=== PATIENT | male | born 1950 | race African-American/Black ===

== ENCOUNTER → 2020-06-20 09:59 | Outpatient (BNVA) | payer MEDICARE, MEDICAID, SELFPAY | PROVIDERS: PCP Internal Medicine; Visit Provider Urology | DX: N40.1 Benign prostatic hyperplasia with lower urinary tract symptoms (principal); R33.8 Other retention of urine | CPT/HCPCS: 51798; 99213 ==

== ENCOUNTER 2020-12-05 10:07 | Outpatient (REF) | payer MEDICARE, MEDICAID, SELFPAY ==
[2020-12-05 13:45] LABS: Urine Cytology See Pathology rpt
== END 2020-12-05 10:08 | disposition home or self-care (01) ==
LOC: HO.LNP 10:07
PROVIDERS: PCP Internal Medicine; Visit Provider Urology
DX: N40.1 Benign prostatic hyperplasia with lower urinary tract symptoms (principal); R33.8 Other retention of urine; R31.0 Gross hematuria
CPT/HCPCS: 51798; 81002; 88112; 88305; 99212

== ENCOUNTER → 2021-01-16 08:49 | Outpatient (BNVA) | payer MEDICARE, MEDICAID, SELFPAY | PROVIDERS: PCP Internal Medicine; Visit Provider Urology | DX: R33.9 Retention of urine, unspecified (principal); Z79.899 Other long term (current) drug therapy | CPT/HCPCS: 52000; 81002; 99212 ==

== ENCOUNTER → 2021-07-25 11:30 | Outpatient (BNVA) | payer MEDICARE, MEDICAID, SELFPAY | PROVIDERS: PCP Internal Medicine; Visit Provider Urology | DX: N40.1 Benign prostatic hyperplasia with lower urinary tract symptoms (principal); R33.8 Other retention of urine; E08.40 Diabetes mellitus due to underlying condition with diabetic neuropathy, unspecified | CPT/HCPCS: 51798; 99212 ==

== ENCOUNTER → 2022-02-03 08:42 | Outpatient (BNVA) | payer MEDICARE, MEDICAID, SELFPAY | PROVIDERS: PCP Internal Medicine; Visit Provider Urology | DX: N39.0 Urinary tract infection, site not specified (principal); R33.9 Retention of urine, unspecified; E08.40 Diabetes mellitus due to underlying condition with diabetic neuropathy, unspecified | CPT/HCPCS: 99212 ==

== ENCOUNTER 2022-08-11 11:31 | Outpatient (REF) | payer MEDICARE, MEDICAID, SELFPAY | END 2022-08-11 11:32 | disposition home or self-care (01) | LOC: HO.LAB 11:31 | PROVIDERS: PCP Internal Medicine; Visit Provider Urology | DX: N39.0 Urinary tract infection, site not specified (principal); N40.1 Benign prostatic hyperplasia with lower urinary tract symptoms; R33.8 Other retention of urine; E08.40 Diabetes mellitus due to underlying condition with diabetic neuropathy, unspecified; Z79.899 Other long term (current) drug therapy | CPT/HCPCS: 51798; 87086; 99212 ==

== ENCOUNTER 2022-12-16 12:56 | Emergency (ER) | payer MEDICARE, MEDICAID, SELFPAY ==
--- NOTE | ~2022-12-16 | US_ITS ---
EXAMINATION: US VENOUS ULTRASOUND WITH DOPPLER LOWER EXTREMITY, RIGHT CLINICAL INFORMATION: Swelling and rash COMPARISON: None available. TECHNIQUE: Ultrasound of the deep veins is performed from the hip to the calf with compression sonography and color and pulse Doppler assessment. Spectral analysis with color-flow imaging is performed. FINDINGS: There is normal venous compression and respiratory variation and augmented flow. The visualized common femoral vein, superficial femoral vein, profunda femoral vein, popliteal vein, and the trifurcation region shows no evidence of deep venous thrombosis. There is no significant popliteal fossa cyst. US/US venous duplex LE RT IMPRESSION: No DVT demonstrated in the right lower extremity.
[2022-12-16 13:02] VITALS: BP 140/90; PULSE 74; O2SAT 99
[2022-12-16 13:05] VITALS: BP 138/67; PULSE 72; RESP 18; TEMP 36.8; O2SAT 98; BMI 26.6
--- NOTE | 2022-12-16 13:14 | PC.NURSE ---
pt ambulated from [facility] to exam room stretcher with assist x1, pt changed into hospital attire, dry, flaking skin noted with circumferential redness bilateral calfs as well as left arm.
[2022-12-16 13:17] VITALS: BP 138/67; PULSE 72; RESP 18; TEMP 36.8; O2SAT 97
[2022-12-16 13:55] LABS: MANUAL DIFF FLAG NO
[2022-12-16 13:58] LABS: Basophils Absolute Auto 0.1 X10*3/uL (0.0-0.2); Basophils Percent Auto 0.6 % (0-2); Eosinophils Percent Auto 12.2 % (0-4); Hematocrit 40.4 % (42.0-52.0); Hemoglobin 13.6 g/dl (14.0-18.0); Imm Gran Abs Auto 0.02 X10*3/uL (0.00-0.03); Imm Gran Pct Auto 0.3 % (0.0-0.4); Lymphocytes Absolute Auto 1.3 X10*3/uL (1.2-4.9); Lymphocytes Percent Auto 16.4 % (20-40); Mean Corpuscular HGB Conc 33.7 g/dl (31.0-36.0); Mean Corpuscular Hemoglobin 29.4 pg (27.0-33.0); Mean Corpuscular Volume 87.3 fL (80.0-98.0); Mean Platelet Volume 8.9 fL (9.4-12.4); Monocytes Percent Auto 12.4 % (2-11); Neutrophils Absolute Auto 4.5 x10*3/uL (2.0-8.3); Neutrophils Percent Auto 58.1 % (45-73); Platelet Count 226 X10*3/uL (160-400); Red Blood Count 4.63 X10*6/uL (4.60-5.80); Red Cell Distribution Width 13.1 % (11.0-16.0); White Blood Count 7.8 X10*3/uL (4.8-10.8)
[2022-12-16 14:10] LABS: Anion Gap 11 (12-20); Blood Urea Nitrogen 11 mg/dL (9-16); Calcium 8.9 mg/dL (8.4-10.2); Carbon Dioxide 28 mmol/L (22-29); Chloride 107 mmol/L (96-108); Creatinine Clr Calc Pharmacy 78.9; Estimated Glomerular Filt Rate > 60; Glucose Random 92 mg/dL (60-115); Potassium 3.8 mmol/L (3.3-5.1); Sodium 142 mmol/L (135-145)
--- NOTE | 2022-12-16 14:56 | PC.NURSE ---
US DONE AT BEDSIDE- PT AWAITING RESULTS- NO APPARENT DISTRESS NOTED
--- NOTE | 2022-12-16 15:26 | ED.GENADULT ---
HPI - General Adult General Chief complaint: General Medical Stated complaint: Rash on leg since 12/05 per EMS Time Seen by Provider: 12/16/22 12:59 Source: patient, EMS, RN notes reviewed and old records reviewed Mode of arrival: EMS History of Present Illness HPI narrative: 72-year-old male with a past medical history of diabetes, hepatitis-C, HTN, HLD, schizophrenia, speech disturbance, TIA, presenting to the ED from assisted complaining of rash to bilateral lower extremities and left arm x 1 week. Reportedly rash scabbing over, weeping, and painful. Patient reports area intermittently bleeding. Denies injury/trauma or fall. Denies new exposures, SOB Onset (ago): week(s) Related Data Home Medications Medication Instructions Recorded Confirmed amlodipine 10 mg tablet 10 mg PO DAILY 06/20/20 08/11/22 aspirin 81 mg chewable tablet 1 tab PO DAILY 06/20/20 08/11/22 cholecalciferol (vitamin D3) 25 25 mcg PO DAILY 06/20/20 08/11/22 mcg (1,000 unit) tablet flu vacc [id number] 6mos up(PF) 60 ml IM 06/20/20 08/11/22 mcg(15 mcgx4)/0.5 mL IM syringe fluphenazine HCl 5 mg tablet 15 mg PO Q OTHER DAY PRN 06/20/20 08/11/22 ipratropium 20 mcg-albuterol 100 inhalation 06/20/20 08/11/22 mcg/actuation mist for inhalation ivermectin 3 mg tablet 0 mg PO 06/20/20 08/11/22 lisinopril 40 mg tablet 40 mg PO DAILY 06/20/20 08/11/22 metformin 500 mg tablet 0 mg PO 06/20/20 08/11/22 simvastatin 40 mg tablet 40 mg PO BEDTIME 06/20/20 08/11/22 trazodone 50 mg tablet 0 mg PO 06/20/20 08/11/22 blood sugar diagnostic #10 ea 01/16/21 08/11/22 insulin aspart U-100 100 unit/mL unit subcut 01/16/21 08/11/22 (3 mL) subcutaneous pen insulin lispro 100 unit/mL unit subcut 01/16/21 08/11/22 subcutaneous pen lancets 28 gauge #100 ea 01/16/21 08/11/22 pen needle, diabetic 32 gauge x #50 ea 01/16/21 08/11/22 latanoprost 0.005 % eye drops 0 drp ophthalmic (eye) 07/25/21 08/11/22 brinzolamide 1 %-brimonidine 0.2 % 0 drp ophthalmic (eye) 02/03/22 08/11/22 eye drops,suspension (Simbrinza) Previous Rx's Medication Instructions Recorded finasteride 5 mg tablet 5 mg PO DAILY 90 days #90 tabs 07/25/21 terazosin 10 mg capsule 10 mg PO BEDTIME 90 days #90 caps 07/25/21 bethanechol chloride 50 mg tablet 50 mg PO BID 90 days #180 tabs 08/11/22 ciprofloxacin HCl 250 mg tablet 250 mg PO BID UTI 5 days #10 tabs 08/13/22 cetirizine 10 mg capsule (Zyrtec) 10 mg PO DAILY PRN allergy 12/16/22 symptoms #14 caps diphenhydramine HCl 25 mg capsule 25 mg PO TID PRN itching #14 caps 12/16/22 (Benadryl) doxycycline hyclate 100 mg tablet 100 mg PO BID 7 days #14 tabs 12/16/22 hydrocortisone 1 % topical 1 appl topical BID PRN rash #453.6 12/16/22 ointment (Anti-Itch grams (hydrocortisone)) Allergies Allergy/AdvReac Type Severity Reaction Status Date / Time No Known Allergies Allergy Verified 12/16/22 13:05 [No Known Allergies*] Review of Systems Review of Systems: Constitutional: No Fever, No Chills ENT/Mouth: No Ear Pain, No Nasal Congestion, No sore throat, No Rhinorrhea, No Swallowing Difficulty Cardiovascular: No Chest Pain, No SOB, +RLE edema Respiratory: No Cough, No Sputum, No Wheezing Gastrointestinal: No Nausea, No Vomiting, No Diarrhea, No Constipation, No Abdominal pain Genitourinary: No Dysuria, No Urinary Frequency, No Hematuria, No Flank Pain Musculoskeletal: No joint pain, No Myalgias, + Joint Swelling Skin: + Skin Lesions, No rash Neuro: No Weakness, No Numbness, No Paresthesias Yes all other systems are reviewed and are negative Constitutional: Constitutional: Reports as per [facility] Past Medical History Attestation statement: The following information was validated with the patient. Medical History BPH loc w urin obs/LUTS Diabetes mellitus, type II Enlarged prostate Hepatitis C HTN (hypertension) Hyperlipidemia Positive PPD Schizophrenia Speech disturbance Transient ischemic attack (TIA) Vitamin D deficiency Surgical History History of surgery on arm Family History Family History Father No problems noted. Mother No problems noted. Social History Social History Advance Directives: No Advance Directives Information Provided: Yes Physical Exam ED Vital Signs: Vital Signs - 24 hr 12/16/22 13:05 12/16/22 13:17 12/16/22 16:00 Temperature 98.3 F 98.3 F 97.8 F Pulse Rate 72 72 68 Respiratory Rate 18 18 14 Blood Pressure 138/67 138/67 114/61 Pulse Oximetry 98 97 99 Oxygen Delivery Method Room Air Room Air Room Air BMI result Body Mass Index 26.6 Const General: cooperative, healthy appearing and no acute distress Orientation/consciousness: patient oriented x3 Limitations: no limitations HENMT Head: Yes normal to inspection and Yes atraumatic Ears: hearing grossly normal bilaterally General nose exam: Normal external nose present Face and sinus: Yes normal facial exam Eyes General: appearance normal, both eyes and all related structures EOM: EOMs intact bilaterally Neck Neck: Yes normal visual inspection and Yes no meningeal signs Resp Effort & Inspection: normal respiratory effort and no respiratory distress Cardio Rate: regular rate Peripheral pulses: Peripheral pulses 2+ throughout GI Inspection: Yes normal to inspection Palpation (GI): Soft to palpation, nontender, no guarding and not rigid Skin Wounds: no wounds Neuro General: patient oriented x3, tone normal and no meningeal signs Gait exam (Neuro): Normal gait present Extrem Other: Please refer to images above. + RLE swelling with scaly/crusted over rash as depicted above with underlying erythema. Scant weeping. No active drainage. No fluctuance/induration. No mucous membrane or palm/sole involvement Course Course Course Narrative: -1536--no leukocytosis. Labs otherwise reassuring US venous duplex LE RT IMPRESSION: No DVT demonstrated in the right lower extremity. >> will discharge patient home with p.o. doxycycline, topical hydrocortisone and dermatology follow-up Results discussed with patient including worrisome signs and symptoms and strict return precautions, and when to return to the emergency department. They verbalized understanding and feel safe for discharge at this time. Medical Decision Making Medical Decision Making MDM Narrative: 72-year-old male with a past medical history of diabetes, hepatitis-C, HTN, HLD, schizophrenia, speech disturbance, TIA, presenting to the ED from assisted complaining of rash to bilateral lower extremities and left arm x 1 week. On exam vital signs stable, NAD, nontoxic appearing, physical exam as noted above. Please refer to images. Concern for lichen planus vs eczema/psoriasis, with underlying cellulitis vs venous stasis changes with overlying excoriations. Rule out DVT. Low suspicion for PE Plan: Labs, ultrasound, re-evaluate Please refer to course for remaining clinical decision making, interpretation of labs/imaging results, and discussions with consultants and/or family members. Differential Diagnosis Differential Diagnoses: The differential diagnosis associated with the presentation includes As above Admission/Observation Consideration of admission/observation: Escalation of care including admission/observation considered Lab Data [facility] Lab Attestation statement: I reviewed the patient's lab results. 12/16/22 13:51 12/16/22 13:51 Labs: Lab Results 12/16/22 12/16/22 Range/Units 13:51 13:51 WBC 7.8 (4.8-10.8) X10*3/uL RBC 4.63 (4.60-5.80) X10*6/uL Hgb 13.6 L (14.0-18.0) g/dl Hct 40.4 L (42.0-52.0) % MCV 87.3 (80.0-98.0) fL MCH 29.4 (27.0-33.0) pg MCHC 33.7 (31.0-36.0) g/dl RDW 13.1 (11.0-16.0) % Plt Count 226 (160-400) X10*3/uL MPV 8.9 L (9.4-12.4) fL Immature Gran % (Auto) 0.3 (0.0-0.4) % Neut % (Auto) 58.1 (45-73) % Lymph % (Auto) 16.4 L (20-40) % [place] % (Auto) 12.4 H (2-11) % Eos % (Auto) 12.2 H (0-4) % Baso % (Auto) 0.6 (0-2) % Lymph # (Auto) 1.3 (1.2-4.9) X10*3/uL [place] # (Auto) 1.0 (0.1-1.2) X10*3/uL Eos # (Auto) 1.0 H (0.0-0.4) X10*3/uL Baso # (Auto) 0.1 (0.0-0.2) X10*3/uL Abs Immat Gran (auto) 0.02 (0.00-0.03) X10*3/uL Absolute Neuts (auto) 4.5 (2.0-8.3) x10*3/uL Absolute Nucleated RBC 0.000 (0.0-0.012) X10*3/uL Nucleated RBC % (auto) 0.0 (0.0-0.2) /100WBC Sodium 142 (135-145) mmol/L Potassium 3.8 (3.3-5.1) mmol/L Chloride 107 (96-108) mmol/L Carbon Dioxide 28 (22-29) mmol/L Anion Gap 11 L (12-20) BUN 11 (9-16) mg/dL Creatinine 0.86 (0.5-1.4) mg/dL Estim Creat Clear Calc 78.9 Estimated GFR > 60 Random Glucose 92 (60-115) mg/dL Calcium 8.9 (8.4-10.2) mg/dL Radiology Impression Discussion of test interpretation with radiology: I have reviewed the radiologist's reading. External Record Review External record reviewed: Inpatient record, Office record, Outpatient record, Prior outpatient labs, Prior outpatient radiology, Primary care record and Outside ED record Discharge Plan Discharge Clinical Impression: Dermatitis, Venous stasis dermatitis, Cellulitis Patient Disposition: Home, Self-Care Instructions: Cellulitis (DC), Dermatitis (ED) Additional Instructions: Your blood work was reassuring. your ultrasound was negative for a blood clot Your leg looks infected, doxycycline is an antibiotic please take as prescribed Additionally apply topical hydrocortisone which is a steroid cream. Benadryl and Zyrtec will help with itching, Benadryl will make you drowsy, take at night. You need to follow-up with dermatology If symptoms persist or worsen, swelling increases/persist he developed pus drainage or fever return to the ED Prescriptions: New hydrocortisone [Anti-Itch (HC)] 1 % ointment 1 appl topical BID PRN (Reason: rash) Qty: 453.6 0RF diphenhydramine HCl [Benadryl] 25 mg capsule 25 mg PO TID PRN (Reason: itching) Qty: 14 0RF Zyrtec 10 mg capsule 10 mg PO DAILY PRN (Reason: allergy symptoms) Qty: 14 0RF doxycycline hyclate 100 mg tablet 100 mg PO BID 7 Days Qty: 14 0RF No Action ciprofloxacin HCl 250 mg tablet 250 mg PO BID 5 Days Qty: 10 0RF latanoprost 0.005 % drops 0 drp ophthalmic (eye) terazosin 10 mg capsule 10 mg PO BEDTIME 90 Days Qty: 90 1RF finasteride 5 mg tablet 5 mg PO DAILY 90 Days Qty: 90 1RF Combivent Respimat 20-100 mcg/actuation mist inhalation Fluarix Quad [id number] (PF) 60 mcg (15 mcg x 4)/0.5 mL syringe IM cholecalciferol (vitamin D3) 25 mcg (1,000 unit) tablet 25 mcg PO DAILY fluphenazine HCl 5 mg tablet 15 mg PO Q OTHER DAY PRN aspirin 81 mg tablet,chewable 1 tab PO DAILY amlodipine 10 mg tablet 10 mg PO DAILY simvastatin 40 mg tablet 40 mg PO BEDTIME metformin 500 mg tablet 0 mg PO lisinopril 40 mg tablet 40 mg PO DAILY trazodone 50 mg tablet 0 mg PO ivermectin 3 mg tablet 0 mg PO (DME) pen needle, diabetic 32 gauge x 5/32 needle See Rx Instructions subcut DAILY Qty: 50 Rx Instructions: As directed (DME) FreeStyle Lite Strips Strip See Rx Instructions Not Applicable TID Qty: 10 Rx Instructions: As directed insulin lispro 100 unit/mL insulin pen subcut (DME) lancets 28 gauge misc See Rx Instructions topical TID Qty: 100 Rx Instructions: As directed insulin aspart U-100 100 unit/mL (3 mL) insulin pen subcut Simbrinza 1-0.2 % drops,suspension 0 drp ophthalmic (eye) bethanechol chloride 50 mg tablet 50 mg PO BID 90 Days Qty: 180 1RF Referrals: [facility] [Outside] [facility] [Outside] [facility] [Outside] [facility] [Outside] Interventions: ED Discharge Assessment Last Done: 12/16/22 17:20 Discharge Date/Time: 12/16/22 17:21
[2022-12-16 16:00] VITALS: BP 114/61; PULSE 68; RESP 14; TEMP 36.6; O2SAT 99
--- NOTE | 2022-12-16 16:12 | PC.NURSE ---
CALLED [facility] SPOKE WITH NURSE MALDONADO, ADVISED PLAN IS FOR ANTIBIOTICS AND DERMATOLOGY CONSULT- ADVISED ED SEC PT WILL NEED TRANSPORT VIA CHAIR CAR/AMBULANCE
== END 2022-12-16 17:21 | disposition home or self-care (01) ==
PROVIDERS: Physician Assistant; Emergency Provider Emergency Medicine
DX: I87.2 Venous insufficiency (chronic) (peripheral) (principal); L03.115 Cellulitis of right lower limb; R21 Rash and other nonspecific skin eruption; E11.9 Type 2 diabetes mellitus without complications; I10 Essential (primary) hypertension; E78.5 Hyperlipidemia, unspecified; B19.20 Unspecified viral hepatitis C without hepatic coma; F20.9 Schizophrenia, unspecified
CPT/HCPCS: 36415; 80048; 85025; 93971; 99283; 99284

== ENCOUNTER → 2023-02-11 10:34 | Outpatient (BNVA) | payer MEDICARE, MEDICAID, SELFPAY | PROVIDERS: Visit Provider Urology | DX: N40.1 Benign prostatic hyperplasia with lower urinary tract symptoms (principal); R33.8 Other retention of urine; E08.40 Diabetes mellitus due to underlying condition with diabetic neuropathy, unspecified | CPT/HCPCS: 51798; 99212 ==

== ENCOUNTER 2023-09-28 09:57 | Outpatient (AMB) | payer MEDICARE, MEDICAID, SELFPAY ==
--- NOTE | 2023-09-28 10:18 | A.OFFVIS_ITS ---
Intake Intake Visit Reasons: 6m/PVR Intake Note: Patient presents today for a follow up: PVR Blood thinners: Aspirin Allergies to antibiotics: None PVR: 466 Director Of Strategic Initiatives Required: No Accompanied by: Employer Allergies No Known Allergies [No Known Allergies*] Allergy (Verified 02/11/23 10:47) HPI HPI Comments History of Present Illness Details Shine is a pleasant male. Lives in an assisted care facility. He is a patient of Dr Gibson. He is seen for the following urologic conditions - lower urinary tract symptoms - incomplete bladder emptying PVR 400cc Optimized on combination finasteride and terazosin 10 mg for his prostate Continue with bethanechol Recommend use of briefs if incontinent and timed voiding q.4 hr Refilled medication May benefit from InterStim for bladder performance Six-month follow-up PVR Lower urinary tract symptoms Urinary retention History of schizophrenia with long-term medications Cystoscopy with large bladder Has been on combination therapy with alpha-brandon and finasteride for number of years PVR runs high 250-300 range Hematuria Single episode 12/25 Cystoscopy normal PFSH Medical History Speech disturbance Positive PPD Hepatitis C Transient ischemic attack (TIA) BPH loc w urin obs/LUTS Vitamin D deficiency Schizophrenia Diabetes mellitus, type II Hyperlipidemia HTN (hypertension) Enlarged prostate Surgical History History of surgery on arm Family History Father No problems noted. Mother No problems noted. Review of Systems Const Denies chills and Denies fever(s) Card Reports no additional complaints and Denies syncope Resp Denies cough GI Denies abdominal pain and Denies heartburn Reports as per HPI and Denies change in libido Neuro Denies syncope Psych Denies change in libido Endo Denies change in libido Physical Exam Const General: cooperative, healthy appearing, comfortable and no acute distress Orientation/consciousness: patient oriented x3 HEENT Face and sinus: Yes normal facial exam Mouth: moist mucous membranes Neck Neck: Yes normal visual inspection, Yes full ROM and Yes trachea midline Chest Chest palpation & inspection: normal inspection of the chest Resp Effort & Inspection: normal respiratory effort, able to speak in complete sentences and no respiratory distress GI Inspection: Yes normal to inspection Back/Spine/Pelvis Cervical Spine: normal cervical lordosis Thoracic/Lumbar Spine: thoracic and lumbar spine normal to inspection Skin General skin exam: no rashes or lesions noted Neuro General: patient oriented x3, gait normal, tone normal and moves all extremities Extrem General: Yes normal to inspection and Yes capillary refill normal Office Procedures Post Void Residual Post Residual Void Post Void Residual (PVR): 466 [id number] Void Residual by ultrasound Assessment & Plan Assessment & Plan (1) Urinary retention due to benign prostatic hyperplasia: Code(s): N40.1 - Benign prostatic hyperplasia with lower urinary tract symptoms; R33.8 - Other retention of urine (2) Diabetic neuropathy associated with diabetes mellitus due to underlying condition: Code(s): E08.40 - Diabetes mellitus due to underlying condition with diabetic neuropathy, unspecified (3) BPH loc w urin obs/LUTS: Code(s): N40.1 - Benign prostatic hyperplasia with lower urinary tract symptoms Plan Continue medications Six-month follow-up Orders: Orders AMB Post Void Residual by ultrasound 09/28/23 R33.9 - Retention of urine, unspecified Medications: Refilled bethanechol chloride 50 mg PO BID 180 tabs 1RF 90 days R33.9 - Retention of urine, unspecified finasteride 5 mg PO DAILY 90 tabs 1RF 90 days R33.9 - Retention of urine, unsp ecified, N40.1 - Benign prostatic hyperplasia with lower urinary tract symptoms, N13.8 - Other obstructive and reflux uropathy terazosin 10 mg PO BEDTIME 90 caps 1RF 90 days R33.9 - Retention of urine, unspecified, N40.0 - Benign prostatic hyperplasia without lower urinary tract symptoms, N40.1 - Benign prostatic hyperplasia with lower urinary tract symptoms, N13.8 - Other obstructive and reflux uropathy Patient Instructions: Imaging studies, laboratory and physical exam results were discussed and reviewed in detail. No major barriers to patient understanding were identified. An opportunity to ask questions regarding the treatment plan was provided. All questions were answered. The patient expressed understanding and agreement with the above treatment plan. The patient is aware they should contact our office by phone for worsening of their current condition or the appearance of new urologic symptoms. Compliance is encouraged with any medications and followup testing that is ordered. It is a privilege to participate in the urologic care of your patient. If you have any questions or concerns regarding treatment for the above conditions, or other urologic issues, please do not hesitate to contact me. The office telephone contact is [phone]. This note is constructed using voice recognition software. While every effort has been made to ensure accuracy farm field manager errors may have been included. Yours sincerely, Dr Shad Delacruz MD, [facility] - Urology Providers of Expert, Compassionate Care for the Genitourinary System Coding Level of Care Code Est Pt Level 3 (37170) Diagnoses Urinary retention due to benign prostatic hyperplasia N40.1; R33.8 Diabetic neuropathy associated with diabetes mellitus due to underlying condition E08.40 BPH loc w urin obs/LUTS N40.1 CPT Codes Post Residual Void - PVR CPT Code: 97792-Aoru Void Residual by ultrasound ([id number])
== END 2023-09-28 10:54 | disposition home or self-care (01) ==
LOC: HO.HUSH 09:57
PROVIDERS: PCP Nurse Practitioner Adult Health; Visit Provider Urology
DX: N40.1 Benign prostatic hyperplasia with lower urinary tract symptoms (principal); R33.8 Other retention of urine; E08.40 Diabetes mellitus due to underlying condition with diabetic neuropathy, unspecified
CPT/HCPCS: 99213

== ENCOUNTER → 2023-09-28 09:57 | Outpatient (BNVA) | payer MEDICARE, MEDICAID, SELFPAY | PROVIDERS: PCP Nurse Practitioner Adult Health; Visit Provider Urology | DX: N40.1 Benign prostatic hyperplasia with lower urinary tract symptoms (principal); N13.8 Other obstructive and reflux uropathy; R33.8 Other retention of urine; E08.40 Diabetes mellitus due to underlying condition with diabetic neuropathy, unspecified | CPT/HCPCS: 51798; 99212 ==

== ENCOUNTER 2024-03-29 10:39 | Outpatient (AMB) | payer MEDICARE, MEDICAID, SELFPAY ==
--- NOTE | 2024-03-29 10:47 | A.OFFVIS_ITS ---
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 Lives in an assisted care facility. He is a patient of Dr Gibson. He is seen for the following urologic conditions - lower urinary tract symptoms - incomplete bladder emptying UA today positive for blood and leukocytes. Suggestive inflammation. Will send for cytology. PVR 0 cc, last PVR 400 cc Optimized on combination finasteride and terazosin 10 mg for his prostate Continue with bethanechol Recommend use of briefs if incontinent and timed voiding q.4 hr Refilled medication Continue 6 month review for PVR May benefit from InterStim for bladder performance - if high PVRs continue Lower urinary tract symptoms Urinary retention History of schizophrenia with long-term medications Cystoscopy with large bladder Has been on combination therapy with alpha-brandon and finasteride for number of years PVR runs high 250-300 range Hematuria Single episode 12/25 Cystoscopy normal PFSH Medical History Speech disturbance Positive PPD Hepatitis C Transient ischemic attack (TIA) BPH loc w urin obs/LUTS Vitamin D deficiency Schizophrenia Diabetes mellitus, type II Hyperlipidemia HTN (hypertension) Enlarged prostate Surgical History History of surgery on arm Family History Father No problems noted. Mother No problems noted. Review of Systems Const Denies chills and Denies fever(s) Card Reports no additional complaints and Denies syncope Resp Denies cough GI Denies abdominal pain and Denies heartburn Reports as per HPI and Denies change in libido Neuro Denies syncope Psych Denies change in libido Endo Denies change in libido Physical Exam Const General: cooperative, healthy appearing, comfortable and no acute distress Orientation/consciousness: patient oriented x3 HEENT Face and sinus: Yes normal facial exam Mouth: moist mucous membranes Neck Neck: Yes normal visual inspection, Yes full ROM and Yes trachea midline Chest Chest palpation & inspection: normal inspection of the chest Resp Effort & Inspection: normal respiratory effort, able to speak in complete sentences and no respiratory distress GI Inspection: Yes normal to inspection Back/Spine/Pelvis Cervical Spine: normal cervical lordosis Thoracic/Lumbar Spine: thoracic and lumbar spine normal to inspection Skin General skin exam: no rashes or lesions noted Neuro General: patient oriented x3, gait normal, tone normal and moves all extremities Extrem General: Yes normal to inspection and Yes capillary refill normal Results AMB Urinalysis, Automated UA Leukoctes 500 Flavio/uL Last Edit by LINDA Reyes on 03/29/24 11:01 UA Nitrite Negative Last Edit by LINDA Reyes on 03/29/24 11:01 UA Urobilinogen 0.2 mg/dL Last Edit by LINDA Reyes on 03/29/24 11:0 1 UA Protein 100 mg/dL Last Edit by LINDA Reyes on 03/29/24 11:01 UA pH 6.5 Last Edit by LINDA Reyes on 03/29/24 11:01 UA Blood 200 Vicente/uL Last Edit by LINDA Reyes on 03/29/24 11:01 UA Specific [place] 1.015 Last Edit by LINDA Reyes on 03/29/24 11: 01 UA Ketone Negative Last Edit by LINDA Reyes on 03/29/24 11:01 UA Bilirubin 0 mg/dL Last Edit by LINDA Reyes on 03/29/24 11:01 UA Glucose 0 mg/dL Last Edit by LINDA Reyes on 03/29/24 11:01 Results Reviewed Results Reviewed: Laboratory Last Values Urine pH (Auto) 6.5 03/29/24 11:00 Specific [place] (Auto) 1.015 03/29/24 11:00 Urine Protein (Auto) 100 mg/dL 03/29/24 11:00 Glucose (UA)(Auto) 0 mg/dL 03/29/24 11:00 Urine Ketones (Auto) Negative 03/29/24 11:00 Urine Blood (Auto) 200 Vicente/uL 03/29/24 11:00 Urine Nitrite (Auto) Negative 03/29/24 11:00 Urine Bilirubin (Auto) 0 mg/dL 03/29/24 11:00 Urine Urobilinogen (Auto) 0.2 mg/dL 03/29/24 11:00 Leukocyte Esterase (Auto) 500 Flavio/uL 03/29/24 11:00 Assessment & Plan Assessment & Plan (1) BPH loc w urin obs/LUTS: Code(s): N40.1 - Benign prostatic hyperplasia with lower urinary tract symptoms Category: Medical Plan Cytology Continue medications Orders: Orders PSA,Total (Free>4and<10) 03/17/24 N40.1 - Benign prostatic hyperplasia with lower urinary tract symptoms Urine Cytology Today N39.0 - Urinary tract infection, site not specified AMB Urinalysis Automated Today Z13.9 - Encounter for screening, unspecified Medications: Refilled finasteride 5 mg PO DAILY 90 days 90 tabs 1RF N13.8 - Other obstructive and reflux uropathy, N40.1 - Benign prostatic hyperplasia with lower urinary tract symptoms, R33.9 - Retention of urine, unspecified terazosin 10 mg PO BEDTIME 90 days 90 caps 1RF N13.8 - Other obstructive and reflux uropathy, N40.0 - Benign prostatic hyperplasia without lower urinary tract symptoms, N40.1 - Benign prostatic hyperplasia with lower urinary tract symptoms, R33.9 - Retention of urine, unspecified bethanechol chloride 50 mg PO BID 90 days 180 tabs 1RF R33.9 - Retention of urine, unspecified Patient Instructions: Imaging studies, laboratory and physical exam results were discussed and reviewed in detail. No major barriers to patient understanding were identified. An opportunity to ask questions regarding the treatment plan was provided. All questions were answered. The patient expressed understanding and agreement with the above treatment plan. The patient is aware they should contact our office by phone for worsening of their current condition or the appearance of new urologic symptoms. Compliance is encouraged with any medications and followup testing that is ordered. It is a privilege to participate in the urologic care of your patient. If you have any questions or concerns regarding treatment for the above conditions, or other urologic issues, please do not hesitate to contact me. The office telephone contact is [phone]. This note is constructed using voice recognition software. While every effort has been made to ensure accuracy graphic pre press trades worker errors may have been included. Yours sincerely, Dr Shad Delacruz MD, [facility] - Urology Providers of Expert, Compassionate Care for the Genitourinary System Coding Level of Care Code Est Pt Level 3 (91800) Diagnoses BPH loc w urin obs/LUTS N40.1
== END 2024-03-29 11:08 | disposition home or self-care (01) ==
LOC: HO.HUSH 10:39
PROVIDERS: PCP Nurse Practitioner Adult Health; Visit Provider Urology
DX: Z13.9 Encounter for screening, unspecified (principal); N40.1 Benign prostatic hyperplasia with lower urinary tract symptoms
CPT/HCPCS: 99213

== ENCOUNTER 2024-03-29 10:39 | Outpatient (REF) | payer MEDICARE, MEDICAID, SELFPAY ==
[2024-03-29 17:06] LABS: Urine Cytology See Pathology rpt
== END 2024-03-29 10:40 | disposition home or self-care (01) ==
LOC: HO.LNP 10:39
PROVIDERS: PCP Nurse Practitioner Adult Health; Visit Provider Urology
DX: N39.0 Urinary tract infection, site not specified (principal); N40.1 Benign prostatic hyperplasia with lower urinary tract symptoms
CPT/HCPCS: 81003; 88112; 99212

== ENCOUNTER 2024-11-23 10:17 | Outpatient (REF) | payer MEDICARE, MEDICAID, SELFPAY ==
--- NOTE | ~2024-11-23 | US_ITS ---
CLINICAL HISTORY: Urinary incontinences US Urinary Bladder Comparison: None Findings: There are urinary bladder diverticula and heterogeneous appearance of the bladder, possible nonspecific debris. Correlate for cystitis or hematuria. Prevoid volume: 320 mLPostvoid volume: 270 mL Ureteral jets are visualized bilaterally. IMPRESSION: Large postvoid residual This document has been electronically signed by: Blue Patrick MD on 11/24/2024 08:38:00
--- OUTSIDE RECORDS SUMMARY | 2024-11-23 11:40 | XMS_ITS | Clinical Summary ---
Author Organization [address] Address [address] [place] [phone] Phone Care Team Providers Care Showroom Sales Consultant Name Role Phone Ramone Gibson MD Primary Care Provider [phone] Allergies No known active allergies Medications amLODIPine (NORVASC) 10 mg tablet Take 1 tablet (10 mg total) by mouth 1 (one) time each day. Active aspirin 81 mg EC tablet Take 1 tablet (81 mg total) by mouth 1 (one) time each day. Active finasteride (PROSCAR) 5 mg tablet Take 1 tablet (5 mg total) by mouth 1 (one) time each day. Do not crush, chew, or split. Active ergocalciferol (VITAMIN D-2) 1,250 mcg (50,000 unit) capsule Take 1 capsule (50,000 Units total) by mouth every 30 (thirty) days. Active simvastatin (ZOCOR) 40 mg tablet Take 1 tablet (40 mg total) by mouth at bedtime. Active traZODone (DESYREL) 50 mg tablet Take 1 tablet (50 mg total) by mouth at bedtime. Active ipratropium-alb uteroL (COMBIVENT RESPIMAT) 20-100 mcg/actuation inhaler Inhale 1 puff by mouth 4 (four) times a day. Active latanoprost (XALATAN) 0.005 % ophthalmic solution 1 drop at bedtime. Active terazosin (HYTRIN) 10 mg capsule Take 1 capsule (10 mg total) by mouth at bedtime. Active metFORMIN (GLUCOPHAGE) 1,000 mg tablet Take 1 tablet (1,000 mg total) by mouth 2 (two) times a day with meals. Active SITagliptin phosphate (JANUVIA) 100 mg tablet Take 1 tablet (100 mg total) by mouth 1 (one) time each day. Active betamethasone, augmented, (DIPROLENE-AF) 0.05 % cream Apply topically 2 (two) times a day. Active Encounters Date Type Department Care Team Description 11/21/2024 Lab Requisition [facility] - Main Lab [address] [facility] [place] [id number] Ramone Gibson MD Chronic kidney disease, unspecified; Essential (primary) hypertension; Proteinuria, unspecified 11/09/2024 1:21 PM EST - 11/09/2024 11:59 PM EST Hospital Encounter [facility] CT Scan [address] [place] [phone] Encounter for screening for malignant neoplasm of respiratory organs; Nicotine dependence, cigarettes, uncomplicated Discharge Disposition: Home or Self Care 11/09/2024 10:30 AM EST Office Visit Lung Screening Program - [address] [phone] Nirali Timmons PA Encounter for screening for malignant neoplasm of lung in current smoker with 30 pack year history or greater (Primary Dx) 09/15/2024 Telephone Lung Screening Program - [address] [phone] Bee Tilley [place] Appointment from Last 3 Months Medical History Medical History Date Comments Essential hypertension Hypotension Chronic hepatitis C without hepatic coma (CMS/HC C) Type 2 diabetes mellitus with other circulatory complications (CMS/HCC) Schizophrenia, unspecified type (CMS/HCC) Late effects of cerebrovascular accident 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 Hyperlipidemia History of TIA (transient ischemic attack) Social History Tobacco Use Types Packs/Day Years Used Date Smoking Tobacco: Every Day Cigarettes 0.5 53.2 Started: 1971 Tobacco Cessation:Ready to Q uit: Not Asked; Counseling Given: Not Answered Alcohol Use Standard Drinks/Week Comments Not Currently 0 (1 standard drink = 0.6 oz pur e alcohol) Quit Sex and Gender Information Value Date Recorded Sex Assigned at Not on file Legal Sex Male 12:00 AM EST Gender Identity Not on file Sexual Orientation Not on file Obstetrics History Plan of Treatment Health Maintenance Due Date Last Done Comments Diabetes: Annual Foot Exam 1959 Diabetes: Annual Retina Eye Exam 1959 Zoster Vaccines (1 of 2) 1999 Hepatitis A Vaccines (3 of 3 - Hep A Twinrix risk 3-dose series) 08/06/2002 03/06/2002, 09/28/2001 Hepatitis B Vaccines (1 of 3 - Risk 3-dose series) 2009 Pneumococcal Vaccine: 50+ Years (2 of 2 - PPSV23) 10/23/2019 08/28/2019, 08/25/2008, 07/07/2008, Additional history exists DTaP,Tdap,and Td Vaccines (3 - Td or Tdap) 02/16/2021 02/16/2011, 01/03/1999 Abdominal Aortic Aneurysm (AAA) Screen 08/09/2022 Cholesterol Screening (Lipid Panel) 08/09/2022 Colorectal Cancer Screening: Colonoscopy 08/09/2022 Depression Screening 08/09/2022 Falls Risk Assessment 08/09/2022 Hepatitis C Screening 08/09/2022 Medicare Annual Wellness Visit 08/09/2022 Social Influencers of Health Screening 08/09/2022 RSV Immunization Patients 60+ Years Old (1 - 1-dose 75+ series) 2024 Diabetes: Blood Sugar Control Test (HGBA1C) 02/06/2025 08/08/2024 Diabetes: Annual Urine Albumin-Creatinine Ratio (uACR) 08/08/2025 08/08/2024 Lung Cancer Screening (Low Dose CT) 11/09/2025 11/09/2024 Diabetes: Annual GFR (Glomerular Filtration Rate) 11/21/2025 11/21/2024, 08/08/2024 Hypertension/CHF/CAD Annual BMP Blood Test 11/21/2025 11/21/2024, 08/08/2024 COVID-19 Vaccine Completed 06/14/2024, , 01/07/2022, Additional history exists Influenza Vaccine Completed 06/14/2024, , 06/06/2023, Additional history exists HIB Vaccines Aged Out No longer eligi ble based on patient's age to complete this topic HPV Vaccines Aged Out No longer eligi ble based on patient's age to complete this topic IPV Vaccines Aged Out No longer eligi ble based on patient's age to complete this topic MMR Vaccines Aged Out No longer eligi ble based on patient's age to complete this topic Meningococcal ACWY Vaccine Aged Out N o longer eligible based on patient's age to complete this topic Meningococcal B Vacine Aged Out No lo nger eligible based on patient's age to complete this topic RSV Immunization Patients Under 20 months Aged Out No longer eligible based on patient's age to complete this topic Varicella Vaccines Aged Out No longer eligible based on patient's age to complete this topic Procedures Procedure Name Priority Date/Time Associated Diagnosis Comments RENAL FUNCTION PANEL Routine 11/21/2024 7:57 AM EDT Chronic kidney disease, unspecified Essential (primary) hypertension Proteinuria, unspecified CT LUNG SCREENING Routine 11/09/2024 1:4 8 PM EST Encounter for screening for malignant neoplasm of respiratory organs Nicotine dependence, cigarettes, uncomplicated HEMOGLOBIN A1C Routine 08/08/2024 7:22 AM EST Vitamin D deficiency, unspecified Chronic kidney disease, unspecified Essential (primary) hypertension Type 2 diabetes mellitus without complications ([facility]/HCC) MICROALBUMIN CREATININE URINE RATIO Routine 08/08/2024 12:00 AM EST Other abnormal findings on microbiological examination of urine Chronic kidney disease, unspecified Essential (primary) hypertension from Last 3 Months or Most Recently Relevant to Health Maintenance Results * Renal function panel (11/21/2024 7:57 AM EDT) Sodium 138 133 - 145 mmol/L LAB CHEMISTRY METHOD 11/21/2024 12:19 PM EDT [facility] Potassium 4.6 3.5 - 5.5 mmol/L LAB CHEMISTRY METHOD 11/21/2024 12:19 PM T [facility] Chloride 105 96 - 110 mmol/L LAB CHEMISTRY METHOD 11/21/2024 12:19 PM [facility] CO2 30 21 - 32 mmol/L LAB [facility]STR[facility] Anion Gap 3 3 - 11 LAB CHEMISTRY METHOD 11/21/2024 12:19 PM [facility] Glucose 75 70 - 100 mg/dL LAB CHEMISTRY METHOD 11/21/2024 12:19 PM [facility] BUN 11 5 - 25 mg/dL LAB CHEMISTRY METHOD 11/21/2024 12:19 PM [facility] Creatinine 0.92 0.70 - 1.30 mg/dL LAB CHEMISTRY METHOD 11/21/2024 12:19 PM [facility] eGFR 87 >=60 mL/min/1. 73m2 LAB CHEMISTRY METHOD 11/21/2024 12:19 PM [facility] Comment:Calculation based on the??Chronic Kidney Disease Epidemiology Collaboration (CKD-EPI) equation refit??without adjustment for race. BUN/Creatinine Ratio 12.0 LAB CHEMISTRY METHOD 11/21/2024 12:19 PM [facility] Albumin 3.7 3.2 - 5.0 g/dL LAB CHEMISTRY METHOD 11/21/2024 12:19 PM [facility] Calcium 9.3 8.5 - 10.5 mg/dL LAB CHEMISTRY METHOD 11/21/2024 12:19 PM [facility] Phosphorus 3.7 2.5 - 4.5 mg/dL LAB CHEMISTRY METHOD 11/21/2024 12:19 PM [facility] Blood Venous blood specimen / Unknown Venipuncture / Unknown 11/21/2024 7:57 AM EDT 11/21/2024 11:04 AM EDT us Ramone Gibson MD LAB BLOOD ORDERABLES Final Result [facility] [address] [place] [address], * CT Lung Screening (11/09/2024 1:48 PM EST) Anatomical Region Laterality Modality Chest Computed Tomogra phy 11/13/2024 3:49 PM EDT Impressions 11/13/2024 3:52 PM EDT No suspicious pulmonary nodule. ASSESSMENT: LungRADS Category1: Negative - Continue annual screening with LDCT in 12 months Please see below for additional details of LungRADS Algorithm. Complete Lung RADS description including probabilities of malignancy and prevalence can be found at: http://www.acr.org/Quality-Safety/Resources/LungRADS LungRADS Version 1.0 Assessment Categories Release date: January 01, 2014 Category 0: Incomplete - Additional lung cancer screening CT images and/or comparison with prior CT is needed. - Prior chest CT(s) being located for comparison. - Part or all of the lungs cannot be evaluated. Category 1: Negative - Continue annual screening with LDCT in 12 months - No lung nodules - Nodule(s) with specific calcifications (complete, central, popcorn, concentric rings) and fat containing nodules Category 2: Benign Appearance/Behavior - Continue annual screening with LDCT in 12 months - Solid nodule < 6 mm or new solid nodule < 4 mm. - Part solid nodule(s) < 6 mm total diameter on baseline screening. - Ground glass nodule < 20 mm or ? 20 mm and unchanged or slowly growing. - Category 3 or 4 nodules unchanged for at least 3 months. Category 3: Probably Benign - 6 month LDCT - Solid nodule(s) ? 6 to < 8 mm at baseline OR new 4 mm to < 6 mm. - Part solid nodule(s) ? 6 mm total diameter with solid component < 6 mm OR new < 6 mm total diameter. - Ground glass nodule ? [address] or new. Category 4A: Suspicious - 3 month LDCT; PET/CT may be used when there is ? 8 mm solid component - Solid nodule(s) ? 8 to < 15 mm at baseline OR growing < 8 mm OR new 6 to < 8 mm. - Part solid nodule(s) ? 6 mm with solid component ? 6 mm to < 8 mm OR with a new or growing < 4 mm solid component. - Endobronchial nodule. Category 4B: Suspicious - Chest CT with or without contrast, PET/CT and/or tissue sampling depending on the probability of malignancy and comorbidities. PET/CT may be used when there is a ? 8 mm solid component. - Solid nodule(s) ? 15 mm OR new or growing and ? 8 mm - Part solid nodule(s) with a solid component ? 8 mm OR a new or growing ? 4 mm solid component Category 4X: Suspicious - Chest CT with or without contrast, PET/CT and/or tissue sampling depending on the probability of malignancy and comorbidities. PET/CT may be used when there is a ? 8 mm solid component. - Category 3 or 4 nodules with additional features or imaging findings that increases the suspicion of malignancy. Category S: Clinically Significant or Potentially Clinically Significant Findings (non lung cancer) Category C: Modifier for patients with a prior diagnosis of lung cancer who return to screening NOTES: 1) Negative screen: does not mean that an individual does not have lung cancer. 2) Size: nodules should be measured on lung windows and reported as the average diameter rounded to the nearest whole number; for round nodules only a single diameter measurement is necessary. 3) Size Thresholds: apply to nodules at first detection, and that grow and reach a higher size category. 4) Growth: an increase in size of > 1.5 mm. 5) Exam Category: each exam should be coded 0-4 based on the nodule(s). 6) Exam Modifiers: S and C modifiers may be added to the 0-4 category. 7) Lung Cancer Diagnosis: Once a patient is diagnosed with lung cancer, further management (including additional imaging such as PET/CT) may be performed for purposes of lung cancer staging; this is no longer screening. 8) Practice audit definitions: a negative screen is defined as categories 1 and 2; a positive screen is defined as categories 3 and 4. 10) Category 4X: nodules with additional imaging findings that increase the suspicion of lung cancer, such as spiculation, GGN that doubles in size in 1 year, enlarged lymph nodes etc. 11) Nodules with features of an intrapulmonary lymph node should be managed by mean diameter and the 0-4 numerical category classification. 12) Category 3 and 4A nodules that are unchanged on interval CT should be coded as category 2, and individuals returned to screening in 12 months. 13) LDCT = low dose chest CT. -------- FINAL REPORT -------- Dictated By: Kristopher Mcgowan Dictated Date: 11/13/2024 15:49 ET Assigned Physician: Kristopher Mcgowan Reviewed and Electronically Signed By: Kristopher Mcgowan Signed Date: 11/13/2024 15:52 ET Workstation ID: [id number] Transcribed By: Self Edit Transcribed Date: 11/13/2024 15:49 ET Narrative 11/13/2024 3:52 PM EDT History: ??74 year-old 35 pack-year current smoker, asymptomatic, for lung cancer screening. Comparison: Technique: Helical volumetric imaging of the thorax was performed, using low- dose technique, without IV contrast. DLP: 162 mGy/cm CT dose reduction technique utilized with one or more of the following: Automated exposure control and/or adjustment of the mA and/or kV according to patient size and/or use of iterative reconstruction technique. Findings: Lungs: No evidence of focal pulmonary airspace disease Pleura: There are no pleural effusions. ??No calcified or noncalcified pleural plaques. Heart/Aorta: Coronary artery calcifications. ??No pericardial effusion. Esophagus: The esophagus is not significantly thickened or dilated. ?? Lymph Nodes:There are no enlarged thoracic lymph nodes. ?? Upper Abdomen: This study was performed without contrast and with lower than standard dose. These factors reduce the sensitivity for detection of small lesions in the upper abdomen. No significant abnormality. Osseous Structures: No suspicious osseous abnormalities. ??Gynecomastia. Procedure Note Kristopher Mcgowan MD - 11/13/2024 History: 74 year-old 35 pack-year current smoker, asymptomatic, for lungcancer screening. Comparison: Technique: Helical volumetric imaging of the thorax was performed, usinglow-dose technique, without IV contrast. DLP: 162 mGy/cm CT dose reduction technique utilized with one or more of the following:Automated exposure control and/or adjustment of the mA and/or kV accordingto patient size and/or use of iterative reconstruction technique. Findings: Lungs: No evidence of focal pulmonary airspace disease Pleura: There are no pleural effusions. No calcified or noncalcifiedpleural plaques. Heart/Aorta: Coronary artery calcifications. No pericardial effusion. Esophagus: The esophagus is not significantly thickened or dilated. Lymph Nodes:There are no enlarged thoracic lymph nodes. Upper Abdomen: This study was performed without contrast and with lowerthan standard dose. These factors reduce the sensitivity for detection ofsmall lesions in the upper abdomen. No significant abnormality. Osseous Structures: No suspicious osseous abnormalities. Gynecomastia. IMPRESSION: No suspicious pulmonary nodule. ASSESSMENT: LungRADS Category1: Negative - Continue annual screening with LDCT in 12months Please see below for additional details of LungRADS Algorithm. CompleteLung RADS description including probabilities of malignancy and prevalencecan be found at: http://www.acr.org/Quality-Safety/Resources/LungRADS LungRADS Version 1.0 Assessment Categories Release date: January 01, 2014 Category 0: Incomplete - Additional lung cancer screening CT images and/orcomparison with prior CT is needed. - Prior chest CT(s) being located for comparison. - Part or all of the lungs cannot be evaluated. Category 1: Negative - Continue annual screening with LDCT in 12 months - No lung nodules - Nodule(s) with specific calcifications (complete, central, popcorn,concentric rings) and fat containing nodules Category 2: Benign Appearance/Behavior - Continue annual screening withLDCT in 12 months - Solid nodule < 6 mm or new solid nodule < 4 mm. - Part solid nodule(s) < 6 mm total diameter on baseline screening. - Ground glass nodule < 20 mm or ? 20 mm and unchanged or slowlygrowing. - Category 3 or 4 nodules unchanged for at least 3 months. Category 3: Probably Benign - 6 month LDCT - Solid nodule(s) ? 6 to < 8 mm at baseline OR new 4 mm to < 6 mm. - Part solid nodule(s) ? 6 mm total diameter with solid component < 6 mmOR new < 6 mm total diameter. - Ground glass nodule ? [address] or new. Category 4A: Suspicious - 3 month LDCT; PET/CT may be used when there is ?8 mm solid component - Solid nodule(s) ? 8 to < 15 mm at baseline OR growing < 8 mm OR new 6 to< 8 mm. - Part solid nodule(s) ? 6 mm with solid component ? 6 mm to < 8 mm ORwith a new or growing < 4 mm solid component. - Endobronchial nodule. Category 4B: Suspicious - Chest CT with or without contrast, PET/CT and/ortissue sampling depending on the probability of malignancy andcomorbidities. PET/CT may be used when there is a ? 8 mm solidcomponent. - Solid nodule(s) ? 15 mm OR new or growing and ? 8 mm - Part solid nodule(s) with a solid component ? 8 mm OR a new or growing ?4 mm solid component Category 4X: Suspicious - Chest CT with or without contrast, PET/CT and/ortissue sampling depending on the probability of malignancy andcomorbidities. PET/CT may be used when there is a ? 8 mm solidcomponent. - Category 3 or 4 nodules with additional features or imaging findingsthat increases the suspicion of malignancy. Category S: Clinically Significant or Potentially Clinically SignificantFindings (non lung cancer) Category C: Modifier for patients with a prior diagnosis of lung cancerwho return to screening NOTES: 1) Negative screen: does not mean that an individual does not have lungcancer. 2) Size: nodules should be measured on lung windows and reported as theaverage diameter rounded to the nearest whole number; for round nodulesonly a single diameter measurement is necessary. 3) Size Thresholds: apply to nodules at first detection, and that grow andreach a higher size category. 4) Growth: an increase in size of > 1.5 mm. 5) Exam Category: each exam should be coded 0-4 based on the nodule(s). 6) Exam Modifiers: S and C modifiers may be added to the 0-4 category. 7) Lung Cancer Diagnosis: Once a patient is diagnosed with lung cancer,further management (including additional imaging such as PET/CT) may beperformed for purposes of lung cancer staging; this is no longerscreening. 8) Practice audit definitions: a negative screen is defined as categories1 and 2; a positive screen is defined as categories 3 and 4. 10) Category 4X: nodules with additional imaging findings that increasethe suspicion of lung cancer, such as spiculation, GGN that doubles insize in 1 year, enlarged lymph nodes etc. 11) Nodules with features of an intrapulmonary lymph node should bemanaged by mean diameter and the 0-4 numerical category classification. 12) Category 3 and 4A nodules that are unchanged on interval CT should becoded as category 2, and individuals returned to screening in 12 months. 13) LDCT = low dose chest CT. -------- FINAL REPORT -------- Dictated By: Kristopher Mcgowan Dictated Date: 11/13/2024 15:49 ET Assigned Physician: Kristopher Mcgowan Reviewed and Electronically Signed By: Kristopher Mcgowan Signed Date: 11/13/2024 15:52 ET Workstation ID: [id number] Transcribed By: Self Edit Transcribed Date: 11/13/2024 15:49 ET us Catrachita Perry MD IMG CT PROCEDURES Final Result * Hemoglobin A1c (08/08/2024 7:22 AM EST) Hemoglobin A1C 5.4 <6.5 % LAB CHEMISTRY METHOD 08/08/2024 2:16 PM EST [facility] Mean Bld Glu Estim. 108 mg/dL LAB CHEMISTRY METHOD 08/08/2024 2:16 PM EST [facility] Blood Venous blood specimen / Unknown Venipuncture / Unknown 08/08/2024 7:22 AM EST 08/08/2024 11:53 AM EST us Ramone Gibson MD LAB BLOOD ORDERABLES Final Result [facility] [address] [place] [address], [place] [phone] * (ABNORMAL) Microalbumin creatinine urine ratio (08/08/2024 12:00 AM EST) Pathologist [facility] Creatinine, Urine 94.0 mg/dL LAB CHEMISTRY METHOD 08/08/2024 1:48 PM EST [facility] Microalb, Ur 324.0(H) 0.0 - 29.0 mg/L LAB CHEMISTRY METHOD 08/08/2024 1:48 PM EST [facility] Microalb/Crea t Ratio 345(H) <30 mg/g creat LAB CHEMISTRY METHOD 08/08/2024 1:48 PM EST [facility] Urine Urine specimen obtained by clean catch procedure / Unknown Non-blood Collection / Unknown 08/08/2024 08/08/2024 11:58 AM EST us Ramone Gibson MD LAB URINE ORDERABLES Final Result [facility] [address] [place] [address], from Last 3 Months or Most Recently Relevant to [place] [address] [place] [phone] MEDICAID - [place] MEDICARE Care Teams Showroom Sales Consultant Relationship Specialty Start Date End Date Ramone Gibson MD [address] [facility] [place], [place] PCP - General Internal Medicine 08/09/24
--- OUTSIDE RECORDS SUMMARY | 2024-11-23 11:40 | XMS_ITS | Encounter Summary ---
Author Organization [facility] Address [address] [place] [address] Care Team Providers Care Fur Examiner Name Role Phone Ramone Gibson MD Primary Care Provider [phone]- [phone] Encounter Details Date Type Department Care Team (Late st Contact Info) Description 08/07/2024 Lab Requisition [facility] - Main Lab [address] [facility] [place] [address] Raomne Gibson MD [address] [place] [id number] Vitamin D deficiency, unspecified; Chronic kidney disease, unspecified; Essential (primary) hypertension; Type 2 diabetes mellitus without complications (CMS/HCC) Social History Tobacco Use Types Packs/Day Years Used Date Smoking Tobacco: Never Assessed Sex and Gender Information Value Date Recorded Sex Assigned at Not on file Legal Sex Male 12:00 AM EST Gender Identity Not on file Sexual Orientation Not on file documented as of this encounter Plan of Treatment Not on file documented as of this encounter Procedures Procedure Name Priority Date/Time Associated Diagnosis Comments VITAMIN D 25 HYDROXY Routine 08/08/2024 7:22 AM EST Vitamin D deficiency, unspecified Chronic kidney disease, unspecified Essential (primary) hypertension Type 2 diabetes mellitus without complications (CMS/HCC) COMPLETE BLOOD COUNT Routine 08/08/2024 7:22 AM EST Vitamin D deficiency, unspecified Chronic kidney disease, unspecified Essential (primary) hypertension Type 2 diabetes mellitus without complications (CMS/HCC) PARATHYROID HORMONE INTACT Routine 08/08/2024 7:22 AM EST Vitamin D deficiency, unspecified Chronic kidney disease, unspecified Essential (primary) hypertension Type 2 diabetes mellitus without complications (CMS/HCC) HEMOGLOBIN A1C Routine 08/08/2024 7:22 AM EST Vitamin D deficiency, unspecified Chronic kidney disease, unspecified Essential (primary) hypertension Type 2 diabetes mellitus without complications (CMS/HCC) RENAL FUNCTION PANEL Routine 08/08/2024 7:22 AM EST Vitamin D deficiency, unspecified Chronic kidney disease, unspecified Essential (primary) hypertension Type 2 diabetes mellitus without complications (CMS/HCC) documented in this encounter Results * Vitamin D 25 hydroxy (08/08/2024 7:22 AM EST) Vit D, 25-Hydroxy 57.2 30.0 - 80.0 ng/mL LAB CHEMISTRY METHOD 08/08/2024 1:28 PM EST [facility] Blood Venous blood specimen / Unknown Venipuncture / Unknown 08/08/2024 7:22 AM EST 08/08/2024 11:53 AM EST Ramone Gibson MD LAB BLOOD ORDERABLES Final Result [facility] [address] [place] [address], * (ABNORMAL) Renal function panel (08/08/2024 7:22 AM EST) Sodium 140 133 - 145 mmol/L LAB CHEMISTRY METHOD 08/08/2024 1:18 PM EST [facility] Potassium 4.1 3.5 - 5.5 mmol/L LAB CHEMISTRY METHOD 08/08/2024 1:18 PM EST [facility] Chloride 105 96 - 110 mmol/L LAB CHEMISTRY METHOD 08/08/2024 1:18 PM EST [facility] CO2 28 21 - 32 mmol/L LAB CHEMISTRY METHOD 08/08/2024 1:18 PM [facility] Anion Gap 7 3 - 11 LAB CHEMISTRY METHOD 08/08/2024 1:18 PM [facility] Glucose 109(H) 70 - 100 mg/dL LAB CHEMISTRY METHOD 08/08/2024 1:18 PM [facility] BUN 14 5 - 25 mg/dL LAB CHEMISTRY METHOD 08/08/2024 1:18 PM [facility] Creatinine 1.03 0.70 - 1.30 mg/dL LAB CHEMISTRY METHOD 08/08/2024 1:18 PM [facility] eGFR 76 >=60 mL/min/1. 73m2 LAB CHEMISTRY METHOD 08/08/2024 1:18 PM [facility] Comment:Calculation based on the??Chronic Kidney Disease Epidemiology Collaboration (CKD-EPI) equation refit??without adjustment for race. BUN/Creatinine Ratio 13.6 LAB CHEMISTRY METHOD 08/08/2024 1:18 PM [facility] Albumin 3.6 3.2 - 5.0 g/dL LAB CHEMISTRY METHOD 08/08/2024 1:18 PM [facility] Calcium 9.5 8.5 - 10.5 mg/dL LAB CHEMISTRY METHOD 08/08/2024 1:18 PM [facility] Phosphorus 3.6 2.5 - 4.5 mg/dL LAB CHEMISTRY METHOD 08/08/2024 1:18 PM [facility] Blood Venous blood specimen / Unknown Venipuncture / Unknown 08/08/2024 7:22 AM EST 08/08/2024 11:53 AM EST Ramone Gibson MD LAB BLOOD ORDERABLES Final Result [facility] [address] [place] [address], * Parathyroid hormone intact (08/08/2024 7:22 AM EST) Pathologist [facility] PTH 50.7 18.5 - 88.0 pcg/mL LAB CHEMISTRY METHOD 08/08/2024 1:33 PM [facility] Blood Venous blood specimen / Unknown Venipuncture / Unknown 08/08/2024 7:22 AM EST 08/08/2024 11:53 AM EST Ramone Gibson MD LAB BLOOD ORDERABLES Final Result [facility] [address] [place] [address], * (ABNORMAL) Complete blood count (08/08/2024 7:22 AM EST) [facility] WBC 4.7(L) 4.8 - 10.8 K/mcL LAB HEMETOLOGY METHOD 08/08/2024 12:29 PM [facility] RBC 4.70 4.50 - 5.50 M/mcL LAB HEMETOLOGY METHOD 08/08/2024 12:29 PM [facility] Hemoglobin 13.9 13.5 - 17.5 g/dL LAB HEMETOLOGY METHOD 08/08/2024 12:29 PM [facility] Hematocrit 42.4 42.0 - 54.0 % LAB HEMETOLOGY METHOD 08/08/2024 12:29 PM [facility] MCV 91.0 79.0 - 98.0 FL LAB HEMETOLOGY METHOD 08/08/2024 12:29 PM [facility] MCH 29.8 27.0 - 32.0 pcg LAB HEMETOLOGY METHOD 08/08/2024 12:29 PM [facility] MCHC 32.8 32.0 - 37.0 g/dL LAB HEMETOLOGY METHOD 08/08/2024 12:29 PM [facility] RDW 13.2 11.0 - 15.0 % LAB HEMETOLOGY METHOD 08/08/2024 12:29 PM EST [facility] Platelets 205 130 - 400 K/mcL LAB HEMETOLOGY METHOD 08/08/2024 12:29 PM EST [facility] MPV 10.6 7.0 - 11.0 FL LAB HEMETOLOGY METHOD 08/08/2024 12:29 PM EST [facility] NRBC 0.0 <1.0 % LAB HEMETOLOGY METHOD 08/08/2024 12:29 PM EST [facility] NRBC Absolute 0.00 <0.10 K/mcL LAB HEMETOLOGY METHOD 08/08/2024 12:29 PM EST [facility] Blood Venous blood specimen / Unknown Venipuncture / Unknown 08/08/2024 7:22 AM EST 08/08/2024 11:53 AM EST us Ramone Gibson MD LAB BLOOD ORDERABLES Final Result [facility] [address] [place] [address], [place] [phone] * Hemoglobin A1c (08/08/2024 7:22 AM EST) Hemoglobin A1C 5.4 <6.5 % LAB CHEMISTRY METHOD 08/08/2024 2:16 PM EST [facility] Mean Bld Glu Estim. 108 mg/dL LAB CHEMISTRY METHOD 08/08/2024 2:16 PM EST [facility] Blood Venous blood specimen / Unknown Venipuncture / Unknown 08/08/2024 7:22 AM EST 08/08/2024 11:53 AM EST us Ramone Gibson MD LAB BLOOD ORDERABLES Final Result [facility] [address] [place] [address], [place] [phone] documented in this encounter Visit Diagnoses Diagnosis Vitamin D deficiency, unspecified Chronic kidney disease, unspecified Essential (primary) hypertension Unspecified essential hypertension Type 2 diabetes mellitus without complications documented in this encounter Care Teams Fur Examiner Relationship Specialty Start Date End Date Ramone Gibson MD [address] [facility] [place], [place] PCP - General Internal Medicine 08/09/24 documented as of this encounter
--- OUTSIDE RECORDS SUMMARY | 2024-11-23 11:40 | XMS_ITS | Encounter Summary ---
Author Organization [facility] Address [address] [place] [address] Care Team Providers Care Metal Trades Instructor Name Role Phone Ramone Gibson MD Primary Care Provider [phone]- [phone] Encounter Details Date Type Department Care Team (Late st Contact Info) Description 08/08/2024 Lab Requisition [facility] - Main Lab [address] [place] [address] Ramone Gibson MD [address] [place] [id number] Other abnormal findings on microbiological examination of urine; Chronic kidney disease, unspecified; Essential (primary) hypertension Social History Tobacco Use Types Packs/Day Years [...] Procedure Name Priority Date/Time Associated Diagnosis Comments MICROALBUMIN CREATININE URINE RATIO Routine 08/08/2024 12:00 AM EST Other abnormal findings on microbiological examination of urine Chronic kidney disease, unspecified Essential (primary) hypertension documented in this encounter Results * (ABNORMAL) Microalbumin creatinine urine ratio (08/08/2024 12:00 AM EST) Creatinine, Urine 94.0 mg/dL LAB CHEMISTRY METHOD 08/08/2024 1:48 PM EST [facility] Microalb, Ur 324.0(H) 0.0 - 29.0 mg/L LAB CHEMISTRY METHOD 08/08/2024 1:[address] [facility] Microalb/Crea t Ratio 345(H) <30 mg/g creat LAB CHEMISTRY METHOD 08/08/2024 1:[address] [facility] Urine Urine specimen obtained by clean catch procedure / Unknown Non-blood Collection / Unknown 08/08/2024 08/08/2024 11:58 AM EST us Ramone Gibson MD LAB URINE ORDERABLES Final Result [facility] [address] [place] [address], documented in this encounter Visit Diagnoses Diagnosis Other abnormal findings on microbiological examination of urine Chronic kidney disease, unspecified Essential (primary) hypertension Unspecified essential hypertension documented in this encounter Care Teams Metal Trades Instructor Relationship Specialty Start Date End Date Ramone Gibson MD [address] [place] [address] [facility] [place], [place] PCP - General Internal Medicine 08/09/24 documented as of this encounter
--- OUTSIDE RECORDS SUMMARY | 2024-11-23 11:40 | XMS_ITS | Clinical Summary ---
Author Organization [facility] Address [address] [address] Phone Care Team Providers Care Computer Trainer Name Role Phone Ramone Gibson Primary Care Provider [phone] Allergies No known active allergies Medications acetaminophen (TYLENOL) 325 MG tablet 650 mg 7 Active amLODIPine (NORVASC) 10 MG tablet Take 1 tablet by mouth 1 (one) time each day 3 Active aspirin (ST NICOLA) 81 MG EC tablet Take 1 tablet by mouth 1 (one) time each day 7 Active betamethasone dipropionate 0.05 % cream 4 Active Brinzolamide-Brim onidine 1-0.2 % suspension INSTILL 1 DROP INTO THE LEFT EYE TWICE DAILY 8 Active cholecalciferol (VITAMIN D-3) 1.25 MG (55351 UT) capsule 1,250 mcg 3 Active cloNIDine (CATAPRES) 0.1 MG tablet Take 1 tablet by mouth in the morning and 1 tablet in the evening. 3 Active fluPHENAZine (PROLIXIN) 5 MG tablet 4 Active ipratropium-albut harshil (COMBIVENT RESPIMAT) 20-100 MCG/ACT inhaler INHALE 1 PUFF BY MOUTH FOUR TIMES A DAY 9 Active latanoprost (XALATAN) 0.005 % ophthalmic solution 4 Active metFORMIN (GLUCOPHAGE) 1000 MG tablet Take 1 tablet by mouth in the morning and 1 tablet in the evening. 3 Active simvastatin (ZOCOR) 40 MG tablet 4 Active Januvia 100 MG tablet 4 Active terazosin (HYTRIN) 10 MG capsule Take 1 capsule by mouth at bed time 3 Active traZODone (DESYREL) 50 MG tablet 25 mg 8 Active lisinopril (PRINIVIL,ZESTRIL ) 30 MG tablet Take 30 mg by mouth 1 (one) time each day Active hydrocortisone 2.5 % ointment Apply topically 2 (two) times a day Active finasteride (PROSCAR) 5 MG tabletIndications :Benign Prostatic Hypertrophy Take 5 mg by mouth 1 (one) time each day Do not crush, chew, or split. Active Active Problems Problem Noted Date Diagnosed Date Chronic kidney disease, stage 2 (mild) 5 Essential (primary) hypertension 12/31/2023 Microalbuminuria 12/31/2023 Resolved Problems Problem Noted Date Diagnosed Date Resolved Date Abnormal involuntary movement 12/31/2023 12/31/2023 Chronic viral hepatitis C 12/31/2023 Background diabetic retinopathy 12/31/2023 12/31/2023 Chronic obstructive pulmonary disease 12/31/2023 12/31/2023 Cigarette smoker 12/31/2023 12/31/2023 Counseling 12/31/2023 12/31/2023 Dermatophytosis of nail 12/31/202312/06 Diabetes mellitus with other specified manifestations, type II or unspecified type, not stated as uncontrolled 12/31/2023 12/31/2023 Fracture of olecranon process of ulna, closed 12/31/19 24 12/31/2023 Overview (12/31/2023): Sep 20, 2008 Entered By: MARYJO RIBERA Comment: Left, remote Incoordination 12/31/2023 12/31/2023 Ingrowing nail 12/31/2023 12/31/2023 Nuclear senile cataract 12/31/202312/06 Oropharyngeal dysphagia 12/31/202312/06 Other and unspecified alcoho l dependence, episodic drinking behavior 12/31/2023 12/31/2023 Overview (12/31/2023): Aug 14, 2013 Entered By: NATALI BROWN Comment: denies alcohol@[email or web address] Other and unspecified hyperlipidemia 12/31/2023 12/31/2023 Other dyspnea and respiratory abnormality 12/31/2023 12/31/2023 Paranoid type schizophrenia, chronic state with acute exacerbation 12/31/2023 12/31/2023 Primary open-angle glaucoma of left eye, mild stage 12/31/2023 12/31/2023 Psychogenic factor 12/31/2023 Overview (12/31/2023): Sep 22, 2007 Entered By: ADRIAN MACDONALD Comment: patient had not been able to show up for fracture repair Tobacco user 12/31/2023 12/31/2023 Overview (12/31/2023): Aug 14, 2013 Entered By: NATALI BROWN Comment: @0.5 ppd Type 2 diabetes mellitus wit h diabetic peripheral angiopathy without gangrene 12/31/2023 0 12/31/2023 Type 2 diabetes mellitus without complication 12/31/1912/31/2023 Uncontrolled type 2 diabetes mellitus 12/31/2023 12/31/2023 Overview (06/06/2024): Replacing diagnoses that were inactivated after the 06/06/24 Regulatory Import Undifferentiated schizophrenia 12/31/2023 12/31/2023 Vitamin D deficiency 12/31/2023 024 Encounters Date Type Department Care Team Description 09/26/2024 10:15 AM EST Office Visit [facility] [address] [address] Shirley Yancey ARNP Chronic kidney disease, stage 2 (mild) (Primary Dx); Essential (primary) hypertension; Microalbuminuria from Last 3 Months Social History Tobacco Use Types Packs/Day Years Used Date Smoking Tobacco: Every Day Cigarettes Passive Smoke Exposure: Never Smokeless Tobacco: Never Tobacco Cessation:Ready to Q uit: Not Asked; Counseling Given: Not Answered Alcohol Use Standard Drinks/Week Comments Never 0 (1 standard drink = 0.6 oz pur e alcohol) Sex and Gender Information Value Date Recorded Sex Assigned at Not on file Legal Sex Male 2:11 PM EDT Gender Identity Not on file Sexual Orientation Not on file Last Filed Vital Signs Vital Sign Reading Time Taken Comments Blood Pressure 102/60 09/26/2024 10:24 AM EST Pulse 68 09/26/2024 10:24 AM EST Temperature - - Respiratory Rate - - Oxygen Saturation 98% 09/26/2024 10:24 AM EST Inhaled Oxygen Concentration - - Weight 75.3 kg (166 lb) 09/26/2024 10:24 AM EST Height - - Body Mass Index - - Plan of Treatment Upcoming Encounters Date Type Department Care Team (Late st Contact Info) Description 09/17/2025 1:45 PM EST Office Visit [facility] [address] [address] Dany Manning MD [address] [address] Health Maintenance Due Date Last Done Comments Colorectal Cancer Screening: Annual FOBT 1998 Colorectal Cancer Screening: Colonoscopy 1998 Colorectal Cancer Screening: Sigmoidoscopy 1998 Pneumococcal Vaccine: 65+ Years (2 of 2 - PPSV23 or PCV20) 10/23/2019 08/28/2019, 08/25/2008, 07/07/2008, Additional history exists Diabetes: Ophthalmology Exam 12/31/2023 Diabetes: Pedal Pulse Checked 12/31/2023 Diabetes: Sensory Foot Exam 12/31/2023 Diabetes: Visual Foot Exam 12/31/2023 Diabetes: Hemoglobin A1C 11/06/2024 08/08/2024 Influenza Vaccine Completed 05/07/2024, , 06/24/2022, Additional history exists Hepatitis B Vaccine Aged Out No longe r eligible based on patient's age to complete this topic Insurance [place] Care Teams Computer Trainer Relationship Specialty Start Date End Date Ramone Gibson [address] [place] [address] PCP - General Internal Medicine 12/27/23
--- OUTSIDE RECORDS SUMMARY | 2024-11-23 11:40 | XMS_ITS | Encounter Summary ---
Author Organization [facility] Address [address] [place] [address] Care Team Providers Care Maintenance Mechanic Technician Name Role Phone Ramone Gibson MD Primary Care Provider [phone]- [phone] Encounter Details Date Type Department Care Team (Late st Contact Info) Description 11/21/2024 Lab Requisition [facility] - Main Lab [address] [place] [address] Ramone Gibson MD [address] [place] [address] Chronic kidney disease, unspecified; Essential (primary) hypertension; Proteinuria, unspecified Social History Tobacco Use Types Packs/Day Years Used Date Smoking Tobacco: Every Day Cigarettes 0.5 53.2 Started: 1973 Alcohol Use Standard Drinks/Week Comments Not Currently [...] disease, unspecified Essential (primary) hypertension Proteinuria, unspecified documented in this encounter Results * Renal function panel (11/21/2024 7:57 AM EDT) Sodium 138 133 - 145 mmol/L LAB CHEMISTRY METHOD 11/21/2024 12:19 PM EDT [facility] Potassium 4.6 3.5 - 5.5 mmol/L LAB CHEMISTRY METHOD 11/21/2024 12:19 PM [facility] Chloride 105 96 - 110 mmol/L LAB CHEMISTRY METHOD 11/21/2024 12:19 PM [facility] CO2 30 21 - 32 mmol/L LAB CHEMISTRY METHOD 11/21/2024 12:19 PM [facility] Anion Gap 3 3 - 11 LAB CHEMISTRY METHOD 11/21/2024 12:19 PM [facility] Glucose 75 70 - 100 mg/dL LAB CHEMISTRY METHOD 11/21/2024 12:19 PM [facility] BUN 11 5 - 25 mg/dL LAB CHEMISTRY METHOD 11/21/2024 12:19 PM [facility] Creatinine 0.92 0.70 - 1.30 mg/dL LAB CHEMISTRY METHOD 11/21/2024 12:19 PM [facility] eGFR 87 >=60 mL/min/1. 73m2 LAB CHEMISTRY METHOD 11/21/2024 12:19 PM [facility] Comment:Calculation based on the??Chronic Kidney Disease Epidemiology Collaboration (CKD-EPI) equation refit??without adjustment for race. BUN/Creatinine Ratio 12.0 LAB CHEMISTRY METHOD 11/21/2024 12:19 PM [facility] Albumin 3.7 3.2 - 5.0 g/dL LAB CHEMISTRY METHOD 11/21/2024 12:19 PM [facility] Calcium 9.3 8.5 - 10.5 mg/dL LAB CHEMISTRY METHOD 11/21/2024 12:19 PM [facility] Phosphorus 3.7 2.5 - 4.5 mg/dL LAB CHEMISTRY METHOD 11/21/2024 12:19 PM [facility] Blood Venous blood specimen / Unknown Venipuncture / Unknown 11/21/2024 7:57 AM EDT 11/21/2024 11:04 AM EDT us Ramone Gibson MD LAB BLOOD ORDERABLES Final Result [facility] [address] [place] [address], documented in this encounter Visit Diagnoses Diagnosis Chronic kidney disease, unspecified Essential (primary) hypertension Unspecified essential hypertension Proteinuria, unspecified documented in this encounter Care Teams Maintenance Mechanic Technician Relationship Specialty Start Date End Date Ramone Gibson MD [address] [place] [address] [facility] [place], [place] PCP - General Internal Medicine 08/09/24 documented as of this encounter
--- OUTSIDE RECORDS SUMMARY | 2024-11-23 11:40 | XMS_ITS | Encounter Summary ---
Author Organization [facility] Address [address] [place] [address] Care Team Providers Care Gore Inserter Name Role Phone Ramone Gibson MD Primary Care Provider [phone]- [phone] Reason for Visit * Reason Comments lung screening * Consultation (Routine) - Closed Specialty Diagnoses / Procedures Referred By Contac t Referred To Contact Thoracic Surgery Diagnoses Encounter for screening for malignant neoplasm of respiratory organs Nicotine dependence, cigarettes, uncomplicated Procedures [place] COUNSELING TO DETERMINE LUNG SCREENING USING LOW DOSE CT SCAN Ramone Gibson MD [address] [place] [address] [facility] [place] [place] Phone: tel: fax: Lung Screening Program - [address] [address] Phone: tel: fax: Referral ID Status Reason Start Date Expiration Date Visits Re quested Visits Authorized [id number] Closed 09/15/2024 09/15/2025 1 1 Encounter Details Date Type Department Care Team (Late st Contact Info) Description 11/09/2024 10:30 AM EST Office Visit Lung Screening Program - [address] [id number] Nirali Timmons PA [address] [place] [address], [address] [address] Encounter for screening for malignant neoplasm of lung in current smoker with 30 pack year history or greater (Primary Dx) Social History Tobacco Use Types Packs/Day Years [...] on file documented as of this encounter Progress Notes * BLAIR Aguilar - 11/09/2024 10:30 AM EST Images from the original note were not included. Lung Cancer Screening Program Shared Decision Making Visit Patient name: Satnam Larose : 1950 Date of Visit: 11/09/2024 Care Team Referring Provider: Ramone Gibson MD PCP: Ramone Gibson MD History of Present Illness Mr. Larose is a 74 y.o. male who patient presents to the Lung Cancer Screening Program at [facility] for his Shared Decision Making visit. At time of this visit the patient denies any signs or symptoms concerning for active lung cancer including new or worsening cough, hemoptysis, significant chest pain, significant dyspnea, or unintentional weight loss. He denies any recent respiratory illnesses or hospitalizations for a respiratoryillness. He denies any CT scan of the chest in the past year. 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 No Known Allergies Current Outpatient Medications Medication Sig Dispense Refill amLODIPine (NORVASC) 10 mg tablet Take 1 tablet (10 mg total) by mouth 1 (one) time each day. aspirin 81 mg EC tablet Take 1 tablet (81 mg total) by mouth 1 (one) time each day. betamethasone, augmented, (DIPROLENE-AF) 0.05 % cream Apply topically 2 (two) times a day. ergocalciferol (VITAMIN D-2) 1,250 mcg (50,000 unit) capsule Take 1 capsule (50,000 Units total) [facility] every 30 (thirty) days. finasteride (PROSCAR) 5 mg tablet Take 1 tablet (5 mg total) by mouth 1 (one) time each day. Do notcrush, chew, or split. ipratropium-albuteroL (COMBIVENT RESPIMAT) 20-100 mcg/actuation inhaler Inhale 1 puff by mouth 4 (four) times a day. latanoprost (XALATAN) 0.005 % ophthalmic solution 1 drop at bedtime. metFORMIN (GLUCOPHAGE) 1,000 mg tablet Take 1 tablet (1,000 mg total) by mouth 2 (two) times a day with meals. simvastatin (ZOCOR) 40 mg tablet Take 1 tablet (40 mg total) by mouth at bedtime. SITagliptin phosphate (JANUVIA) 100 mg tablet Take 1 tablet (100 mg total) by mouth 1 (one) time each day. terazosin (HYTRIN) 10 mg capsule Take 1 capsule (10 mg total) by mouth at bedtime. traZODone (DESYREL) 50 mg tablet Take 1 tablet (50 mg total) by mouth at bedtime. No current facility-administered medications for this visit. Social History Tobacco Use Smoking status: Every Day Current packs/day: 0.50 Average packs/day: 0.5 packs/day for 53.2 years (26.6 ttl pk-yrs) Types: Cigarettes Start date: 1971 Substance Use Topics Alcohol use: Not Currently Comment: Quit Social History Social History Narrative Patient was in the [employer] for 3 years. Denies any exposures during that time. Family History Family history unknown: Yes Exposure History Patient denies any significant exposure history Physical Exam Physical Exam Constitutional: General: He is not in acute distress. Appearance: He is well-developed. He is not ill-appearing. HENT: Head: Normocephalic and atraumatic. Mouth/Throat: Mouth: Mucous membranes are moist. Pulmonary: Effort: Pulmonary effort is normal. No accessory muscle usage or respiratory distress. Assessment and Plan: Mr. Larose is a 74 y.o. male, current smoker, with a 26 pack-year total. The patient was determined to be eligible for LDCT scan given their age, tobacco history, and current asymptomatic state of health. All of the patient's questions were answered and understood at time of this visit. The patient wishes to proceed with Lung Cancer Screening at [facility]. The patient will be having their first LDCT today following this visit. Please be aware that primary care physicians are responsible for all incidental findings that may be found on screening LDCT scans. Patient Information / Education The benefits and risks of lung cancer screening were discussed with the patient including but not limited to oncology outcomes, false-positives/negatives, over- diagnosis, potential need for further testing and/or procedures, incidental findings, and radiation exposure. The patient was educated on the potential management decisions for suspicious findings potentially found on the screening LDCT scans. Any patient with a Lung- RADS score 4 will be reviewed by a multidisciplinary team at [facility] to form a plan of action in regards to the specific suspicious finding. If any further work-up is warranted for a suspicious lung nodule finding this will be followed up by the our program in conjunction with the Thoracic Surgery office at [facility]. The patient, referring physician, and primary care physician will be notified of the LDCT scan results and associated plan. Patient educated that their primary care physician will be responsible for all incidental findings found on screening LDCT scans. Patient educated on the importance of adherence to their personalized lung cancer-screening regimen. Smoking Cessation Smoking cessation resources were made available to patient during this visit. BLAIR Aguilar [facility] Lung Cancer Screening Program [address] [place] [address], [address] [place] [phone] documented in this encounter Plan of Treatment Not on file documented as of this encounter Visit Diagnoses Diagnosis Encounter for screening for malignant neoplasm of lung in current smoker with 30 pack year history or greater- Primary documented in this encounter Care Teams Gore Inserter Relationship Specialty Start Date End Date Ramone Gibson MD [address] [place] [address] [facility] [place] [place] PCP - General Internal Medicine 08/09/24 documented as of this encounter
--- OUTSIDE RECORDS SUMMARY | 2024-11-23 11:40 | XMS_ITS | Encounter Summary ---
Author Organization [facility] Address [address] [place] [address] Care Team Providers Care Railroad Watchman Name Role Phone Ramone Gibson MD Primary Care Provider [phone]- [phone] Encounter Details Date Type Department Care Team (Late st Contact Info) Description 08/08/2024 Lab Requisition [facility] - Main Lab [address] [facility] [place] [address] Social History Tobacco Use Types Packs/Day Years Used Date Smoking Tobacco: Never Assessed Sex and Gender Information Value Date Recorded Sex Assigned at Not on file Legal Sex Male 12:00 AM EST Gender Identity Not on file Sexual Orientation Not on file documented as of this encounter Plan of Treatment Not on file documented as of this encounter Visit Diagnoses Not on filedocumented in this encounter Care Teams Railroad Watchman Relationship Specialty Start Date End Date Ramone Gibson MD [address] [place] [address] [facility] [place], [place] PCP - General Internal Medicine 08/09/24 documented as of this encounter
--- OUTSIDE RECORDS SUMMARY | 2024-11-23 11:40 | XMS_ITS | Encounter Summary ---
Author Organization [facility] Address [address] [place] [address] Care Team Providers Care Strategic Consultant Name Role Phone Ramone Gibson MD Primary Care Provider [phone]- [phone] Reason for Referral * Imaging (Routine) - Closed Specialty Diagnoses / Procedures Referred By Melania ya Referred To Contact Radiology Diagnoses Encounter for screening for malignant neoplasm of respiratory organs Nicotine dependence, cigarettes, uncomplicated Procedures CT Lung Screening Catrachita Perry MD [address] [address] Phone: tel: fax: [address] [address] Phone: tel: Referral ID Status Reason Start Date Expiration Date Visits Re quested Visits Authorized [id number] Closed 09/15/2024 09/15/2025 1 1 Reason for Visit * Imaging (Routine) - Closed Specialty Diagnoses / Procedures Referred By Melania ya Referred To Contact Radiology Diagnoses Encounter for screening for malignant neoplasm of respiratory organs Nicotine dependence, cigarettes, uncomplicated Procedures CT Lung Screening Catrachita Perry MD [address] [address] Phone: tel: fax: [address] [address] Phone: tel: Referral ID Status Reason Start Date Expiration Date Visits Re quested Visits Authorized [id number] Closed 09/15/2024 09/15/2025 1 1 Encounter Details Date Type Department Care Team (Latest Contact Info) Description 11/09/2024 1:21 PM EST - 11/09/2024 11:59 PM EST Hospital Encounter [facility] CT Scan [address] [place] [address] Encounter for screening for malignant neoplasm of respiratory organs; Nicotine dependence, cigarettes, uncomplicated Discharge Disposition: Home or Self Care Social History Tobacco Use Types Packs/Day Years Used Date Smoking Tobacco: Every Day Cigarettes 0.5 53.2 Started: 1972 Alcohol Use Standard Drinks/Week Comments Not Currently 0 (1 standard drink = 0.6 oz pur e alcohol) Quit Sex and Gender Information Value Date Recorded Sex Assigned at Not on file Legal Sex Male 12:00 AM EST Gender Identity Not on file Sexual Orientation Not on file documented as of this encounter Medications at Time of Discharge amLODIPine (NORVASC) 10 mg tablet Take 1 [...] total) by mouth every 30 (thirty) days. finasteride (PROSCAR) 5 mg tablet Take 1 tablet (5 mg total) by mouth 1 (one) time each day. Do not crush, chew, or split. ipratropium-albu teroL (COMBIVENT RESPIMAT) 20-100 mcg/actuation inhaler Inhale 1 [...] (50 mg total) by mouth at bedtime. documented as of this encounter Discharge Disposition Disposition Code Departure Means Destination Home or Self Care documented in this encounter Plan of Treatment Not on file documented as of this encounter Procedures Procedure Name Priority Date/Time Associated Diagnosis Comments CT LUNG SCREENING Routine 11/09/2024 1:4 8 PM EST Encounter for screening for malignant neoplasm of respiratory organs Nicotine dependence, cigarettes, uncomplicated documented in this encounter Results * CT Lung Screening (11/09/2024 1:48 PM [...] Date: 11/13/2024 15:49 ET Assigned Physician: Kristopher Mcgwoan Reviewed and Electronically Signed By: Kristopher Mcgowan Signed Date: 11/13/2024 15:52 ET Workstation ID: [id number] Transcribed By: Self Edit Transcribed Date: 11/13/2024 [...] Signed Date: 11/13/2024 15:52 ET Workstation ID: [id number] Transcribed By: Self Edit Transcribed Date: 11/13/2024 15:49 ET us Catrachita Perry MD IMG CT PROCEDURES Final Result documented in this encounter Visit Diagnoses Diagnosis Encounter for screening for malignant neoplasm of respiratory organs Nicotine dependence, cigarettes, uncomplicated documented in this encounter Care Teams Strategic Consultant Relationship Specialty Start Date End Date Ramone Gibson MD [address] [facility] [place], [place] PCP - General Internal Medicine 08/09/24 documented as of this encounter
== END 2024-11-23 10:18 | disposition home or self-care (01) ==
LOC: HO.US 10:17
PROVIDERS: PCP Nurse Practitioner Adult Health; Visit Provider Internal Medicine
DX: R32 Unspecified urinary incontinence (principal); R33.9 Retention of urine, unspecified
CPT/HCPCS: 76857

== ENCOUNTER → 2024-11-23 10:50 | Outpatient (BNV) | payer MEDICARE, MEDICAID, SELFPAY | PROVIDERS: PCP Nurse Practitioner Adult Health; Visit Provider Specialist | DX: N39.498 Other specified urinary incontinence (principal) | CPT/HCPCS: 76857 ==

== ENCOUNTER 2024-12-19 08:50 | Outpatient (AMB) | payer MEDICARE, MEDICAID, SELFPAY ==
--- NOTE | 2024-12-19 08:52 | A.OFFVIS_ITS ---
Intake Visit Reasons: 6m/PVR/UA Intake Note: Patient presents today for follow up on: BPH Urology Medications: finasteride, terazosin, bethanechol Blood thinners: Aspirin Allergies to antibiotics: None PVR: 0ml's Veterans Service Officer Required: No Accompanied by: Unknown Allergies No Known Allergies [No Known Allergies*] Allergy (Verified 12/19/24 09:20) Medication List - Last Reconciled 12/19/24 by JENNY Barron acetaminophen 650 mg PO Q4H PRN amlodipine 10 mg PO DAILY aspirin 1 tab PO DAILY betamethasone dipropionate 0.05% 1 appl topical BID bethanechol chloride 50 mg PO BID 90 days blood sugar diagnostic As directed brinzolamide-brimonidine 1-0.2 % (Simbrinza) 0 drps ophthalmic (eye) dextrose 40% (Glutose-15) 15 grams PO Q15M PRN empagliflozin (Jardiance) 10 mg PO DAILY ergocalciferol (vitamin D2) (Vitamin D2) PO finasteride 5 mg PO DAILY 90 days fluphenazine HCl 15 mg PO Q OTHER DAY PRN hydrocortisone 1% (Anti-Itch (hydrocortisone)) 1 appl topical BID PRN hydrocortisone 2.5% topical ipratropium-albuterol 20-100 mcg/actuation inhalation lancets As directed latanoprost 0.005% 0 drps ophthalmic (eye) lisinopril 30 mg PO DAILY metformin 1,000 mg PO BID pen needle, diabetic As directed simvastatin 40 mg PO BEDTIME terazosin 10 mg PO BEDTIME 90 days trazodone 0 mg PO HPI Comments Details: Satnam is a pleasant 74-year-old male patient of Dr. Paulino who was accompanied by staff from [facility]. He has a past medical history of hep C, TIA, BPH, vitamin-D deficiency, schizophrenia, type 2 diabetes, hyperlipidemia, and hypertension. He presents to the office today for follow-up of his lower urinary tract symptoms and incomplete bladder emptying. In discussion with the patient's staff today they deny any bothersome urinary issues or concerns since his last office visit here. Patient reports compliance with finasteride, bethanechol, and terazosin as prescribed. He does report to be double voiding. In office urinalysis results were reviewed. PVR 0 mL which when compared to previous office visit is significantly improved. In review of patient's chart it appears urine cytology 12/25 and 03/29 Negative for high-grade urothelial carcinoma. He currently denies urinary urgency, urinary frequency, incontinence, nocturia, hematuria, dysuria, foul smelling urine, changes to urinary stream, flank pain, fever, and or chills. He is happy with hid current voiding parameters. Recent PSA results reviewed with the patient today 12/29 0.1. We discussed continuing with timed/scheduled voiding as well as double v oiding to assist with history of incomplete bladder emptying. Plan The patient is pleased with the current treatment plan and consents to continue it without modifications.: Patient was informed and verbally consented to the use of an ambient scribe for clinic note documentation during this visit. Discussion Notes Today, I confirmed that the patient's urinary symptoms are well-managed with his current medications, and double voiding aids in complete bladder emptying. I confirmed his PSA level remains low at 0.1, significantly reducing the risk of prostate-related complications at this time. We discussed that no further testing is necessary at this time, and we'll continue annual monitoring. We reviewed the benefits and efficacy of maintaining his current treatment regimen, to which the patient agreed. PREVIOUS OFFICE NOTE: Lower urinary tract symptoms Urinary retention History of schizophrenia with long-term medications Cystoscopy with large bladder Has been on combination therapy with alpha-brandon and finasteride for number of years PVR runs high 250-300 range Hematuria Single episode 12/25 Cystoscopy normal PFSH Medical History Speech disturbance Positive PPD Hepatitis C Transient ischemic attack (TIA) BPH loc w urin obs/LUTS Vitamin D deficiency Schizophrenia Diabetes mellitus, type II Hyperlipidemia HTN (hypertension) Enlarged prostate Surgical History History of surgery on arm Family History (Reviewed 01/23/24 @ 10:35 by KRISTINA Lazar Father No problems noted. Mother No problems noted. Review of Systems Const All systems reviewed & are unremarkable except as noted in HPI and below Physical Exam Const General: cooperative, comfortable, no acute distress, well developed, alert and awake Orientation/consciousness: oriented to person HEENT Head: Yes normal to inspection, Yes normocephalic and Yes atraumatic Ears: hearing grossly normal bilaterally Eyes General: appearance normal, both eyes and all related structures Neck Neck: Yes normal visual inspection and Yes trachea midline Chest Chest palpation & inspection: normal inspection of the chest Resp Effort & Inspection: normal respiratory effort and able to speak in complete se ntences Cardio Rate: regular rate GI Inspection: Yes normal to inspection General: Yes no CVA tenderness Back/Spine/Pelvis Back: no CVA tenderness Skin General skin exam: no rashes or lesions noted Neuro General: oriented to person Extrem General: Yes normal to inspection Psych Appearance: grossly normal and well kempt Speech and movement: Clear speech present and Pressured speech present Attitude: cooperative Thought content: Normal thought content present Insight: Fair insight present (Psych) Judgement: Fair judgement present (Psych) Office Procedures Post Void Residual Post Residual Void Post Void Residual (PVR): 0 [id number]-[id number] Void Residual by ultrasound Results AMB Urinalysis, Automated UA Leukoctes 125 Flavio/uL Last Edit by Anabelle Mccormick on 12/19/24 09:47 UA Nitrite Last Edit by Anabelle Mccormick on 12/19/24 09:47 UA Urobilinogen 0.2 mg/dL Last Edit by Anabelle Mccormick on 12/19/24 09:47 UA Protein 30 mg/dL Last Edit by Anabelle Mccormick on 12/19/24 09:47 UA pH 6.0 Last Edit by Anabelle Mccormick on 12/19/24 09:47 UA Blood 80 Vicente/uL Last Edit by Anabelle Mccormick on 12/19/24 09:47 UA Specific [place]han 1.015 Last Edit by Anabelle Mccormick on 12/19/24 09:47 UA Ketone Last Edit by Anabelle Mccormick on 12/19/24 09:47 UA Bilirubin 0 mg/dL Last Edit by Anabelle Mccormick on 12/19/24 09:47 UA Glucose 1000 mg/dL Last Edit by Anabelle Mccormick on 12/19/24 09:47 Results Reviewed Results Reviewed: Laboratory Last Values Urine pH (Auto) 6.0 12/19/24 09:46 Specific [place]han (Auto) 1.015 12/19/24 09:46 Urine Protein (Auto) 30 mg/dL 12/19/24 09:46 Glucose (UA)(Auto) 1000 mg/dL 12/19/24 09:46 Urine Blood (Auto) 80 Vicente/uL 12/19/24 09:46 Urine Bilirubin (Auto) 0 mg/dL 12/19/24 09:46 Urine Urobilinogen (Auto) 0.2 mg/dL 12/19/24 09:46 Leukocyte Esterase (Auto) 125 Flavio/uL 12/19/24 09:46 Assessment & Plan Assessment & Plan (1) Microscopic hematuria: Code(s): R31.29 - Other microscopic hematuria Category: Medical (2) Urinary retention due to benign prostatic hyperplasia: Code(s): N40.1 - Benign prostatic hyperplasia with lower urinary tract symptoms; R33.8 - Other retention of urine Category: Medical (3) Urinary retention with incomplete bladder emptying: Code(s): R33.9 - Retention of urine, unspecified Category: Medical (4) BPH loc w urin obs/LUTS: Code(s): N40.1 - Benign prostatic hyperplasia with lower urinary tract symptoms Category: Medical Plan In office urinalysis results reviewed with the patient today; as noted above; will send for urine cytology PVR 0 mL. Patient currently denies any bothersome urinary issues or concerns. He reports be happy with current voiding parameters. Will continue finasteride, terazosin, and bethanechol as prescribed. Continue with timed/scheduled voiding. Continue with double voiding. Recent PSA results reviewed with the patient today; as noted above. Follow-up in 6 months with PVR; or sooner with any issues, concerns, and or questions. Orders: Orders PSA,Total (Free>4and<10) 12/11/24 N40.1 - Benign prostatic hyperplasia with lower urinary tract symptoms AMB Urinalysis Automated Today Z13.9 - Encounter for screening, unspecified AMB Post Void Residual by ultrasound Today N40.1 - Benign prostatic hyperplasia with lower urinary tract symptoms, R33.8 - Other retention of urine Patient Instructions: The patient had an opportunity to ask questions regarding the treatment plan. All questions were answered. Physical exam, labs, and imaging were discussed and reviewed in detail. As well as risks, benefits, and discussion of treatment choices. No major barriers to understanding were identified. The patient express ed understanding and agreement with the above treatment plan. The patient was made aware they should contact our office by phone for worsening of their current condition, the appearance of new symptoms, or with any questions or concerns. Compliance is encouraged with any medications and follow up testing that is ordered. It is a privilege to be allowed the opportunity to participate in? your urological care.? Again, if you have any questions or concerns If you have any questions or concerns please do not hesitate to contact me. The office is [phone]. This note is constructed using voice recognition software. While every effort has been made to ensure accuracy cattyman errors may have been included. Yours sincerely, JENNY Barron Coding Level of Care Code Est Pt Level 3 (83282) Complex EM visit Add On G2211 Diagnoses Microscopic hematuria R31.29 Urinary retention due to benign prostatic hyperplasia N40.1; R33.8 Urinary retention with incomplete bladder emptying R33.9 BPH loc w urin obs/LUTS N40.1 CPT Codes Post Residual Void - PVR CPT Code: 52859-Ayqt Void Residual by ultrasound ([id number])
--- OUTSIDE RECORDS SUMMARY | 2024-12-19 09:15 | XMS_ITS | Encounter Summary ---
Author Name [facility] [facility] [place] Address [address] [place] [id number] Care Team Providers Care Bucket Turner Name Role Phone RACHELTAM ABRAHAMEMANUELRUIZ Primary Care Provider Unavail able Insurance Providers: All historical and current Section Date Range: From patient's date of to the date document was created. This section includes the names of all active insurance providers for the patient. Insurance Provider Type of Coverage Plan Name Start of Policy Coverage End of Policy Coverage Group Number Member ID Insurance Provider's Telephone Number Policy Aponte's Name Patient's Relationship to Policy Aponte MEDICAID MEDICAID DAYO ENCARNACIONCOLLIN TOURE Jan 04, 2016 MEDICAI D [id number] PENNY SAXENA PATIENT MEDICARE (WNR) MEDICARE (M) PART B Jun 06, 2018 PART B [id number] PENNY SAXENA PATIENT MEDICARE (WNR) MEDICARE (M) PART A Jun 06, 2018 PART A [id number] PENNY SAXENA PATIENT Selected Encounter This section includes the information on record at [place] for the Encounter. Date/Time Encounter Type Encounter Description Reason Provider Source January 10, 2024 10:30 AM OFFICE O/P EST MOD 30 MIN PODIATRY ICD-10-CM L60.0 Ingrowing nail TERESA CARDONA IH[place] Encounter Template Text not used by [facility] Assessments - Encounter Diagnoses This section includes the primary and secondary diagnoses documented for the Encounter. Date/Time Primary/Secondary Diagnosis Diagnosis Name Provider Source January 10, 2024 10:51 AM PRIMARY Ingrowing nail TERESA CARDONA [place] January 10, 2024 10:51 AM SECONDARY Pain in left toe(s) TERESA CARDONA [place] January 10, 2024 10:51 AM SECONDARY Pain in right toe(s) TERESA CARDONA KAYLEE January 10, 2024 10:51 AM SECONDARY Type 2 diabetes w diabetic peripheral angiopath w/o gangrene DULCETERESA KAYLEE Plan of Treatment: Future Appointments (+ 6 months) and Future Tests (+/- 45 days) The Plan of Treatment section includes future care activities for the patient from all [place] [facility]. This section includes future appointments and future orders which are active, pending or scheduled. Future Appointments This section includes appointments that were scheduled to occur 6 months from the date of the Encounter, up to a maximum of 20 appointments. The data comes from all [place] treatment facilities. Appointment Date/Time Appointment Type Appointme nt Facility Name Jun 05, 2024 09:30 AM AMBULATORY - MEDICINE [facility] Social History: Smoking Status (Most current) and Tobacco Use (All prior to encounter date) This section includes the most current, and the historical, smoking and tobacco- related health factors from the [place] facility where the Encounter took place. Current Smoking Status This section includes the most current smoking, or tobacco-related health factor, from the [place] facility where the Encounter took place. Date/Time Current Smoking Status Comment Etelvina crooks Sep 01, 2022 11:30 AM VA-TOBACCO USER EVERY DAY [place] Tobacco Use History This section includes a history of the smoking, or tobacco-related health factors, that were collected on or before the date of the Encounter. The data comes from the [place] facility where the Encounter took place. 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 [place] Aug 26, 2018 11:20 AM VA-TOBACCO USE MED NO [place] Aug 26, 2018 11:20 AM VA-TOBACCO USE WI 30 MIN OF WAKEUP [place] Aug 26, 2018 11:20 AM VA-TOBACCO USER EVERY DAY [place] Oct 26, 2017 11:14 AM CURRENT SMOKER 9 cigs a day [place] Oct 26, 2017 11:14 AM V1-PT NOT INTEREST ED IN QUIT TOBACCO USE [place] Oct 05, 2017 09:56 AM CURRENT SMOKER 9 cigarettes per day [place] January 27, 2017 12:09 PM CURRENT SMOKER 9 cigs a day [place] January 27, 2017 12:09 PM V1-PT DECLINES REF TO TOBACCO CESS [facility] January 27, 2017 12:09 PM V1-PT DECLINES TOB ACCO CESSATION [facility] January 27, 2017 12:09 PM V1-PT THINKING ABO UT QUIT TOBACCO USE [place] Dec 23, 2016 09:10 AM CURRENT SMOKER 1/2 pack daily [place] Jun 03, 2016 12:55 PM V1-PT NOT INTEREST ED IN QUIT TOBACCO USE [place] Nov 19, 2015 11:06 AM V1-PT NOT INTEREST ED IN QUIT TOBACCO USE [place] Nov 08, 2015 11:20 AM CURRENT SMOKER 1/2 pack per day [place] Oct 01, 2014 11:55 AM CURRENT SMOKER [facility] Aug 14, 2013 11:11 AM CURRENT SMOKER Pt, stated he smokes half a pack a day! [place] Aug 14, 2013 11:11 AM V1-PT NOT INTEREST ED IN QUIT TOBACCO USE [place] Dec 30, 2012 10:49 AM V1-PT DECLINES TOB ACCO CESSATION [facility] Dec 30, 2012 10:49 AM V1-PT NOT INTEREST ED IN QUIT TOBACCO USE [place] May 10, 2012 02:26 PM CURRENT SMOKER [facility] May 10, 2012 02:26 PM V1-PT DECLINES REF TO TOBACCO CESS [facility] May 10, 2012 02:26 PM V1-PT DECLINES TOB ACCO CESSATION [facility] May 10, 2012 02:26 PM V1-PT THINKING ABO UT QUIT TOBACCO USE [place] Aug 26, 2011 10:02 AM V1-PT DECLINES TOB ACCO CESSATION [facility] Aug 26, 2011 10:02 AM V1-PT NOT INTEREST ED IN QUIT TOBACCO USE [place] January 07, 2011 11:30 AM CURRENT SMOKER 1/2 ppd [place] January 07, 2011 11:30 AM V1-PT [facility] January 07, 2011 11:30 AM V1-PT NOT INTEREST ED IN QUIT TOBACCO USE [place] January 07, 2011 11:30 AM V1-TOBACCO CESS ME DS NOT PRESCRIBED pt does not want to quit smoking ans also refuses medication for this issue [place] Jun 04, 2010 10:06 AM V1-PT [facility]CLINES [facility] Jun 04, 2010 10:06 AM V1-PT DECLINES TOB ACCO CESSATION [facility] Jun 04, 2010 10:06 AM V1-PT NOT INTEREST ED IN QUIT TOBACCO USE [place] Nov 25, 2009 09:17 AM CURRENT SMOKER difficult to get answer as to how much [place] Aug 21, 2009 09:31 AM V1-PT DECLINES REF TO TOBACCO CESS [facility] Aug 21, 2009 09:31 AM V1-PT DECLINES TOB ACCO CESSATION [facility] Aug 21, 2009 09:31 AM V1-PT NOT INTEREST ED IN QUIT TOBACCO USE [place] Advance Directives: All historical and current Section Date Range: From patient's date of to the date document was created. This section includes ALL of a patient's completed or amended [place] Advance and Rescinded Directives. The entries below indicate that a directive exists for the patient, but an actual copy is not included with this document. The data comes from all [place] facilities. Date Advance Directives Provider Source Nov 20, 2008 CLINICAL WARNING JEREMIAH CASTILLO [facility] Oct 02, 2008 CLINICAL WARNING JEREMIAH CASTILLO [facility] Aug 29, 2008 CLINICAL WARNING ELMA ABAD [facility] Feb 28, 2007 ADVANCE DIRECTIVE DISCUSSION RADHA HILL Encounter Notes: All associated encounter notes This section contains the clinical notes associated to the Encounter. Date/Time Encounter Note(s) Provider Source January 10, 2024 08:24 AM PODIATRY NOTE: LOCAL TITLE: PODIATRY NOTE STANDARD TITLE: PODIATRY NOTE DATE OF NOTE: JANUARY 10, 2024@08:24 ENTRY DATE: JANUARY 10, 2024@08:24:54 AUTHOR: TERESA CARDONA EXP COSIGNER: URGENCY: STATUS: COMPLETED patient has received both doses of the vaccine at his facility LAST SEEN FOR TREATMENT: 08/11/2023 S: Pt. is a 73yo alert WDWN MALE who is seen for continued podiatric care of painful incurvated nails. There has been pain for several days which is intermittent with periods of exacerbation & remission, is of an aching throbbing nature and is exacerbated with shoes & increased activity. Pain level is 2-3 /10 for several days prior to treatment and 0/10 after. There is no history of trauma. There have been no recent changes in the patient's medical condition or medications. Pt. is at risk of injury with self-care due to the presence of TYPE II DM. *DENIES ANY RECENT CHANGES IN MEDS UPON QUESTIONING TODAY-SEE RECONCILIATION PERFORMED THIS DATE BELOW *TOBACCO=1/2 PACK PER DAY O: Exam reveals skin color to be WNL, temp, is diminished warm to cool proximal to distal, text has areas of dryness plantar aspect of feet and heels bilat. There is absence of hair noted. Nails are incurvated with rubor in the medial & lateral nail grooves and pain on palpation. Affected nails are as follows: 1-2- 3-4-5 LT & 2-3-4-5 RT -NO NAIL RT HALLUX PREVIOUS SURGERY. There are no hyperkeratosis or superficial lesions noted at this time. There are no other gross LE changes in status noted this date. PMH: Active problems - Computerized Problem List is the source for the following: *NOTE: REVIEWED ABOVE NOTING NO CHANGES SINCE PREVIOUS VISIT *PLEASE SEE PROBLEM LIST TEMPLATE FOR COMPLETE LIST NEEDED. *NOTE: A1c = 7.2 (LAST TAKEN: 01/2019) FBS=DNP AT FACILITY RISK=2 HEIGHT: 70 in [177.8 cm] (08/14/2013 11:09) WEIGHT: 166 lb [75.5 kg] (11/08/2015 11:17) VASCULAR: DP & PT pulses TO BE absent non-palpable bilateral other than DP LT is +1 LT. CFT >3 sec x 10. There is no edema and there are no varices noted. MUSCULOSKELETAL: Exam reveals muscle strength and tone to be equal & symmetrical bilaterally & WNL for an individual of this age and present physical-medical condition. There is pain free ROM at all joints distal to and including the ankle. NEUROLOGICAL: Exam reveals S/D, vibratory, light touch & proprioception sensations to be equal & symmetrical bilaterally & diminished for an individual of this age and present physical-medical status. Protective sensation utilizing a [place]-Willian lOg monofilament is 10/10 bilateral. Exams are reviewed and noted to be unchanged since previous visit & are determined to be non-contributory to the cc . *NOTE: DUE TO DISABILITY PATIENT IS UNABLE TO RENDER SELF-CARE DUE TO THE UNDERLYING MEDICAL CONDITIONS. A: Clinical Impression: Painful onychocryptic nails as noted above in the presence of PVD-DM. Class findings have been met in a high risk individual and the systemic condition has resulted in circulatory impairment & areas of desensitization. P: Treatment consists of trimming-reduction of all nails via manual and electric means with excision of offending nail borders. All care rendered without complications & pt. progressing well after podiatric care this date & will be scheduled for periodic care in an attempt to prevent future complications due to the underlying medical conditions. Tx. By a non- professional could be extremely hazardous to the patient's well-being due to the underlying medical condition. RTC 24 WEEKS( @ 10:30AM) *REVIEWED HOME FOOT CARE FEET ARE IN EXCELLENT CONDITION AND I PROVIDED HIM WITH WRITTEN RECOMMENDATIONS FOR FOOT CARE TO BE REVIEWED AT HOME (FOOT CARE TIPS). *DISCUSSED THE NEW PROTOCOLS FOR SCHEDULING & CALLED TODAY ADOLFO FOR NEXT VISIT I DISCUSSED THE FINDINGS & PLAN WITH PATIENT (UNCHANGED SINCE PREVIOUS VISIT) & PATIENT AGREES AND UNDERSTANDS PLAN-NOT IN NEED OF MIRROR NOTE: PATIENT DID NOT WISH ME TO TREAT THE RT HALLUX NAIL-HYPERKERATOSIS Medication Reconciliation: PERFORMED TODAY - SEE BELOW. Outpatient: Has the patient been taking medications as documented in the EMLR? YES: The patient has been taking medications as documented in the EMLR. Essential Medication List for Review used to complete this medication reconciliation. INCLUDED IN THIS LIST: Alphabetical list of active outpatient prescriptions dispensed from this [facility] (local) and dispensed from another [place] or [facility] facility (remote) as well as inpatient orders (local, pending and active), local clinic medications, locally documented non-VA medications, and local prescriptions that have or been discontinued in the past 90 days. - All changes in medications, including all non-VA/Herbal/OTC medications were entered into CPRS. - If there were any medications the patient should no longer take, they were discontinued. - The patient/caregiver was instructed to update this list, discard old lists, and take this list to the next appointment, whether with a VA or non-VA provider. JLV Link Data on this list may not be complete. Please check JLV. Allergies/ADRs (Tool #5) FACILITY ALLERGY/ADR -------- [facility] NO [place]NOWN ALLERGIES [place] [facility] No Known Allergies [facility] NO KNOWN ALLERGIES [facility] NO KNOWN ALLERGIES Med [facility] (Tool #1) INCLUDED IN THIS LIST: Alphabetical list of active outpatient prescriptions dispensed from this [place] (local) and dispensed from another [place] or [facility] facility (remote) as well as inpatient orders (local pending and active), local clinic medications, locally documented non-VA medications, and local prescriptions that have or been discontinued in the past 90 days. Non-VA Meds Last Documented On: May 07, 2023 NOTE The display of VA prescriptions dispensed from another [place] or [facility] facility (remote) is limited to active outpatient prescription entries matched to National Drug File at the originating site and may not include some items such as investigational drugs, compounds, etc. NOT INCLUDED IN THIS LIST: Medications self-entered by the patient into personal health records (i.e. Ident[employer]) are NOT included in this list. Non-VA medications documented outside this [place], remote inpatient orders (regardless of status) and remote clinic medications are NOT included in this list. The patient and provider must always discuss medications the patient is taking, regardless of where the medication was dispensed or obtained. Non-VA ACETAMINOPHEN 325MG TAB TAKE TWO TABLETS BY MOUTH EVERY FOUR HOURS H NEEDED Medication prescribed by Non-VA provider. Non-VA ALBUTEROL 100/IPRATRO 20MCG 120D PO INHL INHALE 1 PUFF BY MOUTH FOUR TIMES A DAY with a spacer Non-VA ALBUTEROL 100/IPRATRO 20MCG 120D PO INHL 120D BY MOUTH INHL INHALE 1 PUFF BY MOUTH FOUR TIMES A DAY Medication prescribed by Non-VA provider. prescriber- Dr. Lora Trevino Indication: FOR BRONCHOSPASM Non-VA ALOH/MGOH/SIMTH XTRA STRENGTH SUSP TAKE 2 TABLESPOONS BY MOUTH EVERY FOUR HOURS H NEEDED Medication prescribed by Non-VA provider. Non-VA AMLODIPINE BESYLATE 10MG TAB TAKE ONE TABLET BY MOUTH ONCE DAILY Medication prescribed by Non-VA provider. prescriber- Dr. Lora Trevino Indication: FOR HIGH BLOOD PRESSURE Non-VA ASPIRIN 81MG EC TAB TAKE ONE TABLET BY MOUTH DAILY Medication prescribed by Non-VA provider. Non-VA BRIMONIDINE 0.2%/BRINZOLAMID 1% OPH SUSP INSTILL 1 DROP INTO THE LEFT EYE TWICE DAILY Medication prescribed by Non-VA provider. Non-VA CHOLECALCIF 1,250MCG (D3-50,000UNIT) CAP TAKE 1 CAPSULE BY MOUTH EVERY FOUR WEEKS Medication prescribed by Non-VA provider. prescriber- Dr. Lora Trevino Indication: FOR VITAMIN D DEFICIENCY Non-VA CLONIDINE HCL 0.1MG TAB TAKE ONE TABLET BY MOUTH TWICE DAILY Medication prescribed by Non-VA provider. prescriber- Dr. Lora Trevino Indication: FOR HIGH BLOOD PRESSURE Non-VA FINASTERIDE 5MG TAB TAKE ONE TABLET BY MOUTH ONCE DAILY Non-VA FLUPHENAZINE HCL 2.5MG TAB TAKE ONE TABLET BY MOUTH ONCE DAILY Medication prescribed by Non-VA provider. Outside psychiatrist- prescriber- Dr. Lora Trevino- 1/2 TABLET IN AM AND 1 TABLET AT NIGHT Non-VA LISINOPRIL 40MG TAB TAKE ONE TABLET BY MOUTH ONCE DAILY Medication prescribed by Non-VA provider. Non-VA METFORMIN HCL 1000MG TAB TAKE ONE TABLET BY MOUTH TWICE DAILY Medication prescribed by Non-VA provider. prescriber- Dr. Lora Trevino Indication: FOR TYPE 2 DIABETES MELLITUS Non-VA METFORMIN HCL 500MG TAB TAKE ONE TABLET BY MOUTH ONCE DAILY Medication prescribed by Non-VA provider. Non-VA MILK OF MAGNESIA TAKE 30ML (2 TABLESPOONS) BY MOUTH ONCE DAILY NEEDED Medication prescribed by Non-VA provider. Non-VA SIMVASTATIN 80MG TAB TAKE ONE-HALF TABLET BY MOUTH AT BEDTIME Medication prescribed by Non-VA provider. Non-VA SITAGLIPTIN PHOSPHATE 100MG TAB TAKE ONE TABLET BY MOUTH ONCE DAILY Medication prescribed by Non-VA provider. prescriber- Dr. Lora Trevino Indication: FOR TYPE 2 DIABETES MELLITUS Non-VA TERAZOSIN HCL 10MG CAP TAKE 1 CAPSULE BY MOUTH AT BEDTIME Medication prescribed by Non-VA provider. DR JUÁREZ- UROLOGY Indication: FOR ENLARGED PROSTATE Non-VA TRAZODONE HCL 50MG TAB TAKE ONE-HALF TABLET BY MOUTH EVERY EVENING Medication prescribed by Non-VA provider. SUPPLIES PAVE Foot Check: A complete foot check was completed at this encounter. VISUAL INSPECTION: Includes inspection for skin breaks, deformity, erythema, trauma, pallor on elevation, dependent rubor, nail deformities, extensive callus and pitting edema. Visual exam results: Abnormal Observations: Thickened toenails PEDAL PULSES: Includes palpation of dorsalis and posterior tibial pulses and signs/symptoms of vascular compromise like pain, pallor, parasthesia or paralysis. Absent: Comment: DP & PT PULSES ARE ABSENT NON-PALPABLE BILAT SENSORY CHECK: Includes 10 gram Monofilament ([place]-Willian) test of sensation. Intact (Greater than or equal to 80% of sites checked) Abnormal (Less than 80% of sites checked): Abnormal (decreased or absent sensation to monofilament): Comment: VIBRATORY & MONOFILAMENT ARE DIMINISHED BILAT HIGH-RISK: HIGH RISK INFORMATION PROVIDED: 1. Advised patient that extra depth footwear with soft molded inserts and braces may be required. 2. Advised patient not to walk barefoot. 3. Explained the importance of daily foot checks. 4. Stressed the importance of daily foot hygiene, including bathing, complete drying and thorough inspection for changes. The patient verbalized understanding and was offered a detailed handout on diabetic foot care. Patient is established patient of Podiatry and/or Vascular: Last scheduled appointment: AUG 16, 2023@08:00 CWM/SO/PODIATRY SHOE FITTING Comment: 08/11/2023 /mojgan/ TERESA CARDONA DPM PROCESS SUPERVISOR Signed: 01/10/2024 10:52 TERESA CARDONA
--- OUTSIDE RECORDS SUMMARY | 2024-12-19 09:15 | XMS_ITS | Encounter Summary ---
Author Name [facility] [place] [facility] [place] Address [address] [place] [id number] Care Team Providers Care Director Of Market Analysis Name Role Phone RACHELTAM ABRAHAMEMANUELRUIZ Primary Care [...] ENCARNACIONCOLLIN TOURE Jan 04, 2016 MEDICAI D [id number] PENNY SAXENA PATIENT MEDICARE (WNR) MEDICARE (M) PART A Jun 06, 2018 PART A [id number] PENNY SAXENA PATIENT MEDICARE (WNR) MEDICARE (M) PART B Jun 06, 2018 PART B [id number] PENNY SAXENA PATIENT Selected Encounter This section includes the information on record at CT for the Encounter. Date/Time Encounter Type Encounter Description Reason Provider Source Oct 30, 2024 09:30 AM OFFICE O/P EST MOD 30 MIN PODIATRY ICD-10-CM L60.0 Ingrowing nail TERESA CARDONA IHWilliam Encounter Template Text not used by VA Assessments - Encounter Diagnoses This section includes the primary and secondary diagnoses documented for the Encounter. Date/Time Primary/Secondary Diagnosis Diagnosis Name Provider Source Oct 30, 2024 09:54 AM PRIMARY Ingrowing nail TERESA CARDONA Oct 30, 2024 09:54 AM SECONDARY Type 2 diabetes w diabetic peripheral angiopath w/o gangrene TERESA CARDONA Plan of Treatment: Future Appointments (+ 6 months) and Future Tests (+/- 45 days) The Plan of Treatment section includes future care activities for the patient from all CT treatmentfacilities. This section includes future appointments and future orders which are active, pending or scheduled. Future Appointments This section includes appointments that were scheduled to occur 6 months from the date of the Encounter, up to a maximum of 20 appointments. The data comes from all CT treatment facilities. Appointment Date/Time Appointment Type Appointme nt Facility Name Nov 10, 2024 10:00 AM AMBULATORY - MEDICINE CT [facility] Mar 05, 2025 09:30 AM AMBUL[facility] - [facility]ICINE [facility] Social History: Smoking Status (Most current) and Tobacco Use (All prior to encounter date) This section includes the most current, and the historical, smoking and tobacco- related health factors from the CT facility where the Encounter took place. Current Smoking Status This section includes the most current smoking, or tobacco-related health factor, from the CT facility where the Encounter took place. Date/Time Current Smoking Status Comment Facil ig[facility] Aug 23, 2024 11:30 AM VA-TOBACCO USE EVERY DAY CIGARET KATYA [facility] Tobacco Use History This section includes a history of the smoking, or tobacco-related health factors, that were collected on or before the date of the Encounter. The data comes from the CT facility where the Encounter took place. Date/Time Smoking Status/Tobacco Use Comment F acility Aug 23, 2024 11:30 AM VA-TOBACCO SCREEN FOLLOW-UP [facility] Aug 23, 2024 11:30 AM VA-TOBACCO USE ADVICE [facility] Aug 23, 2024 11:30 AM VA-TOBACCO USE SLEEPING ROOM CLEANER NO [facility] Aug 23, 2024 11:30 AM VA-TOBACCO USE JAMMIE RY DAY CIGARETTES [facility] Aug 23, 2024 11:30 AM VA-TOBACCO USE MED NO [facility] Sep 01, 2022 11:30 AM VA-TOBACCO USE 5 TO 15 YEARS [facility] Sep 01, 2022 11:30 AM VA-TOBACCO USE ADVICE [facility] Sep 01, 2022 11:30 AM VA-TOBACCO USE SLEEPING ROOM CLEANER NO [facility] 27, 2022 11:30 AM VA-TOBACCO USE MED [facility] Sep 01, 2022 11:30 AM VA-TOBACCO USE WI 30 MIN OF WAKEUP [facility] Sep 01, 2022 11:30 AM VA-TOBACCO USER EVERY DAY [facility] Aug 26, 2018 11:20 AM VA-TOBACCO USE 30 YEARS OR MORE [facility] Aug 26, 2018 11:20 AM VA-TOBACCO USE ADVICE [facility] Aug 26, 2018 11:20 AM VA-TOBACCO USE SLEEPING ROOM CLEANER NO [facility] Aug 26, 2018 11:20 AM VA-TOBACCO USE MED NO [facility] Aug 26, 2018 11:20 AM VA-TOBACCO USE WI 30 MIN OF [place] [facility] Aug 26, 2018 11:20 AM VA-TOBACCO USER EVERY DAY [facility] Oct 26, 2017 11:14 AM CURRENT SMOKER 9 cigs a day [facility] Oct 26, 2017 11:14 AM V1-PT NOT INTEREST ED IN QUIT TOBACCO USE [facility] Oct 05, 2017 09:56 AM CURRENT SMOKER 9 cigarettes per day [facility] January 27, 2017 12:09 PM CURRENT SMOKER 9 cigs a day [facility] January 27, 2017 12:09 PM V1-PT DECLINES REF TO TOBACCO CESS [facility] January 27, 2017 12:09 PM V1-PT DECLINES TOB ACCO CESSATION [facility] January 27, 2017 12:09 PM V1-PT THINKING ABO UT QUIT TOBACCO USE [facility] Dec 23, 2016 09:10 AM CURRENT SMOKER 1/2 pack daily [facility] Jun 03, 2016 12:55 PM V1-PT NOT INTEREST ED IN QUIT TOBACCO USE [facility] Nov 19, 2015 11:06 AM V1-PT NOT INTEREST ED IN QUIT TOBACCO USE [facility] Nov 08, 2015 11:20 AM CURRENT SMOKER 1/2 pack per day [facility] Oct 01, 2014 11:55 AM CURRENT SMOKER [facility] Aug 14, 2013 11:11 AM CURRENT SMOKER Pt, stated he smokes half a pack a day! [facility] Aug 14, 2013 11:11 AM V1-PT NOT INTEREST ED IN QUIT TOBACCO USE [facility] Dec 30, 2012 10:49 AM V1-PT DECLINES TOB ACCO CESSATION [facility] Dec 30, 2012 10:49 AM V1-PT NOT INTEREST ED IN QUIT TOBACCO USE [facility] May 10, 2012 02:26 PM CURRENT SMOKER SPRI [facility] May 10, 2012 02:26 PM V1-PT DECLINES REF TO TOBACCO CESS [facility] May 10, 2012 02:26 PM V1-PT DECLINES TOB ACCO CESSATION [facility] May 10, 2012 02:26 PM V1-PT THINKING ABO UT QUIT TOBACCO USE [facility] Aug 26, 2011 10:02 AM V1-PT DECLINES TOB ACCO CESSATION [facility] Aug 26, 2011 10:02 AM V1-PT NOT INTEREST ED IN QUIT TOBACCO USE [facility] January 07, 2011 11:30 AM CURRENT SMOKER 1/2 ppd [facility] January 07, 2011 11:30 AM V1-PT DECLINES REF TO TOBACCO CESS [facility] January 07, 2011 11:30 AM V1-PT NOT INTEREST ED IN QUIT TOBACCO USE [facility] January 07, 2011 11:30 AM V1-TOBACCO CESS ME DS NOT PRESCRIBED pt does not want to quit smoking ans also refuses medication for this issue [facility] Jun 04, 2010 10:06 AM V1-PT DECLINES REF TO TOBACCO CESS [facility] Jun 04, 2010 10:06 AM V1-PT DECLINES TOB ACCO CESSATION [facility] Jun 04, 2010 10:06 AM V1-PT NOT INTEREST ED IN QUIT TOBACCO USE [facility] Nov 25, 2009 09:17 AM CURRENT SMOKER difficult to get answer as to how much [facility] Aug 21, 2009 09:31 AM V1-PT DECLINES REF TO TOBACCO CESS [facility] Aug 21, 2009 09:31 AM V1-PT DECLINES TOB ACCO CESSATION [facility] Aug 21, 2009 09:31 AM V1-PT NOT INTEREST ED IN QUIT TOBACCO USE [facility] Advance Directives: All historical and current Section Date Range: From patient's date of to the date document was created. This section includes ALL of a patient's completed or amended CT Advance and Rescinded Directives. The entries below indicate that a directive exists for the patient, but an actual copy is not included with this document. The data comes from all CT facilities. Date Advance Directives Provider Source Nov 20, 2008 CLINICAL WARNING JEREMIAH CASTILLO [facility] Oct 02, 2008 CLINICAL WARNING JEREMIAH CASTILLO [facility] Aug 29, 2008 CLINICAL WARNING ELMA ABAD [facility] Feb 28, 2007 ADVANCE DIRECTIVE DISCUSSION RADHA HILL Encounter Notes: All associated encounter notes This section contains the clinical notes associated to the Encounter. Date/Time Encounter Note(s) Provider Source Oct 30, 2024 07:47 AM PODIATRY NOTE: LOCAL TITLE: PODIATRY NOTE STANDARD TITLE: PODIATRY NOTE DATE OF NOTE: OCT 30, 2024@07:47 ENTRY DATE: OCT 30, 2024@07:47:33 AUTHOR: TERESA CARDONA COSIGNER: URGENCY: STATUS: COMPLETED patient has received both doses of the vaccine at his facility LAST SEEN FOR TREATMENT: 06/05/2024 S: Pt. is a 74yo alert WDWN MALE who is seen for [...] diminished warm to cool proximal to distal, he has areas of dryness plantar aspect of feet and heels bilat. There is absence of hair noted. Nails are incurvated with rubor in the medial & lateral nail grooves and pain on palpation. Affected nails are as follows: 1-2-3-4-5 LT & 2-3-4-5 RT -NO NAIL RT [...] present physical-medical status. Protective sensation utilizing a [place]-Willian lOg monofilament is 10/10 bilateral. Exams are reviewed and noted to be unchanged since previous visit & are determined to be non-contributory to the cc . *NOTE: DUE TO DISABILITY PATIENT IS UNABLE TO RENDER SELF-CARE DUE TO THE UNDERLYING MEDICAL CONDITIONS. *note: *YEARLY COMPLETE PAVE EXAM PERFORMED TODAY - SEE BELOW. A: Clinical Impression: Painful onychocryptic nails as [...] due to the underlying medical condition. RTC 16 WEEKS( 03/05/2025@ 9:30AM) *REVIEWED HOME FOOT CARE FEET ARE IN EXCELLENT CONDITION AND I PROVIDED HIM WITH WRITTEN RECOMMENDATIONS FOR FOOT CARE TO BE REVIEWED AT HOME (FOOT CARE TIPS). *DISCUSSED THE NEW PROTOCOLS FOR SCHEDULING & CALLED TODAY ADOLFO FOR NEXT VISIT I DISCUSSED THE FINDINGS & PLAN WITH PATIENT (UNCHANGED SINCE PREVIOUS VISIT) & PATIENT AGREES AND UNDERSTANDS PLAN-NOT IN NEED OF MIRROR Medication Reconciliation: PERFORMED TODAY - SEE BELOW. Medication Reconciliation: PERFORMED TODAY - SEE BELOW. Outpatient: Has the patient been taking medications as documented in the EMLR? YES: The patient has been taking medications as documented in the EMLR. Essential Medication List for Review used to complete this medication reconciliation. INCLUDED IN THIS LIST: Alphabetical list of active outpatient prescriptions dispensed from this VA (local) and dispensed from another VA or DoD facility (remote) as well as [...] JLV. Allergies/ADRs (Tool #5) FACILITY ALLERGY/ADR -------- [facility] NO KNOWN ALLERGIES CT [facility] [place] [facility] No Known Allergies [facility] NO KNOWN ALLERGIES [facility] NO KNOWN ALLERGIES Med Recon NoGloary (Tool #1) INCLUDED IN THIS LIST: Alphabetical list of active outpatient prescriptions dispensed from this VA (local) and dispensed from another VA or DoD facility (remote) as well as inpatient orders (local pending and active), local clinic medications, locally documented non-VA medications, and local prescriptions that have or been discontinued in the past 90 days. Non-VA Meds Last Documented On: May 07, 2023 NOTE The display of VA prescriptions dispensed from another VA or DoD facility (remote) is limited to active outpatient prescription entries matched to National Drug File at the originating site and may not include some items such as investigational drugs, compounds, etc. NOT INCLUDED IN THIS LIST: Medications self-entered by the patient into personal health records (i.e. [employer]) are NOT included in this list. Non-VA medications documented outside this VA, remote inpatient orders (regardless of status) and [...] Indication: FOR TYPE 2 DIABETES MELLITUS Non-VA MILK OF MAGNESIA TAKE 30ML (2 TABLESPOONS) BY MOUTH ONCE DAILY NEEDED Medication prescribed by Non-VA provider. Non-VA SIMVASTATIN 80MG TAB TAKE ONE-HALF TABLET BY MOUTH AT BEDTIME Medication prescribed by Non-VA provider. Non-VA SITAGLIPTIN (EQV-JANUVIA) 100MG TAB TAKE ONE TABLET BY MOUTH [...] BILAT SENSORY CHECK: Includes 10 gram Monofilament ([place]-Willian) test of sensation. Intact (Greater than or equal to 80% of sites checked) Abnormal (Less than 80% of sites checked): Intact Comment: VIBRATORY & MONOFILAMNET ARE WNL BILAT HIGH-RISK: HIGH RISK INFORMATION PROVIDED: 1. [...] and/or Vascular: Last scheduled appointment: AUG 16, 2024@09:00 [facility] [place] 2[place] [facility]AT[facility] Comment: 06/05/2024 /mojgan/ TERESA CARDONA DPM RN TEAM LEADER Signed: 10/30/2024 09:55 TERESA CARDONA
--- OUTSIDE RECORDS SUMMARY | 2024-12-19 09:15 | XMS_ITS | Clinical Summary ---
Author Organization [facility] Address [address] [phone] Phone Care Team Providers Care System Sales Consultant Name Role Phone Ramone Gibson Primary Care Provider [phone] Allergies No known active allergies Medications acetaminophen [...] 8 Active cholecalciferol (VITAMIN D-3) 1.25 MG (68513 UT) capsule 1,250 mcg 3 Active cloNIDine [...] Office Visit [facility] [address] [address] Shirley Yancey ARNP Chronic kidney [...] Office Visit [facility]. [address] [phone] Dany Manning MD [address] [address] Health Maintenance Due Date Last Done Comments Colorectal Cancer Screening: Annual FOBT 1998 Colorectal Cancer Screening: Colonoscopy 1998 Colorectal Cancer Screening: Sigmoidoscopy 1998 Pneumococcal Vaccine: 50+ Years (2 of 2 [...] patient's age to complete this topic Insurance Medicare Medicaid [place] Medicaid [place] Care Teams System Sales Consultant Relationship Specialty Start Date End Date Ramone Gibson [address] [place] [address] PCP - General Internal Medicine 12/27/23
--- OUTSIDE RECORDS SUMMARY | 2024-12-19 09:15 | XMS_ITS | Encounter Summary ---
Author Name [facility] [facility] [place] [facility] [place] Address [address] [place] [address] Care Team Providers Care Mailing Section Clerk Name Role Phone RACHELTAM ABRAHAMEMANUELRUIZ Primary Care [...] Relationship to Policy [place] MEDICAID MEDICAID DAYO ENCARNACIONTwila LUCIANO TOURE Jan 04, 2016 MEDICAI D [id number] PENNY SAXENA PATIENT MEDICARE (WNR) MEDICARE (M) PART B Jun 06, 2018 PART B [id number] PENNY SAXENA PATIENT MEDICARE (WNR) MEDICARE (M) PART A Jun 06, 2018 PART A [id number] PENNY SAXENA PATIENT Selected Encounter This section includes the information on record at [place] for the Encounter. Date/Time Encounter Type Encounter Description Reason Provider Source Jun 05, 2024 09:30 AM OFFICE O/P EST LOW 20 MIN PODIATRY ICD-10-CM L60.0 Ingrowing nail TERESA CARDONA IHWilliam Encounter Template Text not used by VA Assessments - Encounter Diagnoses This section includes the primary and secondary diagnoses documented for the Encounter. 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 This section includes future appointments and future orders which are active, pending or scheduled. Future Appointments This section includes appointments that were scheduled to occur 6 months from the date of the Encounter, up to a maximum of 20 appointments. The data comes from all [facility]. Appointment Date/Time Appointment Type Appointme nt Facility Name Aug 16, 2024 09:00 AM AMBULATORY - MEDICINE [facility] Aug 23, 2024 11:30 AM AMBULATORY - MEDICINE [facility] Oct 18, 2024 11:00 AM AMBULATORY - [facility] Oct 30, 2024 09:30 AM AMBULATORY - MEDICINE [facility] Nov 10, 2024 10:00 AM AMBULATORY MEDICINE [facility] Active, Pending, and Scheduled Orders This section includes a listing of several types of active, pending, and scheduled orders, including clinic medications orders, diagnostic test orders, procedure orders and consult orders; where the start date of the order is 45 days before the date of the Encounter or 45 days after the date of theEncounter. The data comes from all [facility]. Test Date/Time Test Type Test Details Facility Name Jun 27, 2024 12:00 AM Laboratory - Chemi stry Order OCCULT BLOOD FIT X1 SCREEN (MFP ONLY) STOOL FECES [facility] Social History: Smoking Status (Most current) and Tobacco Use (All prior to encounter date) This section includes the most current, and the historical, smoking and tobacco- related health factors from the [place] facility where the Encounter took place. Current Smoking Status This section includes the most current smoking, or tobacco-related health factor, from the [place] facility where the Encounter took place. Date/Time Current Smoking Status Comment Facil [facility] Sep 01, 2022 11:30 AM VA-TOBACCO USER EVERY DAY [facility] Tobacco Use History This section includes a history of the smoking, or tobacco-related health factors, that were collected on or before the date of the Encounter. The data comes from the [place] facility where the Encounter took place. Date/Time Smoking Status/Tobacco Use Comment F acility Sep 01, 2022 11:30 AM VA-TOBACCO USE ADVICE [facility] Sep 01, 2022 11:30 AM VA-TOBACCO USE NUTRITION ASSOCIATE NO [facility] Sep 01, 2022 11:30 AM VA-TOBACCO USE MED NO [facility] Sep 01, 2022 11:30 AM VA-TOBACCO USE WI 30 MIN OF WAKEUP [facility] Sep 01, 2022 11:30 AM VA-TOBACCO USER EVERY DAY [facility] Aug 26, 2018 11:20 AM VA-TOBACCO USE 30 YEARS OR MORE [facility] Aug 26, 2018 11:20 AM VA-TOBACCO USE ADVICE [facility] Aug 26, 2018 11:20 AM VA-TOBACCO USE NUTRITION ASSOCIATE [facility] Aug 26, 2018 11:20 AM VA-TOBACCO USE MED [facility] Aug 26, 2018 11:20 AM VA-TOBACCO USE WI 30 MIN OF WAKEUP [facility] Aug 26, 2018 11:20 AM VA-TOBACCO USER EVERY DAY [facility] Oct 26, 2017 11:14 AM CURRENT SMOKER 9 cigs a day [facility] Oct 26, 2017 11:14 AM V1-PT NOT INTEREST ED IN QUIT TOBACCO USE [facility] Oct 05, 2017 09:56 AM CURRENT SMOKER 9 cigarettes per day [facility] January 27, 2017 12:09 PM CURRENT SMOKER 9 cigs a day [facility] January 27, 2017 12:09 PM V1-PT DECLINES REF TO TOBACCO CESS [facility] January 27, 2017 12:09 PM V1-PT DECLINES TOB ACCO CESSATION [facility] January 27, 2017 12:09 PM V1-PT THINKING ABO UT QUIT TOBACCO USE [facility] Dec 23, 2016 09:10 AM CURRENT SMOKER 1/2 pack daily [facility] Jun 03, 2016 12:55 PM V1-PT NOT INTEREST ED IN QUIT TOBACCO USE [facility] Nov 19, 2015 11:06 AM V1-PT NOT INTEREST ED IN QUIT TOBACCO USE [facility] Nov 08, 2015 11:20 AM CURRENT SMOKER 1/2 pack per day [facility] Oct 01, 2014 11:55 AM CURRENT SMOKER [facility] Aug 14, 2013 11:11 AM CURRENT SMOKER Pt, stated he smokes half a pack a day! [facility] Aug 14, 2013 11:11 AM V1-PT NOT INTEREST ED IN QUIT TOBACCO USE [facility] Dec 30, 2012 10:49 AM V1-PT DECLINES TOB ACCO CESSATION [facility] Dec 30, 2012 10:49 AM V1-PT NOT INTEREST ED IN QUIT TOBACCO USE [facility] May 10, 2012 02:26 PM CURRENT SMOKER [facility] May 10, 2012 02:26 PM V1-PT DECLINES REF TO TOBACCO CESS [facility] May 10, 2012 02:26 PM V1-PT DECLINES TOB ACCO CESSATION [facility] May 10, 2012 02:26 PM V1-PT THINKING ABO UT QUIT TOBACCO USE [facility] Aug 26, 2011 10:02 AM V1-PT DECLINES TOB ACCO CESSATION [facility] Aug 26, 2011 10:02 AM V1-PT NOT INTEREST ED IN QUIT TOBACCO USE [facility] January 07, 2011 11:30 AM CURRENT SMOKER 1/2 ppd [facility] January 07, 2011 11:30 AM V1-PT DECLINES REF TO TOBACCO CESS [facility] January 07, 2011 11:30 AM V1-PT NOT INTEREST ED IN QUIT TOBACCO USE [facility] January 07, 2011 11:30 AM V1-TOBACCO CESS ME DS NOT PRESCRIBED pt does not want to quit smoking ans also refuses medication for this issue [facility] Jun 04, 2010 10:06 AM V1-PT DECLINES REF TO TOBACCO CESS [facility] Jun 04, 2010 10:06 AM V1-PT DECLINES TOB ACCO CESSATION [facility] Jun 04, 2010 10:06 AM V1-PT NOT INTEREST ED IN QUIT TOBACCO USE [facility] Nov 25, 2009 09:17 AM CURRENT SMOKER difficult to get answer as to how much [facility] Aug 21, 2009 09:31 AM V1-PT DECLINES REF TO TOBACCO CESS [facility] Aug 21, 2009 09:31 AM V1-PT DECLINES TOB ACCO CESSATION [facility] Aug 21, 2009 09:31 AM V1-PT NOT INTEREST ED IN QUIT TOBACCO USE [facility] Advance Directives: All historical and current Section Date Range: From patient's date of to the date document was created. This section includes ALL of a patient's completed or amended VA Advance and Rescinded Directives. The entries below indicate that a directive exists for the patient, but an actual copy is not included with this document. The data comes from all [place] facilities. Date Advance Directives Provider Source Nov 20, 2008 CLINICAL WARNING JEREMIAH CASTILLO [place] [facility] Oct 02, 2008 CLINICAL WARNING EJREMIAH CASTILLO [place] [facility] Aug 29, 2008 CLINICAL WARNING ELMA ABAD [facility] Feb 28, 2007 ADVANCE DIRECTIVE DISCUSSION RADHA HILL JONES MILLIGAN Encounter Notes: All associated encounter notes This section contains the clinical notes associated to the Encounter. Date/Time Encounter Note(s) Provider Source Jun 23, 2024 08:12 AM LETTERS: LOCAL TITLE: PATIENT LETTER (B) STANDARD TITLE: LETTERS DATE OF NOTE: JUN 23, 2024@08:12 ENTRY DATE: JUN 23, 2024@08:12:51 AUTHOR: CHIKIS CHAVEZ COSIGNER: URGENCY: STATUS: COMPLETED [facility] [address] [place] [address] [phone] * [place] [address] Date: JUN 23, 2024 Dear : This is a reminder letter that your SHOES are ready for pick at [facility] [place] [facility] located at [address] [place] [address]. You may fern picker your shoes and or orthotics at your convenience any day, Wednesday through Wednesday between 8:30am and 3:30pm. You do not need an appointment. BUT WE DO REQUEST THAT YOU CALL BEFORE ARRIVING TO MAKE SURE THE PODIATRY HEALTH PERSONNEL OFFICER IS AVAILABLE ON THAT DAY. Call [phone] for Chikis if you have any questions. We hope to see you soon, Sincerely, Office Staff for:SHANTE CASTAÑEDA [facility] Provider Upcoming Appointments: 08/02/2024 11:00 CWM/SO/PACT EIGHT 10/30/2024 09:30 CWM/SO/PODIATRY/CHIKIS CHATMAN KAYLEE Jun 05, 2024 08:24 AM PODIATRY NOTE: LOCAL TITLE: PODIATRY NOTE STANDARD TITLE: PODIATRY NOTE DATE OF NOTE: JUN 05, 2024@08:24 ENTRY DATE: JUN 05, 2024@08:24:19 AUTHOR: TERESA CARDONA EXP COSIGNER: URGENCY: STATUS: COMPLETED patient has received both doses of the vaccine at his facility LAST SEEN FOR TREATMENT: 01/10/2024 S: Pt. is a 74yo alert WDWN [...] present physical-medical status. Protective sensation utilizing a [place]-Willian lOg monofilament is 10/10 bilateral. Exams are [...] the underlying medical condition. RTC 24 WEEKS( 10/30/2024@ 9:30AM) *REVIEWED HOME FOOT CARE FEET ARE [...] JLV. Allergies/ADRs (Tool #5) FACILITY ALLERGY/ADR -------- [facility] NO KNOWN ALLERGIES [facility] [place] [facility] No Known [facility]ergies [facility] NO KNOWN ALLERGIES [facility] NO KNOWN ALLERGIES [facility] [place] (Tool #1) INCLUDED IN THIS LIST: Alphabetical [...] the patient into personal health records (i.e. [employer]) are NOT included in this list. Non-VA [...] EVENING Medication prescribed by Non-VA provider. SUPPLIES /mojgan/ TERESA CARDONA DPM DOOR CLAMPER Signed: 06/05/2024 09:46 TERESA CARDONA
--- OUTSIDE RECORDS SUMMARY | 2024-12-19 09:15 | XMS_ITS | Encounter Summary ---
Author Name [facility] [place] [facility] [place] Address [address] [place] [address] Care Team Providers Care Highway Painter Helper Name Role Phone EBER YASMANY Primary Care Provider Unavail able Insurance Providers: [...] Relationship to Policy [place] MEDICAID MEDICAID DAYO REGINA TOURE Jan 04, 2016 MEDICAI D [id number] PENNY SAXENA PATIENT MEDICARE (WNR) MEDICARE (M) PART A Jun 06, 2018 PART A [id number] PENNY SAXENA PATIENT MEDICARE (WNR) MEDICARE (M) PART B Jun 06, 2018 PART B [id number] PENNY SAXENA PATIENT Selected Encounter This section includes the information on record at [place] for the Encounter. Date/Time Encounter Type Encounter Description Reason Provider Source Nov 10, 2024 10:00 AM FIT SPECTACLES MONOFOCAL OPTOMETRY ICD-10-CM H40.1121 Primary open-angle glaucoma, left eye, mild stage ALFA IVAN E Encounter Template Text not used by VA Assessments - Encounter Diagnoses This section includes the primary and secondary diagnoses documented for the Encounter. Date/Time Primary/Secondary Diagnosis Diagnosis Name Provider Source Nov 10, 2024 11:16 AM PRIMARY Primary open-angle glaucoma, left eye, mild stage OSCASEY WOLFE Yoni [facility] Nov 10, 2024 11:16 AM SECONDARY Age-related nuclear cataract, bilateral OSHINSKICASEY Thomas [facility] Nov 10, 2024 11:16 AM SECONDARY Presbyopia CASEY IVAN [facility] Nov 10, 2024 11:16 AM SECONDARY Type 2 diabetes mellitus without complications CASEY IVAN Yoni [facility] Plan of Treatment: Future Appointments (+ 6 months) and Future Tests (+/- 45 days) The Plan of Treatment section includes future care activities for the patient from all [place] [facility]. This section includes future appointments and future orders which are active, pending or scheduled. Future Appointments This section includes appointments that were scheduled to occur 6 months from the date of the Encounter, up to a maximum of 20 appointments. The data comes from all [place] treatment facilities. Appointment Date/Time Appointment Type Appointme nt Facility Name Mar 05, 2025 09:30 AM AMBULATORY - MEDICINE [facility] Social History: Smoking Status (Most current) and Tobacco Use (All prior to encounter date) This section includes the most current, and the historical, smoking and tobacco- related health factors from the VA facility where the Encounter took place. Current Smoking Status This section includes the most current smoking, or tobacco-related health factor, from the VA facility where the Encounter took place. Date/Time Current Smoking Status Comment Facil ity Sep 20, 2008 10:20 AM CURRENT SMOKER [facility] Advance Directives: All historical and current Section Date Range: From patient's date of to the date document was created. This section includes ALL of a patient's completed or amended VA Advance and Rescinded Directives. The entries below indicate that a directive exists for the patient, but an actual copy is not included with this document. The data comes from all [place] facilities. Date Advance Directives Provider Source Nov 20, 2008 CLINICAL WARNING ANNA,JEREMIAH M [facility] Oct 02, 2008 CLINICAL WARNING ALBINA CASTILLOHLEEN Richy [facility] Aug 29, 2008 CLINICAL WARNING [facility] Feb 28, 2007 ADVANCE DIRECTIVE DISCUSSION [place]RADHA Encounter Notes: All associated encounter notes This section contains the clinical notes associated to the Encounter. Date/Time Encounter Note(s) Provider Source Nov 10, 2024 11:19 AM ADDENDUM: LOCAL TITLE: Addendum STANDARD TITLE: ADDENDUM DATE OF NOTE: NOV 10, 2024@11:19:46 ENTRY DATE: NOV 10, 2024@11:19:47 AUTHOR: AVI IVAN EXP COSIGNER: URGENCY: STATUS: COMPLETED please order NVOs as follows: OD +2.50 -1.00 X100 Add:0.00 Pzm:0.00 Dir: Prz2:0.00 Dir2: OS +3.75 -1.00 X95 Add:0.00 Pzm:0.00 Dir: Prz2:0.00 Dir2: FITTING INFORMATION NVO FPD: NPD:57 [place]:R: L: SEG HT:R: L: Tint:None Shade:None VA Billable Items FRAME: JOSE RMo ROSE [id number] Right Lens: POLY SINGLE VISION 1.586 POLY Left Lens: POLY SINGLE VISION 1.586 POLY /mojgan/ Avi Ivan OD Fee [employer]asis [employer] Signed: 11/10/2024 11:20 Receipt Acknowledged By: 11/10/2024 15:01 /avtar [facility]ON OPTOMETRY TECH --- Original Document --- 11/10/24 OPTOMETRY NOTE: Active problems - Computerized Problem List is the source for the followin. Living in residential institution 2. Insomnia 3. HTN - Hypertension ([facility] [id number]) 4. Hyperlipidemia ([facility] [id number]) 5. Diabetes Mellitus Type 2 ([facility] [id number]) 6. Benign Prostatic Hypertrophy with Outflow Obstruction ([facility] [id number]) 7. Nicotine dependence 8. Vitamin D Deficiency ([facility] [id number]) 9. COPD - Chronic Obstructive Pulmonary Disease ([facility] [id number]) 10. History of hepatitis C 11. Essential tremor (SNOMED CT 494758021) 12. Undifferentiated schizophrenia (SNOMED CT 765838953) 13. Diabetic retinopathy associated with type 2 diabetes mellitus 14. Oropharyngeal dysphagia 15. 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 Outpatient Medications (including Supplies): Active Non-VA Medications Status 1) Non-VA ACETAMINOPHEN 325MG TAB 650MG BY MOUTH EVERY FOUR ACTIVE HOURS H NEEDED 2) Non-VA ALBUTEROL 100/IPRATRO 20MCG 120D PO INHL 1 PUFF BY ACTIVE MOUTH FOUR TIMES A DAY 3) Non-VA ALBUTEROL 100/IPRATRO 20MCG 120D PO INHL 1 PUFF BY ACTIVE MOUTH FOUR TIMES A DAY Indication: FOR BRONCHOSPASM 4) Non-VA ALOH/MGOH/SIMTH XTRA STRENGTH SUSP 2 TABLESPOONS BY ACTIVE MOUTH EVERY FOUR HOURS H NEEDED 5) Non-VA AMLODIPINE BESYLATE 10MG TAB 10MG BY MOUTH ONCE DAILY ACTIVE Indication: FOR HIGH BLOOD PRESSURE 6) Non-VA ASPIRIN 81MG EC TAB 81MG BY MOUTH DAILY ACTIVE 7) Non-VA BRIMONIDINE 0.2%/BRINZOLAMID 1% OPH SUSP 1 DROP INTO ACTIVE THE LEFT EYE TWICE DAILY 8) Non-VA CHOLECALCIF 1,250MCG (D3-50,000UNIT) CAP 1250MCG BY ACTIVE MOUTH EVERY FOUR WEEKS Indication: FOR VITAMIN D DEFICIENCY 9) Non-VA CLONIDINE HCL 0.1MG TAB 0.1MG BY MOUTH TWICE DAILY ACTIVE Indication: FOR HIGH BLOOD PRESSURE 10) Non-VA FINASTERIDE 5MG TAB 5MG BY MOUTH ONCE DAILY ACTIVE 11) Non-VA FLUPHENAZINE HCL 2.5MG TAB 2.5MG BY MOUTH ONCE DAILY ACTIVE 12) Non-VA LISINOPRIL 40MG TAB 40MG BY MOUTH ONCE DAILY ACTIVE 13) Non-VA METFORMIN HCL 1000MG TAB 1000MG BY MOUTH TWICE DAILY ACTIVE Indication: FOR TYPE 2 DIABETES MELLITUS 14) Non-VA MILK OF MAGNESIA 30ML (2 TABLESPOONS) BY MOUTH ONCE ACTIVE DAILY NEEDED 15) Non-VA SIMVASTATIN 80MG TAB 40MG BY MOUTH AT BEDTIME ACTIVE 16) Non-VA SITAGLIPTIN (EQV-JANUVIA) 100MG TAB 100MG BY MOUTH ACTIVE ONCE DAILY Indication: FOR TYPE 2 DIABETES MELLITUS 17) Non-VA TERAZOSIN HCL 10MG CAP 10MG BY MOUTH AT BEDTIME ACTIVE Indication: FOR ENLARGED PROSTATE 18) Non-VA TRAZODONE HCL 50MG TAB 25MG BY MOUTH EVERY EVENING ACTIVE Allergies: Patient has answered NKA All medications including those prescribed by outside VA's, community providers, and all OTC meds were reviewed and reconciled with patient to the best of their abilities. This 74 year old MALE is seen today for annual CEE COLT: 07/21/22 Chief Complaint: Pt is lost in follow-up care for mild stage POAG. He is still currently on Latanoprost QHS OS and Simbrinza BID OS. He does not see any other document preparer microfilming outside the VA. He wants to have duplication of his previous glasses. He is a long term pt here with an attendant. Diabetic X ~20 years Last A1C: 7.2 Glaucoma Glaucoma medication: Latanoprost QHS OS and Simbrinza BID OS Glaucoma surgery: None FHx of glaucoma: None OHx: 1. Mild POAG OS 2. TYpe 2 DM without complications OU 3. NSC OU 4. RE and presbyopia OU Ocular Medications: (-) Pain: (-) MEDLEY: (-) Diplopia: (-) Flashes: (-) Floaters: (-) Amaurosis Fugax/Tia's: (-) Eye Injury: (-) Eye Surgery: (-) TBI FOHx: (-) Glaucoma/ARMD/Blindness VITALS (most recent, as listed in the electronic record): B/P: 145/83 (08/23/2024 11:29) Pulse: 77 (08/23/2024 11:29) Temperature: 98.2 F [36.8 C] (09/13/2023 09:01) Weight: 169 lb [76.66 kg] (08/23/2024 11:29) Height: 65 in [165.1 cm] (08/28/2019 10:05) BMI: BMI: 28.2 PERTINENT LABS: HEMOGLOBIN A1C TREND Collection DT Spec HGBA1c 01/24/2019 11:02 BLOOD 7.2 H 08/23/2018 10:35 BLOOD 6.6 H 08/14/2013 12:45 BLOOD 6.3 H 12/30/2012 11:15 BLOOD 6.3 H 05/27/2012 07:59 BLOOD 6.8 H (-) Smoker/Length of Time/PPD: Current Rx with last BCVA: OD: +0.25-1.00 x100 20/25 OS: +1.50-1.00 x095 20/20 Add:+2.25 DVA ( )sc ( x )cc - phoropter OD: 20/20- OS: 20/20-2 Pupils: PERRL (-)APD EOMs: SAFE OU, (-)Pain/Diplopia CVF (facial, peripheral): FTFC OU Subjective Refraction: No change OD: +0.25-1.00 x100 20/25 OS: +1.50-1.00 x095 20/20 Add:+2.25 20/25 not improved with higher ADD All the above performed by student, reviewed by attending Anterior segment: Performed by student, repeated by attending Lids: clear OU Conj: white and quiet OU Cornea: clear (-)k spindle OU AC: Shallow OU Angles: 1x1 OU Iris: flat and clear (-)NVI/TID OU Lens: 2 + NSC OU, 1-2+ ACC OU (-)PXF OU Tonometry: Performed by student, reviewed by attending [ ] GAT [ x] iCare OD 16 mmHg OS 12 mmHg Time: 10:20am Tmax: OD: 21 OS: 21 Last IOP OD: 17 OS: 15 Pachymetry: OD: 625 OS: 625 Post-Dilation IOP OD: 14 OS: 10 Time: 10:45am Gonioscopy: pt squeezing but could get the following views: OD: SS inferiorly OS: SS inferiorly Previous gonioscopy 3.09.26 OD: SS I,S; TM temporally and SS nasal OS: SS 360. lightly pigmented TM 1+ Fundus exam: Dilated:xxx Non dilated: Dilating Drops: 1GTT 1 % Tropicamide OU (Pt. ed. on side effects, dilation warning given and verbal consent obtained) Patient advised not to drive if they feel they have any symptoms which could affect their ability to drive safely. Patient advised not to engage in any activities which could put themselves or others at risk if they feel they have any symptoms which could affect their ability to perform those activities safely. Performed by student, repeated by attending Vit: syneresis OU C/D: 0.40 OD and 0.50 OS pink & healthy rim tissue,(-)Drance heme (-)NVD OU Macula: flat and clear (-)CSME OU PPole: clear (-)NVE (-)dot/blot hemorrhage (-)exudates Fleeting view OS A/V: 2/3 Vessels: normal caliber (-)VB OU Periph: flat and intact (-)NVE, holes, tears, detachments 360 OU Poor dilation and fleeting view OS Assessment/Plan: 1. Type II Diabetes without evidence of retinopathy or macular edema OU. Last A1c 7.2 - Pt ed on today's findings and the possible ocular health and visual complications associated with diabetes as well as importance of attending follow up appts - Encouraged pt to monitor blood sugar and continue taking medications as prescribed by their PCP - Pt ed to call immediately if experiencing any sudden changes in vision - Monitor annually 2. Mild primary open-angle glaucoma suspect OS. Moderate cupping with thinner than average CCT. No evidence of pigment dispersion or pseudoexfoliation OU. No known family history of glaucoma. No change in ONH appearance. Longstanding stability. - IOP today: 16/12mmHg - Pachymetry: 625/625 =- Continue Latanoprost QHS OS and Simbrinza BID OS - Imaging taken today: - Pt ed re today's findings - Pt ed re glaucoma as well as the natural history of this diagnosis including prognosis. - Stress importance of continued follow-up appointments - RTC 6mo with IOP check and RNFL OCT pt not capable of performing VF and OCT today not available. 3. Combined Form Cataracts OU - Pt. ed. on findings - cataracts are not visually significant and that surgery is not necessary at this time - Ed. on importance of UV protection and on symptoms of glare - Continue to monitor 5. Myopia, Hyperopia, Regular astigmatism and presbyopia OU - Pt. ed. on todays findings - Ordering duplication for NVO - Monitor Return to Clinic 6mo or earlier PRN Patient Education: Diabetes: Patient was educated regarding diabetes and related ocular complications including retinopathy and cataract formation as well as other related systemic complications. The importance of good blood sugar control, blood sugar testing as recommended by their PCP and the importance of timely follow up were all emphasized. Glaucoma: Patient was educated regarding glaucoma/glaucoma suspect as well as the natural history of this diagnosis including prognosis. Stress importance of compliance and persistency with glaucoma medication when prescribed, timely follow up as well as the role of ancillary testing. Exclusion criteria for ancillary testing include significantly reduced acuity, mental status changes affecting the patient's ability to attend to the test or other physical limitations that would prohibit the patient's ability to participate in testing. /mojgan/ Avi Ivan OD [employer] Signed: 11/10/2024 11:18 for ELENA HANSEN OPTOMETRY STUDENT /avtar Ivan OD [employer]ee [employer] Cosigned: 11/10/2024 11:18 11/10/2024 ADDENDUM STATUS: COMPLETED I reviewed all findings with the meterman. I performed the slit lamp exam and dilated fundus exam. Progress note reviewed and edited as needed. I established the plan of care and educated the patient about his conditions. His ocular conditions are all stable compared to 2021 exam. He gets his glaucoma meds through his long term. /mojgan/ Avi Ivan OD [employer] Signed: 11/10/2024 11:19 AVI IVAN [facility] Nov 10, 2024 10:15 AM OPTOMETRY NOTE: LOCAL TITLE: OPTOMETRY NOTE STANDARD TITLE: OPTOMETRY NOTE DATE OF NOTE: NOV 10, 2024@10:15 ENTRY DATE: NOV 10, 2024@10:15:33 AUTHOR: ELENA HANSEN EXP COSIGNER: AVI IVAN URGENCY: STATUS: COMPLETED OPTOMETRY NOTE Has ADDENDA Active problems - Computerized Problem List is the source for the followin. Living in residential institution 2. Insomnia 3. HTN - Hypertension ([facility] [id number]) 4. Hyperlipidemia ([facility] [id number]) 5. Diabetes Mellitus Type 2 ([facility] [id number]) 6. Benign Prostatic Hypertrophy with Outflow Obstruction ([facility] [id number]) 7. Nicotine dependence 8. Vitamin D Deficiency ([facility] [id number]) 9. COPD - Chronic Obstructive Pulmonary Disease ([facility] [id number]) 10. History of hepatitis C 11. Essential tremor (SNOMED CT 119700939) 12. Undifferentiated schizophrenia (SNOMED CT 978492793) 13. Diabetic retinopathy associated with type 2 diabetes mellitus 14. Oropharyngeal dysphagia 15. 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 Outpatient Medications (including Supplies): Active Non-VA Medications Status 1) Non-VA ACETAMINOPHEN 325MG TAB 650MG BY MOUTH EVERY FOUR ACTIVE HOURS H NEEDED 2) Non-VA ALBUTEROL 100/IPRATRO 20MCG 120D PO INHL 1 PUFF BY ACTIVE MOUTH FOUR TIMES A DAY 3) Non-VA ALBUTEROL 100/IPRATRO 20MCG 120D PO INHL 1 PUFF BY ACTIVE MOUTH FOUR TIMES A DAY Indication: FOR BRONCHOSPASM 4) Non-VA ALOH/MGOH/SIMTH XTRA STRENGTH SUSP 2 TABLESPOONS BY ACTIVE MOUTH EVERY FOUR HOURS H NEEDED 5) Non-VA AMLODIPINE BESYLATE 10MG TAB 10MG BY MOUTH ONCE DAILY ACTIVE Indication: FOR HIGH BLOOD PRESSURE 6) Non-VA ASPIRIN 81MG EC TAB 81MG BY MOUTH DAILY ACTIVE 7) Non-VA BRIMONIDINE 0.2%/BRINZOLAMID 1% OPH SUSP 1 DROP INTO ACTIVE THE LEFT EYE TWICE DAILY 8) Non-VA CHOLECALCIF 1,250MCG (D3-50,000UNIT) CAP 1250MCG BY ACTIVE MOUTH EVERY FOUR WEEKS Indication: FOR VITAMIN D DEFICIENCY 9) Non-VA CLONIDINE HCL 0.1MG TAB 0.1MG BY MOUTH TWICE DAILY ACTIVE Indication: FOR HIGH BLOOD PRESSURE 10) Non-VA FINASTERIDE 5MG TAB 5MG BY MOUTH ONCE DAILY ACTIVE 11) Non-VA FLUPHENAZINE HCL 2.5MG TAB 2.5MG BY MOUTH ONCE DAILY ACTIVE 12) Non-VA LISINOPRIL 40MG TAB 40MG BY MOUTH ONCE DAILY ACTIVE 13) Non-VA METFORMIN HCL 1000MG TAB 1000MG BY MOUTH TWICE DAILY ACTIVE Indication: FOR TYPE 2 DIABETES MELLITUS 14) Non-VA MILK OF MAGNESIA 30ML (2 TABLESPOONS) BY MOUTH ONCE ACTIVE DAILY NEEDED 15) Non-VA SIMVASTATIN 80MG TAB 40MG BY MOUTH AT BEDTIME ACTIVE 16) Non-VA SITAGLIPTIN (EQV-JANUVIA) 100MG TAB 100MG BY MOUTH ACTIVE ONCE DAILY Indication: FOR TYPE 2 DIABETES MELLITUS 17) Non-VA TERAZOSIN HCL 10MG CAP 10MG BY MOUTH AT BEDTIME ACTIVE Indication: FOR ENLARGED PROSTATE 18) Non-VA TRAZODONE HCL 50MG TAB 25MG BY MOUTH EVERY EVENING ACTIVE Allergies: Patient has answered NKA All medications including those prescribed by outside VA's, community providers, and all OTC meds were reviewed and reconciled with patient to the best of their abilities. This 74 year old MALE is seen today for annual CEE COLT: 07/21/22 Chief Complaint: Pt is lost in follow-up care for mild stage POAG. He is still currently on Latanoprost QHS OS and Simbrinza BID OS. He does not see any other document preparer microfilming outside the [facility]. He wants to have duplication of his previous glasses. He is a long term pt here with an attendant. Diabetic X ~20 years Last A1C: 7.2 Glaucoma Glaucoma medication: Latanoprost QHS OS and Simbrinza BID OS Glaucoma surgery: None FHx of glaucoma: None OHx: 1. Mild POAG OS 2. TYpe 2 DM without complications OU 3. NSC OU 4. RE and presbyopia OU Ocular Medications: (-) Pain: (-) MEDLEY: (-) Diplopia: (-) Flashes: (-) Floaters: (-) Amaurosis Fugax/Tia's: (-) Eye Injury: (-) Eye Surgery: (-) TBI FOHx: (-) Glaucoma/ARMD/Blindness VITALS (most recent, as listed in the electronic record): B/P: 145/83 (08/23/2024 11:29) Pulse: 77 (08/23/2024 11:29) Temperature: 98.2 F [36.8 C] (09/13/2023 09:01) Weight: 169 lb [76.66 kg] (08/23/2024 11:29) Height: 65 in [165.1 cm] (08/28/2019 10:05) BMI: BMI: 28.2 PERTINENT LABS: HEMOGLOBIN A1C TREND Collection DT Spec HGBA1c 01/24/2019 11:02 BLOOD 7.2 H 08/23/2018 10:35 BLOOD 6.6 H 08/14/2013 12:45 BLOOD 6.3 H 12/30/2012 11:15 BLOOD 6.3 H 05/27/2012 07:59 BLOOD 6.8 H (-) Smoker/Length of Time/PPD: Current Rx with last BCVA: OD: +0.25-1.00 x100 20/25 OS: +1.50-1.00 x095 20/20 Add:+2.25 DVA ( )sc ( x )cc - phoropter OD: 20/20- OS: 20/20-2 Pupils: PERRL (-)APD EOMs: SAFE OU, (-)Pain/Diplopia CVF (facial, peripheral): FTFC OU Subjective Refraction: No change OD: +0.25-1.00 x100 20/ OS: +1.50-1.00 x095 Add:+2.25 20 not improved with higher ADD All the above performed by student, reviewed by attending Anterior segment: Performed by student, repeated by attending Lids: clear OU Conj: white and quiet OU Cornea: clear (-)k spindle OU AC: Shallow OU Angles: 1x1 OU Iris: flat and clear (-)NVI/TID OU Lens: 2 + NSC OU, 1-2+ ACC OU (-)PXF OU Tonometry: Performed by student, reviewed by attending [ ] GAT [ x] iCare OD 16 mmHg OS 12 mmHg Time: 10:20am Tmax: OD: 21 OS: 21 Last IOP OD: 17 OS: 15 Pachymetry: OD: 625 OS: 625 Post-Dilation IOP OD: 14 OS: 10 Time: 10:45am Gonioscopy: pt squeezing but could get the following views: OD: SS inferiorly OS: SS inferiorly Previous gonioscopy 3.09.26 OD: SS I,S; TM temporally and SS nasal OS: SS 360. lightly pigmented TM 1+ Fundus exam: Dilated:xxx Non dilated: Dilating Drops: 1GTT 1 % Tropicamide OU (Pt. ed. on side effects, dilation warning given and verbal consent obtained) Patient advised not to drive if they feel they have any symptoms which could affect their ability to drive safely. Patient advised not to engage in any activities which could put themselves or others at risk if they feel they have any symptoms which could affect their ability to perform those activities safely. Performed by student, repeated by attending Vit: syneresis OU C/D: 0.40 OD and 0.50 OS pink & healthy rim tissue,(-)Drance heme (-)NVD OU Macula: flat and clear (-)CSME OU PPole: clear (-)NVE (-)dot/blot hemorrhage (-)exudates Fleeting view OS A/V: 2/3 Vessels: normal caliber (-)VB OU Periph: flat and intact (-)NVE, holes, tears, detachments 360 OU Poor dilation and fleeting view OS Assessment/Plan: 1. Type II Diabetes without evidence of retinopathy or macular edema OU. Last A1c 7.2 - Pt ed on today's findings and the possible ocular health and visual complications associated with diabetes as well as importance of attending follow up appts - Encouraged pt to monitor blood sugar and continue taking medications as prescribed by their PCP - Pt ed to call immediately if experiencing any sudden changes in vision - Monitor annually 2. Mild primary open-angle glaucoma suspect OS. Moderate cupping with thinner than average CCT. No evidence of pigment dispersion or pseudoexfoliation OU. No known family history of glaucoma. No change in ONH appearance. Longstanding stability. - IOP today: 16/12mmHg - Pachymetry: 625/625 =- Continue Latanoprost QHS OS and Simbrinza BID OS - Imaging taken today: - Pt ed re today's findings - Pt ed re glaucoma as well as the natural history of this diagnosis including prognosis. - Stress importance of continued follow-up appointments - RTC 6mo with IOP check and RNFL OCT pt not capable of performing VF and OCT today not available. 3. Combined Form Cataracts OU - Pt. ed. on findings - cataracts are not visually significant and that surgery is not necessary at this time - Ed. on importance of UV protection and on symptoms of glare - Continue to monitor 5. Myopia, Hyperopia, Regular astigmatism and presbyopia OU - Pt. ed. on todays findings - Ordering duplication for NVO - Monitor Return to Clinic 6mo or earlier PRN Patient Education: Diabetes: Patient was educated regarding diabetes and related ocular complications including retinopathy and cataract formation as well as other related systemic complications. The importance of good blood sugar control, blood sugar testing as recommended by their PCP and the importance of timely follow up were all emphasized. Glaucoma: Patient was educated regarding glaucoma/glaucoma suspect as well as the natural history of this diagnosis including prognosis. Stress importance of compliance and persistency with glaucoma medication when prescribed, timely follow up as well as the role of ancillary testing. Exclusion criteria for ancillary testing include significantly reduced acuity, mental status changes affecting the patient's ability to attend to the test or other physical limitations that would prohibit the patient's ability to participate in testing. /mojgan/ Avi Ivan OD [employer]ee [employer] Signed: 11/10/2024 11:18 for ELENA HANSEN OPTOMETRY STUDENT /mojgan/ Avi Ivan OD Fee [employer]asis [employer] Cosigned: 11/10/2024 11:18 11/10/2024 ADDENDUM STATUS: COMPLETED I reviewed all findings with the meterman. I performed the slit lamp exam and dilated fundus exam. Progress note reviewed and edited as needed. I established the plan of care and educated the patient about his conditions. His ocular conditions are all stable compared to 2021 exam. He gets his glaucoma meds through his long term. /mojgan/ Avi vIan OD Fee Basis [employer] Signed: 11/10/2024 11:19 11/10/2024 ADDENDUM STATUS: COMPLETED please order NVOs as follows: OD +2.50 -1.00 X100 Add:0.00 Pzm:0.00 Dir: Prz2:0.00 Dir2: OS +3.75 -1.00 X95 Add:0.00 Pzm:0.00 Dir: Prz2:0.00 Dir2: FITTING INFORMATION NVO FPD: NPD:57 [place]:R: L: SEG HT:R: L: Tint:None Shade:None VA Billable Items FRAME: JOSE R ROSE 54-20-140 Right Lens: POLY SINGLE VISION 1.586 POLY Left Lens: POLY SINGLE VISION 1.586 POLY /mojgan/ Avi Ivan OD Fee [employer]asis [employer] Signed: 11/10/2024 11:20 Receipt Acknowledged By: 11/10/2024 15:01 /avtar CARLSON OPTOMETRY TECH 11/10/2024 ADDENDUM STATUS: COMPLETED Optometry Health General Maintenance Mechanic ordered patient 1 pair(s) of SV eyeglasses on 11/10/2024 as directed by provider. OPT HT entered consult(s) for order on behalf of provider. /avtar CARLSON OPTOMETRY TECH Signed: 11/10/2024 15:03 AVI IVAN MT [facility]
--- OUTSIDE RECORDS SUMMARY | 2024-12-19 09:16 | XMS_ITS | Clinical Summary ---
Author Organization [address] Address [address] [place] [phone] Phone Care Team Providers Care Contract Accountant Name Role Phone Ramone Gibson MD Primary Care Provider +1- [phone] Allergies No known active allergies Medications amLODIPine [...] Encounters Date Type Department Care Team Description 12/12/2024 Lab Requisition [facility] Lab [address] [place] [phone] Ramone Gibson MD Benign prostatic hyperplasia with lower urinary tract symptoms 11/21/2024 Lab Requisition [facility] Lab [address] [place] [phone] Ramone Gibson MD Chronic kidney disease, unspecified; Essential (primary) hypertension; Proteinuria, unspecified 11/09/2024 1:21 PM EST - 11/09/2024 11:59 PM EST Hospital Encounter [facility] CT Scan [address] [place] [phone] Encounter for screening for malignant neoplasm of respiratory organs; Nicotine dependence, cigarettes, uncomplicated Discharge Disposition: Home or Self Care 11/09/2024 10:30 AM EST Office Visit Lung Screening Program - [address] [place] [phone] Nirali Timmons PA Encounter for screening for malignant neoplasm of lung in current smoker with 30 pack year history or greater (Primary Dx) from Last 3 Months Medical History Medical History Date Comments Essential hypertension Hypotension Chronic hepatitis C without hepatic coma (CMS/HC C V24, CMS/HCC V28) Type 2 diabetes mellitus wit h other circulatory complications (CMS/HCC V24, CMS/HCC V28) Schizophrenia, unspecified type (CMS/HCC V24, CM S/HCC V28) Late effects of cerebrovascular accident Psoriasis FCI (current) use of oral hypoglycemic alethea gs Hyperlipidemia History of TIA (transient ischemic attack) Social History Tobacco Use Types Packs/Day Years Used Date Smoking Tobacco: Every Day Cigarettes 0.5 53.3 Started: 1972 Tobacco Cessation:Ready to Q uit: [...] Influencers of Health Screening 08/09/2022 RSV Immunization Adult Patients (1 - 1-dose 75+ series) 2024 COVID-19 Vaccine ( season) 2024 06/14/2024, 07/05/2023, 01/07/2022, Additional history exists Diabetes: Blood Sugar Control Test (HGBA1C) 02/06/2025 08/08/2024 Diabetes: Annual Urine Albumin-Creatinine Ratio (uACR) 08/08/2025 08/08/2024 Lung Cancer Screening (Low Dose CT) 11/09/2025 11/09/2024 Diabetes: Annual GFR (Glomerular Filtration Rate) 11/21/2025 11/21/2024, 08/08/2024 Hypertension/CHF/CAD Annual BMP Blood Test 11/21/2025 11/21/2024, 08/08/2024 Influenza Vaccine Completed 06/14/2024, , 06/06/2023, Additional [...] age to complete this topic Meningococcal B Vaccine Aged Out No l onger eligible based on patient's age to complete this topic RSV Immunization Patients Under 20 months Aged Out No longer eligible based on patient's age to complete this topic Varicella Vaccines Aged Out No longer eligible based on patient's age to complete this topic Procedures Procedure Name Priority Date/Time Associated Diagnosis Comments RED - PLAIN Routine 12/12/2024 7:05 AM EDT Benign prostatic hyperplasia with lower urinary tract symptoms PSA TOTAL, FREE AND COMPLEXED, DIAGNOSTIC Routine 12/12/2024 7:05 AM EDT Benign prostatic hyperplasia with lower urinary tract symptoms RENAL FUNCTION PANEL Routine 11/21/2024 7:57 AM [...] Type 2 diabetes mellitus without complications (CMS/HCC) MICROALBUMIN CREATININE URINE RATIO Routine 08/08/2024 12:00 AM EST Other abnormal findings on microbiological examination of urine Chronic kidney disease, unspecified Essential (primary) hypertension from Last 3 Months or Most Recently Relevant to Health Maintenance Results * (ABNORMAL) PSA total, free and complexed (12/12/2024 7:05 AM EDT) PSA 0.14 0.00 - 4.00 ng/mL LAB CHEMISTRY METHOD 12/12/2024 9:27 AM EDT [facility] PSA, Complexed 0.10 0.00 - 3.00 ng/mL LAB CHEMISTRY METHOD 12/12/2024 9:27 AM EDT [facility] PSA, Free 0.0 ng/mL LAB CHEMISTRY METHOD 12/12/2024 9:27 AM EDT [facility] PSA, Free Pct 0.0(L) >25.0 % LAB CHEMISTRY METHOD 12/12/2024 9:27 AM EDT [facility] Blood Venous blood specimen / Unknown Venipuncture / Unknown 12/12/2024 7:05 AM EDT 12/12/2024 8:34 AM EDT Narrative [facility] - 12/12/2024 9:27 AM EDT Free PSA is a calculated value. ??The diagnostic usefulness of % free PSA has not been established in patients with Total PSA below 2.6 or above 10 ng/mL. ?? This test was performed using the Centaur Chemiluminescent method. ??PSA values obtained with other methods cannot be used interchangeably. us Ramone Gibson MD LAB BLOOD ORDERABLES Final Result Performing Organization Address [facility]/ZIP Co de Phone Number [facility] [address] [place] [address], * Red tube (12/12/2024 7:05 AM EDT) Extra Tube Hold for add-ons. 12/12/2024 10:01 AM EDT [facility] Comment:Auto resulted. Blood Venous blood specimen / Unknown Venipuncture / Unknown 12/12/2024 7:05 AM EDT 12/12/2024 8:35 AM EDT us Ramone Gibson MD LAB BLOOD ORDERABLES Final Result [facility] [address] [place] [address], [place] [phone] * Renal function panel (11/21/2024 7:57 AM EDT) Sodium 138 133 - 145 mmol/L LAB CHEMISTRY METHOD 11/21/2024 12:19 PM EDT [facility] Potassium 4.6 3.5 - 5.5 mmol/L LAB CHEMISTRY METHOD 11/21/2024 12:19 PM [facility] Chloride 105 96 - 110 mmol/L LAB CHEMISTRY METHOD 11/21/2024 12:19 PM [facility] CO2 30 21 - 32 mmol/L LAB CHEMISTRY METHOD 11/21/2024 12:19 PM [facility] Anion Gap 3 3 - 11 LAB CHEMISTRY METHOD 11/21/2024 12:19 PM [facility] Glucose 75 70 - 100 mg/dL LAB CHEMISTRY METHOD 11/21/2024 12:19 PM [facility] BUN 11 5 - 25 mg/dL LAB CHEMISTRY METHOD 11/21/2024 12:19 PM [facility] Creatinine 0.92 0.70 - 1.30 mg/dL LAB CHEMISTRY METHOD 11/21/2024 12:19 PM [facility] eGFR 87 >=60 mL/min/1. 73m2 LAB CHEMISTRY METHOD 11/21/2024 12:19 PM [facility] Comment:Calculation based on the??Chronic Kidney Disease Epidemiology Collaboration (CKD-EPI) equation refit??without adjustment for race. BUN/Creatinine Ratio 12.0 LAB CHEMISTRY METHOD 11/21/2024 12:19 PM [facility] Albumin 3.7 3.2 - 5.0 g/dL LAB CHEMISTRY METHOD 11/21/2024 12:19 PM [facility] Calcium 9.3 8.5 - 10.5 mg/dL LAB CHEMISTRY METHOD 11/21/2024 12:19 PM EDT [facility] Phosphorus 3.7 2.5 - 4.5 mg/dL LAB CHEMISTRY METHOD 11/21/2024 12:19 PM EDT [facility] Blood Venous blood specimen / Unknown Venipuncture / Unknown 11/21/2024 7:57 AM EDT 11/21/2024 11:04 AM EDT us Ramone Gibson MD LAB BLOOD ORDERABLES Final Result [facility] [address] [place] [address], * CT Lung Screening (11/09/2024 1:48 PM [...] Signed Date: 11/13/2024 15:52 ET Workstation ID: [id number] Transcribed By: Self Edit Transcribed Date: 11/13/2024 [...] Signed Date: 11/13/2024 15:52 ET Workstation ID: [id number] Transcribed By: Self Edit Transcribed Date: 11/13/2024 15:49 ET Catrachita Perry MD IMG CT PROCEDURES Final Result * Hemoglobin A1c (08/08/2024 7:22 AM EST) [facility] Hemoglobin A1C 5.4 <6.5 % LAB CHEMISTRY METHOD 08/08/2024 2:16 PM EST [facility] Mean Bld Glu Estim. 108 mg/dL LAB CHEMISTRY METHOD 08/08/2024 2:16 PM EST [facility] Blood Venous blood specimen / Unknown Venipuncture / Unknown 08/08/2024 7:22 AM EST 08/08/2024 11:53 AM EST Ramone Gibson MD LAB BLOOD ORDERABLES Final Result [facility] [address] [place] [address], [place] [phone] * (ABNORMAL) Microalbumin creatinine urine ratio (08/08/2024 12:00 AM EST) Creatinine, Urine 94.0 mg/dL LAB CHEMISTRY METHOD 08/08/2024 1:48 PM EST [facility] Microalb, Ur 324.0(H) 0.0 - 29.0 mg/L LAB CHEMISTRY METHOD 08/08/2024 1:48 PM EST [facility] Microalb/Crea t Ratio 345(H) <30 mg/g creat LAB CHEMISTRY METHOD 08/08/2024 1:48 PM EST [facility] Urine Urine specimen obtained by clean catch procedure / Unknown Non-blood Collection / Unknown 08/08/2024 08/08/2024 11:58 AM EST Ramone Gibson MD LAB URINE ORDERABLES Final Result [facility] [address] [place] [address], from Last 3 Months or Most Recently Relevant to [place] [id number] MEDICA[place] - [place] MEDICARE Care Teams Contract Accountant Relationship Specialty Start Date End Date Ramone Gibson MD [address] [facility] [place], [place] PCP - General Internal Medicine 08/09/24
--- OUTSIDE RECORDS SUMMARY | 2024-12-19 09:16 | XMS_ITS | Encounter Summary ---
Author Organization [facility] Address [address] [place] [address] Care Team Providers Care Python Developer Name Role Phone Ramone Gibson MD Primary Care Provider +1- [phone] Encounter Details Date Type Department Care Team (Late st Contact Info) Description 08/07/2024 Lab Requisition [facility] Lab [address] [facility] [place] [phone] Ramone Gibson MD [address] [place] [id number] Vitamin D deficiency, unspecified; Chronic kidney disease, unspecified; Essential (primary) hypertension; Type 2 diabetes mellitus without complications (CMS/HCC V24, CMS/HCC V28) Social History Tobacco Use Types Packs/Day Years [...] LAB CHEMISTRY METHOD 08/08/2024 1:[address] [facility] Blood Venous blood specimen / Unknown Venipuncture / Unknown 08/08/2024 7:22 AM EST 08/08/2024 11:53 AM EST Ramone Gibson MD LAB BLOOD ORDERABLES Final Result [facility] [address] [place] [address], * (ABNORMAL) Renal function panel (08/08/2024 7:22 AM EST) Sodium 140 133 - 145 mmol/L LAB CHEMISTRY METHOD 08/08/2024 1:[address] [facility] Potassium 4.1 3.5 - 5.5 mmol/L LAB CHEMISTRY METHOD 08/08/2024 1:[address] [facility] Chloride 105 96 - 110 mmol/L LAB CHEMISTRY METHOD 08/08/2024 1:[address] [facility] CO2 28 21 - 32 mmol/L LAB CHEMISTRY METHOD 08/08/2024 1:18 PM [facility] Anion Gap 7 3 - 11 LAB CHEMISTRY METHOD 08/08/2024 1:18 PM [facility] Glucose 109(H) 70 - 100 mg/dL LAB CHEMISTRY METHOD 08/08/2024 1:18 PM [facility] BUN 14 5 - 25 mg/dL LAB CHEMISTRY METHOD 08/08/2024 1:18 PM [facility] Creatinine 1.03 0.70 - 1.30 mg/dL LAB CHEMISTRY METHOD 08/08/2024 1:18 PM [facility] eGFR 76 >=60 mL/min/1. 73m2 LAB CHEMISTRY METHOD 08/08/2024 1:18 PM [facility] Comment:Calculation based on the??Chronic Kidney Disease Epidemiology Collaboration (CKD-EPI) equation refit??without adjustment for race. BUN/Creatinine Ratio 13.6 LAB CHEMISTRY METHOD 08/08/2024 1:18 PM [facility] Albumin 3.6 3.2 - 5.0 g/dL LAB CHEMISTRY METHOD 08/08/2024 1:18 PM [facility] Calcium 9.5 8.5 - 10.5 mg/dL LAB CHEMISTRY METHOD 08/08/2024 1:18 PM [facility] Phosphorus 3.6 2.5 - 4.5 mg/dL LAB CHEMISTRY METHOD 08/08/2024 1:18 PM [facility] Blood Venous blood specimen / Unknown Venipuncture / Unknown 08/08/2024 7:22 AM EST 08/08/2024 11:53 AM EST us Ramone Gibson MD LAB BLOOD ORDERABLES Final Result [facility] [address] [place] [address], * Parathyroid hormone intact (08/08/2024 7:22 AM EST) PTH 50.7 18.5 - 88.0 pcg/mL LAB CHEMISTRY METHOD 08/08/2024 1:33 PM [facility] Blood Venous blood specimen / Unknown Venipuncture / Unknown 08/08/2024 7:22 AM EST 08/08/2024 11:53 AM EST Ramone Gibson MD LAB BLOOD ORDERABLES Final Result [facility] [address] [place] [address], * (ABNORMAL) Complete blood count (08/08/2024 7:22 AM EST) [facility] [address] WBC 4.7(L) 4.8 - 10.8 K/mcL LAB HEMETOLOGY METHOD 08/08/2024 12:29 PM [facility] RBC 4.70 4.50 - 5.50 M/mcL LAB HEMETOLOGY METHOD 08/08/2024 12:29 PM [facility] Hemoglobin 13.9 13.5 - 17.5 g/dL LAB HEMETOLOGY METHOD 08/08/2024 12:29 PM [facility] Hematocrit 42.4 42.0 - 54.0 % LAB HEMETOLOGY METHOD 08/08/2024 12:29 PM [facility] MCV 91.0 79.0 - 98.0 FL LAB HEMETOLOGY METHOD 08/08/2024 12:29 PM [facility] MCH 29.8 27.0 - 32.0 pcg LAB HEMETOLOGY METHOD 08/08/2024 12:29 PM [facility] MCHC 32.8 32.0 - 37.0 g/dL LAB HEMETOLOGY METHOD 08/08/2024 12:29 PM [facility] RDW 13.2 11.0 - 15.0 % LAB HEMETOLOGY METHOD 08/08/2024 12:[address] [facility] Platelets 205 130 - 400 K/mcL LAB HEMETOLOGY METHOD 08/08/2024 12:29 PM [facility] MPV 10.6 7.0 - 11.0 FL LAB HEMETOLOGY METHOD 08/08/2024 12:[address] [facility] NRBC 0.0 <1.0 % LAB HEMETOLOGY METHOD 08/08/2024 12:29 PM [facility] NRBC Absolute 0.00 <0.10 K/mcL LAB HEMETOLOGY METHOD 08/08/2024 12:29 PM [facility] Blood Venous blood specimen / Unknown Venipuncture / Unknown 08/08/2024 7:22 AM EST 08/08/2024 11:53 AM EST us Ramone Gibson MD LAB BLOOD ORDERABLES Final Result [facility] [address] [place] [address], [place] [phone] * Hemoglobin A1c (08/08/2024 7:22 AM EST) Hemoglobin A1C 5.4 <6.5 % LAB CHEMISTRY METHOD 08/08/2024 2:[address] [facility] Mean Bld Glu Estim. 108 mg/dL LAB CHEMISTRY METHOD 08/08/2024 2:[address] [facility] Blood Venous blood specimen / Unknown Venipuncture / Unknown 08/08/2024 7:22 AM EST 08/08/2024 11:53 AM EST us Ramone Gibson MD LAB BLOOD ORDERABLES Final Result [facility] [address] [place] [address], [place] [phone] documented in this encounter Visit Diagnoses Diagnosis Vitamin D deficiency, unspecified Chronic kidney disease, unspecified Essential (primary) hypertension Unspecified essential hypertension Type 2 diabetes mellitus without complications (CMS/[facility] V24, CMS/[facility] V28) documented in this encounter Care Teams Python Developer Relationship Specialty Start Date End Date Ramone Gibson MD [address] [facility] [place], [place] PCP - General Internal Medicine 08/09/24 documented as of this encounter
--- OUTSIDE RECORDS SUMMARY | 2024-12-19 09:16 | XMS_ITS | Encounter Summary ---
Author Name [facility] (MD) Organization [facility] (MD) Address [address] [place] [id number] Care Team Providers Care Dual Hose Cementer Name Role Phone YASMANY VELÁZQUEZ Primary Care Provider Unavail able Insurance Providers: [...] Relationship to Policy [place] MEDICAID MEDICAID DAYO WOLF MESFIN Jan 04, 2016 MEDICAI D [id number] PENNY SAXENA PATIENT MEDICARE (WNR) MEDICARE (M) PART A Jun 06, 2018 PART A [id number] PENNY SAXENA PATIENT MEDICARE (WNR) MEDICARE (M) PART B Jun 06, 2018 PART B [id number] PENNY SAXENA PATIENT Selected Encounter This section includes the information on record at MD for the Encounter. 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 Date/Time Primary/Secondary Diagnosis Diagnosis Name Provider Source Jan 04, 2024 10:03 AM PRIMARY Undifferentiated schizophrenia DREW WILKERSON MD [facility] Plan of Treatment: Future Appointments (+ 6 months) and Future Tests (+/- 45 days) The Plan of Treatment section includes future care activities for the patient from [facility] This section includes future appointments and future orders which are active, pending or scheduled. Future Appointments This section includes appointments that were scheduled to occur 6 months from the date of the Encounter, up to a maximum of 20 appointments. The data comes from all MD treatment facilities. Appointment Date/Time Appointment Type Appointme nt Facility Name January 10, 2024 10:30 AM AMBULATORY - MEDICINE [facility] Jun 05, 2024 09:30 AM AMBULATORY - MEDICINE [facility] Social History: Smoking Status (Most current) and Tobacco Use (All prior to encounter date) This section includes the most current, and the historical, smoking and tobacco- related health factors from the MD facility where the Encounter took place. Current Smoking Status This section includes the most current smoking, or tobacco-related health factor, from the MD facility where the Encounter took place. Date/Time Current Smoking Status Comment Facil ity Sep 20, 2008 10:20 AM CURRENT SMOKER MD C [facility] Advance Directives: All historical and current Section Date Range: From patient's date of to the date document was created. This section includes ALL of a patient's completed or amended MD Advance and Rescinded Directives. The entries below indicate that a directive exists for the patient, but an actual copy is not included with this document. The data comes from all MD facilities. Date Advance Directives Provider Source Nov 20, 2008 CLINICAL WARN[facility] Oct 02, 2008 CLINICAL WARNING [facility]H [facility]O [facility] Aug 29, 2008 CLINICAL WARNING ELMA ABAD [facility] Feb 28, 2007 ADVANCE DIRECTIVE DISCUSSION RADHA HILL Encounter Notes: All associated encounter notes This section contains the clinical notes associated to the Encounter. Date/Time Encounter Note(s) Provider Source Jan 04, 2024 09:56 AM COMMUNITY RESIDENT IAL CARE NOTE: LOCAL TITLE: COMMUNITY RESIDENTIAL CARE PROGRESS NOTE STANDARD TITLE: COMMUNITY RESIDENTIAL CARE NOTE DATE OF NOTE: JAN 04, 2024@09:56 ENTRY DATE: JAN 04, 2024@09:57:05 AUTHOR: DREW WILKERSON COSIGNER: URGENCY: STATUS: COMPLETED [place]'s Name: PENNY SAXENA : Apr SSN: [id number] Disability: SERVICE CONNECTED % - NONE FOUND Residential Address and Point of Contact: [facility], [address] [place] [address] Leonard Foreman [place]; POC Katanthony Tamayo Active Problems and Diagnoses: Code Description B18.2 Hepatitis C ([facility] [id number]) 366.16 Cataract, Nuclear Sclerosis (ICD-9-CM 366.16) 781.0 Tremor (ICD-9-CM 781.0) 268.9 Vitamin D Deficiency (ICD-9-CM 268.9) 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 CVA (ICD-9-CM 436.) 250.00 Diabetes Mellitus Type II or unspecified (ICD-9-CM 250.00) 799.9 FLEXOR TENDON (ICD-9-CM 799.9) 784.5 Dysarthria (ICD-9-CM 784.5) 795.5 Mantoux: positive (ICD-9-CM 795.5) 813.01 Fracture of olecranon process of ulna, closed (ICD-9-CM 813.01) 070.51 Hepatitis C (ICD-9-CM 070.51) 272.4 Dyslipidemia (ICD-9-CM 272.4) 303.92 Other and unspecified alcohol dependence, episodic drinking behavior (ICD-9-CM 303.92) 305.1 Nicotine Dependence (ICD-9-CM 305.1) 277.7 Dysmetabolic Syndrome X (ICD-9-CM 277.7) Transportation: Staff (None [facility] Paid) Medication: Compliant Cognitive Status: Alert, Oriented to person, place, and time Mood: Stable Insight/Judgement Intact: Yes Speech: Soft - slurred at baseline Socialization: Good ADL's: Independent Grooming: Dressed Appropriately Substance Abuse: No Any acute medical conditions in the last 60 days: No Any acute changes in psychiatric conditions or acute behavioral changes in the last 60 days: No Suicidal/Homicidal Ideation: No CRC visit: 12/15/23 The was in his room when I met with him. He did not have the activity schedule in his room and forgot about the monthly CRC meeting. The [place] presented at his typical baseline level of functioning - safe/stable. His room was neat and clean. He was very easy to engage in conversation. The facility has lots of construction going on. He reports his activity and schedule within the home has not changed. He is up and out of bed daily. The likes to read and likes to walk to the store. He reports ongoing chronic skin issues with his legs - unclear exactly what this is but I know he has been seen and treated. He reports its not worse. The is up and out of bed daily - active with the things he enjoys. Continues to smoke. He remains appropriate for this level of care. Next visit 01/12/24 PLAN: Continue in Residential Care. /mojgan/ BRODY Deleon CRC Coordinator Signed: 01/04/2024 10:04 DREW WILKERSON [facility]
--- OUTSIDE RECORDS SUMMARY | 2024-12-19 09:16 | XMS_ITS | Encounter Summary ---
Author Name [facility] [place] [facility] [place] [facility] [place] Address [address] [place] [id number] Care Team Providers [employer] Counselor Name Role Phone EBERTAMCARMEN Primary Care Provider Unavail able Insurance Providers: [...] ENCARNACIONCOLLIN TOURE Jan 04, 2016 MEDICAI D [id number] PENNY SAXENA PATIENT MEDICARE (WNR) MEDICARE (M) PART A Jun 06, 2018 PART A [id number] PENNY SAXENA PATIENT MEDICARE (WNR) MEDICARE (M) PART B Jun 06, 2018 PART B [id number] PENNY SAXENA PATIENT Selected Encounter This section includes the information on record at [place] for the Encounter. Date/Time Encounter Type Encounter Description Reason Provider Source Aug 23, 2024 11:30 AM OFFICE O/P EST HI 40 MIN PRIMARY CARE/MEDICINE ICD-10-CM Z59.3 Problems related to living in residential institution RUTH RAYMUNDO Encounter Template Text not used by [facility] Assessments - Encounter Diagnoses This section includes the primary and secondary diagnoses documented for the Encounter. Date/Time Primary/Secondary Diagnosis Diagnosis Name Provider Source Sep 09, 2024 07:43 PM PRIMARY Problems related to living in residential institution BREANNECATHI Luu [facility] Sep 09, 2024 07:43 PM SECONDARY Benign prostatic hyperplasia with lower urinary tract symp BREANNECATHI Luu [place] Sep 09, 2024 07:43 PM SECONDARY Chronic obstructive pulmonary disease, unspecified CATHI RAYMUNDO [facility] Sep 09, 2024 07:43 PM SECONDARY Dysphagia, oropharyngeal phase CATHI RAYMUNDO [facility] Sep 09, 2024 07:43 PM SECONDARY Essential (primary) hypertension CATHI RAYMUNDO [facility] Sep 09, 2024 07:43 PM SECONDARY Essential tremor CATHI RAYMUNDO [facility] Sep 09, 2024 07:43 PM SECONDARY Hyperlipidemia, unspecified CATHI RAYMUNDO [facility] Sep 09, 2024 07:43 PM SECONDARY Nicotine dependence, unspecified, uncomplicated CATHI RAYMUNDO [facility] Sep 09, 2024 07:43 PM SECONDARY Other obstructive and reflux uropathy CATHI RAYMUNDO [facility] Sep 09, 2024 07:43 PM SECONDARY Prsnl hx of TIA (TIA), and cereb infrc w/o resid deficits CATHI RAYMUNDO [facility] Sep 09, 2024 07:43 PM SECONDARY Type 2 diabetes mellitus without complications CATHI RAYMUNDO [facility] Sep 09, 2024 07:43 PM SECONDARY Undifferentiated schizophrenia CATHI RAYMUNDO [facility] Plan of Treatment: Future Appointments (+ 6 months) and Future Tests (+/- 45 days) The Plan of Treatment section includes future care activities for the patient from all [place] treatmentfacilities. This section includes future appointments and future orders which are active, pending or scheduled. Future Appointments This section includes appointments that were scheduled to occur 6 months from the date of the Encounter, up to a maximum of 20 appointments. The data comes from all [place] treatment facilities. Appointment Date/Time Appointment Type Appointme nt Facility Name Oct 18, 2024 11:00 AM AMBULATORY - NONE [facility] Oct 30, 2024 09:30 AM [facility] Nov 10, 2024 10:00 AM AMBULATORY - MEDICINE [facility] Active, Pending, and Scheduled Orders This section includes a listing of several types of active, pending, and scheduled orders, including clinic medications orders, diagnostic test orders, procedure orders and consult orders; where the start date of the order is 45 days before the date of the Encounter or 45 days after the date of theEncounter. The data comes from all [place] treatment facilities. Test Date/Time Test Type Test Details Facility Name Aug 19, 2024 12:00 AM Laboratory - Chemi stry Order HEMOGLOBIN A1C PANEL BLOOD (LAV-BLOOD) [facility] 14, 2024 12:00 AM Laboratory - Chemi stry Order MICROALBUMIN CREATININE RATIO PANEL URINE (RANDOM) [facility] 14, 2024 12:00 AM Laboratory - Chemi stry Order CBC BLOOD (LAV-BLOOD) [facility] 14, 2024 12:00 AM Laboratory - Chemi stry Order URINALYSIS URINE [facility] 14, 2024 12:00 AM Laboratory - Chemi stry Order TSH BLOOD (SST-SERUM) [facility] 14, 2024 12:00 AM Laboratory - Chemi stry Order BASIC METABOLIC PANEL (fasting) BLOOD (SST-SERUM) [facility] 14, 2024 12:00 AM Laboratory - Chemi stry Order LIVER FUNCTION BLOOD (SST-SERUM) [facility] 14, 2024 12:00 AM Laboratory - Chemi stry Order LIPID PANEL FASTING BLOOD (SST-SERUM) [facility] 14, 2024 12:00 AM Laboratory - Chemi stry Order VITAMIN D (25-OH) BLOOD (SST-SERUM) [facility] Vital Signs: All taken on the encounter date This section contains inpatient and outpatient Vital Signs collected on the date of the Encounter. Date/Time Temperature Pulse Blood Pressure Respiratory Rate SP02 Pain Height Weight Body Mass Index Source Aug 23, 2024 11:29 AM 77 145/83 97 169 28 [facility] IELD Social History: Smoking Status (Most current) and Tobacco Use (All prior to encounter date) This section includes the most current, and the historical, smoking and tobacco- related health factors from the [place] facility where the Encounter took place. Current Smoking Status This section includes the most current smoking, or tobacco-related health factor, from the [place] facility where the Encounter took place. Date/Time Current Smoking Status Comment Facil ity Aug 23, 2024 11:30 AM [place]-TO[place]ACCO NEVER USED OTHER TYPE [facility] Tobacco Use History This section includes a history of the smoking, or tobacco-related health factors, that were collected on or before the date of the Encounter. The data comes from the [place] facility where the Encounter took place. Date/Time Smoking Status/Tobacco Use Comment F acility Aug 23, 2024 11:30 AM VA-TOBACCO SCREEN FOLLOW-UP [facility] Aug 23, 2024 11:30 AM VA-TOBACCO USE ADVICE [facility] Aug 23, 2024 11:30 AM VA-TOBACCO USE WINDOWS SYSTEM ADMIN NO [facility] Aug 23, 2024 11:30 AM VA-TOBACCO USE JAMMIE RY DAY CIGARETTES [facility] Aug 23, 2024 11:30 AM VA-TOBACCO USE MED NO [facility] Sep 01, 2022 11:30 AM VA-TOBACCO USE 5 TO 15 YEARS [facility] Sep 01, 2022 11:30 AM VA-TOBACCO USE ADVICE [facility] Sep 01, 2022 11:30 AM VA-TOBACCO USE WINDOWS SYSTEM ADMIN NO [facility] Sep 01, 2022 11:30 AM VA-TOBACCO USE MED NO [facility] Sep 01, 2022 11:30 AM VA-TOBACCO USE WI 30 MIN OF WAKEUP [facility] Sep 01, 2022 11:30 AM VA-TOBACCO USER EVERY DAY [facility] Aug 26, 2018 11:20 AM VA-TOBACCO USE 30 YEARS OR MORE [facility] Aug 26, 2018 11:20 AM VA-TOBACCO USE ADVICE [facility] Aug 26, 2018 11:20 AM VA-TOBACCO USE WINDOWS SYSTEM ADMIN NO [facility] Aug 26, 2018 11:20 AM VA-TOBACCO USE MED NO [facility] Aug 26, 2018 11:20 AM VA-TOBACCO USE WI 30 MIN OF WAKEUP [facility] Aug 26, 2018 11:20 AM VA-TOBACCO USER EVERY DAY [facility] Oct 26, 2017 11:14 AM CURRENT SMOKER 9 cigs a day [facility] Oct 26, 2017 11:14 AM V1-PT NOT INTEREST ED IN QUIT TOBACCO USE [facility] Oct 05, 2017 09:56 AM CURRENT SMOKER 9 cigarettes per day [facility] January 27, 2017 12:09 PM CURRENT SMOKER 9 cigs a day [facility] January 27, 2017 12:09 PM V1-PT DECLINES REF TO TOBACCO CESS PRGM [facility] January 27, 2017 12:09 PM V1-PT DECLINES TOB ACCO CESSATION MEDS [facility] January 27, 2017 12:09 PM V1-PT THINKING ABO UT QUIT TOBACCO USE [facility] Dec 23, 2016 09:10 AM CURRENT SMOKER 1/2 pack daily [facility] Jun 03, 2016 12:55 PM V1-PT NOT INTEREST ED IN QUIT TOBACCO USE [facility] Nov 19, 2015 11:06 AM V1-PT NOT INTEREST ED IN QUIT TOBACCO USE [facility] Nov 08, 2015 11:20 AM CURRENT SMOKER 1/2 pack per day [facility] Oct 01, 2014 11:55 AM CURRENT SMOKER [facility] Aug 14, 2013 11:11 AM CURRENT SMOKER Pt, stated he smokes half a pack a day! [facility] Aug 14, 2013 11:11 AM V1-PT NOT INTEREST ED IN QUIT TOBACCO USE [facility] Dec 30, 2012 10:49 AM V1-PT DECLINES TOB ACCO CESSATION [facility] Dec 30, 2012 10:49 AM V1-PT NOT INTEREST ED IN QUIT TOBACCO USE [facility] May 10, 2012 02:26 PM CURRENT SMOKER [facility] May 10, 2012 02:26 PM V1-PT DECLINES REF TO TOBACCO CESS [facility] May 10, 2012 02:26 PM V1-PT DECLINES TOB ACCO CESSATION [facility] May 10, 2012 02:26 PM V1-PT THINKING ABO UT QUIT TOBACCO USE [facility] Aug 26, 2011 10:02 AM V1-PT DECLINES TOB ACCO CESSATION [facility] Aug 26, 2011 10:02 AM V1-PT NOT INTEREST ED IN QUIT TOBACCO USE [facility] January 07, 2011 11:30 AM CURRENT SMOKER 1/2 ppd [facility] January 07, 2011 11:30 AM V1-PT DECLINES REF TO TOBACCO CESS [facility] January 07, 2011 11:30 AM V1-PT NOT INTEREST ED IN QUIT TOBACCO USE [facility] January 07, 2011 11:30 AM V1-TOBACCO CESS ME DS NOT PRESCRIBED pt does not want to quit smoking ans also refuses medication for this issue [facility] Jun 04, 2010 10:06 AM V1-PT DECLINES REF TO TOBACCO CESS [facility] Jun 04, 2010 10:06 AM V1-PT DECLINES TOB ACCO CESSATION [facility] Jun 04, 2010 10:06 AM V1-PT NOT INTEREST ED IN QUIT TOBACCO USE [facility] Nov 25, 2009 09:17 AM CURRENT SMOKER difficult to get answer as to how much [facility] Aug 21, 2009 09:31 AM V1-PT DECLINES REF TO TOBACCO CESS [facility] Aug 21, 2009 09:31 AM V1-PT DECLINES TOB ACCO CESSATION [facility] Aug 21, 2009 09:31 AM V1-PT NOT INTEREST ED IN QUIT TOBACCO USE [facility] Advance Directives: All historical and current Section Date Range: From patient's date of to the date document was created. This section includes ALL of a patient's completed or amended [facility] Advance and Rescinded Directives. The entries below indicate that a directive exists for the patient, but an actual copy is not included with this document. The data comes from all [place] facilities. Date Advance Directives Provider Source Nov 20, 2008 CLINICAL WARNING JEREMIAH CASTILLO [facility] Oct 02, 2008 CLINICAL WARNING JEREMIAH CASTILLO [facility] Aug 29, 2008 CLINICAL WARNING ELMA ABAD [facility] Feb 28, 2007 ADVANCE DIRECTIVE DISCUSSION RADHA HILLESPERANZA JIMENEZ Encounter Notes: All associated encounter notes This section contains the clinical notes associated to the Encounter. Date/Time Encounter Note(s) Provider Source Aug 23, 2024 11:29 AM PREVENTIVE MEDICIN E NURSING NOTE: LOCAL TITLE: CLINICAL REMINDERS/NURSING STANDARD TITLE: PREVENTIVE MEDICINE NURSING NOTE DATE OF NOTE: AUG 23, 2024@11:29 ENTRY DATE: AUG 23, 2024@11:29:34 AUTHOR: BENJIE MOLINAIGNER: URGENCY: STATUS: COMPLETED CLINICAL REMINDERS/NURSING Has ADDENDA Advance Directive Screen MH AD: Patient does not have a completed advance directive on file at any facility, [place] or outside. S/he is not interested in completing one at this time. The patient received education about Advance Directives and written notification of his/her rights. Suicide Screen: C-SSRS Screening [place] Suicide Severity Rating Scale (C-SSRS) screener 1. Over the past month, have you wished you were or wished you could go to sleep and not wake up? No 2. Over the past month, have you had any actual thoughts of killing yourself? No 3. Over the past month, have you been thinking about how you might do this? Response not required due to responses to other questions. 4. Over the past month, have you had these thoughts and had some intention of acting on them? Response not required due to responses to other questions. 5. Over the past month, have you started to work out or worked out the details of how to kill yourself? Response not required due to responses to other questions. 6. If yes, at any time in the past month did you intend to carry out this plan? Response not required due to responses to other questions. 7. In your lifetime, have you ever done anything, started to do anything, or prepared to do anything to end your life (for example, collected pills, obtained a gun, gave away valuables, went to the roof but didn't jump)? No 8. If YES, was this within the past 3 months? Response not required due to responses to other questions. Toxic Exposure Screening: The /caregiver was asked if they believe the [place] experienced any toxic exposure(s), such as Airborne Hazards and Open Burn [place], [place] related exposures, Agent [place], Radiation, contaminated water at [place] or other such exposures, while serving in the [employer]. [place] has no concerns about toxic exposure(s) while serving in the [employer]. The /caregiver was informed that we will continue to ask this screening question every 5 years. They can contact their provider/healthcare team if they have concerns about exposures and would like to be screened sooner. Printed information was offered and provided if desired. Homelessness/Food Insecurity Screen: In the past 2 months, have you been living in stable housing that you own, rent, or stay in as part of a household? Yes - Living in stable housing. Are you worried or concerned that in the next 2 months you may NOT have stable housing that you own, rent, or stay in as part of a household? No - Not worried about housing near future The [place] reports the following: Within the past 12 months, you worried whether your food would run out before you got money to buy more. Never true Within the past 12 months, the food you bought just didn't last and you didn't have money to get more. Never true Depression Screening: Perform PHQ-2 A PHQ-2 screen was performed. The score was 0 which is a negative screen for depression. Over the past two weeks, how often have you been bothered by the following problems? 1. Little interest or pleasure in doing things Not at all 2. Feeling down, depressed, or hopeless Not at all Falls & Incontinence Screen: Falls Screen: During the past 12 months, did the patient report any falls? 4. No falls within the past year. Incontinence Screen: During the past 12 months, has the patient has any characteristics of incontinence (ability, voiding, leakage, etc.)? No incontinence. Pneumococcal PPSV23 (Pneumovax): The patient declines to receive the recommended dose of PPSV23 vaccine. Immunization: PNEUMOCOCCAL POLYSACCHARIDE PPV23 Refusal Reason: PATIENT DECISION Patient refuses all immunization(s) in the PneumoPPV group Date Documented: 08/23/24 11:30 PTSD Screening: PC-PTSD-5 A PTSD screening test (PC-PTSD-5) was negative (score=0). IN THE PAST MONTH, have you ever had any experience that was so frightening, horrible or traumatic. For example: A serious accident or fire a physical or sexual assault or abuse An earthquake or flood A war Seeing someone be killed or seriously injured Having a loved one through homicide or suicide 1. Have you ever experienced this kind of event? NO 2. Had nightmares about the event(s) or thought about the event(s) when you did not want to? Response not required due to responses to other questions. 3. Tried hard not to think about the event(s) or went out of your way to avoid situations that reminded you of the event(s)? Response not required due to responses to other questions. 4. Been constantly on guard, watchful, or easily startled? Response not required due to responses to other questions. 5. [place] numb or detached from people, activities, or your surroundings? Response not required due to responses to other questions. 6. [place] guilty or unable to stop blaming yourself or others for the event(s) or any problems the event(s) may have caused? Response not required due to responses to other questions. Tobacco Use Screening: The patient smokes cigarettes every day. The patient has never used other types of tobacco. Influenza Immunization: The patient has received the seasonal influenza vaccine for the current season at another location. Documented: INFLUENZA, UNSPECIFIED FORMULATION Historical Date Administered: May 2024 Exact date unknown Outside Location: Outside Healthcare Provider Information Source: SOURCE UNSPECIFIED Td / Tdap Immunization: The patient declines to receive the recommended dose of Td/Tdap vaccine. Immunization: TD(ADULT) UNSPECIFIED FORMULATION Refusal Reason: PATIENT DECISION Patient refuses all immunization(s) in the Td group Date Documented: 08/23/24 11:31 Alcohol Use Screen (AUDIT-C): Alcohol Screen: SCREEN FOR ALCOHOL (AUDIT-C) An alcohol screening test (AUDIT-C) was negative (score=0). 1. How often did you have a drink containing alcohol in the past year? Consider a drink to be a 12 ounce can or bottle of regular beer, 8 ounces of malt liquor, a 5 ounce glass of table wine, or a 1.5 ounce shot of liquor (like scotch, gin, or vodka). Never 2. How many drinks containing alcohol did you have on a typical day when you were drinking in the past year? Response not required due to responses to other questions. 3. How often did you have six or more drinks on one occasion in the past year? Response not required due to responses to other questions. COVID-19 Immunization: Refused Moderna Monovalent COVID-19 vaccine Immunization: COVID-19 (MODERNA), MRNA, LNP-S, PF, 50 MCG/0.5 ML (AGES 12+ YEARS) Refusal Reason: PATIENT DECISION Patient refuses all immunization(s) in the COVID-19 group Date Documented: 08/23/24 11:31 Herpes Zoster (Shingles) Vaccine: The patient declines to receive the recommended dose of zoster (shingles) vaccine. Immunization: ZOSTER RECOMBINANT Refusal Reason: PATIENT DECISION Patient refuses all immunization(s) in the ZOSTER group Date Documented: 08/23/24 11:31 Sexual Orientation: The patient thinks of their sexual orientation as: Straight or Heterosexual RHS Screen: RHS Screen Environmental Check Upon inquiry, the individual reports that the environment is safe to proceed. Informed Consent to Screen and Document The individual consents to proceed with screening. The individual consents to documentation of responses. PRIMARY SCREEN: In the past 12 months, how often did a current or former intimate partner (e.g., boyfriend, girlfriend, , , sexual partner): 1. Scream or curse at you Never 2. Insult or talk down to you Never 3. Threaten you with harm Never 4. Physically hurt you Never 5. Force or pressure you to have sexual contact against your will, or when you were unable to say no Never ?? The HITS tool (items 1-4 above) is [place] copyright protected by Wayne Booker MD, and the user has full rights to use it throughout the [facility] system. PRIMARY SCREEN RESULT: The Primary Screen is NEGATIVE. The individual answered never to all forms of IPV above (i.e., answered never to all 5 items) The individual accepts education and/or resources: No EDUCATION: The individual indicated readiness to learn. Education offered during this session as noted above. The individual indicated understanding by asking relevant questions and making appropriate comments. No barriers to learning were observed or identified. Eye Care At-Risk Screen : Patient identified to be at risk for the following eye condition(s): DIABETIC RETINOPATHY: Diabetes Diagnosis Information: Problem Diagnosis: 08/19/2024 E11.319 (ICD-10-CM) Type 2 Diabetes Mellitus with unspecified Diabetic Retinopathy without Macular Edema Date Entered: 08/12/2009; Date Last Modified: 08/19/2024 Status: ACTIVE; Priority: UNDEFINED Prov. Narr. - Diabetic retinopathy associated with type 2 diabetes mellitus MACULAR DEGENERATION: Macular Degeneration Risk Factors Information: Reminder Term: VA-AMD RISK FACTORS Problem Diagnosis: 08/19/2024 F17.200 (ICD-10-CM) Nicotine Dependence, unspecified, Uncomplicated Date Entered: 05/07/2023; Date Last Modified: 08/19/2024 Status: ACTIVE; Priority: UNDEFINED Prov. Narr. - Nicotine dependence GLAUCOMA: Glaucoma Risk Factors Information: Encounter Diagnosis: 07/21/2022@09:30 H40.1121 (ICD-10-CM) Primary open-angle glaucoma, left eye, mild stage rank: PRIMARY Prov. Narr. - Primary open-angle glaucoma, left eye, mild stage Action: Referral Ordered: Tele-Eye Screening /avtar MOLINA LPN Licensed Practical Nurse Signed: 08/23/2024 11:33 08/23/2024 ADDENDUM STATUS: COMPLETED ==COLONOSCOPY SCHEDULED 08/11/19 cancelled and DECLINED did not reschedule.=== /mojgan/ BENJIE MOLINA LPN Licensed Practical Nurse Signed: 08/23/2024 11:39 BENJIE MOLINA [facility] Aug 23, 2024 11:17 AM PRIMARY CARE NURSE PRACTITIONER OUTPATIENT NOTE: LOCAL TITLE: NURSE PRACTITIONER OUTPATIENT NOTE STANDARD TITLE: PRIMARY CARE NURSE PRACTITIONER OUTPATIENT NOTE DATE OF NOTE: AUG 23, 2024@11:17 ENTRY DATE: AUG 23, 2024@11:17:50 AUTHOR: RUTH RAYMUNDO EXP COSIGNER: URGENCY: STATUS: COMPLETED PRIMARY CARE VISIT PENNY SAXENA, is a 74 y/o BLACK [place] MALE who [facility] [place] [facility]. TYPE OF VISIT: Face to face New to this provider Lives in residential home HPI: hx CVA - latent effects include dysphagia, dysarthria, mild RUE devi. On ASA. Denies requiring modified diet. HTN - BP slightly elevated in clinic. Reports his BP at the rest home is good. States he is taking his medications. HLD - states he is taking his medications. No labs available for review. Denies chest pain, palpitations, peripheral edema. DM2 - no labs available for review. Unsure what his BS are. Denies peripheral neuropathy, polyuria, polydipsia. BPH - states he is on medications for this. States he use to have difficulty urinating but denies sx now. No urinary incontinence. COPD, + smoker - not interested in cessation. Denies SOB, [place], chronic cough. States he uses an inhaler every day. States he is independent with ADLs, only requires assist with his medications. Denies falls. Has lived in residential home x 12 years d/t schizophrenia. States he gets medication for this, sees psychiatry. States mood is stable, denies hallucinations. HEALTHCARE PROVIDERS: NonVA PCP - no records available for review. HISTORY: PERIOD OF SERVICE - [employer] FROM Nov TO May COMBAT SERVICE INDICATED: No VITAL SIGNS: Blood Pressure: 145/83 (08/23/2024 11:29) Pain: 0 (08/28/2019 10:05) Patient Height: 65 in [165.1 cm] (08/28/2019 10:05) Patient Weight: 169 lb [76.66 kg] (08/23/2024 11:29) Pulse: 77 (08/23/2024 11:29) Respiration: 16 (08/28/2019 10:05) Temperature: 98.2 F [36.8 C] (09/13/2023 09:01) ASSISTIVE DEVICES: none REVIEW OF SYSTEMS: see HPI PHYSICAL EXAMINATION: General: Chronically ill-appearing [place] in no obvious distress. Mental Status: Alert and oriented x3. Neck: Supple. No JVD. No lymphadenopathy. No bruit. Thyroid unremarkable. Lungs: CTAB, diminished in bases. Normal chest excursion. Eupneic respirations. CV: Heart tones S1, S2. RRR. No M/G/R. No peripheral edema. GI: Abdomen is soft and nontender. No palpable mass or organomegaly. : No CVA tenderness. Digital prostate exam deferred. Ext: No cyanosis or clubbing. No gross deformities. MS: Full ROM all joints Neuro: CN II through XII grossly intact. + dysarthria, understandable. Mild devi right hand, mild tremor RUE. Normal gait. Integument: Skin warm and dry. No rashes or lesions on visible areas. Psych: Flat affect. Cooperative with exam, follows commands. ALLERGIES: Patient has answered [facility] - see end of note PREVENTIVE MEDICINE GOALS MH AIMS Testing Apr 05 Advance Directive Screen MH AD Sep 01 Suicide Screen Aug 11 Toxic Exposure Screening Sep 01 Assess Statin Use - Lipids (CVD/DM) DUE NOW Homelessness/Food Insecurity Screen Sep 01 Avg Risk Colorectal Cancer Screen Dec 12 Depression Screening Sep 13 Falls & Incontinence Screen DUE NOW Hemoglobin A1C DUE NOW Pneumococcal PPSV23 (Pneumovax) Jul 07 PTSD Screening Aug 28 Tobacco Use Screening Sep 01 Influenza Immunization DUE NOW Medication Reconciliation DUE NOW Td / Tdap Immunization Feb 16 Alcohol Use Screen (AUDIT-C) Sep 13 COVID-19 Immunization DUE NOW Herpes Zoster (Shingles) Vaccine DUE NOW Sexual Orientation Sep 13 RHS Screen DUE NOW Eye Care At-Risk Screen May 13 (Optional) Whole Health Documentation DUE NOW ASSESSMENT/PLAN: Active problems - Computerized Problem List is the source for the followin. HTN - Hypertension ([facility] [id number]). Patient states BP is usually wnl. States he remains on medication for this. 2. Hyperlipidemia ([facility] [id number]). States he remains on medication for this. 3. Diabetes Mellitus Type 2 ([facility] [id number]) - will request records, it is unknown how well controlled this is. 4. Benign Prostatic Hypertrophy with Outflow Obstruction ([facility] [id number]). Denies sx. States he takes medication for this. 5. Nicotine dependence - is not interested in cessation. Declines LDCT, AAA screening. 6. COPD - Chronic Obstructive Pulmonary Disease ([facility] [id number]) - denies sx. States he uses daily inhaler. 7. H/O: CVA. Latent effects mild right devi, tremor, dysarthria, dysphagia. States he does not require modified diet. Resides in residential home, denies he needs physical assistance. Continue ASA. 8. Oropharyngeal dysphagia - see above. If still an active condition, at risk for aspiration. 9. lives in residential institution - 10. schizophrenia - mood stable. Followed by psychiatry. Note, no records were available today to review to reconcile medications, no labs. FOLLOW UP: Return to clinic as noted below and/or sooner PRN UPCOMING APPOINTMENTS: 08/23/2024 11:30 CWM/SO/PACT 7 10/30/2024 09:30 CWM/SO/PODIATRY/ROSS No barriers noted; patient understands and agrees to current treatment plan. If patient has any questions, concerns or changes in current health status he[facility]she will call [facility] A total of 45 minutes were spent F2F with the patient during this encounter and over half that time was spent on counseling and coordination of care. We discussed in depth all current health conditions and management of these conditions. HM: Assess Statin Use - Lipids (CVD/DM): The patient is still taking the NON-[facility] statin medication as documented. Medication Reconciliation: Outpatient: Medication Reconciliation was attempted at this encounter, but unable to complete: Unable to complete medication reconciliation - not all medication sources were available (Remote Data/VISTA Web down, etc.) Problem: patient lives in snf, non [facility] not available Tobacco Use Follow-Up: Patient was advised to stop smoking and/or using other tobacco products. Advised patient that a combination of behavioral counseling and FDA-approved cessation medications is the most effective way to ensure their success in stopping to smoke and/or using other tobacco products. The patient was not interested in additional information about behavioral counseling and other support strategies discussed. Informed patient that medications can help with cravings and withdrawal symptoms, and they greatly increase the chances of successfully stopping your tobacco use. The patient was not interested in a prescription for tobacco cessation medications. /mojgan/ JESSICA MILLER CERTIFIED NURSE PRACTITIONER Signed: 09/09/2024 19:44 RUTH RAYMUNDOFIELD
--- OUTSIDE RECORDS SUMMARY | 2024-12-19 09:16 | XMS_ITS | Encounter Summary ---
Author Organization [facility] Address [address] [place] [address] Care Team Providers Care Transit Coach Operator Name Role Phone Ramone Gibson MD Primary Care Provider [phone]- [phone] Encounter Details Date Type Department Care Team (Late st Contact Info) Description 08/08/2024 Lab Requisition [facility] - Main Lab [address] [facility] [place] [address] Social History Tobacco Use Types [...] on filedocumented in this encounter Care Teams Transit Coach Operator Relationship Specialty Start Date End Date Ramone Gibson MD [address] [place] [address] [facility] [place], [place] PCP - General Internal Medicine 08/09/24 documented as of this encounter
--- OUTSIDE RECORDS SUMMARY | 2024-12-19 09:16 | XMS_ITS | Encounter Summary ---
Author Organization [facility] Address [address] [place] [address] Care Team Providers Care Cnc Router Operator Name Role Phone Ramone Gibson MD Primary Care Provider [phone]- [phone] Encounter Details Date Type Department Care Team (Late st Contact Info) Description 12/12/2024 Lab Requisition [facility] - Main Lab [address] [facility] [place] [address] Ramone Gibson MD [address] [place] [address] Benign prostatic hyperplasia with lower urinary tract symptoms Social History Tobacco Use Types Packs/Day Years Used Date Smoking Tobacco: Every Day Cigarettes 0.5 53.3 Started: 1972 Alcohol Use Standard Drinks/Week Comments [...] Procedure Name Priority Date/Time Associated Diagnosis Comments PSA TOTAL, FREE AND COMPLEXED, DIAGNOSTIC Routine 12/12/2024 7:05 AM EDT Benign prostatic hyperplasia with lower urinary tract symptoms RED - PLAIN Routine 12/12/2024 7:05 AM EDT Benign prostatic hyperplasia with lower urinary tract symptoms documented in this encounter Results * Red tube (12/12/2024 7:05 AM EDT) Extra Tube Hold for add-ons. 12/12/2024 10:01 AM EDT [facility] Comment:Auto resulted. Blood Venous blood specimen / Unknown Venipuncture / Unknown 12/12/2024 7:05 AM EDT 12/12/2024 8:35 AM EDT us Ramone Gibson MD LAB BLOOD ORDERABLES Final Result Performing Organization Address [facility]/ZIP Co de Phone Number [facility] [address] [place] [address], [place] [phone] * (ABNORMAL) PSA total, free and complexed (12/12/2024 7:05 AM EDT) PSA 0.14 0.00 - 4.00 ng/mL LAB CHEMISTRY METHOD 12/12/2024 9:27 AM EDT [facility] PSA, Complexed 0.10 0.00 - 3.00 ng/mL LAB CHEMISTRY METHOD 12/12/2024 9:27 AM EDT [facility] PSA, Free 0.0 ng/mL LAB CHEMISTRY METHOD 12/12/2024 9:27 AM EDT [facility] PSA, Free Pct 0.0(L) >25.0 % LAB CHEMISTRY METHOD 12/12/2024 9:27 AM T [facility] Blood Venous blood specimen / Unknown Venipuncture / Unknown 12/12/2024 7:05 AM EDT 12/12/2024 8:34 AM EDT Narrative [facility] - 12/12/2024 9:27 AM EDT [...] MD LAB BLOOD ORDERABLES Final Result [facility] [address] [place] [address], documented in this encounter Visit Diagnoses Diagnosis Benign prostatic hyperplasia with lower urinary tract symptoms documented in this encounter Care Teams Cnc Router Operator Relationship Specialty Start Date End Date Ramone Gibson MD [address] [facility] [place], [place] PCP - General Internal Medicine 08/09/24 documented as of this encounter
--- OUTSIDE RECORDS SUMMARY | 2024-12-19 09:16 | XMS_ITS | Continuity of Care Document ---
Author Name [facility] Organization [facility] Care Team Providers Care Belt Lacer Name Role Phone [facility] Unavailable Unavailable Problems Combined list of problems from Department of Defense and Veterans Affairs facilities. It does not include entries that were removed or entered in error. Problem Status Onset Date Problem Type Date of Resolution Comments Source Benign Prostatic Hypertrophy with Outflow Obstruction ([facility] [id number]) Active Condition [facility] COPD - Chronic Obstructive Pulmonary Disease ([facility] [id number]) Active Condition [facility] D DERMATOPHYTOSIS OF NAIL Active Condition [facility] DIAB CANDI W/O COMP, TYPE II Active Condition [facility] Diabetes Mellitus Type 2 ([facility] [id number]) Active Condition [facility] Diabetic Active Condition [facility] Diabetic retinopathy associated with type 2 diabetes mellitus Active Condition [facility] Essential tremor (SNOMED CT 582759687) Active Condition [facility] H/O: CVA Active Condition Aug 19 Entered By: RUTH RAYMUNDO Comment: 2006, right occipitalDec 2023 Entered By: RUTH RAYMUNDO Comment: latent effects: dysathria, oropharyngeal dysphagia, ataxic gaitDec 2023 Entered By: RUTH RAYMUNDO Comment: on ASA [facility] HEPATITIS C, CHRONIC Active Condition [facility] History of hepatitis C Active Condition Aug 31, 2017 Entered By: FREDA CAPELLAN Comment: reported history of hepatitis C [facility] Homeless Person Active Condition [facility] HTN - Hypertension ([facility] [id number]) Active Condition [facility] Hyperlipidemia Active Condition [facility] Hyperlipidemia ([facility] [id number]) Active Condition [place] [facility] Insomnia Active Condition [facility] Lack of Housing (ICD-9-CM V60.0) Active Condition [facility] Living in residential institution Active Condition Sep 09, 2024 Entered By: RUTH RAYMUNDO [facility] Entered By: RUTH RAYMUNDO Comment: Non [facility] PCP is Dr. Ramone Gibson [facility] [place]: positive Active Condition [facility] Nicotine dependence Active Condition Sep 09, 2024 Entered By: RUTH RAYMUNDO Comment: 1/2 ppd since his mid 20s [facility] Obesity in Diabetes Active Condition [facility] Oropharyngeal dysphagia Active Condition Aug 19, 2024 Entered By: RUTH RAYMUNDO Comment: secondary to CVA [facility] OTH [facility] Paranoid type schizophrenia, chronic state with acute exacerbation Active Condition 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 Oct 09, 2010 Entered By: DANELLE OTERO Comment: schizophrenia [facility] Vitamin D Deficiency (SCT 68022081) Active Condition [facility] Cataract, Nuclear Sclerosis Inactive Condition 08/19/2024 [facility] FLEXOR TENDON Inactive Condition 08/19/2024 Sep 062008 Entered By: MARYJO RIBERA Comment: s/p injury L hand 4th digit [facility] Fracture of olecranon process of ulna, closed Inactive Condition 08/19/2024 Sep 20, 2008 Entered By: MARYJO RIBERA Comment: Left, remote [facility] Hypoglycemia * (ICD-9-CM 251.2) Inactive Condition 08/14/2013 [facility] Other and unspecified alcohol dependence, episodic drinking behavior Inactive Condition 08/19/2024 Aug 14, 2013 Entered By: BONNY BROWN Comment: denies alcohol@12.09.1 3 [facility] Proteinuria Inactive Condition 08/19/2024 [facility] ROUTINE MEDICAL EXAM Inactive Condition 07/26/2007 [facility] Diagnosis: ICD-10-CM F20.3 Undifferentiated schizophrenia Active Diagnosis [facility] Diagnosis: ICD-10-CM H40.1121 Primary open-angle glaucoma, left eye, mild stage Active Diagnosis [facility] Diagnosis: ICD-10-CM L60.0 Ingrowing nail Active Diagnosis [place] [facility] Diagnosis: ICD-10-CM Z13.5 Encounter for screening for eye and ear disorders Active Diagnosis [facility] Diagnosis: ICD-10-CM Z59.3 Problems related to living in residential institution Active Diagnosis [facility] Diagnosis: ICD-10-CM E11.51 Type 2 diabetes w diabetic peripheral angiopath w/o gangrene Active Diagnosis [facility] Medications Combined list of outpatient medications from Department of Defense and Veterans Affairs facilities.Medications provided include 1) outpatient medications from the last 15 months, and 2) patient-reported medications. Medication Details Route Status Patient Instructions Prescription Expires Prescription Number Last Dispense Date Ordering Provider Order Date Order Qty Source ACETAMINOPH EN 325MG TAB TAKE TWO TABLETS BY MOUTH Q4 H PRN ORAL ACTIVE Yoni CAPELLAN 2016 [facility] [place] 400MG/MG [place] 400MG/SIMET HICONE 40MG/5ML LIQUID(360M L) TAKE 2 TABLESPO ONS BY MOUTH Q4 H PRN ORAL ACTIVE Yoni CAPELLAN 2016 [facility] I[place] ALBUTEROL 100MCG/IPRA TROPIUM BR 20MCG/SPRAY INHALER,ORA L,4GM INHALE 1 PUFF BY MOUTH FOUR TIMES A DAY RESPIR ATORY (INHAL ATION) ACTIVE RAFA ALY EN A 2018 IELD ALBUTEROL 100MCG/IPRA TROPIUM BR 20MCG/SPRAY INHALER,ORA L,4GM INHALE 1 PUFF BY MOUTH FOUR TIMES A DAY RESPIR ATORY (INHAL ATION) ACTIVE ELISE CASTAÑEDA 2022 [facility] IEBRENDA AMLODIPINE BESYLATE 10MG TAB TAKE ONE TABLET BY MOUTH ONCE DAILY ORAL ACTIVE ELISE CASTAÑEDA 2022 [facility] [place] ASPIRIN 81MG TAB,EC TAKE ONE TABLET BY MOUTH DAILY ORAL ACTIVE Yoni CAPELLAN 2016 [facility] [place] BRIMONIDINE 0.2%/BRINZO LAMIDE 1% SUSP,OPH INSTILL 1 DROP INTO THE LEFT EYE TWICE DAILY OPHTHA LMIC ACTIVE Yoni CAPELLAN 2017 [facility] CHOLECALCIF VIVIENNE 1,250MCG (50,000UNIT ) CAP,ORAL TAKE 1 CAPSULE BY MOUTH EVERY FOUR WEEKS ORAL ACTIVE ELISE CASTAÑEDA [facility] 2022 [facility] [place] CLONIDINE HCL 0.1MG TAB TAKE ONE TABLET BY MOUTH TWICE DAILY ORAL ACTIVE ELISE CASTAÑEDA [facility] 2022 [facility] [place] FINASTERIDE 5MG TAB TAKE ONE TABLET BY MOUTH ONCE DAILY ORAL ACTIVE RAFA ALY 2018 [facility] [place] FISH OIL 1000MG CAP,ORAL TAKE 1 CAPSULE BY MOUTH ONCE DAILY ORAL(C AP/TAB /LIQ) ACTIVE JASSI RAYMUNDO 2005 [facility] FLUPHENAZIN E HCL 2.5MG TAB TAKE ONE TABLET BY MOUTH ONCE DAILY ORAL ACTIVE ELISE CASTAÑEDA [facility] [address] [facility] [place] LISINOPRIL 40MG TAB TAKE ONE TABLET BY MOUTH ONCE DAILY ORAL ACTIVE Yoni CAPELLAN 2017 [facility] I[place] METFORMIN HCL 1000MG TAB TAKE ONE TABLET BY MOUTH TWICE DAILY ORAL ACTIVE ELISE CASTAÑEDA [facility] 2022 [facility] [place] MILK OF MAGNESIA TAKE 30ML (2 TABLESPO ONS) BY MOUTH ONCE DAILY NEEDED ORAL ACTIVE Yoni CAPELLAN 2016 [facility] [place] SIMVASTATIN 80MG TAB TAKE ONE-HALF TABLET BY MOUTH AT BEDTIME ORAL ACTIVE RA DAISY BROWN 2018 [facility] SITAGLIPTIN PHOSPHATE 100MG TAB TAKE ONE TABLET BY MOUTH ONCE DAILY ORAL ACTIVE ELISE CASTAÑEDA [facility] 2022 [facility] TERAZOSIN HCL 10MG CAP TAKE 1 CAPSULE BY MOUTH AT BEDTIME ORAL ACTIVE ELISE CASTAÑEDA [facility] 2022 [facility] TRAZODONE HCL 50MG TAB TAKE ONE-HALF TABLET BY MOUTH EVERY EVENING ORAL ACTIVE Yoni CAPELLAN 2017 [facility] [place] Immunizations Combined list of available immunizations from the Department of Defense and Veterans Affairs facilities. Immunization Series Date Given Administered By Site Reaction Lot Number CVX Code Drug Electrogalvanizing Machine Operator Status Comments Source INFLUENZA, UNSPECIFIED FORMULATION 2023 88 complet ed HISTORICA L INFORMATI ON - SOURCE UNSPECIFI ED, [facility] INFLUENZA, UNSPECIFIED FORMULATION 2022 88 complet ed HISTORICA L INFORMATI ON - FROM PATIENT'S RECALL, [facility] INFLUENZA, UNSPECIFIED FORMULATION 2021 88 complet ed HISTORICA L INFORMATI ON - FROM PARENT'S RECALL, [facility] PNEUMOCOCCAL CONJUGATE PCV 13 2018 133 complet ed [place] INFLUENZA, INJECTABLE, QUADRIVALENT, PRESERVATIVE FREE 2018 150 complet ed Site: Right Deltoid [place] INFLUENZA, SEASONAL, INJECTABLE 2017 141 complet ed [facility] INFLUENZA, SEASONAL, INJECTABLE 2016 141 complet ed [facility] FLU,3 YRS (HISTORICAL) 2015 88 complet ed [place] FLU,3 YRS (HISTORICAL) 2014 88 complet ed [place] FLU,3 YRS (HISTORICAL) 2012 88 complet ed Site: Right Deltoid [place] FLU,3 YRS (HISTORICAL) 2011 88 complet ed Site: Left Deltoid [place] FLU,3 YRS (HISTORICAL) 2010 88 complet ed Site: Left Deltoid [place] DTAP, UNSPECIFIED FORMULATION 2010 107 complet ed Site: Right Deltoid [place] FLU,3 YRS (HISTORICAL) 2009 88 complet ed [facility] NOVEL INFLUENZA-H1N 1-09, ALL FORMULATIONS 2009 128 complet ed [facility] FLU,3 YRS (HISTORICAL) 2008 88 complet ed Site: Right Deltoid [place] FLU,3 YRS (HISTORICAL) 2007 88 complet ed Site: Left Deltoid [facility] PNEUMOCOCCAL, UNSPECIFIED FORMULATION 2007 109 complet ed [facility] FLU,3 YRS (HISTORICAL) 2007 88 complet ed [place] PNEUMOCOCCAL, UNSPECIFIED FORMULATION 2007 109 complet ed [place] FLU,3 YRS (HISTORICAL) 2006 88 complet ed Site: Right Deltoid [facility] FLU,3 YRS (HISTORICAL) 2005 88 complet ed Site: Left Deltoid [facility] FLU,3 YRS (HISTORICAL) 2004 88 complet ed Site: Right Deltoid [facility] FLU,3 YRS (HISTORICAL) 2003 88 complet ed Site: Left Deltoid [facility] FLU,3 YRS (HISTORICAL) 2002 88 complet ed Site: Left Deltoid [facility] FLU,3 YRS (HISTORICAL) 2001 88 complet ed [facility] HEP A, UNSPECIFIED FORMULATION 1 2001 NONE 85 complet ed [facility] FLU,3 YRS (HISTORICAL) 2001 88 complet ed Site: Left Deltoid [facility] HEP A, UNSPECIFIED FORMULATION 1 2001 NONE 85 complet ed [facility] FLU,3 YRS (HISTORICAL) 1999 AVERY ALY 88 complet ed [facility] PNEUMOCOCCAL, UNSPECIFIED FORMULATION 1999 JILL CARRASCO NONE 109 complet ed L deltoid per Shyam PINTO lot# [id number], exp date 03/06 [facility] FLU,3 YRS (HISTORICAL) 1998 JILL CARRASCO NONE 88 complet ed Lot# [id number] [facility] TD(ADULT) UNSPECIFIED FORMULATION 1998 JILL CARRASCO NONE 139 complet ed R deltoid per Shyam PINTO. Lot# [id number], exp date [facility] INFLUENZA, UNSPECIFIED FORMULATION 1995 ERNA TALAMANTES 88 complet ed [facility] Vital Signs Combined list of inpatient and outpatient Vital Signs from Department of Defense and Veterans Affairs, ranging from 12 months to all on record, depending upon the facility. Vital Sign Value Date Comments Source SYSTOLIC BLOOD PRESSURE 145 08/23/2024 11:29:07 [facility] DIASTOLIC BLOOD PRESSURE 83 08/23/2024 11:29:07 [facility] PULSE OXIMETRY 97 08/23/2024 11:29:07 [place] WEIGHT 169 08/23/2024 11:29:07 REJ[facility] JON[facility] BMI 28 kg/m2 08/23/2024 11:29:07 REJ[facility] JON[facility] PULSE 77 08/23/2024 11:29:07 REJI JONES Encounters Combined list of: 1) Encounters from Department of Veterans Affairs facilities going backup to the last 18 months, not all VA inpatient encounters are included; 2) Encounters from the Department of Defense facilities going backup to 280 months. Location Location Details Encounter Type Encounter Number Reason For Visit Attending Provider ADM Date DC Date Status Disposition Source [facility] OFFICE O/P EST LOW 20-29 MIN [id number] Diagnos is: ICD-10- CM L60.0 ONUR Ramirez ES F 08/11 [facility] Out[facility] Encounter [id number] 08/11 [facility] [place] DIABETIC CUSTOM MOLDED SHOE [id number] Diagnos is: ICD-10- CM E11.51 Type 2 diabete s w diabeti c periphe ral angiopa th w/o BETH Tamayo 08/16 [facility] [facility] Out[facility] Encounter [id number] 08/20 [facility] Encounter [id number] 09/03 [facility] Out[facility] Encounter [id number] 09/13 [facility] [place] Outpatient Encounter [id number] MADDY,CAR MEN F 09/13 [facility] [facility] Outpatient Encounter [id number] 09/13 [facility] CASE MANAGEMENT [id number] Diagnos is: ICD-10- CM F20.3 Undiffe rentiat ed merrittop ALLY Winn N 09/15 [facility] CASE MANAGEMENT [id number] Diagnos is: ICD-10- CM F20.3 Undiffe rentiat ed merrittop ALLY Winn N [facility] CASE MANAGEMENT [id number] Diagnos is: ICD-10- CM F20.3 Undiffe rentiat ed ALLY Montes N 11/16 [facility] Outpatient Encounter [id number] 11/29 [facility] CASE MANAGEMENT [id number] Diagnos is: ICD-10- CM F20.3 Undiffe rentiat ed ALLY Montes N 01/03 [facility] OFFICE O/P EST MOD 30 MIN [id number] Diagnos is: ICD-10- CM L60.0 Ingrowi ng ONUR Kumar ES F 01/09 [place] [facility] CASE MANAGEMENT [id number] Diagnos is: ICD-10- CM F20.3 Undiffe rentiat ed ALLY Montes N 01/11 [facility] Outpatient Encounter [id number] 05/07 [facility] CASE MANAGEMENT [id number] 1. Diagnos is: ICD-10- CM F20.3 Undiffe rentiat ed schizop ALLY Winn N 05/17 [facility] [place] OFFICE O/P EST LOW 20 MIN [id number] Diagnos is: ICD-10- CM L60.0 Ingrowi ng nail ROSS,CHARL ES F 06/05 [place] [facility] Outpatient Encounter [id number] 1.07/25 [facility] [place] DIABETIC CUSTOM MOLDED SHOE [id number] Diagnos is: ICD-10- CM E11.51 Type 2 diabete s w diabeti c periphe ral angiopa th w/o gangren e PALIZETHK,BETH E L 08/16 [place] OFFICE O/P EST HI 40 MIN [id number] Diagnos is: ICD-10- CM Z59.3 Problem s related to living in [facility] mely RAYMUNDO, SARA C 08/23 [place] [facility] CASE MANAGEMENT [id number] 1. Diagnos is: ICD-10- CM F20.3 Undiffe rentiat ed schizop ALLY Winn N 10/18 [facility] Outpatient Encounter [id number] 10/18 [facility] [place] IMG RTA DETCJ/MNTR DS STAFF [id number] Diagnos is: ICD-10- CM Z13.5 Encount er for screeni ng for eye and ear disorde rs JASSI ZAVALA NARESH 10/18 [facility] [facility] Outpatient Encounter [id number] Diagnos is: ICD-10- CM Z13.5 Encount er for screeni ng for eye and ear disorde rs BELKIS NAIR ODETTE EDWARD 10/19 [facility] Outpatient Encounter [id number] 10/25 [facility] OFFICE O/P EST MOD 30 MIN [id number] Diagnos is: ICD-10- CM L60.0 Ingrowi ng ton ONUR CARDONA F 10/30 [facility] [place] [facility] Outpatient Encounter [id number] 11/02 [facility] FIT SPECTACLES MONOFOCAL [id number] Diagnos is: ICD-10- CM H40.112 1 Primary open-an gle glaucom a, left eye, mild stage AVI LANDAVERDE J 11/10 [facility] HLTH BHV ASSMT/REAS SESSMENT [id number] Diagnos is: ICD-10- CM F20.3 Undiffe rentiat ed schizop hrenia ALLY WILKERSON N 11/15 [facility] Social History Combined list of available smoking, tobacco, and other social history from Department of Defense and Veterans Affairs facilities. Social History Type Response Date Comment Source Tobacco smoking status [facility] VA-TOBACCO USE EVERY DAY CIGARETTES 08/23/2024 [facility] History of tobacco use DC-TOBACCO NEVER USED OTHER TYPE 08/23/2024 [facility] History of tobacco use VA-TOBACCO USER EVERY DAY 09/01/2022 [facility] History of tobacco use VA-TOBACCO USER EVERY DAY 08/26/2018 [facility] History of tobacco use CURRENT SMOKER 10/26/2017 9 cigs a day [facility] History of tobacco use CURRENT SMOKER 10/05/2017 9 cigarettes per day [facility] History of tobacco use CURRENT SMOKER 01/27/2017 9 cigs a day [facility] History of tobacco use CURRENT SMOKER 12/23/2016 1/2 pack daily [facility] History of tobacco use V1-PT NOT INTERESTED IN QUIT TOBACCO USE 06/03/2016 [facility] History of tobacco use V1-PT NOT INTERESTED IN QUIT TOBACCO USE 11/19/2015 [facility] History of tobacco use CURRENT SMOKER 11/08/2015 1/2 pack per day [facility] History of tobacco use CURRENT SMOKER 10/01/2014 [facility] History of tobacco use CURRENT SMOKER 08/14/2013 Pt, stated he smokes half a pack a day! [facility] History of tobacco use V1-PT DECLINES TOBACCO CESSATION MEDS 12/30/2012 [facility] History of tobacco use CURRENT SMOKER 05/10/2012 [facility] History of tobacco use V1-PT DECLINES TOBACCO CESSATION MEDS 08/26/2011 [facility] History of tobacco use CURRENT SMOKER 01/07/2011 1/2 ppd [facility] History of tobacco use V1-PT DECLINES TOBACCO CESSATION MEDS 06/04/2010 [facility] History of tobacco use CURRENT SMOKER 11/25/2009 difficult to get answer as to how much [facility] History of tobacco use V1-PT DECLINES TOBACCO CESSATION MEDS 08/21/2009 [facility] History of tobacco use CURRENT SMOKER 09/20/2008 [facility] History of tobacco use CURRENT SMOKER 12/06/2007 [facility] History of tobacco use CURRENT SMOKER 11/21/2007 [facility] History of tobacco use CURRENT SMOKER 10/28/2007 [facility] History of tobacco use TOBACCO CURRENT USER 02/27/2007 smokes daily [facility] History of tobacco use TOBACCO CURRENT USER 02/26/2007 1/2 ppd [facility] History of tobacco use CURRENT SMOKER 10/05/2005 [facility] History of tobacco use CURRENT SMOKER 07/15/2004 He was given a smoking pamphlet [facility] History of tobacco use INTERESTED IN QUITING TOBACCO 10/04/2003 My fuel bill will force me to stop [facility] History of tobacco use CURRENT SMOKER 07/19/2003 [facility] History of tobacco use INTERESTED IN QUITING TOBACCO 12/28/2002 I'm trying to cut down on my own [facility] History of tobacco use CURRENT SMOKER 06/15/2002 [facility] History of tobacco use CURRENT SMOKER 01/06/2001 smokes 1/2 ppd [facility] History of tobacco use CURRENT SMOKER 09/16/2000 [facility] History of tobacco use CURRENT SMOKER 04/15/2000 1 ppd [facility] History of tobacco use CURRENT SMOKER 12/11/1999 [facility] Plan of Care List of future care activities from [facility] facilities. Additional future care activities may be listed in the Assessment and Plan section. Date/Time Care Activity Care Activity Detail Facili ty 03/05/2025 AMBULATORY - MEDICINE [facility] Advance Directives List of completed, amended, or rescinded Advance Directives on record at [facility] facilities. An actual copy of the Directive is not included. Date Advance Directive Provider Source 11/20/2008 CLINICAL WARNING JEREMIAH CASTILLO [facility] 10/02/2008 CLINICAL WARNING JEREMIAH CASTILLO [facility] 08/29/2008 CLINICAL WARNING ELMA ABAD [facility] 02/28/2007 ADVANCE DIRECTIVE DISCUSSION RADHA HILL
--- OUTSIDE RECORDS SUMMARY | 2024-12-19 09:16 | XMS_ITS | Encounter Summary ---
Author Organization [facility] Address [address] [place] [address] Care Team Providers Care Zoo Caretaker Name Role Phone Ramone Gibson MD Primary Care Provider +1- [phone] Encounter Details Date Type Department Care Team (Late st Contact Info) Description 11/21/2024 Lab Requisition [facility] - Main Lab [address] [place] [address] Ramone Gibson MD [address] [place] [address] Chronic kidney disease, unspecified; Essential (primary) hypertension; Proteinuria, unspecified Social History Tobacco Use Types Packs/Day Years Used Date Smoking Tobacco: Every Day Cigarettes 0.5 53.3 Started: 1972 Alcohol Use Standard Drinks/Week Comments [...] CHEMISTRY METHOD 11/21/2024 12:[address] [facility] Potassium 4.6 3.5 - 5.5 mmol/L LAB CHEMISTRY METHOD 11/21/2024 12:19 PM [facility] Chloride 105 96 - 110 mmol/L LAB CHEMISTRY METHOD 11/21/2024 12:19 PM [facility] CO2 30 21 - 32 mmol/L LAB CHEMISTRY METHOD 11/21/2024 12:19 PM [facility] Anion Gap 3 3 - 11 LAB CHEMISTRY METHOD 11/21/2024 12:19 PM [facility] Glucose 75 70 - 100 mg/dL LAB CHEMISTRY METHOD 11/21/2024 12:19 PM [facility] BUN 11 5 - 25 mg/dL LAB CHEMISTRY METHOD 11/21/2024 12:19 PM [facility] Creatinine 0.92 0.70 - 1.30 mg/dL LAB CHEMISTRY METHOD 11/21/2024 12:19 PM [facility] eGFR 87 >=60 mL/min/1. 73m2 LAB CHEMISTRY METHOD 11/21/2024 12:19 PM [facility] Comment:Calculation based on the??Chronic Kidney Disease Epidemiology Collaboration (CKD-EPI) equation refit??without adjustment for race. BUN/Creatinine Ratio 12.0 LAB CHEMISTRY METHOD 11/21/2024 12:19 PM [facility] Albumin 3.7 3.2 - 5.0 g/dL LAB CHEMISTRY METHOD 11/21/2024 12:19 PM [facility] Calcium 9.3 8.5 - 10.5 mg/dL LAB CHEMISTRY METHOD 11/21/2024 12:19 PM [facility] Phosphorus 3.7 2.5 - 4.5 mg/dL LAB CHEMISTRY METHOD 11/21/2024 12:19 PM [facility] Blood Venous blood specimen / Unknown Venipuncture / Unknown 11/21/2024 7:57 AM EDT 11/21/2024 11:04 AM EDT us Ramone Gibson MD LAB BLOOD ORDERABLES Final Result [facility] ([facility] [address] [place] [address], documented in this encounter Visit Diagnoses Diagnosis Chronic kidney disease, unspecified Essential (primary) hypertension Unspecified essential hypertension Proteinuria, unspecified documented in this encounter Care Teams Zoo Caretaker Relationship Specialty Start Date End Date Ramone Gibson MD [address] [place] [address] [facility] [place], [place] PCP - General Internal Medicine 08/09/24 documented as of this encounter
--- OUTSIDE RECORDS SUMMARY | 2024-12-19 09:17 | XMS_ITS ---
Author Name [facility] [place] [facility] [place] Address [address] [place] [address] Care Team Providers Care Assurance Associate Name Role Phone YASMANY VELÁZQUEZ Primary Care [...] WOLF MESFIN Jan 04, 2016 MEDICAI D [id number] PENNY SAXENA PATIENT MEDICARE (WNR) MEDICARE (M) PART B Jun 06, 2018 PART B [id number] PENNY SAXENA PATIENT MEDICARE (WNR) MEDICARE (M) PART A Jun 06, 2018 PART A [id number] PENNY SAXENA PATIENT Selected Encounter This section includes the information on record at [place] for the Encounter. 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 Date/Time Primary/Secondary Diagnosis Diagnosis Name Provider Source Nov 15, 2024 01:51 PM PRIMARY Undifferentiated schizophrenia [facility] Plan of Treatment: Future Appointments (+ 6 months) and Future Tests (+/- 45 days) The Plan of Treatment section includes future care activities for the patient from all [place] [facility]. This section includes future appointments and future orders which are active, pending or scheduled. Future Appointments This section includes appointments that were scheduled to occur 6 months from the date of the Encounter, up to a maximum of 20 appointments. The data comes from all [place] treatment facilities. Appointment Date/Time Appointment Type Appointme nt Facility Name Mar 05, 2025 09:30 AM AMBULATORY - MEDICINE [facility] Social History: Smoking Status (Most current) and Tobacco Use (All prior to encounter date) This section includes the most current, and the historical, smoking and tobacco- related health factors from the [place] facility where the Encounter took place. Current Smoking Status This section includes the most current smoking, or tobacco-related health factor, from the [place] facility where the Encounter took place. Date/Time Current Smoking Status Comment Etelvina ity Sep 20, 2008 10:20 AM CURRENT [facility] Advance Directives: All historical and current Section Date Range: From patient's date of to the date document was created. This section includes ALL of a patient's completed or amended [place] Advance and Rescinded Directives. The entries below indicate that a directive exists for the patient, but an actual copy is not included with this document. The data comes from all [place] facilities. Date Advance Directives Provider Source Nov 20, 2008 CLINICAL WARNING [facility] Oct 02, 2008 CLINICAL WARNING [facility] Aug 29, 2008 CLINICAL WARNING ELMA ABAD [facility] Feb 28, 2007 ADVANCE DIRECTIVE DISCUSSION RADHA HILL Encounter Notes: All associated encounter notes This section contains the clinical notes associated to the Encounter. Date/Time Encounter Note(s) Provider Source Nov 15, 2024 01:41 PM COMMUNITY RESIDENT IAL CARE NOTE: LOCAL TITLE: COMMUNITY RESIDENTIAL CARE PROGRESS NOTE STANDARD TITLE: COMMUNITY RESIDENTIAL CARE NOTE DATE OF NOTE: NOV 15, 2024@13:41 ENTRY DATE: NOV 15, 2024@13:41:27 AUTHOR: DREW WILKERSON COSIGNER: URGENCY: STATUS: COMPLETED 's Name: PENNY SAXENA : Apr SSN: [id number] Disability: SERVICE CONNECTED % - NONE FOUND Residential Address and Point of Contact: [facility], [address] [place] [address] Leonard Foreman [place]; POC Katanthony Tamayo Active Problems and Diagnoses: Code Description B18.2 Hepatitis C ([facility] [id number]) 366.16 Cataract, Nuclear Sclerosis (ICD-9-CM 366.16) 781.0 Tremor (ICD-9-CM 781.0) 268.9 Vitamin D Deficiency (ICD-9-CM 268.9) 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 The [place] was outside smoking a cigarette. He was his typical pleasant self. Big smile upon greeting. He remains at his baseline level of functioning - stable. He reported no changes. Eating and sleeping well. No issues with pain. He is up and out of bed daily and has a schedule/routine at the home. Mood/affect - appropriate-stable. He does participate in some of the facility activities. Discussed the construction and renovations that continue at the home. His sister from [place] recently sent him a care package. He also has a sister (older) that lives in [place]. The continues to do very well at this level of care. We discussed getting back to also meeting in a group format with the other [facility] veterans at the home. The [place] was supportive of this effort, it has been difficult with all the renovations at the home. I will reach out to the clinical education coordinator (Cleo) and discuss appropriate space for the group. Next visit 12/06/24 10:30am PLAN: Continue in Residential Care. /mojgan/ BRODY Deleon [facility] Coordinator Signed: 11/15/2024 13:58 DREW WILKERSON [place] [facility]
--- OUTSIDE RECORDS SUMMARY | 2024-12-19 09:17 | XMS_ITS | Encounter Summary ---
Author Organization [facility] Address [address] [place] [address] Care Team Providers Care Onsite Case Manager Name Role Phone Ramone Gibson MD Primary Care Provider +1- [phone] Encounter Details Date Type Department Care Team (Late st Contact Info) Description 08/08/2024 Lab Requisition [facility] - Main Lab [address] [place] [address] Ramone Gibson MD [address] [place] [address] Other abnormal findings on microbiological examination of [...] LAB CHEMISTRY METHOD 08/08/2024 1:48 PM EST [facility] Microalb, Ur 324.0(H) 0.0 - 29.0 [...] Gibson MD LAB URINE ORDERABLES Final Result [facility] [address] [place] [address], documented in this encounter Visit Diagnoses Diagnosis Other abnormal findings on microbiological examination of urine Chronic kidney disease, unspecified Essential (primary) hypertension Unspecified essential hypertension documented in this encounter Care Teams Onsite Case Manager Relationship Specialty Start Date End Date Ramone Gibson MD [address] [place] [address] [facility] [place], [place] PCP - General Internal Medicine 08/09/24 documented as of this encounter
== END 2024-12-19 09:24 | disposition home or self-care (01) ==
LOC: HO.HUSH 08:51
PROVIDERS: PCP Nurse Practitioner Adult Health; Visit Provider Nurse Practitioner Family
DX: R31.29 Other microscopic hematuria (principal); N40.1 Benign prostatic hyperplasia with lower urinary tract symptoms; R33.8 Other retention of urine; R33.9 Retention of urine, unspecified; Z13.9 Encounter for screening, unspecified
CPT/HCPCS: 99213; G2211

== ENCOUNTER 2024-12-19 08:50 | Outpatient (REF) | payer MEDICARE, MEDICAID, SELFPAY ==
--- OUTSIDE RECORDS SUMMARY | 2024-12-19 10:37 | XMS_ITS | Encounter Summary ---
Author Organization [facility] Address [address] [place] [address] Care Team Providers Care Sales And Service Technician Name Role Phone Ramone Gibson MD Primary Care Provider +1- [phone] Encounter Details Date Type Department Care Team (Late st Contact Info) Description 08/07/2024 Lab Requisition [facility] - Main Lab [address] [facility] [place] [address] Ramone Gibson MD [address] [place] [address] Vitamin D deficiency, unspecified; Chronic kidney disease, [...] LAB CHEMISTRY METHOD 08/08/2024 1:28 PM EST [facility] Blood Venous blood specimen / Unknown Venipuncture / Unknown 08/08/2024 7:22 AM EST 08/08/2024 11:53 AM EST Ramone Gibson MD LAB BLOOD ORDERABLES Final Result [facility] [address] [place] [address], * (ABNORMAL) Renal function panel (08/08/2024 7:22 AM EST) Sodium 140 133 - 145 mmol/L LAB CHEMISTRY METHOD 08/08/2024 1:18 PM EST [facility] Potassium 4.1 3.5 - 5.5 mmol/L LAB CHEMISTRY METHOD 08/08/2024 1:18 PM EST [facility] Chloride 105 96 - 110 mmol/L LAB CHEMISTRY METHOD 08/08/2024 1:18 PM EST [facility] CO2 28 21 - 32 mmol/L LAB CHEMISTRY METHOD 08/08/2024 1:18 PM [facility] Anion Gap 7 3 - 11 LAB CHEMISTRY METHOD 08/08/2024 1:18 PM [facility] Glucose 109(H) 70 - 100 mg/dL LAB CHEMISTRY METHOD 08/08/2024 1:18 PM [facility] BUN 14 5 - 25 mg/dL LAB CHEMISTRY METHOD 08/08/2024 1:18 PM [facility] Creatinine 1.03 0.70 - 1.30 mg/dL LAB CHEMISTRY METHOD 08/08/2024 1:18 PM [facility] eGFR 76 >=60 mL/min/1. 73m2 LAB CHEMISTRY METHOD 08/08/2024 1:18 PM [facility] Comment:Calculation based on the??Chronic Kidney Disease Epidemiology Collaboration (CKD-EPI) equation refit??without adjustment for race. BUN/Creatinine Ratio 13.6 LAB CHEMISTRY METHOD 08/08/2024 1:18 PM [facility] Albumin 3.6 3.2 - 5.0 g/dL LAB CHEMISTRY METHOD 08/08/2024 1:18 PM [facility] Calcium 9.5 8.5 - 10.5 mg/dL LAB CHEMISTRY METHOD 08/08/2024 1:18 PM [facility] Phosphorus 3.6 2.5 - 4.5 mg/dL LAB CHEMISTRY METHOD 08/08/2024 1:18 PM [facility] Blood Venous blood specimen / Unknown Venipuncture / Unknown 08/08/2024 7:22 AM EST 08/08/2024 11:53 AM EST us Ramone Gibson MD LAB BLOOD ORDERABLES Final Result [facility] [address] [place] [address], * Parathyroid hormone intact (08/08/2024 7:22 AM EST) PTH 50.7 18.5 - 88.0 pcg/mL LAB CHEMISTRY METHOD 08/08/2024 1:33 PM [facility] Blood Venous blood specimen / Unknown Venipuncture / Unknown 08/08/2024 7:22 AM EST 08/08/2024 11:53 AM EST Ramone Gibson MD LAB BLOOD ORDERABLES Final Result [facility] [address] [place] [address], * (ABNORMAL) Complete blood count (08/08/2024 7:22 AM EST) [facility] WBC 4.7(L) 4.8 - 10.8 K/mcL LAB HEMETOLOGY METHOD 08/08/2024 12:29 PM [facility] RBC 4.70 4.50 - 5.50 M/mcL LAB HEMETOLOGY METHOD 08/08/2024 12:29 PM [facility] Hemoglobin 13.9 13.5 - 17.5 g/dL LAB HEMETOLOGY METHOD 08/08/2024 12:29 PM [facility] Hematocrit 42.4 42.0 - 54.0 % LAB HEMETOLOGY METHOD 08/08/2024 12:29 PM [facility] MCV 91.0 79.0 - 98.0 FL LAB HEMETOLOGY METHOD 08/08/2024 12:29 PM [facility] MCH 29.8 27.0 - 32.0 pcg LAB HEMETOLOGY METHOD 08/08/2024 12:29 PM [facility] MCHC 32.8 32.0 - 37.0 g/dL LAB HEMETOLOGY METHOD 08/08/2024 12:29 PM [facility] RDW 13.2 11.0 - 15.0 % LAB HEMETOLOGY METHOD 08/08/2024 12:29 PM EST [facility] Platelets 205 130 - 400 K/mcL LAB HEMETOLOGY METHOD 08/08/2024 12:29 PM [facility] MPV 10.6 7.0 - 11.0 FL LAB HEMETOLOGY METHOD 08/08/2024 12:29 PM EST [facility] NRBC 0.0 <1.0 % LAB HEMETOLOGY METHOD 08/08/2024 12:29 PM [facility] NRBC Absolute 0.00 <0.10 K/mcL LAB HEMETOLOGY METHOD 08/08/2024 12:29 PM [facility] Blood Venous blood specimen / Unknown Venipuncture / Unknown 08/08/2024 7:22 AM EST 08/08/2024 11:53 AM EST us Ramone Gibson MD LAB BLOOD ORDERABLES Final Result [facility] [address] [place] [address], [place] [phone] * Hemoglobin A1c (08/08/2024 7:22 AM EST) [...] Final Result [facility] [address] [place] [address], [place] [phone] documented in this encounter Visit Diagnoses Diagnosis Vitamin D deficiency, unspecified Chronic kidney disease, unspecified Essential (primary) hypertension Unspecified essential hypertension Type 2 diabetes mellitus without complications (CMS/[facility] V24, CMS/[facility] V28) documented in this encounter Care Teams Sales And Service Technician Relationship Specialty Start Date End Date Ramone Gibson MD [address] [facility] [place], [place] PCP - General Internal Medicine 08/09/24 documented as of this encounter
--- OUTSIDE RECORDS SUMMARY | 2024-12-19 10:37 | XMS_ITS | Clinical Summary ---
Author Organization [address] Address [address] [place] [phone] Phone Care Team Providers Care Pharmaceutical Service Representative Name Role Phone Ramone Gibson MD Primary Care Provider +1- [phone] Allergies No known active allergies Medications amLODIPine [...] Department Care Team Description 12/12/2024 Lab Requisition [facility] [address] [place] [phone] Ramone Gibson MD Benign prostatic hyperplasia with lower urinary tract symptoms 11/21/2024 Lab Requisition [facility] [address] [place] [phone] Ramone Gibson MD Chronic kidney disease, unspecified; Essential (primary) hypertension; Proteinuria, unspecified 11/09/2024 1:21 PM EST - 11/09/2024 11:59 PM EST Hospital Encounter [facility] CT Scan [address] [place] [phone] Encounter for screening for malignant neoplasm of respiratory organs; Nicotine dependence, cigarettes, uncomplicated Discharge Disposition: Home or Self Care 11/09/2024 10:30 AM EST Office Visit Lung Screening Program - [address] [place] [phone] Nirali Timmons PA Encounter for screening for [...] V28) Late effects of cerebrovascular accident Psoriasis longterm (current) use of oral hypoglycemic alethea gs [...] LAB CHEMISTRY METHOD 12/12/2024 9:27 AM EDT [facility] PSA, Complexed 0.10 0.00 - 3.00 ng/mL LAB CHEMISTRY METHOD 12/12/2024 9:27 AM EDT [facility] PSA, Free 0.0 ng/mL LAB CHEMISTRY METHOD 12/12/2024 9:27 AM EDT [facility] PSA, Free Pct 0.0(L) >25.0 % LAB CHEMISTRY METHOD 12/12/2024 9:27 AM EDT [facility] Blood Venous blood specimen / Unknown Venipuncture / Unknown 12/12/2024 7:05 AM EDT 12/12/2024 8:34 AM EDT Narrative [facility] - 12/12/2024 9:27 AM EDT [...] BLOOD ORDERABLES Final Result Performing Organization Address [facility]/ZIP Co de Phone Number [facility] [address] [place] [address], * Red tube (12/12/2024 7:05 AM EDT) Extra Tube Hold for add-ons. 12/12/2024 10:01 AM EDT [facility] Comment:Auto resulted. Blood Venous blood specimen / Unknown Venipuncture / Unknown 12/12/2024 7:05 AM EDT 12/12/2024 8:35 AM EDT us Ramone Gibson MD LAB BLOOD ORDERABLES Final Result [facility] [address] [place] [address], [place] [phone] * Renal function panel (11/21/2024 7:57 AM EDT) Sodium 138 133 - 145 mmol/L LAB CHEMISTRY METHOD 11/21/2024 12:19 PM EDT [facility] Potassium 4.6 3.5 - 5.5 mmol/L LAB CHEMISTRY METHOD 11/21/2024 12:19 PM [facility] Chloride 105 96 - 110 mmol/L LAB CHEMISTRY METHOD 11/21/2024 12:19 PM [facility] CO2 30 21 - 32 mmol/L LAB CHEMISTRY METHOD 11/21/2024 12:19 PM [facility] Anion Gap 3 3 - 11 LAB CHEMISTRY METHOD 11/21/2024 12:19 PM [facility] Glucose 75 70 - 100 mg/dL LAB CHEMISTRY METHOD 11/21/2024 12:19 PM [facility] BUN 11 5 - 25 mg/dL LAB CHEMISTRY METHOD 11/21/2024 12:19 PM [facility] Creatinine 0.92 0.70 - 1.30 mg/dL LAB CHEMISTRY METHOD 11/21/2024 12:19 PM [facility] eGFR 87 >=60 mL/min/1. 73m2 LAB CHEMISTRY METHOD 11/21/2024 12:19 PM [facility] Comment:Calculation based on the??Chronic Kidney Disease Epidemiology Collaboration (CKD-EPI) equation refit??without adjustment for race. BUN/Creatinine Ratio 12.0 LAB CHEMISTRY METHOD 11/21/2024 12:19 PM [facility] Albumin 3.7 3.2 - 5.0 g/dL LAB CHEMISTRY METHOD 11/21/2024 12:19 PM [facility] Calcium 9.3 8.5 - 10.5 mg/dL LAB CHEMISTRY METHOD 11/21/2024 12:19 PM EDT [facility] Phosphorus 3.7 2.5 - 4.5 mg/dL LAB CHEMISTRY METHOD 11/21/2024 12:19 PM EDT [facility] Blood Venous blood specimen / Unknown Venipuncture / Unknown 11/21/2024 7:57 AM EDT 11/21/2024 11:04 AM EDT us Ramone Gibson MD LAB BLOOD ORDERABLES Final Result [facility] [address] [place] [address], * CT Lung Screening (11/09/2024 1:48 PM [...] Signed Date: 11/13/2024 15:52 ET Workstation ID: [id number] Transcribed By: Self Edit Transcribed Date: 11/13/2024 [...] Signed Date: 11/13/2024 15:52 ET Workstation ID: [id number] Transcribed By: Self Edit Transcribed Date: 11/13/2024 15:49 ET Catrachita Perry MD IMG CT PROCEDURES Final Result * Hemoglobin A1c (08/08/2024 7:22 AM EST) [facility] Hemoglobin A1C 5.4 <6.5 % LAB [...] Final Result [facility] [address] [place] [address], [place] [phone] * (ABNORMAL) Microalbumin creatinine urine ratio (08/08/2024 [...] Final Result [facility] [address] [place] [address], from Last 3 Months or Most Recently Relevant to [place] [address] MEDICA[place] MEDICARE Care Teams Pharmaceutical Service Representative Relationship Specialty Start Date End Date Ramone Gibson MD [address] [facility] [place], [place] PCP - General Internal Medicine 08/09/24
--- OUTSIDE RECORDS SUMMARY | 2024-12-19 10:37 | XMS_ITS | Encounter Summary ---
Author Organization [facility] Address [address] [place] [address] Care Team Providers Care Dog Boarder Name Role Phone Ramone Gibson MD Primary Care Provider +1- [phone] Encounter Details Date Type Department Care Team (Late st Contact Info) Description 08/08/2024 Lab Requisition [facility] - Main Lab [address] [place] [address] Ramone Gibson MD [address] [place] [address] Other abnormal findings on microbiological examination of [...] LAB CHEMISTRY METHOD 08/08/2024 1:48 PM EST [facility] Microalb, Ur 324.0(H) 0.0 - 29.0 mg/L LAB CHEMISTRY METHOD 08/08/2024 1:48 PM EST [facility] Microalb/Crea t Ratio 345(H) <30 mg/g creat LAB CHEMISTRY METHOD 08/08/2024 1:48 PM EST [facility] Urine Urine specimen obtained by clean catch procedure / Unknown Non-blood Collection / Unknown 08/08/2024 08/08/2024 11:58 AM EST us Ramone Gibson MD LAB URINE ORDERABLES Final Result [facility] [address] [place] [address], documented in this encounter Visit Diagnoses Diagnosis Other abnormal findings on microbiological examination of urine Chronic kidney disease, unspecified Essential (primary) hypertension Unspecified essential hypertension documented in this encounter Care Teams Dog Boarder Relationship Specialty Start Date End Date Ramone Gibson MD [address] [place] [address] [facility] [place], [place] PCP - General Internal Medicine 08/09/24 documented as of this encounter
--- OUTSIDE RECORDS SUMMARY | 2024-12-19 10:37 | XMS_ITS | Continuity of Care Document ---
Author Name [facility] Organization [facility] Care Team Providers Care Development Executive Name Role Phone [facility] Unavailable Unavailable Problems Combined list of problems from Department of Defense and Veterans Affairs facilities. It does not include entries that were removed or entered in error. Problem Status Onset Date Problem Type Date of Resolution Comments Source Benign Prostatic Hypertrophy with Outflow Obstruction ([facility] [id number]) Active Condition [place] COPD - Chronic Obstructive Pulmonary Disease ([facility] [id number]) Active Condition [facility] D DERMATOPHYTOSIS OF NAIL Active Condition [facility] DIAB CANDI W/O COMP, TYPE II Active Condition [facility] Diabetes Mellitus Type 2 ([facility] [id number]) Active Condition [place] Diabetic Active Condition [facility] Diabetic retinopathy associated with type 2 diabetes mellitus Active Condition [facility] Essential tremor (SNOMED CT 082729443) Active Condition [place] H/O: CVA Active Condition Aug 19 Entered By: RUTH RAYMUNDO Comment: 2006, right occipitalDec 2023 Entered By: RUTH RAYMUNDO Comment: latent effects: dysathria, oropharyngeal dysphagia, ataxic gaitDec 2023 Entered By: RUTH RAYMUNDO Comment: on ASA [facility] HEPATITIS C, CHRONIC Active Condition [facility] History of hepatitis C Active Condition Aug 31, 2017 Entered By: FREDA CAPELLAN Comment: reported history of hepatitis C [facility] Homeless Person Active Condition [facility] HTN - Hypertension ([facility] [id number]) Active Condition [place] Hyperlipidemia Active Condition [facility] Hyperlipidemia ([facility] [id number]) Active Condition [place] Insomnia Active Condition [...] Comment: 1/2 ppd since his mid 20s [place] Obesity in Diabetes Active Condition [facility] Oropharyngeal dysphagia Active Condition Aug 19, 2024 Entered By: RUTH RAYMUNDO Comment: secondary to CVA [facility] 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 [facility] Paranoid type schizophrenia, chronic state with acute exacerbation Active Condition [facility] Psychological factors affecting endocrine condition Active Condition [facility] Psychological factors affecting musculoskeletal condition Active Condition Sep 22, 2007 Entered By: ADRIAN MACDONALD Comment: patient had not been able to show up for fracture repair [facility] 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 Oct 09, 2010 Entered By: DANELLE OTERO Comment: schizophrenia [facility] Vitamin D Deficiency (SCT 79447460) Active Condition [place] Cataract, Nuclear Sclerosis Inactive Condition 08/19/2024 [facility] FLEXOR TENDON Inactive Condition 08/19/2024 Sep 062008 Entered By: MARYJO RIBERA Comment: s/p injury L hand 4th digit [facility] Fracture of olecranon process of ulna, closed Inactive Condition 08/19/2024 Sep 20, 2008 Entered By: MARYJO RIBERA Comment: Left, remote [facility] Hypoglycemia * (ICD-9-CM 251.2) Inactive Condition 08/14/2013 [facility] Other and unspecified alcohol dependence, episodic drinking behavior Inactive Condition 08/19/2024 Aug 14, 2013 Entered By: BONNY BROWN Comment: denies alcohol@12.09.1 3 [facility] Proteinuria Inactive Condition 08/19/2024 [facility] ROUTINE MEDICAL EXAM Inactive Condition 07/26/2007 [facility] Diagnosis: ICD-10-CM F20.3 Undifferentiated schizophrenia Active Diagnosis [facility] Diagnosis: ICD-10-CM H40.1121 Primary open-angle glaucoma, left eye, mild stage Active Diagnosis [facility] Diagnosis: ICD-10-CM L60.0 Ingrowing nail Active Diagnosis [place] Diagnosis: ICD-10-CM Z13.5 Encounter for screening for eye and ear disorders Active Diagnosis [facility] Diagnosis: ICD-10-CM Z59.3 Problems related to living in residential institution Active Diagnosis [place] Diagnosis: ICD-10-CM E11.51 Type 2 diabetes w diabetic peripheral angiopath w/o gangrene Active Diagnosis [place] Medications Combined list of outpatient medications from [...] H PRN ORAL ACTIVE Yoni CAPELLAN 2016 [facility] IELD AL OH 400MG/MG OH 400MG/SIMET HICONE 40MG/5ML LIQUID(360M L) TAKE 2 TABLESPO ONS BY MOUTH Q4 H PRN ORAL ACTIVE Yoni CAPELLAN 2016 [facility] IELD ALBUTEROL 100MCG/IPRA TROPIUM BR 20MCG/SPRAY INHALER,ORA L,4GM INHALE 1 PUFF BY MOUTH FOUR TIMES A DAY RESPIR ATORY (INHAL ATION) ACTIVE RAFA ALY EN A 2018 IELD ALBUTEROL 100MCG/IPRA TROPIUM BR 20MCG/SPRAY INHALER,ORA L,4GM INHALE 1 PUFF BY MOUTH FOUR TIMES A DAY RESPIR ATORY (INHAL ATION) ACTIVE ELISE CASTAÑEDA 2022 [facility] IEBRENDA AMLODIPINE BESYLATE 10MG TAB TAKE ONE TABLET BY MOUTH ONCE DAILY ORAL ACTIVE ELISE CASTAÑEDA 2022 [facility] IELD ASPIRIN 81MG TAB,EC TAKE ONE TABLET BY MOUTH DAILY ORAL ACTIVE Yoni CAPELLAN 2016 [facility] IELD BRIMONIDINE 0.2%/BRINZO LAMIDE 1% SUSP,OPH INSTILL 1 DROP INTO THE LEFT EYE TWICE DAILY OPHTHA LMIC ACTIVE Yoni CAPELLAN 2017 [facility] IELD CHOLECALCIF VIVIENNE 1,250MCG (50,000UNIT ) CAP,ORAL TAKE 1 CAPSULE BY MOUTH EVERY FOUR WEEKS ORAL ACTIVE ELISE CASTAÑEDA [facility] 2022 [facility] IELD CLONIDINE HCL 0.1MG TAB TAKE ONE TABLET BY MOUTH TWICE DAILY ORAL ACTIVE ELISE CASTAÑEDA [facility] 2022 [facility] IELD FINASTERIDE 5MG TAB TAKE ONE TABLET BY MOUTH ONCE DAILY ORAL ACTIVE RAFA ALY 2018 [facility] IELD FISH OIL 1000MG CAP,ORAL TAKE 1 CAPSULE BY MOUTH ONCE DAILY ORAL(C AP/TAB /LIQ) ACTIVE JASSI RAYMUNDO 2005 [facility] FLUPHENAZIN E HCL 2.5MG TAB TAKE ONE TABLET BY MOUTH ONCE DAILY ORAL ACTIVE ELISE CASTAÑEDA [facility] 2022 [facility] IELD LISINOPRIL 40MG TAB TAKE ONE TABLET BY MOUTH ONCE DAILY ORAL ACTIVE Yoni CAPELLAN 2017 [facility] IELD METFORMIN HCL 1000MG TAB TAKE ONE TABLET BY MOUTH TWICE DAILY ORAL ACTIVE ELISE CASTAÑEDA [facility] 2022 [facility] IELD MILK OF MAGNESIA TAKE 30ML (2 TABLESPO ONS) BY MOUTH ONCE DAILY NEEDED ORAL ACTIVE Yoni CAPELLAN 2016 [facility] IELD SIMVASTATIN 80MG TAB TAKE ONE-HALF TABLET BY MOUTH AT BEDTIME ORAL ACTIVE RA DAISY BROWN 2018 [facility] SITAGLIPTIN PHOSPHATE 100MG TAB TAKE ONE TABLET BY MOUTH ONCE DAILY ORAL ACTIVE ELISE CASTAÑEDA [facility] 2022 [facility] IELD TERAZOSIN HCL 10MG CAP TAKE 1 CAPSULE BY MOUTH AT BEDTIME ORAL ACTIVE ELISE CASTAÑEDA [facility] 2022 [facility] IELD TRAZODONE HCL 50MG TAB TAKE ONE-HALF TABLET BY MOUTH EVERY EVENING ORAL ACTIVE Yoni CAPELLAN 2017 [facility] IELD Immunizations Combined list of available immunizations from the Department of Defense and Veterans Affairs facilities. Immunization Series Date Given Administered By Site Reaction Lot Number CVX Code Drug Review Specialist Status Comments Source INFLUENZA, UNSPECIFIED FORMULATION 2023 [...] JILL CARRASCO NONE 88 complet ed Lot# [id number] [facility] TD(ADULT) UNSPECIFIED FORMULATION 1998 [...] Source SYSTOLIC BLOOD PRESSURE 145 08/23/2024 11:29:07 [place] DIASTOLIC BLOOD PRESSURE 83 08/23/2024 11:29:07 [place] PULSE OXIMETRY 97 08/23/2024 11:29:07 [place] [...] CENTER OFFICE O/P EST LOW 20-29 MIN [id number] Diagnos is: ICD-10- CM L60.0 ONUR Ramirez ES F 08/11 [facility] IELD [facility] Out[facility] Encounter [id number] 08/11 [facility] [place] DIABETIC CUSTOM MOLDED SHOE [id number] Diagnos is: ICD-10- CM E11.51 Type 2 diabete s w diabeti c periphe ral angiopa th w/o BETH Tamayo 08/16 [facility] IELD [facility] Out[facility] Encounter [id number] 08/20 [facility] Encounter [id number] 09/03 [facility] Out[facility] Encounter [id number] 09/13 [facility] [place] Outpatient Encounter [id number] MADDY,CAR MEN F 09/13 [facility] IELD [facility] Outpatient Encounter [id number] 09/13 [facility] CASE MANAGEMENT [id number] Diagnos is: ICD-10- CM F20.3 Undiffe rentiat ed merrittop ALLY Winn N 09/15 [facility] CASE MANAGEMENT [id number] Diagnos is: ICD-10- CM F20.3 Undiffe rentiat ed merrittop ALLY Winn N [facility] CASE MANAGEMENT [id number] Diagnos is: ICD-10- CM F20.3 Undiffe rentiat ed ALLY Montes N 11/16 [facility] Outpatient Encounter [id number] 11/29 [facility] CASE MANAGEMENT [id number] Diagnos is: ICD-10- CM F20.3 Undiffe rentiat ed ALLY Montes N 01/03 [facility] OFFICE O/P EST MOD 30 MIN [id number] Diagnos is: ICD-10- CM L60.0 Ingrowi ng ONUR Kumar ES F 01/09 [place] [facility] CASE MANAGEMENT [id number] Diagnos is: ICD-10- CM F20.3 Undiffe rentiat ed ALLY Montes N 01/11 [facility] Outpatient Encounter [id number] 05/07 [facility] CASE MANAGEMENT [id number] 1. Diagnos is: ICD-10- CM F20.3 Undiffe rentiat ed schizop ALLY Winn N 05/17 [facility] [place] OFFICE O/P EST LOW 20 MIN [id number] Diagnos is: ICD-10- CM L60.0 Ingrowi ng nail ROSS,CHARL ES F 06/05 [place] [facility] Outpatient Encounter [id number] 1.07/25 [facility] [place] DIABETIC CUSTOM MOLDED SHOE [id number] Diagnos is: ICD-10- CM E11.51 Type 2 diabete s w diabeti c periphe ral angiopa th w/o gangren e PALIZETHK,BETH E L 08/16 [place] OFFICE O/P EST HI 40 MIN [id number] Diagnos is: ICD-10- CM Z59.3 Problem s related to living in [facility] mely RAYMUNDO, SARA C 08/23 [place] [facility] CASE MANAGEMENT [id number] 1. Diagnos is: ICD-10- CM F20.3 Undiffe rentiat ed schizop ALLY Winn N 10/18 [facility] Outpatient Encounter [id number] 10/18 [facility] [place] IMG RTA DETCJ/MNTR DS STAFF [id number] Diagnos is: ICD-10- CM Z13.5 Encount er for screeni ng for eye and ear disorde rs JASSI ZAVALA NARESH 10/18 [facility] IELD [facility] Outpatient Encounter [id number] Diagnos is: ICD-10- CM Z13.5 Encount er for screeni ng for eye and ear disorde rs BELKIS NAIR ODETTE EDWARD 10/19 [facility] Outpatient Encounter [id number] 10/25 [facility] OFFICE O/P EST MOD 30 MIN [id number] Diagnos is: ICD-10- CM L60.0 Ingrowi ng ton ONUR CARDONA F 10/30 [facility] [place]ELD [facility] Outpatient Encounter [id number] 11/02 [facility] [employer] [id number] Diagnos is: ICD-10- CM H40.112 1 Primary open-an gle glaucom a, left eye, mild stage AVI LANDAVERDE J 11/10 [facility] BHV ASSMT/REAS SESSMENT [id number] Diagnos is: ICD-10- CM F20.3 Undiffe rentiat ed schizop hrenia ALLY WILKERSON N 11/15 [facility] Social History Combined list of available smoking, tobacco, and other social history from Department of Defense and Veterans Affairs facilities. Social History Type Response Date Comment Source Tobacco smoking status [facility] VA-TOBACCO USE EVERY DAY CIGARETTES 08/23/2024 [place] History of tobacco use [place]-TOBACCO NEVER USED OTHER TYPE 08/23/2024 [place] History of tobacco use VA-TOBACCO USER EVERY DAY 09/01/2022 [place] History of tobacco use VA-TOBACCO USER EVERY DAY 08/26/2018 [place] History of tobacco use CURRENT SMOKER 10/26/2017 9 cigs a day [place] History of tobacco use CURRENT SMOKER 10/05/2017 9 cigarettes per day [place] History of tobacco use CURRENT SMOKER 01/27/2017 9 cigs a day [place] History of tobacco use CURRENT SMOKER 12/23/2016 1/2 pack daily [place] History of tobacco use V1-PT NOT INTERESTED IN QUIT TOBACCO USE 06/03/2016 [place] History of tobacco use V1-PT NOT INTERESTED IN QUIT TOBACCO USE 11/19/2015 [place] History of tobacco use CURRENT SMOKER 11/08/2015 1/2 pack per day [place] History of tobacco use CURRENT SMOKER 10/01/2014 [place] History of tobacco use CURRENT SMOKER 08/14/2013 Pt, stated he smokes half a pack a day! [place] History of tobacco use V1-PT DECLINES TOBACCO CESSATION MEDS 12/30/2012 [place] History of tobacco use CURRENT SMOKER 05/10/2012 [place] History of tobacco use V1-PT DECLINES TOBACCO CESSATION MEDS 08/26/2011 [place] History of tobacco use CURRENT SMOKER 01/07/2011 1/2 ppd [place] History of tobacco use V1-PT DECLINES TOBACCO CESSATION MEDS 06/04/2010 [place] History of tobacco use CURRENT SMOKER 11/25/2009 difficult to get answer as to how much [place] History of tobacco use V1-PT DECLINES TOBACCO CESSATION MEDS 08/21/2009 [place] History of tobacco use CURRENT SMOKER 09/20/2008 [facility] History of tobacco use CURRENT SMOKER 12/06/2007 [facility] History of tobacco use CURRENT SMOKER 11/21/2007 [facility] History of tobacco use CURRENT SMOKER 10/28/2007 [facility] History of tobacco use TOBACCO CURRENT USER 02/27/2007 smokes daily [facility] History of tobacco use TOBACCO CURRENT USER 02/26/2007 1/2 ppd [facility] History of tobacco use CURRENT SMOKER 10/05/2005 [facility] History of tobacco use CURRENT SMOKER 07/15/2004 He was given a smoking pamphlet [facility] History of tobacco use INTERESTED IN QUITING TOBACCO 10/04/2003 My fuel bill will force me to stop [facility] History of tobacco use CURRENT SMOKER 07/19/2003 [facility] History of tobacco use INTERESTED IN QUITING TOBACCO 12/28/2002 I'm trying to cut down on my own [facility] History of tobacco use CURRENT SMOKER 06/15/2002 [facility] History of tobacco use CURRENT SMOKER 01/06/2001 smokes 1/2 ppd [facility] History of tobacco use CURRENT SMOKER 09/16/2000 [facility] History of tobacco use CURRENT SMOKER 04/15/2000 1 ppd [facility] History of tobacco use CURRENT SMOKER 12/11/1999 [facility] Plan of Care List of future care activities from [facility] facilities. Additional future care activities may be listed in the Assessment and Plan section. Date/Time Care Activity Care Activity Detail Facili ty 03/05/2025 AMBULATORY - [facility]IC[facility] Advance Directives List of completed, amended, or rescinded Advance Directives on record at [facility] facilities. An actual copy of the Directive is not included. Date Advance Directive Provider Source 11/20/2008 CLINICAL WARNING JEREMIAH CASTILLO [facility] 10/02/2008 CLINICAL WARNING JEREMIAH CASTILLO [facility] 08/29/2008 CLINICAL WARNING ELMA ABAD [facility] 02/28/2007 ADVANCE DIRECTIVE DISCUSSION RADHA HILL
--- OUTSIDE RECORDS SUMMARY | 2024-12-19 10:37 | XMS_ITS | Clinical Summary ---
Author Organization [facility] Address [address] [address] Phone Care Team Providers Care Electronic Security Specialist Name Role Phone Ramone Gibson Primary Care Provider [phone] Allergies No known active allergies Medications acetaminophen [...] 8 Active cholecalciferol (VITAMIN D-3) 1.25 MG (95320 UT) capsule 1,250 mcg 3 Active cloNIDine [...] Office Visit [facility] [address] [address] Shirley Yancey ARNP Chronic kidney [...] Office Visit [facility] [employer] [facility] [address] [address] Dany Manning MD [address] [address] Health Maintenance Due Date Last [...] Medicaid [place] Care Teams Electronic Security Specialist Relationship Specialty Start Date End Date Ramone Gibson [address] [place] [address] PCP - General Internal Medicine 12/27/23
--- OUTSIDE RECORDS SUMMARY | 2024-12-19 10:37 | XMS_ITS | Encounter Summary ---
Author Organization [facility] Address [address] [place] [address] Care Team Providers Care Financial Analyst Name Role Phone Ramone Gibson MD Primary Care Provider [phone] Encounter Details Date Type Department Care Team (Late st Contact Info) Description 12/12/2024 Lab Requisition [facility] - Main Lab [address] [facility] [place] [address] Ramone Gibson MD [address] [place] [address] Benign prostatic hyperplasia with lower urinary tract [...] Hold for add-ons. 12/12/2024 10:01 AM EDT [facility] Comment:Auto resulted. Blood Venous blood specimen / Unknown Venipuncture / Unknown 12/12/2024 7:05 AM EDT 12/12/2024 8:35 AM EDT us Ramone Gibson MD LAB BLOOD ORDERABLES Final Result Performing Organization Address [facility]/ZIP Co de Phone Number [facility] [address] [place] [address], [place] [phone] * (ABNORMAL) PSA total, free and complexed (12/12/2024 7:05 AM EDT) PSA 0.14 0.00 - 4.00 ng/mL LAB CHEMISTRY METHOD 12/12/2024 9:27 AM EDT [facility] PSA, Complexed 0.10 0.00 - 3.00 ng/mL LAB CHEMISTRY METHOD 12/12/2024 9:27 AM EDT [facility] PSA, Free 0.0 ng/mL LAB CHEMISTRY METHOD 12/12/2024 9:27 AM EDT [facility] PSA, Free Pct 0.0(L) >25.0 % LAB CHEMISTRY METHOD 12/12/2024 9:27 AM T [facility] Blood Venous blood specimen / Unknown Venipuncture / Unknown 12/12/2024 7:05 AM EDT 12/12/2024 8:34 AM EDT Narrative [facility] - 12/12/2024 9:27 AM EDT Free [...] MD LAB BLOOD ORDERABLES Final Result [facility] [address] [place] [address], documented in this encounter Visit Diagnoses Diagnosis Benign prostatic hyperplasia with lower urinary tract symptoms documented in this encounter Care Teams Financial Analyst Relationship Specialty Start Date End Date Ramone Gibson MD [address] [facility] [place], [place] PCP - General Internal Medicine 08/09/24 documented as of this encounter
--- OUTSIDE RECORDS SUMMARY | 2024-12-19 10:37 | XMS_ITS | Encounter Summary ---
Author Organization [facility] Address [address] [place] [address] Care Team Providers Care Materials Director Name Role Phone Ramone Gibson MD Primary Care Provider [phone] Encounter Details Date Type Department Care Team (Late st Contact Info) Description 11/21/2024 Lab Requisition [facility] - Main Lab [address] [place] [address] Ramone Gibson MD [address] [place] [id number] Chronic kidney disease, unspecified; Essential (primary) hypertension; [...] CHEMISTRY METHOD 11/21/2024 12:19 PM EDT [facility] Potassium 4.6 3.5 - 5.5 mmol/L LAB CHEMISTRY METHOD 11/21/2024 12:19 PM [facility] Chloride 105 96 - 110 mmol/L LAB CHEMISTRY METHOD 11/21/2024 12:19 PM [facility] CO2 30 21 - 32 mmol/L LAB CHEMISTRY METHOD 11/21/2024 12:19 PM [facility] Anion Gap 3 3 - 11 LAB CHEMISTRY METHOD 11/21/2024 12:19 PM [facility] Glucose 75 70 - 100 mg/dL LAB CHEMISTRY METHOD 11/21/2024 12:19 PM [facility] BUN 11 5 - 25 mg/dL LAB CHEMISTRY METHOD 11/21/2024 12:19 PM [facility] Creatinine 0.92 0.70 - 1.30 mg/dL LAB CHEMISTRY METHOD 11/21/2024 12:19 PM [facility] eGFR 87 >=60 mL/min/1. 73m2 LAB CHEMISTRY METHOD 11/21/2024 12:19 PM [facility] Comment:Calculation based on the??Chronic Kidney Disease Epidemiology Collaboration (CKD-EPI) equation refit??without adjustment for race. BUN/Creatinine Ratio 12.0 LAB CHEMISTRY METHOD 11/21/2024 12:19 PM [facility] Albumin 3.7 3.2 - 5.0 g/dL LAB CHEMISTRY METHOD 11/21/2024 12:19 PM [facility] Calcium 9.3 8.5 - 10.5 mg/dL LAB CHEMISTRY METHOD 11/21/2024 12:19 PM [facility] Phosphorus 3.7 2.5 - 4.5 mg/dL LAB CHEMISTRY METHOD 11/21/2024 12:19 PM [facility] Blood Venous blood specimen / Unknown Venipuncture / Unknown 11/21/2024 7:57 AM EDT 11/21/2024 11:04 AM EDT us Ramone Gibson MD LAB BLOOD ORDERABLES Final Result [facility] ([facility]) [facility] [address] [place] [address], documented in this encounter Visit Diagnoses Diagnosis Chronic kidney disease, unspecified Essential (primary) hypertension Unspecified essential hypertension Proteinuria, unspecified documented in this encounter Care Teams Materials Director Relationship Specialty Start Date End Date Ramone Gibson MD [address] [place] [address] [facility] [place] PCP - General Internal Medicine 08/09/24 documented as of this encounter
--- OUTSIDE RECORDS SUMMARY | 2024-12-19 10:37 | XMS_ITS | Encounter Summary ---
Author Organization [facility] Address [address] [place] [address] Care Team Providers Care Twenty One Dealer Name Role Phone Ramone Gibson MD Primary Care Provider +1- [phone] Encounter Details Date Type Department Care Team (Late st Contact Info) Description 08/08/2024 Lab Requisition [facility] - Main Lab 299 [facility] [address] [place] [address] Social History Tobacco Use Types [...] on filedocumented in this encounter Care Teams Twenty One Dealer Relationship Specialty Start Date End Date Ramone Gibson MD [address] [place] [address] [facility] [place], [place] PCP - General Internal Medicine 08/09/24 documented as of this encounter
== END 2024-12-19 08:51 | disposition home or self-care (01) ==
LOC: HO.LAB 08:50
PROVIDERS: PCP Nurse Practitioner Adult Health; Visit Provider Nurse Practitioner Family
DX: N40.1 Benign prostatic hyperplasia with lower urinary tract symptoms (principal); R39.9 Unspecified symptoms and signs involving the genitourinary system; R31.29 Other microscopic hematuria; Z13.9 Encounter for screening, unspecified
CPT/HCPCS: 51798; 81003; 99212

== ENCOUNTER 2025-06-21 08:34 | Outpatient (REF) | payer MEDICARE, MEDICAID, SELFPAY | END 2025-06-21 08:35 | disposition home or self-care (01) | LOC: HO.LAB 08:34 | PROVIDERS: PCP Nurse Practitioner Adult Health; Visit Provider Nurse Practitioner Family | DX: N40.1 Benign prostatic hyperplasia with lower urinary tract symptoms (principal); R33.9 Retention of urine, unspecified; R31.0 Gross hematuria; R31.29 Other microscopic hematuria | CPT/HCPCS: 51798; 81003; 87086; 88112; 99212 ==

== ENCOUNTER 2025-06-21 08:34 | Outpatient (AMB) | payer MEDICARE, MEDICAID, SELFPAY ==
--- NOTE | 2025-06-21 08:40 | A.OFFVIS_ITS ---
Intake Visit Reasons: 6m/PSA/PVR Intake Note: Patient is present for 6M/PSA/PVR Urology Medication:ESTRADIOL,METHNAMINE HIPPURATE Antibiotic Allergy:NONE Blood Thinner:NONE Todays PVR:381ML[employer] Required: No Allergies No Known Allergies (No Known Allergies*) Allergy (Verified 06/21/25 09:16) Medication List - Last Reconciled 06/21/25 by ACE Barron-MARIYA acetaminophen 650 mg PO Q4H PRN amlodipine 10 mg PO DAILY aspirin 1 tab PO DAILY betamethasone dipropionate 0.05% 1 appl topical BID bethanechol chloride 50 mg PO BID 90 days blood sugar diagnostic As directed brinzolamide-brimonidine 1-0.2 % (Simbrinza) 0 drps ophthalmic (eye) dextrose 40% (Glutose-15) 15 grams PO Q15M PRN empagliflozin (Jardiance) 10 mg PO DAILY ergocalciferol (vitamin D2) (Vitamin D2) PO finasteride 5 mg PO DAILY 90 days fluphenazine HCl 15 mg PO Q OTHER DAY PRN hydrocortisone 1% (Anti-Itch (hydrocortisone)) 1 appl topical BID PRN hydrocortisone 2.5% topical ipratropium-albuterol 20-100 mcg/actuation inhalation lancets As directed latanoprost 0.005% 0 drps ophthalmic (eye) lisinopril 30 mg PO DAILY metformin 1,000 mg PO BID pen needle, diabetic As directed simvastatin 40 mg PO BEDTIME terazosin 10 mg PO BEDTIME 90 days trazodone 0 mg PO HPI Comments Details: Satnam is a pleasant 75-year-old male patient of Dr. Paulino who was accompanied by staff from [facility]. He has a past medical history of hep C, TIA, BPH, vitamin-D deficiency, schizophrenia, type 2 diabetes, hyperlipidemia, and hypertension. He presents to the office today for follow-up of his lower urinary tract symptoms and incomplete bladder emptying. In discussion with the patient's staff today they deny any bothersome urinary issues or concerns since his last office visit here. Patient reports compliance with finasteride, bethanechol, and terazosin as prescribed. He does report to be double voiding. In office urinalysis results were reviewed. Initial PVR 536 mL PVR was noted to be 381 mL. In office urinalysis results reviewed with the patient today 2+ leukocytes trace microscopic hematuria. Previous urine cytologies are as follows: Urine Cytology: 12/25 & 03/29 Negative for high-grade urothelial carcinoma. He currently denies urinary urgency, urinary frequency, incontinence, nocturia, hematuria, dysuria, foul smelling urine, changes to urinary stream, flank pain, fever, and or chills. He is happy with hid current voiding parameters. PSA: 12/29 0.1. We discussed continuing with timed/scheduled voiding as well as double voiding to assist with history of incomplete bladder emptying. Patient with a history of PVRs running high between 250-300 range. We did discuss causes of incomplete bladder emptying as well as further treatment options to include CIC verses indwelling Owens catheter versus suprapubic tube versus surveillance monitoring. Risks and benefits of these interventions were discussed. Will obtain retroperitoneal ultrasound and PSA for further assessment evaluation. ANA offered however deferred. All questions were answered. He otherwise offers no other issues or concerns at this time. PREVIOUS OFFICE NOTE: Lower urinary tract symptoms Urinary retention History of schizophrenia with long-term medications Cystoscopy with large bladder Has been on combination therapy with alpha-brandon and finasteride for number of years PVR runs high 250-300 range Hematuria Single episode 12/25 Cystoscopy normal PFS Medical History Speech disturbance Positive PPD Hepatitis C Transient ischemic attack (TIA) BPH loc w urin obs/LUTS Vitamin D deficiency Schizophrenia Diabetes mellitus, type II Hyperlipidemia HTN (hypertension) Enlarged prostate Surgical History History of surgery on arm Family History Father No problems noted. Mother No problems noted. Review of Systems Const All systems reviewed & are unremarkable except as noted in HPI and below Physical Exam Const General: cooperative, comfortable, no acute distress, well developed, alert and awake Orientation/consciousness: oriented to person HEENT Head: Yes normal to inspection, Yes normocephalic and Yes atraumatic Ears: hearing grossly normal bilaterally Eyes General: appearance normal, both eyes and all related structures Neck Neck: Yes normal visual inspection and Yes trachea midline Chest Chest palpation & inspection: normal inspection of the chest Resp Effort & Inspection: normal respiratory effort and able to speak in complete sentences Cardio Rate: regular rate GI Inspection: Yes normal to inspection General: Yes no CVA tenderness Back/Spine/Pelvis Back: no CVA tenderness Skin General skin exam: no rashes or lesions noted Neuro General: oriented to person Extrem General: Yes normal to inspection Psych Appearance: grossly normal and well kempt Speech and movement: Clear speech present and Pressured speech present Attitude: cooperative Thought content: Normal thought content present Insight: Fair insight present (Psych) Judgement: Fair judgement present (Psych) Office Procedures Post Void Residual Post Residual Void Post Void Residual (PVR): [id number] Void Residual by ultrasound Assessment & Plan Assessment & Plan (1) BPH loc w urin obs/LUTS: Code(s): N40.1 - Benign prostatic hyperplasia with lower urinary tract symptoms Category: Medical (2) Urinary retention with incomplete bladder emptying: Code(s): R33.9 - Retention of urine, unspecified Category: Medical (3) Microscopic hematuria: Code(s): R31.29 - Other microscopic hematuria Category: Medical Plan In office urinalysis results reviewed with the patient today; as noted above; will send for urine cytology as well as urine culture for further assessment evaluation. Will obtain retroperitoneal ultrasound for further assessment evaluation. Will obtain PSA for further assessment evaluation. ANA was offered however deferred. We did discusses importance of double voiding to assist with bladder emptying. Continue bethanechol, finasteride, and terazosin as discussed and prescribed. We discussed potential causes of incomplete bladder emptying as well as further treatment options and risks and benefits of these treatment options. All questions were answered. Follow-up in 1-3 months with imaging, labs, and PVR; or sooner with any issues, concerns, and or questions. Orders: Orders US retroperitoneal comp Today N40.1 - Benign prostatic hyperplasia with lower urinary tract symptoms, R33.9 - Retention of urine, unspecified Urine Cytology Today R31.0 - Gross hematuria Prostate Specific Antigen Today R33.9 - Retention of urine, unspecified Patient Instructions: The patient had an opportunity to ask questions regarding the treatment plan. All questions were answered. Physical exam, labs, and imaging were discussed and reviewed in detail. As well as risks, benefits, and discussion of treatment choices. No major barriers to understanding were identified. The patient expressed understanding and agreement with the above treatment plan. The patient was made aware they should contact our office by phone for worsening of their current condition, the appearance of new symptoms, or with any questions or concerns. Compliance is encouraged with any medications and follow up testing that is ordered. It is a privilege to be allowed the opportunity to participate in? your urological care.? Again, if you have any questions or concerns If you have any questions or concerns please do not hesitate to contact me. The office is [phone]. This note is constructed using voice recognition software. While every effort hurtado s been made to ensure accuracy professor of spanish errors may have been included. Yours sincerely, JENNY Barron Coding Level of Care Code Est Pt Level 3 (30349) Complex EM visit Add On G2211 Diagnoses BPH loc w urin obs/LUTS N40.1 Urinary retention with incomplete bladder emptying R33.9 Microscopic hematuria R31.29 CPT Codes Post Residual Void - PVR CPT Code: 47275-Shpd Void Residual by ultrasound ([id number])
--- OUTSIDE RECORDS SUMMARY | 2025-06-21 09:02 | XMS_ITS | Encounter Summary ---
Author Organization [facility] [address] Address [address] [place] [address] Care Team Providers Care Display Manager Name Role Phone Ramone Gibson MD Primary Care Provider +1- [phone] Encounter Details Date Type Department Care Team (Late st Contact Info) Description 11/21/2024 Lab Requisition [facility] - Main Lab [address] [place] [address] Ramone Gibson MD [address] [place] [address] Chronic kidney disease, unspecified; Essential (primary) hypertension; Proteinuria, unspecified Social History Tobacco Use Types Packs/Day Years Used Date Smoking Tobacco: Every Day Cigarettes 0.5 53.8 Started: 1972 Alcohol Use Standard Drinks/Week Comments [...] CHEMISTRY METHOD 11/21/2024 12:19 PM EDT [facility] Potassium 4.6 3.5 - 5.5 mmol/L LAB CHEMISTRY METHOD 11/21/2024 12:19 PM [facility] Chloride 105 96 - 110 mmol/L LAB CHEMISTRY METHOD 11/21/2024 12:19 PM [facility] CO2 30 21 - 32 mmol/L LAB CHEMISTRY METHOD 11/21/2024 12:19 PM [facility] Anion Gap 3 3 - 11 LAB CHEMISTRY METHOD 11/21/2024 12:19 PM [facility] Glucose 75 70 - 100 mg/dL LAB CHEMISTRY METHOD 11/21/2024 12:19 PM [facility] BUN 11 5 - 25 mg/dL LAB CHEMISTRY METHOD 11/21/2024 12:19 PM [facility] Creatinine 0.92 0.70 - 1.30 mg/dL LAB CHEMISTRY METHOD 11/21/2024 12:19 PM [facility] eGFR 87 >=60 mL/min/1. 73m2 LAB CHEMISTRY METHOD 11/21/2024 12:19 PM [facility] Comment:Calculation based on the Chronic Kidney Disease Epidemiology Collaboration (CKD-EPI) equation refit without adjustment for race. BUN/Creatinine Ratio 12.0 LAB CHEMISTRY METHOD 11/21/2024 12:19 PM [facility] Albumin 3.7 3.2 - 5.0 g/dL LAB CHEMISTRY METHOD 11/21/2024 12:19 PM [facility] Calcium 9.3 8.5 - 10.5 mg/dL LAB CHEMISTRY METHOD 11/21/2024 12:19 PM [facility] Phosphorus 3.7 2.5 - 4.5 mg/dL LAB CHEMISTRY METHOD 11/21/2024 12:19 PM [facility] Blood Venous blood specimen / Unknown Venipuncture / Unknown 11/21/2024 7:57 AM EDT 11/21/2024 11:04 AM EDT us Ramone Gibson MD LAB BLOOD ORDERABLES Final Result [facility] [address] [place] [address], documented in this encounter Visit Diagnoses Diagnosis Chronic kidney disease, unspecified Essential (primary) hypertension Unspecified essential hypertension Proteinuria, unspecified documented in this encounter Care Teams Display Manager Relationship Specialty Start Date End Date Ramone Gibson MD [address] [place] [address] [facility] [place], [place] PCP - General Internal Medicine 08/09/24 documented as of this encounter
--- OUTSIDE RECORDS SUMMARY | 2025-06-21 09:02 | XMS_ITS | Encounter Summary ---
Author Organization [facility] Address [address] [place] [address] Care Team Providers Care Residential Treatment Specialist Name Role Phone Ramone Gibson MD Primary Care Provider +1- [phone] Encounter Details Date Type Department Care Team (Late st Contact Info) Description 02/27/2025 Lab Requisition [facility] - Main Lab 299 [facility] [place] [address] Luna Pardo MD [address] [place] [address] Calculus of gallbladder with acute cholecystitis with obstruction; Mixed hyperlipidemia; Other specified diabetes mellitus with diabetic polyneuropathy (CMS/HCC V24, CMS/[facility] V28) Social History Tobacco Use Types Packs/Day [...] Procedure Name Priority Date/Time Associated Diagnosis Comments COMPLETE BLOOD COUNT Routine 02/27/2025 5:44 AM EDT Calculus of gallbladder with acute cholecystitis with obstruction Mixed hyperlipidemia Other specified diabetes mellitus with diabetic polyneuropathy (CMS/HCC V24, CMS/[facility] V28) HEMOGLOBIN A1C Routine 02/27/2025 5:44 AM EDT Calculus of gallbladder with acute cholecystitis with obstruction Mixed hyperlipidemia Other specified diabetes mellitus with diabetic polyneuropathy ([facility] V24, [facility] V28) COMPREHENSIVE METABOLIC PANEL Routine 02/27/2025 5:44 AM EDT Calculus of gallbladder with acute cholecystitis with obstruction Mixed hyperlipidemia Other specified diabetes mellitus with diabetic polyneuropathy ([facility] V24, [facility] V28) documented in this encounter Results * Hemoglobin A1c (02/27/2025 5:44 AM EDT) Pathologist [facility] Hemoglobin A1C 6.0 <6.5 % LAB CHEMISTRY METHOD 02/27/2025 1:28 PM EDT [facility] Mean Bld Glu Estim. 126 mg/dL LAB CHEMISTRY METHOD 02/27/2025 1:28 PM EDT [facility] Blood Venous blood specimen / Unknown Venipuncture / Unknown 02/27/2025 5:44 AM EDT 02/27/2025 9:24 AM EDT Luna Pardo MD LAB BLOOD ORDERABLES Final Resul t [facility] [address] [place] [address], * Comprehensive metabolic panel (02/27/2025 5:44 AM EDT) [facility] Sodium 141 133 - 145 mmol/L LAB CHEMISTRY METHOD 02/27/2025 12:18 PM EDT [facility] Potassium 4.4 3.5 - 5.5 mmol/L LAB CHEMISTRY METHOD 02/27/2025 12:18 PM EDT [facility] Chloride 107 96 - 110 mmol/L LAB CHEMISTRY METHOD 02/27/2025 12:18 PM EDT [facility] CO2 27 21 - 32 mmol/L LAB CHEMISTRY METHOD 02/27/2025 12:18 PM EDT [facility] Anion Gap 7 3 - 11 LAB CHEMISTRY METHOD 02/27/2025 12:18 PM [facility] Glucose 73 70 - 100 mg/dL LAB CHEMISTRY METHOD 02/27/2025 12:18 PM [facility] BUN 19 5 - 25 mg/dL LAB CHEMISTRY METHOD 02/27/2025 12:18 PM [facility] Creatinine 1.14 0.70 - 1.30 mg/dL LAB CHEMISTRY METHOD 02/27/2025 12:18 PM [facility] eGFR 67 >=60 mL/min/1. 73m2 LAB CHEMISTRY METHOD 02/27/2025 12:18 PM [facility] Comment:Calculation based on the Chronic Kidney Disease Epidemiology Collaboration (CKD-EPI) equation refit without adjustment for race. BUN/Creatinine Ratio 16.7 LAB CHEMISTRY METHOD 02/27/2025 12:18 PM [facility] Calcium 9.6 8.5 - 10.5 mg/dL LAB CHEMISTRY METHOD 02/27/2025 12:18 PM [facility] AST (SGOT) 13 10 - 42 unit/L LAB CHEMISTRY METHOD 02/27/2025 12:18 PM [facility] ALT (SGPT) 19 10 - 60 unit/L LAB CHEMISTRY METHOD 02/27/2025 12:18 PM [facility] Alkaline Phosphatase 93 42 - 121 unit/L LAB CHEMISTRY METHOD 02/27/2025 12:18 PM [facility] Total Protein 7.1 6.0 - 8.0 g/dL LAB CHEMISTRY METHOD 02/27/2025 12:18 PM [facility] Albumin 3.9 3.2 - 5.0 g/dL LAB CHEMISTRY METHOD 02/27/2025 12:18 PM [facility] Total Bilirubin 0.4 0.0 - 1.4 mg/dL LAB CHEMISTRY METHOD 02/27/2025 12:18 PM [facility] Blood Venous blood specimen / Unknown Venipuncture / Unknown 02/27/2025 5:44 AM EDT 02/27/2025 9:24 AM EDT Luna Pardo MD LAB BLOOD ORDERABLES Final Resul t [facility] [address] [place] [address], * Complete blood count (02/27/2025 5:44 AM EDT) WBC 5.2 4.8 - 10.8 K/mcL LAB HEMETOLOGY METHOD 02/27/2025 10:25 AM EDT [facility] RBC 5.20 4.50 - 5.50 M/mcL LAB HEMETOLOGY METHOD 02/27/2025 10:25 AM EDT [facility] Hemoglobin 15.2 13.5 - 17.5 g/dL LAB HEMETOLOGY METHOD 02/27/2025 10:25 AM EDT [facility] Hematocrit 47.1 42.0 - 54.0 % LAB HEMETOLOGY METHOD 02/27/2025 10:25 AM EDT [facility] MCV 90.1 79.0 - 98.0 FL LAB HEMETOLOGY METHOD 02/27/2025 10:25 AM EDT [facility] MCH 29.1 27.0 - 32.0 pcg LAB HEMETOLOGY METHOD 02/27/2025 10:25 AM T [facility] MCHC 32.3 32.0 - 37.0 g/dL LAB HEMETOLOGY METHOD 02/27/2025 10:25 AM T [facility] RDW 13.4 11.0 - 15.0 % LAB HEMETOLOGY METHOD 02/27/2025 10:25 AM EDT [facility] Platelets 192 130 - 400 K/mcL LAB HEMETOLOGY METHOD 02/27/2025 10:25 AM EDT [facility] MPV 10.7 7.0 - 11.0 FL LAB HEMETOLOGY METHOD 02/27/2025 10:25 AM EDT [facility] NRBC 0.0 <1.0 % LAB HEMETOLOGY METHOD 02/27/2025 10:25 AM EDT [facility] NRBC Absolute 0.00 <0.10 K/mcL LAB HEMETOLOGY METHOD 02/27/2025 10:25 AM EDT [facility] Blood Venous blood specimen / Unknown Venipuncture / Unknown 02/27/2025 5:44 AM EDT 02/27/2025 9:24 AM EDT us Luna Pardo MD LAB BLOOD ORDERABLES Final Resul t [facility] [address] [place] [address], [place] [phone] documented in this encounter Visit Diagnoses Diagnosis Calculus of gallbladder with acute cholecystitis with obstruction Mixed hyperlipidemia Other specified diabetes mellitus with diabetic polyneuropathy (CMS/HCC V24, CMS/HCC V28) documented in this encounter Care Teams Residential Treatment Specialist Relationship Specialty Start Date End Date Ramone Gibson MD [address] [place], [place] [address] [place], [place] PCP - General Internal Medicine 08/09/24 documented as of this encounter
--- OUTSIDE RECORDS SUMMARY | 2025-06-21 09:02 | XMS_ITS | Encounter Summary ---
Author Organization [facility] Address [address] [place] [address] Care Team Providers Care Service Department Manager Name Role Phone Ramone Gibson MD Primary Care Provider +1- [phone] Encounter Details Date Type Department Care Team (Late st Contact Info) Description 08/07/2024 Lab Requisition [facility] - Main Lab 299 [facility] [place] [address] Ramone Gibson MD [address] [place] [address] Vitamin D deficiency, unspecified; Chronic kidney disease, [...] LAB CHEMISTRY METHOD 08/08/2024 1:28 PM EST [facility] Blood Venous blood specimen / Unknown Venipuncture / Unknown 08/08/2024 7:22 AM EST 08/08/2024 11:53 AM EST Ramone Gibson MD LAB BLOOD ORDERABLES Final Result [facility] [address] [place] [address], * (ABNORMAL) Renal function panel (08/08/2024 7:22 AM EST) Sodium 140 133 - 145 mmol/L LAB CHEMISTRY METHOD 08/08/2024 1:18 PM EST [facility] Potassium 4.1 3.5 - 5.5 mmol/L LAB CHEMISTRY METHOD 08/08/2024 1:18 PM EST [facility] Chloride 105 96 - 110 mmol/L LAB CHEMISTRY METHOD 08/08/2024 1:18 PM EST [facility] CO2 28 21 - 32 mmol/L LAB CHEMISTRY METHOD 08/08/2024 1:18 PM [facility] Anion Gap 7 3 - 11 LAB CHEMISTRY METHOD 08/08/2024 1:18 PM [facility] Glucose 109(H) 70 - 100 mg/dL LAB CHEMISTRY METHOD 08/08/2024 1:18 PM [facility] BUN 14 5 - 25 mg/dL LAB CHEMISTRY METHOD 08/08/2024 1:18 PM [facility] Creatinine 1.03 0.70 - 1.30 mg/dL LAB CHEMISTRY METHOD 08/08/2024 1:18 PM [facility] eGFR 76 >=60 mL/min/1. 73m2 LAB CHEMISTRY METHOD 08/08/2024 1:18 PM [facility] Comment:Calculation based on the Chronic Kidney Disease Epidemiology Collaboration (CKD-EPI) equation refit without adjustment for race. BUN/Creatinine Ratio 13.6 LAB CHEMISTRY METHOD 08/08/2024 1:18 PM [facility] Albumin 3.6 3.2 - 5.0 g/dL LAB CHEMISTRY METHOD 08/08/2024 1:18 PM [facility] Calcium 9.5 8.5 - 10.5 mg/dL LAB CHEMISTRY METHOD 08/08/2024 1:18 PM [facility] Phosphorus 3.6 2.5 - 4.5 mg/dL LAB CHEMISTRY METHOD 08/08/2024 1:18 PM [facility] Blood Venous blood specimen / Unknown Venipuncture / Unknown 08/08/2024 7:22 AM EST 08/08/2024 11:53 AM EST us Ramone Gibson MD LAB BLOOD ORDERABLES Final Result [facility] [address] [place] [address], * Parathyroid hormone intact (08/08/2024 7:22 AM EST) Pathologist [facility] PTH 50.7 18.5 - 88.0 pcg/mL LAB CHEMISTRY METHOD 08/08/2024 1:33 PM [facility] Blood Venous blood specimen / Unknown Venipuncture / Unknown 08/08/2024 7:22 AM EST 08/08/2024 11:53 AM EST Ramone Gibson MD LAB BLOOD ORDERABLES Final Result [facility] [address] [place] [address], * (ABNORMAL) Complete blood count (08/08/2024 7:22 AM EST) [facility] WBC 4.7(L) 4.8 - 10.8 K/mcL LAB HEMETOLOGY METHOD 08/08/2024 12:29 PM [facility] RBC 4.70 4.50 - 5.50 M/mcL LAB HEMETOLOGY METHOD 08/08/2024 12:29 PM [facility] Hemoglobin 13.9 13.5 - 17.5 g/dL LAB HEMETOLOGY METHOD 08/08/2024 12:29 PM [facility] Hematocrit 42.4 42.0 - 54.0 % LAB HEMETOLOGY METHOD 08/08/2024 12:29 PM [facility] MCV 91.0 79.0 - 98.0 FL LAB HEMETOLOGY METHOD 08/08/2024 12:29 PM [facility] MCH 29.8 27.0 - 32.0 pcg LAB HEMETOLOGY METHOD 08/08/2024 12:29 PM [facility] MCHC 32.8 32.0 - 37.0 g/dL LAB HEMETOLOGY METHOD 08/08/2024 12:29 PM [facility] RDW 13.2 11.0 - 15.0 % LAB HEMETOLOGY METHOD 08/08/2024 12:29 PM EST [facility] Platelets 205 130 - 400 K/mcL LAB HEMETOLOGY METHOD 08/08/2024 12:29 PM EST [facility] MPV 10.6 7.0 - 11.0 FL LAB HEMETOLOGY METHOD 08/08/2024 12:29 PM EST [facility] NRBC 0.0 <1.0 % LAB HEMETOLOGY METHOD 08/08/2024 12:29 PM EST [facility] NRBC Absolute 0.00 <0.10 K/mcL LAB HEMETOLOGY METHOD 08/08/2024 12:29 PM [facility] Blood Venous blood specimen / Unknown Venipuncture / Unknown 08/08/2024 7:22 AM EST 08/08/2024 11:53 AM EST us Ramone Gibson MD LAB BLOOD ORDERABLES Final Result [facility] [address] [place] [address], [place] [phone] * Hemoglobin A1c (08/08/2024 7:22 AM EST) Hemoglobin A1C 5.4 <6.5 % LAB CHEMISTRY METHOD 08/08/2024 2:16 PM EST [facility] Mean Bld Glu Estim. 108 mg/dL LAB CHEMISTRY METHOD 08/08/2024 2:16 PM EST [facility] Blood Venous blood specimen / Unknown Venipuncture / Unknown 08/08/2024 7:22 AM EST 08/08/2024 11:53 AM EST us Ramone Gibson MD LAB BLOOD ORDERABLES Final Result [facility] [address] [place] [address], [place] [phone] documented in this encounter Visit Diagnoses Diagnosis Vitamin D deficiency, unspecified Chronic kidney disease, unspecified Essential (primary) hypertension Unspecified essential hypertension Type 2 diabetes mellitus without complications (CMS/[facility] V24, CMS/[facility] V28) documented in this encounter Care Teams Service Department Manager Relationship Specialty Start Date End Date Ramone Gibson MD [address] [facility] [place], [place] PCP - General Internal Medicine 08/09/24 documented as of this encounter
--- OUTSIDE RECORDS SUMMARY | 2025-06-21 09:02 | XMS_ITS | Encounter Summary ---
Author Organization [facility] Address [address] [place] [address] Care Team Providers Care Hotel Manager Name Role Phone Ramone Gibson MD Primary Care Provider +1- [phone] Encounter Details Date Type Department Care Team (Late st Contact Info) Description 12/12/2024 Lab Requisition [facility] - Main Lab [address] [facility] [place] [address] Ramone Gibson MD [address] [place] [address] Benign prostatic hyperplasia with lower urinary tract [...] BLOOD ORDERABLES Final Result Performing Organization Address City/[facility]/ZIP Co de Phone Number [facility] [address] [place] [address], [place] [phone] * (ABNORMAL) PSA total, free and complexed (12/12/2024 7:05 AM EDT) PSA 0.14 0.00 - 4.00 ng/mL LAB CHE[facility]STR[facility] PSA, Complexed 0.10 0.00 - 3.00 ng/mL LAB CHEMISTRY METHOD 12/12/2024 9:27 AM EDT [facility] PSA, Free 0.0 ng/mL LAB CHEMISTRY METHOD 12/12/2024 9:27 AM T [facility] PSA, Free Pct 0.0(L) >25.0 % LAB CHEMISTRY METHOD 12/12/2024 9:27 AM [facility] Blood Venous blood specimen / Unknown Venipuncture / Unknown 12/12/2024 7:05 AM EDT 12/12/2024 8:34 AM EDT Narrative [facility] - 12/12/2024 9:27 AM EDT Free PSA is a calculated value. The diagnostic usefulness of % free PSA has not been established in patients with Total PSA below 2.6 or above 10 ng/mL. This test was performed using the Centaur Chemiluminescent method. PSA values obtained with other methods cannot be used interchangeably. us Ramone Gibson MD LAB BLOOD ORDERABLES Final Result [facility] [address] [place] [address], documented in this encounter Visit Diagnoses Diagnosis Benign prostatic hyperplasia with lower urinary tract symptoms documented in this encounter Care Teams Hotel Manager Relationship Specialty Start Date End Date Ramone Gibson MD [address] [facility] [place], [place] PCP - General Internal Medicine 08/09/24 documented as of this encounter
--- OUTSIDE RECORDS SUMMARY | 2025-06-21 09:02 | XMS_ITS | Encounter Summary ---
Author Organization [facility] Address [address] [place] [address] Care Team Providers Care Enforcement Safety Officer Name Role Phone Ramone Gibson MD Primary Care Provider +1- [phone] Encounter Details Date Type Department Care Team (Late st Contact Info) Description 08/08/2024 Lab Requisition [facility] - Main Lab [address] [facility] [place] [address] Social History Tobacco Use Types [...] on filedocumented in this encounter Care Teams Enforcement Safety Officer Relationship Specialty Start Date End Date Ramone Gibson MD [address] [place] [address] [facility] [place], [place] PCP - General Internal Medicine 08/09/24 documented as of this encounter
--- OUTSIDE RECORDS SUMMARY | 2025-06-21 09:02 | XMS_ITS | Encounter Summary ---
Author Organization [facility] Address [address] [place] [address] Care Team Providers Care Senior Java Programmer Name Role Phone Ramone Gibson MD Primary Care Provider +1- [phone] Encounter Details Date Type Department Care Team (Late st Contact Info) Description 08/08/2024 Lab Requisition [facility] - Main Lab [address] [place] [address] Ramone Gibson MD [address] [place] [address] Other abnormal findings on microbiological examination of [...] LAB CHEMISTRY METHOD 08/08/2024 1:48 PM EST [facility] Microalb, Ur 324.0(H) 0.0 - 29.0 mg/L LAB CHEMISTRY METHOD 08/08/2024 1:48 PM EST [facility] Microalb/Crea t Ratio 345(H) <30 mg/g creat LAB CHEMISTRY METHOD 08/08/2024 1:48 PM EST [facility] Urine Urine specimen obtained by clean catch procedure / Unknown Non-blood Collection / Unknown 08/08/2024 08/08/2024 11:58 AM EST us Ramone Gibson MD LAB URINE ORDERABLES Final Result [facility] [address] [place] [address], documented in this encounter Visit Diagnoses Diagnosis Other abnormal findings on microbiological examination of urine Chronic kidney disease, unspecified Essential (primary) hypertension Unspecified essential hypertension documented in this encounter Care Teams Senior Java Programmer Relationship Specialty Start Date End Date Ramone Gibson MD [address] [place] [address] [facility] [place], [place] PCP - General Internal Medicine 08/09/24 documented as of this encounter
--- OUTSIDE RECORDS SUMMARY | 2025-06-21 09:02 | XMS_ITS | Clinical Summary ---
Author Organization [address] Address [address] [place] [address] Phone Care Team Providers Care Sanitizer Name Role Phone Ramone Gibson MD Primary Care Provider +1- [phone] Allergies No known active allergies Medications amLODIPine [...] topically 2 (two) times a day. Active Medical History Medical History Date Comments Essential hypertension Hypotension Chronic hepatitis C without hepatic coma ([facility]/HC C V24, [facility] V28) Type 2 diabetes mellitus wit h other circulatory complications ([facility] V24, [facility] V28) Schizophrenia, unspecified type ([facility] V24, S/[facility] V28) Late effects of cerebrovascular accident Psoriasis [facility] (current) use of oral hypoglycemic alethea gs Hyperlipidemia History of TIA (transient ischemic attack) Social History Tobacco Use Types Packs/Day Years Used Date Smoking Tobacco: Every Day Cigarettes 0.5 53.8 Started: 1972 Tobacco Cessation:Ready to Q uit: [...] (1 of 2) 1999 Hepatitis A Vaccines (2 of 2 - Risk 2-dose series) 09/06/2002 03/06/2002, 09/28/2001 Hepatitis B Vaccines (1 of 3 - Risk 3-dose series) 2009 Pneumococcal Vaccine: 50+ Years (2 of 2 - PPSV23, PCV20, or PCV21) 10/23/2019 08/28/2019, 08/25/2008, 07/07/2008, Additional history exists DTaP,Tdap,and Td Vaccines (3 - Td or Tdap) 02/16/2021 02/16/2011, 01/03/1999 Cholesterol Screening (Lipid Panel) 08/09/2022 Falls Risk Assessment 08/09/2022 Hepatitis C Screening 08/09/2022 Medicare Annual Wellness Visit 08/09/2022 Social Influencers of Health Screening 08/09/2022 RSV Immunization Adult Patients (1 - 1-dose 75+ series) 2024 Depression Screening 09/06/2024 COVID-19 Vaccine ( season) 2025 06/14/2024, 07/05/2023, 01/07/2022, Additional history exists Influenza Vaccine (#1) 2025 , 05/07/2024, 06/06/2023, Additional history exists Diabetes: Annual Urine Albumin-Creatinine Ratio (uACR) 08/08/2025 08/08/2024 Diabetes: Blood Sugar Control Test (HGBA1C) 08/29/2025 02/27/2025, 08/08/2024 Lung Cancer Screening (Low Dose CT) 11/09/2025 11/09/2024 Diabetes: Annual GFR (Glomerular Filtration Rate) 02/27/2026 02/27/2025, 11/21/2024, 08/08/2024 Hypertension/CHF/CAD Annual BMP Blood Test 02/27/2026 02/27/2025, 11/21/2024, 08/08/2024 HIB Vaccines Aged Out No longer eligi [...] Procedure Name Priority Date/Time Associated Diagnosis Comments COMPREHENSIVE METABOLIC PANEL Routine 02/27/2025 5:44 AM EDT Calculus of gallbladder with acute cholecystitis with obstruction Mixed hyperlipidemia Other specified diabetes mellitus with diabetic polyneuropathy ([facility] V24, [facility] V28) HEMOGLOBIN A1C Routine 02/27/2025 5:44 AM EDT Calculus of gallbladder with acute cholecystitis with obstruction Mixed hyperlipidemia Other specified diabetes mellitus with diabetic polyneuropathy ([facility] V24, [facility] V28) CT LUNG SCREENING Routine 11/09/2024 1:4 8 PM EST Encounter for screening for malignant neoplasm of respiratory organs Nicotine dependence, cigarettes, uncomplicated MICROALBUMIN CREATININE URINE RATIO Routine 08/08/2024 12:00 AM EST Other abnormal findings on microbiological examination of urine Chronic kidney disease, unspecified Essential (primary) hypertension from Last 3 Months or Most Recently Relevant to Health Maintenance Results * Hemoglobin A1c (02/27/2025 5:44 AM EDT) Pathologist [facility] Hemoglobin A1C 6.0 <6.5 % LAB CHEMISTRY METHOD 02/27/2025 1:28 PM EDT [facility] Mean Bld Glu Estim. 126 mg/dL LAB CHEMISTRY METHOD 02/27/2025 1:28 PM EDT [facility] Blood Venous blood specimen / Unknown Venipuncture / Unknown 02/27/2025 5:44 AM EDT 02/27/2025 9:24 AM EDT Luna Pardo MD LAB BLOOD ORDERABLES Final Resul t [facility] [address] [place] [address], * Comprehensive metabolic panel (02/27/2025 5:44 AM EDT) Pathologist [facility] Sodium 141 133 - 145 mmol/L LAB CHEMISTRY METHOD 02/27/2025 12:18 PM EDT [facility] Potassium 4.4 3.5 - 5.5 mmol/L LAB CHEMISTRY METHOD 02/27/2025 12:18 PM EDT [facility] Chloride 107 96 - 110 mmol/L LAB CHEMISTRY METHOD 02/27/2025 12:18 PM EDT [facility] CO2 27 21 - 32 mmol/L LAB CHEMISTRY METHOD 02/27/2025 12:18 PM [facility] Anion Gap 7 3 - 11 LAB CHEMISTRY METHOD 02/27/2025 12:18 PM [facility] Glucose 73 70 - 100 mg/dL LAB CHEMISTRY METHOD 02/27/2025 12:18 PM [facility] BUN 19 5 - 25 mg/dL LAB CHEMISTRY METHOD 02/27/2025 12:18 PM [facility] Creatinine 1.14 0.70 - 1.30 mg/dL LAB CHEMISTRY METHOD 02/27/2025 12:18 PM [facility] eGFR 67 >=60 mL/min/1. 73m2 LAB CHEMISTRY METHOD 02/27/2025 12:18 PM [facility] Comment:Calculation based on the Chronic Kidney Disease Epidemiology Collaboration (CKD-EPI) equation refit without adjustment for race. BUN/Creatinine Ratio 16.7 LAB CHEMISTRY METHOD 02/27/2025 12:18 PM [facility] Calcium 9.6 8.5 - 10.5 mg/dL LAB CHEMISTRY METHOD 02/27/2025 12:18 PM [facility] AST (SGOT) 13 10 - 42 unit/L LAB CHEMISTRY METHOD 02/27/2025 12:18 PM [facility] ALT (SGPT) 19 10 - 60 unit/L LAB CHEMISTRY METHOD 02/27/2025 12:18 PM [facility] Alkaline Phosphatase 93 42 - 121 unit/L LAB CHEMISTRY METHOD 02/27/2025 12:18 PM [facility] Total Protein 7.1 6.0 - 8.0 g/dL LAB CHEMISTRY METHOD 02/27/2025 12:18 PM [facility] Albumin 3.9 3.2 - 5.0 g/dL LAB CHEMISTRY METHOD 02/27/2025 12:18 PM [facility] Total Bilirubin 0.4 0.0 - 1.4 mg/dL LAB CHEMISTRY METHOD 02/27/2025 12:18 PM EDT [facility] Blood Venous blood specimen / Unknown Venipuncture / Unknown 02/27/2025 5:44 AM EDT 02/27/2025 9:24 AM EDT us Luna Pardo MD LAB BLOOD ORDERABLES Final Resul t [facility] ([facility]) [facility] [address] [place] [address], [place] [phone] * CT Lung Screening (11/09/2024 1:48 PM [...] Signed Date: 11/13/2024 15:52 ET Workstation ID: [id number] Transcribed By: Self Edit Transcribed Date: 11/13/2024 15:49 ET Narrative 11/13/2024 3:52 PM EDT History: 74 year-old 35 pack-year current smoker, [...] are no pleural effusions. No calcified or noncalcified pleural plaques. Heart/Aorta: Coronary artery calcifications. No pericardial effusion. Esophagus: The esophagus is not significantly thickened or dilated. Lymph Nodes:There are no enlarged thoracic lymph nodes. Upper Abdomen: This study was performed without contrast and with lower than standard dose. These factors reduce the sensitivity for detection of small lesions in the upper abdomen. No significant abnormality. Osseous Structures: No suspicious osseous abnormalities. Gynecomastia. Procedure Note Kristopher Mcgowan MD - 11/13/2024 [...] Signed Date: 11/13/2024 15:52 ET Workstation ID: [id number] Transcribed By: Self Edit Transcribed Date: 11/13/2024 15:49 ET Catrachita Perry MD IM CT PROCEDURES Final Result * (ABNORMAL) Microalbumin creatinine urine ratio (08/08/2024 12:00 AM EST) Creatinine, Urine 94.0 mg/dL LAB CHEMISTRY METHOD 08/08/2024 1:48 PM EST [facility] Microalb, Ur 324.0(H) 0.0 - 29.0 mg/L LAB CHEMISTRY METHOD 08/08/2024 1:48 PM EST [facility] Microalb/Crea t Ratio 345(H) <30 mg/g creat LAB CHEMISTRY METHOD 08/08/2024 1:48 PM EST [facility] Urine Urine specimen obtained by clean catch procedure / Unknown Non-blood Collection / Unknown 08/08/2024 08/08/2024 11:58 AM EST Ramone Gibson MD LAB URINE ORDERABLES Final Result [facility] [address] [place] [address], [place] [phone] from Last 3 Months or Most Recently Relevant to [place] [id number] MEDICA[place] - [place] MEDICARE Care Teams Sanitizer Relationship Specialty Start Date End Date Ramone Gibson MD [address] [place] [address] [facility] [place], [place] PCP - General Internal Medicine 08/09/24
--- OUTSIDE RECORDS SUMMARY | 2025-06-21 09:02 | XMS_ITS | Patient Health Record ---
Author Organization [facility] Address [address] [place] [address] Care Team Providers Care Glass Block Bender Name Role Phone NONE, NONE Primary Care Provider Mickey Padilla Jr Unavailable Reason For Referral No Information Medications Medication SIG (Take, Route, Frequency, Duration) Notes Start Date End Date Status Lisinopril 40 MG 1 tablet Orally Once a day Active Latanoprost 0.005 % 1 drop into affected eye in the evening Ophthalmic Once a day Active metFORMIN HCl 500 MG 1 tablet with a suleman l Orally twice a day Active Ranitidine HCl 150 MG 1 capsule at bedti me Orally Once a day; Duration: 30 day(s) Active Vitamin D3 1000 UNIT 1 capsule Orally On ce a day; Duration: 30 day(s) Active Simvastatin 40 MG 1 tablet in the even ing Orally Once a day; Duration: 30 day(s) Active Tamsulosin HCl 0.4 MG 1 capsule Orally O nce a day; Duration: 30 day(s) Active traZODone HCl 50 MG 1/2 tablet at bedtim e as needed Orally Once a day Active Mapap 325 MG 2 tablet as needed O rally every 4 hrs/prn Active Aspir-Low 81 MG 1 tablet Orally Once a day Active Milk of Magnesia 400 MG/5ML 5 ml as need ed Orally Four times a day Active Finasteride 5 MG 1 tablet Orally Once a day Active Mintox 200-200-20 MG/5ML 10 ml as needed Orally Four times a day/prn Active fluPHENAZine HCl 5 MG 1/2 tablet Orally Once a day Active Folic Acid 1 MG 1 tablet Orally Once a day; Duration: 30 day(s) Active Colyte with Flavor Packs 240 GM As directed Orally Over the specified time.; Duration: 1 day(s) 05/24/2019 Active Simbrinza 1-0.2 % 1 drop into affected eye Ophthalmic twice a day Active Vitamin B1 100 MG 1 tablet Orally Once a day Active Combivent Respimat 20-100 MCG/ACT 1 puff Inhalation Four times a day Active Glutose prn Active amLODIPine Besylate 5 MG 1 tablet Orally Once a day Active Immunizations Vaccine Route Administration Date Status Comme nts Influenza Unknown 07/08/2018 Administered Social History Tobacco Use: Social History Observation Description Date Details (start date - stop date) Current Smoker NA - NA Tobacco Use/Smoking Question Answer Notes Patient is a current smoker How often do you smoke cigarettes? every day How many cigarettes a day do you smoke? 5 or les s How soon after you wake up d o you smoke your first cigarette? within 5 minutes Are you interested in quitting? Thinking about q uitting Alcohol Screen Question Answer Notes Did you have a drink containing alcohol in the p ast year? 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 drugs (Z79.84) Active confirmed Problem Essential hypertension (33133615) Hypertension, unspecified type (I10) Active confirmed Plan Of Treatment Future Test Test Name Order Date COLONOSCOPY 05/24/2019 Insurance Providers Payer Name Payer Address Payer Phone Subscriber Number Group Number Insured Name Patient Relationship to Insured Coverage Start Date Coverage End Date [id number] [address] [place] [phone] [id number] PENNY SAXENA Self - patient is the insured Medical (General) History Medical History History ICD Code hepatitis C alcohol abuse CVA diabetes type 2 with retinopathy dysphagia hyperlipidemia schizophrenia Surgical History Surgery Date(Month/Year) left arm surgery
== END 2025-06-21 09:08 | disposition home or self-care (01) ==
LOC: HO.HUSH 08:35
PROVIDERS: PCP Nurse Practitioner Adult Health; Visit Provider Nurse Practitioner Family
DX: N40.1 Benign prostatic hyperplasia with lower urinary tract symptoms (principal); R33.9 Retention of urine, unspecified; R31.29 Other microscopic hematuria; Z13.9 Encounter for screening, unspecified
CPT/HCPCS: 99213; G2211

== ENCOUNTER 2025-08-24 10:11 | Outpatient (REF) | payer MEDICARE, MEDICAID, SELFPAY ==
--- NOTE | ~2025-08-24 | US_ITS ---
CLINICAL HISTORY: N40.1 - Benign prostatic hyperplasia with lower urinary tract symptoms US retroperitoneum with color Doppler Comparison: US - US BLADDER - 11/23/24 10:46 EDT Findings: Right kidney normal size and echotexture, 11.0 cm length. No hydronephrosis. Normal color flow. 2 mm caliceal stone midpole. No renal masses. Left kidney normal size and echotexture, 11.2 cm in length. No hydronephrosis. Normal color flow. No nephrolithiasis. Benign renal cortical cyst upper pole measuring 8 x 7 x 9 mm There is trabeculation of the bladder wall. Right bladder wall diverticulum near the trigone measuring 5.5 cm and 3.3 cm . These appear stable.Minimal debris within the lumen of the urinary bladder. Prevoid volume 534.5 mL. Postvoid volume 346.1 mL. Ureteral jets are visualized bilaterally Prostate gland measures 3.1 x 3.4 x 4.2 cm with dystrophic calcifications Impression: 1. Punctate caliceal stone on the right. Benign renal cortical cyst on the left. No evidence of obstructive uropathy. 2. There is trabeculation of the urinary bladder wall with 2 bladder diverticuli on the right. 3. Elevated postvoid residual 4. Prostate volume calculated at 22.7 mL This document has been electronically signed by: Mayank Parker MD on 08/24/2025 12:36:32
--- OUTSIDE RECORDS SUMMARY | 2025-08-24 11:30 | XMS_ITS | Encounter Summary ---
Author Organization [facility] Address [address] [place] [address] Care Team Providers Care Weight Count Operator Name Role Phone Ramone Gibson MD Primary Care Provider +1- [phone] Encounter Details Date Type Department Care Team (Late st Contact Info) Description 12/12/2024 Lab Requisition [facility] - Main Lab [address] [facility] [place] [address] Ramone Gibson MD [address] [place] [phone] Benign prostatic hyperplasia with lower urinary tract symptoms Social History Tobacco Use Types Packs/Day Years Used Date Smoking Tobacco: Every Day Cigarettes 0.5 54 Started: 1972 Alcohol Use Standard Drinks/Week Comments [...] for add-ons. 12/12/2024 10:01 AM EDT [facility] Comment:Auto resulted. Blood Venous blood specimen / Unknown Venipuncture / Unknown 12/12/2024 7:05 AM EDT 12/12/2024 8:35 AM EDT us Ramone Gibson MD LAB BLOOD ORDERABLES Final Result [facility] [address] [place] [address], [place] [phone] * (ABNORMAL) PSA total, free and complexed (12/12/2024 7:05 AM EDT) PSA 0.14 0.00 - 4.00 ng/mL LAB CHEMISTRY METHOD 12/12/2024 9:27 AM EDT [facility] PSA, Complexed 0.10 0.00 - 3.00 ng/mL LAB CHEMISTRY METHOD 12/12/2024 9:27 AM EDT [facility] PSA, Free 0.0 ng/mL LAB CHEMISTRY METHOD 12/12/2024 9:27 AM EDT [facility] PSA, Free Pct 0.0(L) >25.0 % LAB CHEMISTRY METHOD 12/12/2024 9:27 AM T [facility] Blood Venous blood specimen / Unknown Venipuncture / Unknown 12/12/2024 7:05 AM EDT 12/12/2024 8:34 AM EDT Narrative [facility] - 12/12/2024 9:27 AM EDT [...] MD LAB BLOOD ORDERABLES Final Result [facility] [address] [place] [address], documented in this encounter Visit Diagnoses Diagnosis Benign prostatic hyperplasia with lower urinary tract symptoms documented in this encounter Care Teams Weight Count Operator Relationship Specialty Start Date End Date Ramone Gibson MD [address] [facility] [place], [place] PCP - General Internal Medicine 08/09/24 documented as of this encounter
--- OUTSIDE RECORDS SUMMARY | 2025-08-24 11:30 | XMS_ITS | Encounter Summary ---
Author Organization [facility] Address [address] [place] [address] Care Team Providers Care Benefits Manager Name Role Phone Ramone Gibson MD Primary Care Provider +1- [phone] Encounter Details Date Type Department Care Team (Late st Contact Info) Description 08/07/2024 Lab Requisition [facility] - Main Lab 299 [facility] [place] [address] Ramone Gibson MD [address] [place] [id number] Vitamin D deficiency, unspecified; Chronic kidney disease, [...] LAB CHEMISTRY METHOD 08/08/2024 1:28 PM EST [facility] Blood Venous blood specimen / Unknown Venipuncture / Unknown 08/08/2024 7:22 AM EST 08/08/2024 11:53 AM EST Ramone Gibson MD LAB BLOOD ORDERABLES Final Result [facility] [address] [place] [address], * (ABNORMAL) Renal function panel (08/08/2024 7:22 AM EST) Sodium 140 133 - 145 mmol/L LAB CHEMISTRY METHOD 08/08/2024 1:18 PM EST [facility] Potassium 4.1 3.5 - 5.5 mmol/L LAB CHEMISTRY METHOD 08/08/2024 1:18 PM EST [facility] Chloride 105 96 - 110 mmol/L LAB CHEMISTRY METHOD 08/08/2024 1:18 PM EST [facility] CO2 28 21 - 32 mmol/L LAB CHEMISTRY METHOD 08/08/2024 1:18 PM [facility] Anion Gap 7 3 - 11 LAB CHEMISTRY METHOD 08/08/2024 1:18 PM [facility] Glucose 109(H) 70 - 100 mg/dL LAB CHEMISTRY METHOD 08/08/2024 1:18 PM [facility] BUN 14 5 - 25 mg/dL LAB CHEMISTRY METHOD 08/08/2024 1:18 PM [facility] Creatinine 1.03 0.70 - 1.30 mg/dL LAB CHEMISTRY METHOD 08/08/2024 1:18 PM [facility] eGFR 76 >=60 mL/min/1. 73m2 LAB CHEMISTRY METHOD 08/08/2024 1:18 PM [facility] Comment:Calculation based on the Chronic Kidney Disease Epidemiology Collaboration (CKD-EPI) equation refit without adjustment for race. BUN/Creatinine Ratio 13.6 LAB CHEMISTRY METHOD 08/08/2024 1:18 PM [facility] Albumin 3.6 3.2 - 5.0 g/dL LAB CHEMISTRY METHOD 08/08/2024 1:18 PM [facility] Calcium 9.5 8.5 - 10.5 mg/dL LAB CHEMISTRY METHOD 08/08/2024 1:18 PM [facility] Phosphorus 3.6 2.5 - 4.5 mg/dL LAB CHEMISTRY METHOD 08/08/2024 1:18 PM [facility] Blood Venous blood specimen / Unknown Venipuncture / Unknown 08/08/2024 7:22 AM EST 08/08/2024 11:53 AM EST us Ramone Gibson MD LAB BLOOD ORDERABLES Final Result [facility] [address] [place] [address], * Parathyroid hormone intact (08/08/2024 7:22 AM EST) Pathologist [facility] PTH 50.7 18.5 - 88.0 pcg/mL LAB CHEMISTRY METHOD 08/08/2024 1:33 PM [facility] Blood Venous blood specimen / Unknown Venipuncture / Unknown 08/08/2024 7:22 AM EST 08/08/2024 11:53 AM EST Ramone Gibson MD LAB BLOOD ORDERABLES Final Result [facility] [address] [place] [address], * (ABNORMAL) Complete blood count (08/08/2024 7:22 AM EST) [facility] WBC 4.7(L) 4.8 - 10.8 K/mcL LAB HEMETOLOGY METHOD 08/08/2024 12:29 PM [facility] RBC 4.70 4.50 - 5.50 M/mcL LAB HEMETOLOGY METHOD 08/08/2024 12:29 PM [facility] Hemoglobin 13.9 13.5 - 17.5 g/dL LAB HEMETOLOGY METHOD 08/08/2024 12:29 PM [facility] Hematocrit 42.4 42.0 - 54.0 % LAB HEMETOLOGY METHOD 08/08/2024 12:29 PM [facility] MCV 91.0 79.0 - 98.0 FL LAB HEMETOLOGY METHOD 08/08/2024 12:29 PM [facility] MCH 29.8 27.0 - 32.0 pcg LAB HEMETOLOGY METHOD 08/08/2024 12:29 PM [facility] MCHC 32.8 32.0 - 37.0 g/dL LAB HEMETOLOGY METHOD 08/08/2024 12:29 PM [facility] RDW 13.2 11.0 - 15.0 % LAB HEMETOLOGY METHOD 08/08/2024 12:29 PM EST [facility] Platelets 205 130 - 400 K/mcL LAB HEMETOLOGY METHOD 08/08/2024 12:29 PM EST [facility] MPV 10.6 7.0 - 11.0 FL LAB HEMETOLOGY METHOD 08/08/2024 12:29 PM EST [facility] NRBC 0.0 <1.0 % LAB HEMETOLOGY METHOD 08/08/2024 12:29 PM EST [facility] NRBC Absolute 0.00 <0.10 K/mcL LAB HEMETOLOGY METHOD 08/08/2024 12:29 PM [facility] Blood Venous blood specimen / Unknown Venipuncture / Unknown 08/08/2024 7:22 AM EST 08/08/2024 11:53 AM EST us Ramone Gibson MD LAB BLOOD ORDERABLES Final Result [facility] [address] [place] [address], [place] [phone] * Hemoglobin A1c (08/08/2024 7:22 AM EST) Hemoglobin A1C 5.4 <6.5 % LAB CHEMISTRY METHOD 08/08/2024 2:16 PM EST [facility] Mean Bld Glu Estim. 108 mg/dL LAB CHEMISTRY METHOD 08/08/2024 2:16 PM EST [facility] Blood Venous blood specimen / Unknown Venipuncture / Unknown 08/08/2024 7:22 AM EST 08/08/2024 11:53 AM EST us Ramone Gibson MD LAB BLOOD ORDERABLES Final Result [facility] [address] [place] [address], [place] [phone] documented in this encounter Visit Diagnoses Diagnosis Vitamin D deficiency, unspecified Chronic kidney disease, unspecified Essential (primary) hypertension Unspecified essential hypertension Type 2 diabetes mellitus without complications (CMS/[facility] V24, CMS/[facility] V28) documented in this encounter Care Teams Benefits Manager Relationship Specialty Start Date End Date Ramone Gibson MD [address] [facility] [place] PCP - General Internal Medicine 08/09/24 documented as of this encounter
--- OUTSIDE RECORDS SUMMARY | 2025-08-24 11:30 | XMS_ITS | Encounter Summary ---
Author Organization [facility] Address [address] [place] [address] Care Team Providers Care Warehouse Assistant Name Role Phone Ramone Gibson MD Primary Care Provider +1- [phone] Encounter Details Date Type Department Care Team (Late st Contact Info) Description 02/27/2025 Lab Requisition [facility] - Main Lab 299 [facility] [place] [address] Luna Pardo MD [address] [place] [address] Calculus of gallbladder with acute cholecystitis with obstruction; Mixed hyperlipidemia; Other specified diabetes mellitus with diabetic polyneuropathy (CMS/HCC V24, CMS/[facility] V28) Social History Tobacco Use Types Packs/Day Years Used Date Smoking Tobacco: Every Day Cigarettes 0.5 54 Started: 1973 Alcohol Use Standard Drinks/Week Comments [...] diabetes mellitus with diabetic polyneuropathy (CMS/HCC V24, CMS/[facility] V28) HEMOGLOBIN A1C Routine 02/27/2025 5:44 AM EDT Calculus of gallbladder with acute cholecystitis with obstruction Mixed hyperlipidemia Other specified diabetes mellitus with diabetic polyneuropathy ([facility] V24, [facility] V28) COMPREHENSIVE METABOLIC PANEL Routine 02/27/2025 5:44 AM EDT Calculus of gallbladder with acute cholecystitis with obstruction Mixed hyperlipidemia Other specified diabetes mellitus with diabetic polyneuropathy ([facility] V24, [facility] V28) documented in this encounter Results * Hemoglobin A1c (02/27/2025 5:44 AM EDT) Pathologist [facility] [place] Hemoglobin A1C 6.0 <6.5 % LAB CHEMISTRY METHOD 02/27/2025 1:28 PM EDT [facility] Mean Bld Glu Estim. 126 mg/dL LAB CHEMISTRY METHOD 02/27/2025 1:28 PM EDT [facility] Blood Venous blood specimen / Unknown Venipuncture / Unknown 02/27/2025 5:44 AM EDT 02/27/2025 9:24 AM EDT us Luna Pardo MD LAB BLOOD ORDERABLES Final Resul t [facility] [address] [place] [address], * Comprehensive metabolic panel (02/27/2025 5:44 AM EDT) Pathologist [facility] [place] Sodium 141 133 - 145 mmol/L LAB CHEMISTRY METHOD 02/27/2025 12:18 PM EDT [facility] Potassium 4.4 3.5 - 5.5 mmol/L LAB CHEMISTRY METHOD 02/27/2025 12:18 PM EDT [facility] Chloride 107 96 - 110 mmol/L LAB CHEMISTRY METHOD 02/27/2025 12:18 PM EDT [facility] CO2 27 21 - 32 mmol/L LAB CHEMISTRY METHOD 02/27/2025 12:18 PM EDT [facility] Anion Gap 7 3 - 11 LAB CHEMISTRY METHOD 02/27/2025 12:18 PM [facility] Glucose 73 70 - 100 mg/dL LAB CHEMISTRY METHOD 02/27/2025 12:18 PM [facility] BUN 19 5 - 25 mg/dL LAB CHEMISTRY METHOD 02/27/2025 12:18 PM [facility] Creatinine 1.14 0.70 - 1.30 mg/dL LAB CHEMISTRY METHOD 02/27/2025 12:18 PM [facility] eGFR 67 >=60 mL/min/1. 73m2 LAB CHEMISTRY METHOD 02/27/2025 12:18 PM [facility] Comment:Calculation based on the Chronic Kidney Disease Epidemiology Collaboration (CKD-EPI) equation refit without adjustment for race. BUN/Creatinine Ratio 16.7 LAB CHEMISTRY METHOD 02/27/2025 12:18 PM [facility] Calcium 9.6 8.5 - 10.5 mg/dL LAB CHEMISTRY METHOD 02/27/2025 12:18 PM [facility] AST (SGOT) 13 10 - 42 unit/L LAB CHEMISTRY METHOD 02/27/2025 12:18 PM [facility] ALT (SGPT) 19 10 - 60 unit/L LAB CHEMISTRY METHOD 02/27/2025 12:18 PM [facility] Alkaline Phosphatase 93 42 - 121 unit/L LAB CHEMISTRY METHOD 02/27/2025 12:18 PM [facility] Total Protein 7.1 6.0 - 8.0 g/dL LAB CHEMISTRY METHOD 02/27/2025 12:18 PM [facility] Albumin 3.9 3.2 - 5.0 g/dL LAB CHEMISTRY METHOD 02/27/2025 12:18 PM [facility] Total Bilirubin 0.4 0.0 - 1.4 mg/dL LAB CHEMISTRY METHOD 02/27/2025 12:18 PM [facility] Blood Venous blood specimen / Unknown Venipuncture / Unknown 02/27/2025 5:44 AM EDT 02/27/2025 9:24 AM EDT Luna Pardo MD LAB BLOOD ORDERABLES Final Resul t [facility] [address] [place] [address], * Complete blood count (02/27/2025 5:44 AM EDT) WBC 5.2 4.8 - 10.8 K/mcL LAB HEMETOLOGY METHOD 02/27/2025 10:25 AM EDT [facility] RBC 5.20 4.50 - 5.50 M/mcL LAB HEMETOLOGY METHOD 02/27/2025 10:25 AM EDT [facility] Hemoglobin 15.2 13.5 - 17.5 g/dL LAB HEMETOLOGY METHOD 02/27/2025 10:25 AM T [facility] Hematocrit 47.1 42.0 - 54.0 % LAB HEMETOLOGY METHOD 02/27/2025 10:25 AM T [facility] MCV 90.1 79.0 - 98.0 FL LAB HEMETOLOGY METHOD 02/27/2025 10:25 AM EDT [facility] MCH 29.1 27.0 - 32.0 pcg LAB HEMETOLOGY METHOD 02/27/2025 10:25 AM [facility] MCHC 32.3 32.0 - 37.0 g/dL LAB HEMETOLOGY METHOD 02/27/2025 10:25 AM [facility] RDW 13.4 11.0 - 15.0 % LAB HEMETOLOGY METHOD 02/27/2025 10:25 AM [facility] Platelets 192 130 - 400 K/mcL LAB HEMETOLOGY METHOD 02/27/2025 10:25 AM EDT [facility] MPV 10.7 7.0 - 11.0 FL LAB HEMETOLOGY METHOD 02/27/2025 10:25 AM EDT [facility] NRBC 0.0 <1.0 % LAB HEMETOLOGY METHOD 02/27/2025 10:25 AM EDT [facility] NRBC Absolute 0.00 <0.10 K/mcL LAB HEMETOLOGY METHOD 02/27/2025 10:25 AM EDT [facility] Blood Venous blood specimen / Unknown Venipuncture / Unknown 02/27/2025 5:44 AM EDT 02/27/2025 9:24 AM EDT Luna Pardo MD LAB BLOOD ORDERABLES Final Resul t [facility] [address] [place] [address], [place] [phone] documented in this encounter Visit Diagnoses Diagnosis Calculus of gallbladder with acute cholecystitis with obstruction Mixed hyperlipidemia Other specified diabetes mellitus with diabetic polyneuropathy (CMS/HCC V24, CMS/HCC V28) documented in this encounter Care Teams Warehouse Assistant Relationship Specialty Start Date End Date Ramone Gibson MD [address] [facility] [place], [place] PCP - General Internal Medicine 08/09/24 documented as of this encounter
--- OUTSIDE RECORDS SUMMARY | 2025-08-24 11:30 | XMS_ITS | Encounter Summary ---
Author Organization [facility] Address [address] [place] [address] Care Team Providers Care Explosive Expert Name Role Phone Ramone Gibson MD Primary Care Provider +1- [phone] Encounter Details Date Type Department Care Team (Late st Contact Info) Description 08/08/2024 Lab Requisition [facility] - Main Lab 299 [facility] [place] [address] Social History Tobacco Use Types [...] on filedocumented in this encounter Care Teams Explosive Expert Relationship Specialty Start Date End Date Ramone Gibson MD [address] [place] [address] [facility] [place], [place] PCP - General Internal Medicine 08/09/24 documented as of this encounter
--- OUTSIDE RECORDS SUMMARY | 2025-08-24 11:30 | XMS_ITS | Encounter Summary ---
Author Organization [facility] Address [address] [place] [address] Care Team Providers Care Tip Stretcher Name Role Phone Ramone Gibson MD Primary Care Provider +1- [phone] Encounter Details Date Type Department Care Team (Late st Contact Info) Description 11/21/2024 Lab Requisition [facility] - Main Lab [address] [place] [address] Ramone Gibson MD [address] [place] [id number] Chronic kidney disease, unspecified; Essential (primary) hypertension; [...] LAB CHEMISTRY METHOD 11/21/2024 12:19 PM EDT [facility] Potassium 4.6 3.5 - 5.5 [...] [facility] Comment:Calculation based on the Chronic Kidney [...] Gibson MD LAB BLOOD ORDERABLES Final Result [facility] [address] [place] [address], documented in this encounter Visit Diagnoses Diagnosis Chronic kidney disease, unspecified Essential (primary) hypertension Unspecified essential hypertension Proteinuria, unspecified documented in this encounter Care Teams Tip Stretcher Relationship Specialty Start Date End Date Ramone Gibson MD [address] [place] [address] [facility] [place], [place] PCP - General Internal Medicine 08/09/24 documented as of this encounter
--- OUTSIDE RECORDS SUMMARY | 2025-08-24 11:30 | XMS_ITS | Clinical Summary ---
Author Organization [facility] Address [address] [address] Phone Care Team Providers Care Manager Relocation Name Role Phone Ramone Gibson Primary Care Provider [phone] Allergies No known active allergies Medications acetaminophen [...] 8 Active cholecalciferol (VITAMIN D-3) 1.25 MG (94009 UT) capsule 1,250 mcg 3 Active cloNIDine [...] 2013 Entered By: NATALI BROWN Comment: denies alcohol@12..13 Other and unspecified hyperlipidemia 12/31/2023 12/31/2023 Other [...] 12/31/2023 12/31/2023 Vitamin D deficiency 12/31/2023 024 Social History Tobacco Use Types Packs/Day Years [...] Office Visit [facility] [address] [phone] Dany Manning MD [address] [facility] [address] [place] [phone] Health Maintenance Due Date Last Done Comments Pneumococcal Vaccine: 50+ Years (2 of 2 - PPSV23, PCV20, or PCV21) 10/23/2019 08/28/2019, 08/25/2008, 07/07/2008, Additional history exists Diabetes: Ophthalmology Exam 12/31/2023 Diabetes: Pedal Pulse Checked 12/31/2023 Diabetes: Sensory Foot Exam 12/31/2023 Diabetes: Visual Foot Exam 12/31/2023 Diabetes: Hemoglobin A1C 11/06/2024 08/08/2024, 12/11/2023 Influenza Vaccine (#1) 2025 , 06/06/2023, 06/24/2022, Additional history exists Hepatitis B Vaccine Aged Out No longe r eligible based on patient's age to complete this topic Insurance Medicare Medicaid [place] Medicare Medicaid [place] Care Teams Manager Relocation Relationship Specialty Start Date End Date Ramone Gibson [address] [place] [address] PCP - General Internal Medicine 12/27/23
--- OUTSIDE RECORDS SUMMARY | 2025-08-24 11:30 | XMS_ITS | Encounter Summary ---
Author Organization [facility] Address [address] [place] [address] Care Team Providers Care Tour Actor Name Role Phone Ramone Gibson MD Primary Care Provider +1- [phone] Encounter Details Date Type Department Care Team (Late st Contact Info) Description 08/08/2024 Lab Requisition [facility] - Main Lab [address] [place] [address] Ramone Gibson MD [address] [place] [phone] Other abnormal findings on microbiological examination of [...] LAB CHEMISTRY METHOD 08/08/2024 1:48 PM EST [facility] Microalb, Ur 324.0(H) 0.0 - 29.0 mg/L LAB CHEMISTRY METHOD 08/08/2024 1:48 PM EST [facility] Microalb/Crea t Ratio 345(H) <30 mg/g creat LAB CHEMISTRY METHOD 08/08/2024 1:48 PM EST [facility] Urine Urine specimen obtained by clean catch procedure / Unknown Non-blood Collection / Unknown 08/08/2024 08/08/2024 11:58 AM EST us Ramone Gibson MD LAB URINE ORDERABLES Final Result [facility] [address] [place] [address], documented in this encounter Visit Diagnoses Diagnosis Other abnormal findings on microbiological examination of urine Chronic kidney disease, unspecified Essential (primary) hypertension Unspecified essential hypertension documented in this encounter Care Teams Tour Actor Relationship Specialty Start Date End Date Ramone Gibson MD [address] [place] [address] [facility] [place], [place] PCP - General Internal Medicine 08/09/24 documented as of this encounter
--- OUTSIDE RECORDS SUMMARY | 2025-08-24 11:30 | XMS_ITS | Encounter Summary ---
Author Organization [facility] Address [address] [place] [address] Care Team Providers Care Slack Cooper Name Role Phone Ramone Gibson MD Primary Care Provider +1- [phone] Encounter Details Date Type Department Care Team (Late st Contact Info) Description 08/07/[address] [facility] - Main Lab [address] [place] [address] Ramone Gibson MD [address] [place] [address] Hyperlipidemia, unspecified Social History Tobacco Use Types Packs/Day [...] Procedure Name Priority Date/Time Associated Diagnosis Comments LIPID PANEL WITH REFLEX TO DIRECT LDL Routine 08/07/2025 7:20 AM EST Hyperlipidemia, unspecified documented in this encounter Results * Lipid panel with reflex to direct LDL (08/07/2025 7:20 AM EST) Cholesterol 151 0 - 200 mg/dL 08/07/2025 11:22 AM EST [facility] Triglycerides 52 0 - 150 mg/dL 08/07/2025 11:22 AM [facility] HDL 61 >=40 mg/dL 08/07/2025 11:22 AM [facility] LDL Calculated 80 0 - 100 mg/dL 08/07/2025 11:22 AM [facility] Comment:Estimated LDL Calcul ated using equation: Total cholesterol - HDL cholesterol - (Triglycerides/5) VLDL Cholesterol Edgard 10.4 mg/dL 08/07/2025 11:22 AM [facility] Non HDL Chol. (LDL+VLDL) 90 <145 mg/dL 08/07/2025 11:22 AM [facility] Chol/HDL Ratio 2.5 0.0 - 4.4 08/07/2025 11:22 AM [facility] Blood Venous blood specimen / Unknown Venipuncture / Unknown 08/07/2025 7:20 AM EST 08/07/2025 9:40 AM EST us Ramone Gibson MD LAB BLOOD ORDERABLES Final Result [facility] [address] [place] [address], documented in this encounter Visit Diagnoses Diagnosis Hyperlipidemia, unspecified documented in this encounter Care Teams Slack Cooper Relationship Specialty Start Date End Date Ramone Gibson MD [address] [place] [address] [facility] [place], [place] PCP - General Internal Medicine 08/09/24 documented as of this encounter
--- OUTSIDE RECORDS SUMMARY | 2025-08-24 11:30 | XMS_ITS | Clinical Summary ---
Author Organization [address] Address [address] [place] [id number] Phone Care Team Providers Care Termite Treater Name Role Phone Ramone Gibson MD Primary Care Provider [phone] Allergies No known active allergies Medications amLODIPine [...] Encounters Date Type Department Care Team Description 08/07/2025 Lab Requisition [facility] Lab [address] [facility] [place] [address] Ramone Gibson MD Hyperlipidemia, unspecified from Last 3 Months Medical History Medical History Date Comments Essential hypertension Hypotension Chronic hepatitis C without hepatic coma ([facility]/HC C V24, [facility]/HCC V28) Type 2 diabetes mellitus wit h other circulatory complications ([facility] V24, [facility] V28) Schizophrenia, unspecified type ([facility] V24, CM S/HCC V28) Late effects of cerebrovascular accident Psoriasis penitentiary (current) use of oral hypoglycemic alethea gs Hyperlipidemia History of TIA (transient ischemic attack) Social History Tobacco Use Types Packs/Day Years Used Date Smoking Tobacco: Every Day Cigarettes 0.5 54 Started: 1972 Tobacco Cessation:Ready to Q uit: Not Asked; Counseling Given: Not Answered Alcohol Use Standard Drinks/Week Comments Not Currently 0 (1 standard drink = 0.6 oz pur e alcohol) Quit Sex and Gender Information Value Date Recorded Sex Assigned at Not on file Legal Sex Male 12:00 AM EST Gender Identity Not on file Sexual Orientation Not on file Plan of Treatment Health Maintenance Due Date Last Done Comments Zoster Vaccines (1 of 2) 1999 Pneumococcal Vaccine: 50+ Years (2 of 2 - PPSV23, PCV20, or PCV21) 10/23/2019 08/28/2019 DTaP,Tdap,and Td Vaccines (2 - Tdap) 02/16/2021 02/16/2011 Falls Risk Assessment 08/09/2022 Hepatitis C Screening 08/09/2022 Medicare Annual Wellness Visit 08/09/2022 Social Influencers of Health Screening 08/09/2022 RSV Immunization Adult Patients (1 - 1-dose 75+ series) 2024 Depression Screening 09/06/2024 COVID-19 Vaccine ( season) 2025 06/14/2024, 07/05/2023, 01/07/2022, Additional history exists Influenza Vaccine (#1) 2025 , 06/02/2023, 06/21/2021, Additional history exists Lung Cancer Screening (Low Dose CT) 11/09/2025 11/09/2024 Hypertension/CHF/CAD Annual BMP Blood Test 02/27/2026 02/27/2025, 11/21/2024, 08/08/2024 Cholesterol Screening (Lipid Panel) 08/07/2030 08/07/2025 HIB Vaccines Aged Out No longer eligi ble based on patient's age to complete this topic HPV Vaccines Aged Out No longer eligi ble based on patient's age to complete this topic Hepatitis A Vaccines Aged Out No long er eligible based on patient's age to complete this topic Hepatitis B Vaccines Aged Out No long er eligible based on patient's age to complete [...] Routine 08/07/2025 7:20 AM EST Hyperlipidemia, unspecified COMPREHENSIVE METABOLIC PANEL Routine 02/27/2025 5:44 AM EDT Calculus of gallbladder with acute cholecystitis with obstruction Mixed hyperlipidemia Other specified diabetes mellitus with diabetic polyneuropathy (CMS/HCC V24, CMS/HCC V28) CT LUNG SCREENING Routine 11/09/2024 1:4 8 PM EST Encounter for screening for malignant neoplasm of respiratory organs Nicotine dependence, cigarettes, uncomplicated from Last 3 Months or Most Recently Relevant to Health Maintenance Results * Lipid panel with reflex to direct LDL (08/07/2025 7:20 AM EST) Cholesterol 151 0 - 200 mg/dL 08/07/2025 11:22 AM [facility] Triglycerides 52 0 - 150 mg/dL [...] Gibson MD LAB BLOOD ORDERABLES Final Result [facility] [address] [place] [address], * Comprehensive metabolic panel (02/27/2025 5:44 AM EDT) Pathologist [facility] Sodium 141 133 - 145 mmol/L LAB CHEMISTRY METHOD 02/27/2025 12:18 PM EDT [facility] Potassium 4.4 3.5 - 5.5 mmol/L LAB CHEMISTRY METHOD 02/27/2025 12:18 PM EDT [facility] Chloride 107 96 - 110 mmol/L LAB CHEMISTRY METHOD 02/27/2025 12:18 PM [facility] CO2 27 21 - 32 [...] g/dL LAB CHEMISTRY METHOD 02/27/2025 12:18 PM EDT [facility] Total Bilirubin 0.4 0.0 - 1.4 mg/dL LAB CHEMISTRY METHOD 02/27/2025 12:18 PM EDT [facility] Blood Venous blood specimen / Unknown Venipuncture / Unknown 02/27/2025 5:44 AM EDT 02/27/2025 9:24 AM EDT us Luna Pardo MD LAB BLOOD ORDERABLES Final Resul t [facility] [address] [place] [address], * CT Lung Screening (11/09/2024 1:48 PM [...] Signed Date: 11/13/2024 15:52 ET Workstation ID: [id number] Transcribed By: Self Edit Transcribed Date: 11/13/2024 [...] Signed Date: 11/13/2024 15:52 ET Workstation ID: [id number] Transcribed By: Self Edit Transcribed Date: 11/13/2024 15:49 ET Catrachita Perry MD IMG CT PROCEDURES Final Result from Last 3 Months or Most Recently Relevant to Health [id number] [id number] MEDICA[place] - [place] MEDICARE Care Teams Termite Treater Relationship Specialty Start Date End Date Ramone Gibson MD [address] [facility] [place], [place] PCP - General Internal Medicine 08/09/24
--- OUTSIDE RECORDS SUMMARY | 2025-08-24 11:30 | XMS_ITS | Patient Health Record ---
Author Organization [facility] Address [address] [place] [address] Care Team Providers Care Transmission Design Engineer Name Role Phone NONE, NONE Primary Care Provider Mickey Padilla Jr Unavailable Reason For Referral No Information Medications Medication SIG (Take, Route, Frequency, Duration) Notes Start Date End Date Status Lisinopril 40 MG Tablet 1 tablet Orally Once a day Active Latanoprost 0.005 % Solution 1 drop into affected eye in the evening Ophthalmic Once a day Active metFORMIN HCl 500 MG Tablet 1 tablet wit h a meal Orally twice a day Active Ranitidine HCl 150 MG Capsule 1 capsule at bedtime Orally Once a day; Duration: 30 day(s) Active Vitamin D3 1000 UNIT Capsule 1 capsule O rally Once a day; Duration: 30 day(s) Active Simvastatin 40 MG Tablet 1 tablet in the evening Orally Once a day; Duration: 30 day(s) Active Tamsulosin HCl 0.4 MG Capsule 1 capsule Orally Once a day; Duration: 30 day(s) Active traZODone HCl 50 MG Tablet 1/2 tablet at bedtime as needed Orally Once a day Active Mapap 325 MG Tablet 2 tablet as needed Orally every 4 hrs/prn Active Aspir-Low 81 MG Tablet Delayed Release 1 tablet Orally Once a day Active Milk of Magnesia 400 MG/5ML Suspension 5 ml as needed Orally Four times a day Active Finasteride 5 MG Tablet 1 tablet Orally Once a day Active Mintox 200-200-20 MG/5ML Suspension 10 ml as needed Orally Four times a day/prn Active fluPHENAZine HCl 5 MG Tablet 1/2 tablet Orally Once a day Active Folic Acid 1 MG Tablet 1 tablet Orally O nce a day; Duration: 30 day(s) Active Colyte with Flavor Packs 240 GM Solution Reconstituted As directed Orally Over the specified time.; Duration: 1 day(s) 05/24/2019 Active Simbrinza 1-0.2 % Suspension 1 drop into affected eye Ophthalmic twice a day Active Vitamin B1 100 MG Tablet 1 tablet Orally Once a day Active Combivent Respimat 20-100 MCG/ACT Aerosol Solution 1 puff Inhalation Four times a day Active Glutose prn Active amLODIPine Besylate 5 MG Tablet 1 tablet Orally Once a day Active Immunizations Vaccine Route Administration Date Status Comme nts Influenza Unknown 07/08/2018 Administered Social History Tobacco Use: Social History Observation Description Date Details (start date - stop date) Current Smoker NA - NA Social History Drugs/Alcohol: Social Info Question Answer Notes Alcohol Screen Did you have a drink containing alcohol in the past year? No Points 0 Interpretation Negative Tobacco Use: Social Info Question Answer Notes Tobacco Use/Smoking Patient is a current smoker How often do you smoke cigarettes? every day How many cigarettes a day do you smoke? 5 or less How soon after you wake up do you smoke your first cigarette? within 5 minutes Are you interested in quitting? Thinking about quitting Additional Details Category Social Info Options Details Miscellaneous: Marital status: single Occupation: disabled Problems Problem Type SNOMED Code ICD Code Onset Dates Problem Status W/U Status Risk Notes Problem Colon cancer screening (333828066) Colon cancer screening (Z12.11) Active confirmed Problem Long-term current use of drug therapy (136095726) terminal operator (current) use of oral hypoglycemic drugs (Z79.84) Active confirmed Problem Essential hypertension (81581041) Hypertension, unspecified type (I10) Active confirmed Plan Of Treatment Future Test Test Name Order Date COLONOSCOPY 05/24/2019 Insurance Providers Payer Name Payer Address Payer Phone Subscriber Number Group Number Insured Name Patient Relationship to Insured Coverage Start Date Coverage End Date [facility] [id number] [place] [phone] [id number] PENNY SAXENA Self - patient is the insured Medical (General) History Medical History History ICD Code hepatitis C alcohol abuse CVA diabetes type 2 with retinopathy dysphagia hyperlipidemia schizophrenia Surgical History Surgery Date(Month/Year) left arm surgery
[2025-08-24 12:37] LABS: Prostate Specific Antigen 0.13 ng/mL (<0.05-4.0)
== END 2025-08-24 10:12 | disposition home or self-care (01) ==
LOC: HO.US 10:11
PROVIDERS: PCP Nurse Practitioner Adult Health; Visit Provider Nurse Practitioner Family
DX: N40.1 Benign prostatic hyperplasia with lower urinary tract symptoms (principal); R33.9 Retention of urine, unspecified; Z12.5 Encounter for screening for malignant neoplasm of prostate
CPT/HCPCS: 36415; 76770; 84153

== ENCOUNTER 2025-08-27 10:17 | Outpatient (REF) | payer MEDICARE, MEDICAID, SELFPAY | END 2025-08-27 10:18 | disposition home or self-care (01) | LOC: HO.LAB 10:17 | PROVIDERS: PCP Nurse Practitioner Adult Health; Visit Provider Nurse Practitioner Family | DX: R31.29 Other microscopic hematuria (principal); N40.1 Benign prostatic hyperplasia with lower urinary tract symptoms; R33.9 Retention of urine, unspecified; N32.3 Diverticulum of bladder; N28.1 Cyst of kidney, acquired; N20.0 Calculus of kidney; N13.8 Other obstructive and reflux uropathy; Z79.899 Other long term (current) drug therapy | CPT/HCPCS: 51798; 81003; 99212 ==

== ENCOUNTER 2025-08-27 10:17 | Outpatient (AMB) | payer MEDICARE, MEDICAID, SELFPAY ==
--- NOTE | 2025-08-27 10:20 | A.OFFVIS_ITS ---
Intake Visit Reasons: 2m/US/PSA/PVR/UA Intake Note: Patient is present for 2M/PSA/PVR Urology Medication:FINASTERIDE,TERAZOSIN BETHANECHOL Antibiotic Allergy:NONE Blood Thinner:NONE Labs done : 08/24/25 PSA 0.13 Imaging : Renal US 08/24/25 Todays PVR:0 ML'S Senior Accounting Associate Required: No Accompanied by: Self / Same As Patient Allergies No Known Allergies (No Known Allergies*) Allergy (Verified 08/27/25 10:57) Medication List - Last Reconciled 08/27/25 by JENNY Barron acetaminophen 650 mg PO Q4H PRN amlodipine 10 mg PO DAILY aspirin 1 tab PO DAILY betamethasone dipropionate 0.05% 1 appl topical BID bethanechol chloride 50 mg PO BID 90 days blood sugar diagnostic As directed brinzolamide-brimonidine 1-0.2 % (Simbrinza) 0 drps ophthalmic (eye) dextrose 40% (Glutose-15) 15 grams PO Q15M PRN empagliflozin (Jardiance) 10 mg PO DAILY ergocalciferol (vitamin D2) (Vitamin D2) PO finasteride 5 mg PO DAILY 90 days fluphenazine HCl 15 mg PO Q OTHER DAY PRN hydrocortisone 1% (Anti-Itch (hydrocortisone)) 1 appl topical BID PRN hydrocortisone 2.5% topical ipratropium-albuterol 20-100 mcg/actuation inhalation lancets As directed latanoprost 0.005% 0 drps ophthalmic (eye) lisinopril 30 mg PO DAILY metformin 1,000 mg PO BID pen needle, diabetic As directed simvastatin 40 mg PO BEDTIME terazosin 10 mg PO BEDTIME 90 days trazodone 0 mg PO HPI Comments Details: Satnam is a pleasant 75-year-old male patient of Dr. Paulino who was accompanied by staff from penitentiary. He has a past medical history of hep C, TIA, BPH, vitamin-D deficiency, schizophrenia, type 2 diabetes, hyperlipidemia, and hypertension. He presents to the office today for follow-up of his lower urinary tract symptoms and incomplete bladder emptying. In discussion with the patient today he denies having had any bothersome urinary issues or concerns. Most recent retroperitoneal ultrasound results were reviewed with the patient today. 08/30 bilateral kidneys are normal in size and echotexture. 2 mm calyceal stone in the mid pole of the right kidney. Left kidney with benign renal cortical cysts measuring 9 mm. No hydronephrosis or renal masses noted bilaterally. There is trabeculation of the bladder wall. Two bladder diverticula on the right. Prostate volume calculated at approximately 23 mL. In office urinalysis results reviewed with the patient today. 3+ leukocytes negative nitrates. PVR today 0 mL. We did discuss discussed decrease in postvoid residual since last office visit as well as in comparison to recent imaging. He reports compliance with finasteride, bethanechol, and terazosin as prescribed. He does discussed attempting to double void to assist with bladder emptying. Previous urine cytologies are as follows: Urine Cytology: 12/25, 03/29, 06/30 Negative for high-grade urothelial carcinoma. He currently denies urinary urgency, urinary frequency, incontinence, nocturia, hematuria, dysuria, foul smelling urine, changes to urinary stream, flank pain, fever, and or chills. He is happy with hid current voiding parameters. PSAs are as follows: PSA: 12/29 0.1, 08/30 0.1 We discussed continuing with timed/scheduled voiding as well as double voiding to assist with history of incomplete bladder emptying. Patient with a history of PVRs running high between 250-300 range. We did discuss causes of incomplete bladder emptying as well as further treatment options to include CIC verses indwelling Owens catheter versus suprapubic tube versus surveillance monitoring. Risks and benefits of these interventions were discussed. He discusses living in his penitentiary for the last 12 years. All questions were answered. He otherwise offers no other issues or concerns at this time. PREVIOUS OFFICE NOTE: Lower urinary tract symptoms Urinary retention History of schizophrenia with long-term medications Cystoscopy with large bladder Has been on combination therapy with alpha-brandon and finasteride for number of years PVR runs high 250-300 range Hematuria Single episode 12/25 Cystoscopy normal [facility] Medical History Speech disturbance Positive PPD Hepatitis C Transient ischemic attack (TIA) BPH loc w urin obs/LUTS Vitamin D deficiency Schizophrenia Diabetes mellitus, type II Hyperlipidemia HTN (hypertension) Enlarged prostate Surgical History History of surgery on arm Family History Father No problems noted. Mother No problems noted. Review of Systems Const All systems reviewed & are unremarkable except as noted in HPI and below Physical Exam Const General: cooperative, comfortable, no acute distress, well developed, alert and awake Orientation/consciousness: oriented to person HEENT Head: Yes normal to inspection, Yes normocephalic and Yes atraumatic Ears: hearing grossly normal bilaterally Eyes General: appearance normal, both eyes and all related structures Neck Neck: Yes normal visual inspection and Yes trachea midline Chest Chest palpation & inspection: normal inspection of the chest Resp Effort & Inspection: normal respiratory effort and able to speak in complete sentences Cardio Rate: regular rate GI Inspection: Yes normal to inspection General: Yes no CVA tenderness Back/Spine/Pelvis Back: no CVA tenderness Skin General skin exam: no rashes or lesions noted Neuro General: oriented to person Extrem General: Yes normal to inspection Psych Appearance: grossly normal and well kempt Speech and movement: Clear speech present and Pressured speech present Attitude: cooperative Thought content: Normal thought content present Insight: Fair insight present (Psych) Judgement: Fair judgement present (Psych) Office Procedures Post Void Residual Post Residual Void Post Void Residual (PVR): 0 [id number] Void Residual by ultrasound Results AMB Urinalysis, Automated UA Leukoctes 500 Flavio/uL Last Edit by Eva Landeros [facility] on 08/27/25 10:30 UA Nitrite Negative Last Edit by Eva Landeros [facility] on 08/27/25 10:30 UA Urobilinogen 0.2 mg/dL Last Edit by Eva Landeros [facility] on 08/27/25 10:30 UA Protein 15 mg/dL Last Edit by Eva Landeros [facility] on 08/27/25 10:30 UA pH 6.0 Last Edit by Eva Landeros [facility] on 08/27/25 10:30 UA Blood 0 Vicente/uL Last Edit by Eva Landeros [facility] on 08/27/25 10:30 UA Specific [place] 1.015 Last Edit by Eva Landeros [facility] on 08/27/25 10:3 0 UA Ketone Negative Last Edit by Eva Landeros [facility] on 08/27/25 10:30 UA Bilirubin 0 mg/dL Last Edit by LINDA Timmons on 08/27/25 10:30 UA Glucose 500 mg/dL Last Edit by LINDA Timmons on 08/27/25 10:30 Results Reviewed Results Reviewed: Laboratory Last Values Urine pH (Auto) 6.0 08/27/25 10:22 Specific [place] (Auto) 1.015 08/27/25 10:22 Urine Protein (Auto) 15 mg/dL 08/27/25 10:22 Glucose (UA)(Auto) 500 mg/dL 08/27/25 10:22 Urine Ketones (Auto) Negative 08/27/25 10:22 Urine Blood (Auto) 0 Vicente/uL 08/27/25 10:22 Urine Nitrite (Auto) Negative 08/27/25 10:22 Urine Bilirubin (Auto) 0 mg/dL 08/27/25 10:22 Urine Urobilinogen (Auto) 0.2 mg/dL 08/27/25 10:22 Leukocyte Esterase (Auto) 500 Flavio/uL 08/27/25 10:22 Date of Service: 08/24/25 Procedure(s): US retroperitoneal comp Accession Number(s): [id number] Findings: Right kidney normal size and echotexture, 11.0 cm length. No hydronephrosis. Normal color flow. 2 mm caliceal stone midpole. No renal masses. Left kidney normal size and echotexture, 11.2 cm in length. No hydronephrosis. Normal color flow. No nephrolithiasis. Benign renal cortical cyst upper pole measuring 8 x 7 x 9 mm There is trabeculation of the bladder wall. Right bladder wall diverticulum near the trigone measuring 5.5 cm and 3.3 cm . These appear stable.Minimal debris within the lumen of the urinary bladder. Prevoid volume 534.5 mL. Postvoid volume 346.1 mL. Ureteral jets are visualized bilaterally Prostate gland measures 3.1 x 3.4 x 4.2 cm with dystrophic calcifications Impression: 1. Punctate caliceal stone on the right. Benign renal cortical cyst on the left. No evidence of obstructive uropathy. 2. There is trabeculation of the urinary bladder wall with 2 bladder diverticuli on the right. 3. Elevated postvoid residual 4. Prostate volume calculated at 22.7 mL Assessment & Plan Assessment & Plan (1) Microscopic hematuria: Code(s): R31.29 - Other microscopic hematuria Category: Medical (2) BPH loc w urin obs/LUTS: Code(s): N40.1 - Benign prostatic hyperplasia with lower urinary tract symptoms Category: Medical (3) Urinary retention with incomplete bladder emptying: Code(s): R33.9 - Retention of urine, unspecified Category: Medical (4) Diverticula, bladder: Code(s): N32.3 - Diverticulum of bladder Category: Medical (5) Renal cyst: Code(s): N28.1 - Cyst of kidney, acquired Category: Medical (6) Nephrolithiasis: Code(s): N20.0 - Calculus of kidney Category: Medical Plan In office urinalysis results reviewed with the patient today; as noted above. PVR 0 mL. We did discussed importance of double voiding to assist with emptying. Recent PSA results reviewed with the patient today; as noted above. Continue terazosin, finasteride, and bethanechol as prescribed. Most recent retroperitoneal ultrasound results reviewed with the patient today. He currently denies any bothersome urinary issues or concerns. He reports be happy with current voiding parameters. Will continue with surveillance monitoring at this time. We did discussed further treatment options of his urological conditions and risks and benefits of these treatment options. All questions were answered. Follow-up in 6 months with PVR; or sooner with any issues, concerns, and or questions. Orders: Orders AMB Urinalysis Automated Today N13.8 - Other obstructive and reflux uropathy, N40.1 - Benign prostatic hyperplasia with lower urinary tract symptoms AMB Post Void Residual by ultrasound Today N40.1 - Benign prostatic hyperplasia with lower urinary tract symptoms Patient Instructions: The patient had an opportunity to ask questions regarding the treatment plan. All questions were answered. Physical exam, labs, and imaging were discussed and reviewed in detail. As well as risks, benefits, and discussion of treatment choices. No major barriers to understanding were identified. The patient expressed understanding and agreement with the above treatment plan. The patient was made aware they should contact our office by phone for worsening of their current condition, the appearance of new symptoms, or with any questions or concerns. Compliance is encouraged with any medications and follow up testing that is ordered. It is a privilege to be allowed the opportunity to participate in? your urological care.? Again, if you have any questions or concerns If you have any questions or concerns please do not hesitate to contact me. The office is [phone]. This note is constructed using voice recognition software. While every effort has been made to ensure accuracy sharepoint application architect errors may have been included. Yours sincerely, JENNY Barron Coding Level of Care Code Est Pt Level 3 (38369) Add On Problem Visit Only Diagnoses Microscopic hematuria R31.29 BPH loc w urin obs/LUTS N40.1 Urinary retention with incomplete bladder emptying R33.9 Diverticula, bladder N32.3 Renal cyst N28.1 Nephrolithiasis N20.0 CPT Codes Post Residual Void - PVR CPT Code: 42508-Vlqe Void Residual by ultrasound ([id number])
--- OUTSIDE RECORDS SUMMARY | 2025-08-27 12:31 | XMS_ITS | Encounter Summary ---
Author Organization [facility] [address] Address [address] [place] [address] Care Team Providers Care Sugar Sampler Name Role Phone Ramone Gibson MD Primary Care Provider +1- [phone] Encounter Details Date Type Department Care Team (Late st Contact Info) Description 08/07/2024 Lab Requisition [facility] - Main Lab [address] [facility] [place] [address] Ramone Gibson MD [address] [place] [id number] Vitamin D deficiency, unspecified; Chronic kidney disease, [...] LAB CHEMISTRY METHOD 08/08/2024 1:28 PM EST [facility] Blood Venous blood specimen / Unknown Venipuncture / Unknown 08/08/2024 7:22 AM EST 08/08/2024 11:53 AM EST Ramone Gibson MD LAB BLOOD ORDERABLES Final Result [facility] [address] [place] [address], * (ABNORMAL) Renal function panel (08/08/2024 7:22 AM EST) Sodium 140 133 - 145 mmol/L LAB CHEMISTRY METHOD 08/08/2024 1:18 PM EST [facility] Potassium 4.1 3.5 - 5.5 mmol/L LAB CHEMISTRY METHOD 08/08/2024 1:18 PM EST [facility] Chloride 105 96 - 110 mmol/L LAB CHEMISTRY METHOD 08/08/2024 1:18 PM EST [facility] CO2 28 21 - 32 mmol/L LAB CHEMISTRY METHOD 08/08/2024 1:18 PM [facility] Anion Gap 7 3 - 11 LAB CHEMISTRY METHOD 08/08/2024 1:18 PM [facility] Glucose 109(H) 70 - 100 mg/dL LAB CHEMISTRY METHOD 08/08/2024 1:18 PM [facility] BUN 14 5 - 25 mg/dL LAB CHEMISTRY METHOD 08/08/2024 1:18 PM [facility] Creatinine 1.03 0.70 - 1.30 mg/dL LAB CHEMISTRY METHOD 08/08/2024 1:18 PM [facility] eGFR 76 >=60 mL/min/1. 73m2 LAB CHEMISTRY METHOD 08/08/2024 1:18 PM [facility] Comment:Calculation based on the Chronic Kidney Disease Epidemiology Collaboration (CKD-EPI) equation refit without adjustment for race. BUN/Creatinine Ratio 13.6 LAB CHEMISTRY METHOD 08/08/2024 1:18 PM [facility] Albumin 3.6 3.2 - 5.0 g/dL LAB CHEMISTRY METHOD 08/08/2024 1:18 PM [facility] Calcium 9.5 8.5 - 10.5 mg/dL LAB CHEMISTRY METHOD 08/08/2024 1:18 PM [facility] Phosphorus 3.6 2.5 - 4.5 mg/dL LAB CHEMISTRY METHOD 08/08/2024 1:18 PM [facility] Blood Venous blood specimen / Unknown Venipuncture / Unknown 08/08/2024 7:22 AM EST 08/08/2024 11:53 AM EST us Ramone Gibson MD LAB BLOOD ORDERABLES Final Result [facility] [address] [place] [address], * Parathyroid hormone intact (08/08/2024 7:22 AM EST) Pathologist [facility] PTH 50.7 18.5 - 88.0 pcg/mL LAB CHEMISTRY METHOD 08/08/2024 1:33 PM [facility] Blood Venous blood specimen / Unknown Venipuncture / Unknown 08/08/2024 7:22 AM EST 08/08/2024 11:53 AM EST Ramone Gibson MD LAB BLOOD ORDERABLES Final Result [facility] [address] [place] [address], * (ABNORMAL) Complete blood count (08/08/2024 7:22 AM EST) [facility] WBC 4.7(L) 4.8 - 10.8 K/mcL LAB HEMETOLOGY METHOD 08/08/2024 12:29 PM [facility] RBC 4.70 4.50 - 5.50 M/mcL LAB HEMETOLOGY METHOD 08/08/2024 12:29 PM [facility] Hemoglobin 13.9 13.5 - 17.5 g/dL LAB HEMETOLOGY METHOD 08/08/2024 12:29 PM [facility] Hematocrit 42.4 42.0 - 54.0 % LAB HEMETOLOGY METHOD 08/08/2024 12:29 PM [facility] MCV 91.0 79.0 - 98.0 FL LAB HEMETOLOGY METHOD 08/08/2024 12:29 PM [facility] MCH 29.8 27.0 - 32.0 pcg LAB HEMETOLOGY METHOD 08/08/2024 12:29 PM [facility] MCHC 32.8 32.0 - 37.0 g/dL LAB HEMETOLOGY METHOD 08/08/2024 12:29 PM [facility] RDW 13.2 11.0 - 15.0 % LAB HEMETOLOGY METHOD 08/08/2024 12:29 PM EST [facility] Platelets 205 130 - 400 K/mcL LAB HEMETOLOGY METHOD 08/08/2024 12:29 PM EST [facility] MPV 10.6 7.0 - 11.0 FL LAB HEMETOLOGY METHOD 08/08/2024 12:29 PM EST [facility] NRBC 0.0 <1.0 % LAB HEMETOLOGY METHOD 08/08/2024 12:29 PM EST [facility] NRBC Absolute 0.00 <0.10 K/mcL LAB HEMETOLOGY METHOD 08/08/2024 12:29 PM [facility] Blood Venous blood specimen / Unknown Venipuncture / Unknown 08/08/2024 7:22 AM EST 08/08/2024 11:53 AM EST us Ramone Gibson MD LAB BLOOD ORDERABLES Final Result [facility] [address] [place] [address], [place] [phone] * Hemoglobin A1c (08/08/2024 7:22 AM EST) Hemoglobin A1C 5.4 <6.5 % LAB CHEMISTRY METHOD 08/08/2024 2:16 PM EST [facility] Mean Bld Glu Estim. 108 mg/dL LAB CHEMISTRY METHOD 08/08/2024 2:16 PM EST [facility] Blood Venous blood specimen / Unknown Venipuncture / Unknown 08/08/2024 7:22 AM EST 08/08/2024 11:53 AM EST us Ramone Gibson MD LAB BLOOD ORDERABLES Final Result [facility] [address] [place] [address], [place] [phone] documented in this encounter Visit Diagnoses Diagnosis Vitamin D deficiency, unspecified Chronic kidney disease, unspecified Essential (primary) hypertension Unspecified essential hypertension Type 2 diabetes mellitus without complications (CMS/[facility] V24, CMS/[facility] V28) documented in this encounter Care Teams Sugar Sampler Relationship Specialty Start Date End Date Ramone Gibson MD [address] [facility] [place], [place] PCP - General Internal Medicine 08/09/24 documented as of this encounter
--- OUTSIDE RECORDS SUMMARY | 2025-08-27 12:31 | XMS_ITS | Encounter Summary ---
Author Organization [facility] Address [address] [place] [address] Care Team Providers Care Sales Counselor Name Role Phone Ramone Gibson MD Primary Care Provider [phone]- [phone] Encounter Details Date Type Department Care Team (Late st Contact Info) Description 08/07/[address] [facility] - Main Lab [address] [place] [address] Ramone Gibson MD [address] [place] [address] Hyperlipidemia, unspecified Social History Tobacco Use Types [...] - 200 mg/dL 08/07/2025 11:22 AM EST [facility] Triglycerides 52 0 - 150 mg/dL 08/07/2025 11:22 AM [facility] HDL 61 >=40 mg/dL 08/07/2025 11:22 AM [facility] LDL Calculated 80 0 - 100 mg/dL 08/07/2025 11:22 AM [facility] Comment:Estimated LDL Calcul ated using equation: Total cholesterol - HDL cholesterol - (Triglycerides/5) VLDL Cholesterol Edgard 10.4 mg/dL 08/07/2025 11:22 AM [facility] Non HDL Chol. (LDL+VLDL) 90 <145 mg/dL 08/07/2025 11:22 AM [facility] Chol/HDL Ratio 2.5 0.0 - 4.4 08/07/2025 11:22 AM [facility] Blood Venous blood specimen / Unknown Venipuncture / Unknown 08/07/2025 7:20 AM EST 08/07/2025 9:40 AM EST us Ramone Gibson MD LAB BLOOD ORDERABLES Final Result [facility] [address] [place] [address], documented in this encounter Visit Diagnoses Diagnosis Hyperlipidemia, unspecified documented in this encounter Care Teams Sales Counselor Relationship Specialty Start Date End Date Ramone Gibson MD [address] [place] [address] [facility] [place], [place] PCP - General Internal Medicine 08/09/24 documented as of this encounter
--- OUTSIDE RECORDS SUMMARY | 2025-08-27 12:31 | XMS_ITS | Patient Health Record ---
Author Organization [facility] Address [address] [place] [address] Care Team Providers Care Inspector Brake Lining Name Role Phone NONE, NONE Primary Care Provider Mickey Padilla Jr Unavailable [phone] Reason For Referral No Information Medications Medication [...] Status Risk Notes Problem Colon cancer screening (206814110) Colon cancer screening (Z12.11) Active confirmed Problem Long-term current use of drug therapy (999080413) manager intermediate (current) use of oral hypoglycemic drugs (Z79.84) Active confirmed Problem Essential hypertension (98506582) Hypertension, unspecified type (I10) Active confirmed Plan Of Treatment Future Test Test Name Order Date COLONOSCOPY 05/24/2019 Insurance Providers Payer Name Payer Address Payer Phone Subscriber Number Group Number Insured Name Patient Relationship to Insured Coverage Start Date Coverage End Date [employer] [facility] [id number] [place] [address] [id number] PENNY SAXENA Self - patient is the insured Medical (General) History Medical History History ICD Code hepatitis C alcohol abuse CVA diabetes type 2 with retinopathy dysphagia hyperlipidemia schizophrenia Surgical History Surgery Date(Month/Year) left arm surgery
--- OUTSIDE RECORDS SUMMARY | 2025-08-27 12:31 | XMS_ITS | Clinical Summary ---
Author Organization [facility] Address [address] [address] Phone Care Team Providers Care Chlorine Cells Operator Name Role Phone Ramone Gibson Primary Care Provider [phone] Allergies No known active allergies Medications acetaminophen [...] 8 Active cholecalciferol (VITAMIN D-3) 1.25 MG (50279 UT) capsule 1,250 mcg 3 Active cloNIDine [...] Office Visit [facility] [address] [phone] Dany Manning MD [address] [facility] [address] [place] [phone] Health Maintenance Due Date Last Done Comments [...] Medicaid [place] Care Teams Chlorine Cells Operator Relationship Specialty Start Date End Date Ramone Gibson [address] [place] [address] PCP - General Internal Medicine 12/27/23
--- OUTSIDE RECORDS SUMMARY | 2025-08-27 12:31 | XMS_ITS | Clinical Summary ---
Author Organization [address] Address [address] [place] [address] Phone Care Team Providers Care Tunnel Kiln Operator Name Role Phone Ramone Gibson MD Primary Care Provider [phone]- [phone] Allergies No known active allergies Medications amLODIPine [...] Department Care Team Description 08/07/2025 Lab Requisition [facility] - Main Lab [address] [facility] [place] [address] Ramone Gibson MD Hyperlipidemia, unspecified from Last 3 Months Medical History Medical History Date Comments Essential hypertension Hypotension Chronic hepatitis C without hepatic coma ([facility]/HC C V24, [facility]/HCC V28) Type 2 diabetes mellitus wit h other circulatory complications ([facility] V24, [facility] V28) Schizophrenia, unspecified type (CMS/[facility] V24, CM S/HCC V28) Late effects of [...] 0 - 200 mg/dL 08/07/2025 11:22 AM [facility] Triglycerides 52 0 - 150 mg/dL 08/07/2025 11:22 AM [facility] HDL 61 >=40 mg/dL 08/07/2025 11:22 AM [facility] LDL Calculated 80 0 - 100 mg/dL 08/07/2025 11:22 AM [facility] Comment:Estimated LDL Calcul ated using equation: Total cholesterol - HDL cholesterol - (Triglycerides/5) VLDL Cholesterol Edgard 10.4 mg/dL 08/07/2025 11:22 AM [facility] Non HDL Chol. (LDL+VLDL) 90 <145 mg/dL 08/07/2025 11:22 AM [facility] Chol/HDL Ratio 2.5 0.0 - 4.4 08/07/2025 11:22 AM [facility] Blood Venous blood specimen / Unknown Venipuncture / Unknown 08/07/2025 7:20 AM EST 08/07/2025 9:40 AM EST us Ramone Gibson MD LAB BLOOD ORDERABLES Final Result [facility] [address] [place] [address], * Comprehensive metabolic panel (02/27/2025 5:44 AM EDT) Pathologist [facility] Sodium 141 133 - 145 mmol/L LAB CHEMISTRY METHOD 02/27/2025 12:18 PM EDT [facility] Potassium 4.4 3.5 - 5.5 mmol/L LAB CHEMISTRY METHOD 02/27/2025 12:18 PM EDT [facility] Chloride 107 96 - 110 mmol/L LAB CHEMISTRY METHOD 02/27/2025 12:18 PM [facility] CO2 27 21 - 32 mmol/L LAB CHEMISTRY METHOD 02/27/2025 12:18 PM [facility] Anion Gap 7 3 - 11 LAB CHEMISTRY METHOD 02/27/2025 12:18 PM [facility] Glucose 73 70 - 100 mg/dL LAB CHEMISTRY METHOD 02/27/2025 12:18 PM [facility] BUN 19 5 - 25 mg/dL LAB CHEMISTRY METHOD 02/27/2025 12:18 PM [facility] Creatinine 1.14 0.70 - 1.30 mg/dL LAB CHEMISTRY METHOD 02/27/2025 12:18 PM [facility] eGFR 67 >=60 mL/min/1. 73m2 LAB CHEMISTRY METHOD 02/27/2025 12:18 PM [facility] Comment:Calculation based on the Chronic Kidney Disease Epidemiology Collaboration (CKD-EPI) equation refit without adjustment for race. BUN/Creatinine Ratio 16.7 LAB CHEMISTRY METHOD 02/27/2025 12:18 PM [facility] Calcium 9.6 8.5 - 10.5 mg/dL LAB CHEMISTRY METHOD 02/27/2025 12:18 PM [facility] AST (SGOT) 13 10 - 42 unit/L LAB CHEMISTRY METHOD 02/27/2025 12:18 PM [facility] ALT (SGPT) 19 10 - 60 unit/L LAB CHEMISTRY METHOD 02/27/2025 12:18 PM [facility] Alkaline Phosphatase 93 42 - 121 unit/L LAB CHEMISTRY METHOD 02/27/2025 12:18 PM [facility] Total Protein 7.1 6.0 - 8.0 g/dL LAB CHEMISTRY METHOD 02/27/2025 12:18 PM [facility] Albumin 3.9 3.2 - 5.0 g/dL LAB CHEMISTRY METHOD 02/27/2025 12:18 PM EDT [facility] Total Bilirubin 0.4 0.0 - 1.4 mg/dL LAB CHEMISTRY METHOD 02/27/2025 12:18 PM EDT [facility] Blood Venous blood specimen / Unknown Venipuncture / Unknown 02/27/2025 5:44 AM EDT 02/27/2025 9:24 AM EDT us Luna Pardo MD LAB BLOOD ORDERABLES Final Resul t [facility] [address] [place] [address], * CT Lung Screening (11/09/2024 1:48 PM [...] Signed Date: 11/13/2024 15:52 ET Workstation ID: [id number] Transcribed By: Self Edit Transcribed Date: 11/13/2024 [...] Signed Date: 11/13/2024 15:52 ET Workstation ID: [id number] Transcribed By: Self Edit Transcribed Date: 11/13/2024 15:49 ET Catrachita Perry MD IMG CT PROCEDURES Final Result from Last 3 Months or Most Recently Relevant to [place] [address] MEDICA[place] MEDICARE Care Teams Tunnel Kiln Operator Relationship Specialty Start Date End Date Ramone Gibson MD [address] [facility] [place], [place] PCP - General Internal Medicine 08/09/24
--- OUTSIDE RECORDS SUMMARY | 2025-08-27 12:31 | XMS_ITS | Encounter Summary ---
Author Organization [facility] Address [address] [place] [address] Care Team Providers Care Cloud Architect Name Role Phone Ramone Gibson MD Primary Care Provider [phone]- [phone] Encounter Details Date Type Department Care Team (Late st Contact Info) Description 11/21/2024 Lab Requisition [facility] - Main Lab [address] [place] [address] Ramone Gibson MD [address] [place] [address] Chronic kidney disease, unspecified; Essential (primary) hypertension; [...] LAB CHEMISTRY METHOD 11/21/2024 12:19 PM EDT [facility] Potassium 4.6 3.5 - 5.5 mmol/L LAB CHEMISTRY METHOD 11/21/2024 12:19 PM [facility] Chloride 105 96 - 110 mmol/L LAB CHEMISTRY METHOD 11/21/2024 12:19 PM [facility] CO2 30 21 - 32 mmol/L LAB CHEMISTRY METHOD 11/21/2024 12:19 PM [facility] Anion Gap 3 3 - 11 LAB CHEMISTRY METHOD 11/21/2024 12:19 PM [facility] Glucose 75 70 - 100 mg/dL LAB CHEMISTRY METHOD 11/21/2024 12:19 PM [facility] BUN 11 5 - 25 mg/dL LAB CHEMISTRY METHOD 11/21/2024 12:19 PM [facility] Creatinine 0.92 0.70 - 1.30 mg/dL LAB CHEMISTRY METHOD 11/21/2024 12:19 PM [facility] eGFR 87 >=60 mL/min/1. 73m2 LAB CHEMISTRY METHOD 11/21/2024 12:19 PM [facility] Comment:Calculation based on the Chronic Kidney Disease Epidemiology Collaboration (CKD-EPI) equation refit without adjustment for race. BUN/Creatinine Ratio 12.0 LAB CHEMISTRY METHOD 11/21/2024 12:19 PM [facility] Albumin 3.7 3.2 - 5.0 g/dL LAB CHEMISTRY METHOD 11/21/2024 12:19 PM [facility] Calcium 9.3 8.5 - 10.5 mg/dL LAB CHEMISTRY METHOD 11/21/2024 12:19 PM [facility] Phosphorus 3.7 2.5 - 4.5 mg/dL LAB CHEMISTRY METHOD 11/21/2024 12:19 PM [facility] Blood Venous blood specimen / Unknown Venipuncture / Unknown 11/21/2024 7:57 AM EDT 11/21/2024 11:04 AM EDT us Ramone Gibson MD LAB BLOOD ORDERABLES Final Result [facility] [address] [place] [address], documented in this encounter Visit Diagnoses Diagnosis Chronic kidney disease, unspecified Essential (primary) hypertension Unspecified essential hypertension Proteinuria, unspecified documented in this encounter Care Teams Cloud Architect Relationship Specialty Start Date End Date Ramone Gibson MD [address] [place] [address] [facility] [place], [place] PCP - General Internal Medicine 08/09/24 documented as of this encounter
--- OUTSIDE RECORDS SUMMARY | 2025-08-27 12:31 | XMS_ITS | Encounter Summary ---
Author Organization [facility] Address [address] [place] [address] Care Team Providers Care Press Assistant And Feeder Name Role Phone Ramone Gibson MD Primary Care Provider +1- [phone] Encounter Details Date Type Department Care Team (Late st Contact Info) Description 08/08/2024 Lab Requisition [facility] - Main Lab [address] [facility] [employer] [place] [address] Social History Tobacco Use Types [...] on filedocumented in this encounter Care Teams Press Assistant And Feeder Relationship Specialty Start Date End Date Ramone Gibson MD [address] [place] [address] [facility] [place], [place] PCP - General Internal Medicine 08/09/24 documented as of this encounter
--- OUTSIDE RECORDS SUMMARY | 2025-08-27 12:31 | XMS_ITS | Encounter Summary ---
Author Organization [facility] Address [address] [place] [address] Care Team Providers Care Stacker And Sorter Operator Name Role Phone Ramone Gibson MD Primary Care Provider [phone]- [phone] Encounter Details Date Type Department Care Team (Late st Contact Info) Description 02/27/2025 Lab Requisition [facility] - Main Lab [address] [facility] [place] [address] Luna Pardo MD [address] [place] [address] Calculus of gallbladder with acute cholecystitis with obstruction; Mixed hyperlipidemia; Other specified diabetes mellitus with diabetic polyneuropathy (CMS/HCC V24, CMS/[facility] V28) Social History Tobacco Use [...] diabetes mellitus with diabetic polyneuropathy (CMS/HCC V24, CMS/[facility] V28) HEMOGLOBIN A1C Routine 02/27/2025 5:44 AM EDT Calculus of gallbladder with acute cholecystitis with obstruction Mixed hyperlipidemia Other specified diabetes mellitus with diabetic polyneuropathy ([facility] V24, [facility] V28) COMPREHENSIVE METABOLIC PANEL Routine 02/27/2025 5:44 AM EDT Calculus of gallbladder with acute cholecystitis with obstruction Mixed hyperlipidemia Other specified diabetes mellitus with diabetic polyneuropathy ([facility] V24, [facility] V28) documented in this encounter Results * Hemoglobin A1c (02/27/2025 5:44 AM EDT) Pathologist [facility] Hemoglobin A1C 6.0 <6.5 % LAB CHEMISTRY METHOD 02/27/2025 1:28 PM EDT [facility] Mean Bld Glu Estim. 126 mg/dL LAB CHEMISTRY METHOD 02/27/2025 1:28 PM EDT [facility] Blood Venous blood specimen / Unknown Venipuncture / Unknown 02/27/2025 5:44 AM EDT 02/27/2025 9:24 AM EDT us Luna Pardo MD LAB BLOOD ORDERABLES Final Resul t [facility] [address] [place] [address], * Comprehensive metabolic panel (02/27/2025 5:44 AM EDT) Pathologist [facility] Sodium 141 133 - 145 mmol/L LAB CHEMISTRY METHOD 02/27/2025 12:18 PM EDT [facility] Potassium 4.4 3.5 - 5.5 mmol/L LAB CHEMISTRY METHOD 02/27/2025 12:18 PM EDT [facility] Chloride 107 96 - 110 mmol/L LAB CHEMISTRY METHOD 02/27/2025 12:18 PM EDT [facility] CO2 27 21 - 32 mmol/L LAB CHEMISTRY METHOD 02/27/2025 12:18 PM EDT [facility] Anion Gap 7 3 - 11 LAB CHEMISTRY METHOD 02/27/2025 12:18 PM [facility] Glucose 73 70 - 100 mg/dL LAB CHEMISTRY METHOD 02/27/2025 12:18 PM [facility] BUN 19 5 - 25 mg/dL LAB CHEMISTRY METHOD 02/27/2025 12:18 PM [facility] Creatinine 1.14 0.70 - 1.30 mg/dL LAB CHEMISTRY METHOD 02/27/2025 12:18 PM [facility] eGFR 67 >=60 mL/min/1. 73m2 LAB CHEMISTRY METHOD 02/27/2025 12:18 PM [facility] Comment:Calculation based on the Chronic Kidney Disease Epidemiology Collaboration (CKD-EPI) equation refit without adjustment for race. BUN/Creatinine Ratio 16.7 LAB CHEMISTRY METHOD 02/27/2025 12:18 PM [facility] Calcium 9.6 8.5 - 10.5 mg/dL LAB CHEMISTRY METHOD 02/27/2025 12:18 PM [facility] AST (SGOT) 13 10 - 42 unit/L LAB CHEMISTRY METHOD 02/27/2025 12:18 PM [facility] ALT (SGPT) 19 10 - 60 unit/L LAB CHEMISTRY METHOD 02/27/2025 12:18 PM [facility] Alkaline Phosphatase 93 42 - 121 unit/L LAB CHEMISTRY METHOD 02/27/2025 12:18 PM [facility] Total Protein 7.1 6.0 - 8.0 g/dL LAB CHEMISTRY METHOD 02/27/2025 12:18 PM [facility] Albumin 3.9 3.2 - 5.0 g/dL LAB CHEMISTRY METHOD 02/27/2025 12:18 PM [facility] Total Bilirubin 0.4 0.0 - 1.4 mg/dL LAB CHEMISTRY METHOD 02/27/2025 12:18 PM [facility] Blood Venous blood specimen / Unknown Venipuncture / Unknown 02/27/2025 5:44 AM EDT 02/27/2025 9:24 AM EDT Luna Pardo MD LAB BLOOD ORDERABLES Final Resul t [facility] [address] [place] [address], * Complete blood count (02/27/2025 5:44 AM EDT) WBC 5.2 4.8 - 10.8 K/mcL LAB HEMETOLOGY METHOD 02/27/2025 10:25 AM EDT [facility] RBC 5.20 4.50 - 5.50 M/mcL LAB HEMETOLOGY METHOD 02/27/2025 10:25 AM EDT [facility] Hemoglobin 15.2 13.5 - 17.5 g/dL LAB HEMETOLOGY METHOD 02/27/2025 10:25 AM T [facility] Hematocrit 47.1 42.0 - 54.0 % LAB HEMETOLOGY METHOD 02/27/2025 10:25 AM T [facility] MCV 90.1 79.0 - 98.0 FL LAB HEMETOLOGY METHOD 02/27/2025 10:25 AM EDT [facility] MCH 29.1 27.0 - 32.0 pcg LAB HEMETOLOGY METHOD 02/27/2025 10:25 AM [facility] MCHC 32.3 32.0 - 37.0 g/dL LAB HEMETOLOGY METHOD 02/27/2025 10:25 AM [facility] RDW 13.4 11.0 - 15.0 % LAB HEMETOLOGY METHOD 02/27/2025 10:25 AM [facility] Platelets 192 130 - 400 K/mcL LAB HEMETOLOGY METHOD 02/27/2025 10:25 AM EDT [facility] MPV 10.7 7.0 - 11.0 FL LAB HEMETOLOGY METHOD 02/27/2025 10:25 AM EDT [facility] NRBC 0.0 <1.0 % LAB HEMETOLOGY METHOD 02/27/2025 10:25 AM EDT [facility] NRBC Absolute 0.00 <0.10 K/mcL LAB HEMETOLOGY METHOD 02/27/2025 10:25 AM EDT [facility] Blood Venous blood specimen / Unknown Venipuncture / Unknown 02/27/2025 5:44 AM EDT 02/27/2025 9:24 AM EDT Luna Pardo MD LAB BLOOD ORDERABLES Final Resul t [facility] [address] [place] [address], [place] [phone] documented in this encounter Visit Diagnoses Diagnosis Calculus of gallbladder with acute cholecystitis with obstruction Mixed hyperlipidemia Other specified diabetes mellitus with diabetic polyneuropathy (CMS/HCC V24, CMS/HCC V28) documented in this encounter Care Teams Stacker And Sorter Operator Relationship Specialty Start Date End Date Ramone Gibson MD [address] [facility] [place], [place] PCP - General Internal Medicine 08/09/24 documented as of this encounter
--- OUTSIDE RECORDS SUMMARY | 2025-08-27 12:31 | XMS_ITS | Encounter Summary ---
Author Organization [facility] Address [address] [place] [address] Care Team Providers Care Cleaner Laboratory Equipment Name Role Phone Ramone Gibson MD Primary Care Provider +1- [phone] Encounter Details Date Type Department Care Team (Late st Contact Info) Description 12/12/[address] [facility] - Main Lab [address] [facility] [place] [address] Ramone Gibson MD [address] [place] [id number] Benign prostatic hyperplasia with lower urinary tract [...] Hold for add-ons. 12/12/2024 10:01 AM EDT [facility] Comment:Auto resulted. Blood Venous blood specimen / Unknown Venipuncture / Unknown 12/12/2024 7:05 AM EDT 12/12/2024 8:35 AM EDT us Ramone Gibson MD LAB BLOOD ORDERABLES Final Result [facility] [address] [place] [address], [place] [phone] * (ABNORMAL) PSA total, free and complexed (12/12/2024 7:05 AM EDT) PSA 0.14 0.00 - 4.00 ng/mL LAB CHEMISTRY METHOD 12/12/2024 9:27 AM EDT [facility] PSA, Complexed 0.10 0.00 - 3.00 ng/mL LAB CHEMISTRY METHOD 12/12/2024 9:27 AM EDT [facility] PSA, Free 0.0 ng/mL LAB CHEMISTRY METHOD 12/12/2024 9:27 AM EDT [facility] PSA, Free Pct 0.0(L) >25.0 % LAB CHEMISTRY METHOD 12/12/2024 9:27 AM T [facility] Blood Venous blood specimen / Unknown Venipuncture / Unknown 12/12/2024 7:05 AM EDT 12/12/2024 8:34 AM EDT Narrative [facility] - 12/12/2024 9:27 AM EDT [...] MD LAB BLOOD ORDERABLES Final Result [facility] [address] [place] [address], documented in this encounter Visit Diagnoses Diagnosis Benign prostatic hyperplasia with lower urinary tract symptoms documented in this encounter Care Teams Cleaner Laboratory Equipment Relationship Specialty Start Date End Date Ramone Gibson MD [address] [facility] [place], [place] PCP - General Internal Medicine 08/09/24 documented as of this encounter
--- OUTSIDE RECORDS SUMMARY | 2025-08-27 12:31 | XMS_ITS | Encounter Summary ---
Author Organization [facility] Address [address] [place] [address] Care Team Providers Care Porcelain Enamel Laborer Name Role Phone Ramone Gibson MD Primary Care Provider +1- [phone] Encounter Details Date Type Department Care Team (Late st Contact Info) Description 08/08/2024 Lab Requisition [facility] - Main Lab [address] [place] [address] Ramone Gibson MD [address] [place] [id number] Other abnormal findings on microbiological examination of [...] LAB CHEMISTRY METHOD 08/08/2024 1:48 PM EST [facility] Microalb, Ur 324.0(H) 0.0 - 29.0 [...] ORDERABLES Final Result [facility] [address] [place] [address], documented in this encounter Visit Diagnoses Diagnosis Other abnormal findings on microbiological examination of urine Chronic kidney disease, unspecified Essential (primary) hypertension Unspecified essential hypertension documented in this encounter Care Teams Porcelain Enamel Laborer Relationship Specialty Start Date End Date Ramone Gibson MD [address] [place] [address] [facility] [place], [place] PCP - General Internal Medicine 08/09/24 documented as of this encounter
== END 2025-08-27 10:49 | disposition home or self-care (01) ==
LOC: HO.HUSH 10:18
PROVIDERS: PCP Nurse Practitioner Adult Health; Visit Provider Nurse Practitioner Family
DX: R31.29 Other microscopic hematuria (principal); N40.1 Benign prostatic hyperplasia with lower urinary tract symptoms; R33.9 Retention of urine, unspecified; N32.3 Diverticulum of bladder; N28.1 Cyst of kidney, acquired; N20.0 Calculus of kidney; N13.8 Other obstructive and reflux uropathy
CPT/HCPCS: 99213; G2211